=== PATIENT | female | born 1950 | race Caucasian/White ===

== ENCOUNTER 2016-03-17 19:30 | Observation (INO) | payer MEDICARE ==
[2016-03-17] MEDS ORDERED: Naloxone* 0.4 MG/ML 1 ML VIAL IV PUSH ONE (19:53)
--- NOTE | 2016-03-17 20:41 | RAD ---
INDICATION: Chest pain COMPARISON: Chest x-ray July 25, 2014 TECHNIQUE: Single AP view of the chest was obtained. FINDINGS: The heart and mediastinum exhibit normal size and contour. There is mild calcification of the arch of the aorta. Similar the previous chest x-ray the lungs appear hyperaerated in the AP view. Otherwise the lungs are grossly clear. There is no evidence of a large pleural effusion. Visualized bones are normal for the patient's age. IMPRESSION: No radiographic evidence for acute cardiopulmonary abnormality on this single AP view chest x-ray.
[2016-03-17 20:47] LABS: Benzodiazepine Urine Screen None Detected (None Detect)
[2016-03-17 20:54] LABS: Hematocrit 44 % (35-47); Hemoglobin 15.1 g/dl (12.0-16.0); Mean Corpuscular HGB Conc 35 g/dl (31-36); Mean Corpuscular Hemoglobin 33 pg (27-31); Mean Corpuscular Volume 94 fL (80-97); Mean Platelet Volume 7 um3 (7.4-10.4); Red Blood Count 4.63 10^6/ul (4.0-5.4); Red Cell Distribution Width 13 % (10.5-15); White Blood Count 8.2 10^3/ul (3.5-10.8)
--- NOTE | 2016-03-17 20:55 | RAD ---
indication: Syncopal episode with fall from standing height. Contusions are noted at the bridge of the nose and slurred speech is reported. COMPARISON: CT of the brain dated August 10, 2015, CT maxillofacial bones dated August 27, [address] of the cervical spine dated August 27, 2010. A CT scan of the brain, maxillofacial bones and c-spine was performed without intravenous contrast enhancement. Contiguous axial sections were obtained from the lung apices through the vertex. BRAIN: The ventricles, cisterns and sulci are within normal limits. Similar to the previous CT of the brain there is mild periventricular and subcortical white matter hypoattenuation most consistent with chronic microvascular disease. No significant focal abnormality or mass effect is seen. The euceda-white differentiation is adequately maintained. There is no evidence for intracranial hemorrhage. No significant bony abnormality is present. The mastoid air cells are appropriately aerated. FACIAL BONES: Dental amalgam creates streak artifact the level of the jaw which somewhat obscures evaluation of the mandible. There is moderate mucosal thickening of the right maxillary sinus including frothy secretions. The Hounsfield unit of the fluid is not dense enough to be compatible with hemorrhage. Bones: There is no displaced fracture or dislocation. The orbital rim is intact. The zygomatic arch is intact. The pterygoid plates are intact Orbits: The globes are round. The optic nerves are symmetric. The extraocular musculature is normal. There is no post septal or intraconal inflammatory change. There is no retrobulbar hematoma. There are coarse atherosclerotic calcifications at the bilateral carotid bulbs worse on the right than left. C-SPINE: On the sagittal view images the vertebral bodies and facet joints are properly aligned. There is no fracture identified K should identified. Degenerative changes include loss of intervertebral disc height most severely at C5/C6 where there is mild sclerotic change of the articulating endplates and marginal osteophyte formation. There is no hyperdense material in the cervical canal to indicate hemorrhage. The visualized musculature and soft tissues are normal. There is no gross lymphadenopathy visualized. The visualized portion of the lung apices are clear. IMPRESSION: 1. No calvarial fracture or acute intracranial hemorrhage. 2. No acute facial bone fractures. 3. No fracture or dislocation of the cervical spine. 4. There are chronic and degenerative changes described in the body the report that are not changed significantly when compared to prior CT imaging.
[2016-03-17 21:01] LABS: Alcohol < 10 mg/dL (<10)
[2016-03-17 21:03] LABS: ALT 11 U/L (7-52); AST 18 U/L (13-39); Albumin 4.4 g/dL (3.2-5.2); Alkaline Phosphatase 100 U/L (34-104); BUN/Creatinine Ratio 11.2 (8-20); Blood Urea Nitrogen 14 mg/dL (6-24); CO2 Carbon Dioxide 22 mmol/L (22-32); Calcium 8.6 mg/dL (8.6-10.3); Chloride 86 mmol/L (101-111); Creatine Kinase 81 U/L (10-223); EGFR African American 55.1 (>60); EGFR Non-African American 42.9 (>60); Globulin 2.4 g/dL (2-4); Glucose 107 mg/dL (70-100); Potassium 3.3 mmol/L (3.5-5.0); Total Protein 6.8 g/dL (6.4-8.9)
[2016-03-17 21:05] LABS: Anion Gap 11 mmol/L (2-11); Sodium 119 mmol/L (133-145)
[2016-03-17] MEDS ORDERED: NS 0.9% 1000 ML* 1,000 ML IV ONE (21:37)
[2016-03-17 22:47] LABS: Urine Bacteria Absent (Absent); Urine Bilirubin Negative (Negative); Urine Glucose Negative (Negative); Urine Nitrite Negative (Negative)
[2016-03-18 01:21] LABS: BUN/Creatinine Ratio 12.8 (8-20); Calcium 7.2 mg/dL (8.6-10.3); EGFR African American 55.1 (>60); EGFR Non-African American 42.9 (>60)
[2016-03-18 01:24] LABS: Potassium 3.3 mmol/L (3.5-5.0)
--- NOTE | 2016-03-18 03:15 | HP ---
HISTORY AND PHYSICAL: * ADDENDUM: Please note the EKG that I referred to was on another patient. Her EKG shows sinus bradycardia, 58 beats a minute, normal axis, some ST elevations in lead III, and a right bundle branch block pattern. So, therefore, the patient can have the MRI, she has no evidence of a pacemaker. [id number]/[facility] #: [id number] MTDD
[2016-03-18] MEDS: Heparin VIAL(*) 5000 UNITS/ML VIAL (FIVE THOUSAND) SUBCUT SCH ×2 (05:18→14:05)
[2016-03-18 05:36] LABS: BUN/Creatinine Ratio 11.8 (8-20); Calcium 8.6 mg/dL (8.6-10.3); EGFR African American 43.7 (>60); Potassium 3.5 mmol/L (3.5-5.0)
--- NOTE | 2016-03-18 05:50 | HP ---
DATE OF ADMISSION: 03/18/16 CHIEF COMPLAINT: "I almost passed out." HISTORY OF PRESENT ILLNESS: The patient is a 66-year-old woman who says she almost fainted at home last night when she was going to go towards the chilli she was making. She denies ever losing consciousness. She told me she had a very dry mouth and dry throat though she notes she had had increased anxiety during the day and actually saw her psychiatrist that day and had Ativan ordered , but she says she did not take it. In the ER, she was evaluated by the ER physician and found to have some slurred speech. She was also found to have a sodium of 119. She denies any chest pain, shortness of breath, palpitations, abdominal pain, nausea, vomiting, diarrhea, increased frequency of urination or pain on urination. PAST MEDICAL HISTORY: She has a past medical history significant for bipolar disorder and schizophrenia. PAST SURGICAL HISTORY: Significant for x2, total abdominal hysterectomy and salpingectomy, appendectomy, tubal ligation. CURRENT MEDICATIONS: Include: 1. Zyprexa 15 mg daily. 2. Lamictal 200 mg twice daily. 3. Lyrica 150 mg 3 times a day. ALLERGIES: She has no known drug allergies. FAMILY HISTORY: Reviewed and noncontributory. SOCIAL HISTORY: Smokes about half a pack a day. No alcohol or recreational drug use, she says. , lives in [place]. REVIEW OF SYSTEMS: A 14-point review of systems was completed with the patient. All pertinent positives and negatives are in the history of present illness, otherwise it is negative. PHYSICAL EXAMINATION GENERAL: A pleasant woman, lying in bed, in no acute distress. VITAL SIGNS: Temperature 98 degrees, heart rate 66 beats per minute, respiratory rate 14 breaths per minute, pulse ox 95%, blood pressure 81/48. HEENT: Normocephalic, atraumatic. Pupils equal, round, reactive to light. Moist mucous membranes. NECK: Supple. No JVD, bruits, palpable thyroid or lymphadenopathy. CHEST: Clear to auscultation and percussion bilaterally. CARDIOVASCULAR: S1, S2 appreciated. ABDOMEN: Positive bowel sounds in all 4 quadrants. Soft, nontender, and nondistended. No hepatosplenomegaly. EXTREMITIES: No cyanosis, clubbing, or edema, +2 peripheral pulses bilaterally. NEURO: Alert and oriented x3, moves all extremities. SKIN: No rashes or abnormalities. DIAGNOSTIC STUDIES AND LABORATORY DATA: White count 8.2, hemoglobin 15.1, hematocrit 44, platelets 304. Sodium was 119, now up to 126, potassium 3.3, chloride 86, CO2 22, BUN 14, creatinine 1.25, glucose is 107. INR 0.3. Urinalysis: 1 to 6 rbc's. Urine tox is negative. ADDENDUM: Her EKG shows sinus bradycardia, 58 beats a minute, normal axis, some ST elevations in lead III, and a right bundle branch block pattern. So, therefore, the patient can have the MRI; she has no evidence of a pacemaker. Chest x-ray: No radiographic evidence for acute cardiopulmonary abnormality. Brain CT: No calvarial fracture or acute intracranial findings or hemorrhage, no acute facial bone fractures. No fracture or dislocation of the cervical spine, chronic degenerative changes as described in the body of the report. ASSESSMENT AND PLAN: 1. Near syncope. The patient is acting as if she has taken some kind of medication or alcohol, but her urine tox is negative. It is quite puzzling what is going on at this point. We will admit her, do neurological checks. I was going to order an MRI, but looks like she may have a pacemaker. I will do CTA of the head and neck. I may ask Neuro to evaluate if she does not improve. We will get a Physical Therapy consult. 2. Bipolar disorder/schizophrenia. Continue current regimen. 3. FEN. Regular diet. 4. DVT prophylaxis. Heparin subcu. 5. The patient is a full code. TIME SPENT: Over 75 minutes were spent on this H and P; more than 40 minutes were spent in direct [id number] contact with the patient in evaluation, physical exam, counseling, and coordination of care. CC: Evaristo Salazar MD* [id number]/[facility] #: [id number] [id number]/[facility] #: [id number] JEET
[2016-03-18] MEDS ORDERED: lamoTRIgine TAB(*) 100 MG PO SCH (09:00)
[2016-03-18] MEDS ORDERED: OLANzapine TAB* 5 MG PO SCH ×2 (09:00→17:00)
[2016-03-18] MEDS: Pregabalin CAP(*) 100 MG PO SCH ×2 (10:20→14:06)
[2016-03-18] MEDS: Pregabalin CAP(*) 50 MG PO SCH ×2 (10:22→14:08)
[2016-03-18 11:14] VITALS: BP 116/62
[2016-03-18] MEDS ORDERED: Iodixanol* (CONTRAST) 320 MG/ML 100 ML SDV IV ONE (11:54)
--- NOTE | 2016-03-18 12:01 | RAD ---
Indication: Confusion. Image sequences: Sagittal and axial T1, axial T2, FLAIR, diffusion and susceptibility weighted images of the brain were obtained. Ventricular structures are midline. No midline shift is noted. The extraction spaces are unremarkable. Central and cortical atrophy is noted. There is no evidence of intracranial mass or hemorrhage. Multiple punctate areas of increased signal is noted on the FLAIR images and subcortical white matter and deep white matter bilaterally consistent with chronic ischemic White change. No definite vasogenic edema is noted. Susceptibility weighted images demonstrates no evidence of residual hemosiderin. Diffusion weighted images demonstrates no restriction of diffusion. Mucosal thickening of the right maxillary sinus is noted. Mastoid air cells are otherwise unremarkable. IMPRESSION: CHRONIC ISCHEMIC WHITE MATTER CHANGE WITH NO EVIDENCE OF RESTRICTION OF DIFFUSION TO SUGGEST ACUTE INFARCT.
--- NOTE | 2016-03-18 13:21 | RAD ---
INDICATION: Altered mental status. Near syncope. COMPARISON: March 18, 2016 MRI brain. TECHNIQUE: Multidetector CT images were obtained from the aortic arch to the vertex of the head with 80 mL Visipaque 320 IV contrast. Arterial phase of enhancement. Multiplanar reformation including maximum intensity projection. 3-D arterial volume rendering. Stenosis estimations based on denominator of distal arterial diameter. NECK ANGIOGRAM REPORT: Normal configuration of the branch vessels at the aortic arch without evidence for ostial stenosis. Predominant calcific plaque at the RIGHT carotid bulb results in approximate 50% stenosis. No additional atherosclerotic plaque at the RIGHT internal carotid artery. Mild predominant noncalcified plaque at the LEFT carotid bulb and proximal internal carotid artery with less than 30% stenosis resulting. Patent codominant vertebral arteries both contribute to the basilar artery. NECK ANGIOGRAM IMPRESSION: 1. Approximate 50% stenosis at the RIGHT carotid bulb. 2. Less than 30% stenosis at the LEFT carotid bulb and proximal internal carotid artery. HEAD ANGIOGRAM REPORT: Mucosal thickening and air-fluid level with punctate gas bubbles in the RIGHT maxillary sinus suspicious for acute sinusitis warranting clinical correlation. Negative for significant stenosis or occlusion of the intracranial internal carotid arteries, M1 or M2 segments of the middle cerebral arteries, or A1 or A2 segments of the anterior cerebral arteries. No definitive anterior communicating artery visualized. Unremarkable basilar artery and cerebellar artery origins. Patent RIGHT posterior cerebral artery supplied primarily by the posterior circulation with normal variant hypoplastic posterior communicating artery. Patent LEFT posterior cerebral artery is supplied equally from the anterior and posterior circulation with similar size P1 segment and posterior communicating artery. No intracranial aneurysm or vascular malformation evident. The dural venous sinuses are normally opacified without evidence for thrombosis. Advanced C5-C6 degenerative spondylosis. No suggestion of resulting acquired central canal stenosis. Uncinate process spurring and facet joint osteoarthritis results in moderate RIGHT and slight LEFT foraminal stenosis at C5-C6. HEAD ANGIOGRAM IMPRESSION: 1. Normal arterial variation as described. No significant stenosis or occlusion of the central intracranial arterial vasculature. 2. Mucosal thickening and air-fluid level with punctate gas bubbles in the RIGHT maxillary sinus suspicious for acute sinusitis warranting clinical correlation. CPT II: CPT II Codes: 3100F
--- NOTE | 2016-03-18 14:34 | DCNOTE ---
Patient seen this afternoon. Says she feels back to baseline, no further issues. On exam, RRR, s1 and s2 present, no m/g/r, lungs CTA B/L, no w/r/r, no neuro deficits. Plan to discharge home today. I think symptoms likely due to hyponatremia which improved after IVF. Checking Justin, UOsm. Recheck BMP early next week. Do not think she needs treatment for TIA at this time.
--- NOTE | 2016-03-19 01:12 | DS ---
DISCHARGE SUMMARY: DATE OF ADMISSION: 03/17/16 DATE OF DISCHARGE: 03/18/16 PRIMARY CARE PHYSICIAN: Evaristo Salazar MD PRINCIPAL DISCHARGE DIAGNOSIS: Presyncope. SECONDARY DIAGNOSES: 1. Depression. 2. Anxiety. DISCHARGE MEDICATION REGIMEN: 1. Olanzapine 15 mg by mouth daily. 2. Lamictal 200 mg by mouth 2 times daily. 3. Lyrica 150 mg by mouth 3 times daily. STUDIES DONE DURING HOSPITALIZATION: Chest x-ray. Impression: No acute cardiopulmonary disease. CT of the brain without contrast. Impression: No calvarial fracture or acute intracranial hemorrhage. No acute fascial bone fractures. No fracture or dislocation of the cervical spine. Chronic degenerative changes described in the body of the report that are not significantly changed prior to previous CT. CT of the cervical spine, same as above. CT maxillofacial. Same as above. MRI of the brain without contrast. Impression: Chronic ischemic white matter change with no evidence of restriction of diffusion to suggest acute infarct. CTA of the head and neck. Impression: Normal arterial variation as described. No significant stenosis. Mucosal thickening and air fluid level with punctate gas in the right maxillary sinus suspicious for acute sinusitis. HISTORY OF PRESENT ILLNESS AND HOSPITAL SUMMARY: Please see the full history and physical by Dr. Glynn Freitas for details. Briefly, Ms. Moran is a 66-year- old female with a past medical history as above who presented to the hospital with a presyncopal episode of fall and some mild fascial trauma. The patient was found to have a low sodium on admission. She had a negative U-tox. She reported just feeling "off" and was unable to describe it much more clearly. She felt sort of a diffuse weakness. The patient underwent significant imaging as above, which showed no acute changes. Her symptoms improved with improvement in her hyponatremia back to her baseline around the mid 120s up from 119 at admission. Urine sodium was less than 18 indicating this is possibly just due to from hypovolemic hyponatremia. She responded to IV fluids and had no further issues throughout the hospitalization. The patient will be discharged home for repeat blood work to be done as an outpatient. No medication changes were made at this time. TIME SPENT: Total time spent on this discharge 40 minutes. This is a summary of the hospitalization, please see the full medical record for further details. CC: Evaristo Salazar MD * [id number]/[facility] #: [id number] [facility]
== END 2016-03-18 17:55 | disposition home or self-care (01) ==
LOC: ED 19:30 → MEDTELE 03-18 01:57
PROVIDERS: ADMIT Internal Medicine; ATTEND Hospitalist
DX: R55 Syncope and collapse (principal); F20.9 Schizophrenia, unspecified; F31.9 Bipolar disorder, unspecified; F41.9 Anxiety disorder, unspecified; R00.1 Bradycardia, unspecified; I45.10 Unspecified right bundle-branch block; Z79.899 Other long term (current) drug therapy; F17.210 Nicotine dependence, cigarettes, uncomplicated
CPT/HCPCS: 36415; 70450; 70486; 70496; 70498; 70551; 71010; 72125; 80048; 80053; 80175; 80307; 80320; 81003; 81015; 82550; 82553; 83605; 83874; 83880; 83930; 83935; 84300; 84484; 85025; 85610; 85730; 87086; 93005; 96360; 96361; 96372; 99284; A9270-GY; G0378; G0480; G8978-GP-CI; G8979-GP-CI; G8980-GP-CI; J1644; Q9967

== ENCOUNTER 2016-04-24 09:50 | Inpatient (IN) | payer MEDICARE ==
[2016-04-24 11:08] LABS: Hematocrit 44 % (35-47); Hemoglobin 15.2 g/dl (12.0-16.0); Mean Corpuscular HGB Conc 35 g/dl (31-36); Mean Corpuscular Hemoglobin 32 pg (27-31); Mean Corpuscular Volume 93 fL (80-97); Mean Platelet Volume 7 um3 (7.4-10.4); Red Cell Distribution Width 13 % (10.5-15); White Blood Count 12.3 10^3/ul (3.5-10.8)
[2016-04-24 11:25] LABS: Albumin 3.9 g/dL (3.2-5.2); EGFR African American 32.1 (>60); EGFR Non-African American 24.9 (>60); Globulin 2.5 g/dL (2-4); Magnesium 2.4 mg/dL (1.9-2.7); Potassium 3.7 mmol/L (3.5-5.0); Total Bilirubin 0.5 mg/dL (0.2-1.0); Total Protein 6.4 g/dL (6.4-8.9)
[2016-04-24 11:26] LABS: Troponin I 0.01 ng/mL (<0.04)
[2016-04-24 11:34] LABS: TSH (Thyroid Stimulating Horm) 2.06 mcIU/mL (0.34-5.60)
--- NOTE | 2016-04-24 13:05 | RAD ---
HISTORY: Fall, altered mental status COMPARISONS: March 17, 2016 TECHNIQUE: Multiple contiguous axial CT scans were obtained of the head without intravenous contrast. FINDINGS: HEMORRHAGE/INFARCT: There is no hemorrhage or acute infarct. MASSES/SHIFT: There is no mass or shift. EXTRA-AXIAL SPACES: There are no extra-axial fluid collections. SULCI AND VENTRICLES: The sulci and ventricles are normal in size and position for the patient's stated age. CEREBRUM: There are no focal parenchymal abnormalities. BRAINSTEM: There are no focal parenchymal abnormalities. CEREBELLUM: There are no focal parenchymal abnormalities. VESSELS: The vessels are grossly normal. PARANASAL SINUSES: The paranasal sinuses are clear. ORBITS: The orbits are unremarkable. BONES AND SOFT TISSUE: No bone or soft tissue abnormalities are noted. OTHER: None IMPRESSION: NO ACUTE INTRACRANIAL PATHOLOGY.
[2016-04-24] MEDS ORDERED: NS 0.9% 250 ML* 250 ML IV SCH (14:00)
[2016-04-24] MEDS ORDERED: Ibuprofen TAB* 200 MG PO ONE (16:40)
[2016-04-24] MEDS ORDERED: Acetaminophen TAB* 325 MG PO PRN (16:40)
[2016-04-24] MEDS ORDERED: Metoclopramide IV* 5 MG/ML 2 ML VIAL IV ONE (16:40)
[2016-04-24] MEDS ORDERED: SUMAtriptan TAB* 50 MG PO PRN (16:41)
[2016-04-24] MEDS ORDERED: NS 0.9% 1000 ML* 1,000 ML IV SCH (16:45)
[2016-04-24] MEDS ORDERED: NS 0.9% 1000 ML* 500 ML IV SCH (16:45)
[2016-04-24] MEDS ORDERED: Enoxaparin(*) 40 MG/0.4 ML SYR SUBCUT SCH (17:00)
--- NOTE | 2016-04-24 17:36 | RAD ---
Indication: Right base Rales. 2 views of the chest including dual energy PA views are reviewed and compared to previous exam dated March 17, 2016. No mediastinal shift is noted. Heart is of normal size and configuration. Lung mcgowan appear hyperinflated. No pleural fluid, pneumonia or pneumothorax is noted. IMPRESSION: Hyperinflated lung mcgowan without evidence of active cardiopulmonary disease.
[2016-04-24] MEDS: Pregabalin CAP(*) 50 MG PO SCH (20:04)
[2016-04-24] MEDS: lamoTRIgine TAB(*) 100 MG PO SCH (20:04)
--- NOTE | 2016-04-24 20:42 | HP ---
HISTORY AND PHYSICAL: DATE OF ADMISSION: 04/25/16 PRIMARY CARE PROVIDER: Dr. Salazar. HEALTHCARE PROXY: Her . CODE STATUS: Full. SOURCE OF INFORMATION: History obtained from review of past medical records, from recent hospital stay, interview with the patient. Past records are excellent. Interview with the patient is fair. CHIEF COMPLAINT: Dizziness. HISTORY OF PRESENT ILLNESS: This is a 66-year-old female with past medical history of recent hospital stay, was discharged on 18 of March with hyponatremia in the setting of "just not feeling right," noted to have hyponatremia that stay, 119 improved to 126 with normal saline, who notes for the last 3 days, she has been having migraine, took Motrin several times. She described as achiness, bifrontal pain without photophobia consistent with previous migraines. The night prior to admission, she felt dizzy. Described as feeling off balance, but not spinning, associated with abdominal bloating and then nausea, vomiting 4 times overnight, approximately 1 time every 2 hours. This morning, she felt "uncomfortable" with her body. She felt increasingly dizzy when standing, felt like she was stumbling from side to side , therefore, presented to the emergency room. She does not endorse decreased p.o. intake, endorses drinking 4 to 5 cans of soda per day as well as 1 large Gatorade per day and about a quart of milk per day. The patient has been coughing for approximately 6 weeks and right now feels "terrible." Otherwise, she cannot identify any other signs or symptoms of acute illness. In the emergency room, she was found to have new acute on chronic kidney injury as well as hyponatremia. Hospitalist service was consulted for admission. PAST MEDICAL/SURGICAL HISTORY: Include hyponatremia; suspicion for anorexia; low BMI of 19; depression and anxiety; bipolar disorder; past suicide attempts; past parasuicidal behavior; migraines; tubal ligation; appendectomy; total hysterectomy; salpingectomy; ; history of SBO. HOME MEDICATIONS: Unchanged from last discharge include: 1. Zyprexa 15 mg daily. 2. Lamictal 200 mg twice daily. 3. Lyrica 150 mg 3 times a day. ALLERGIES: No known drug allergies. FAMILY HISTORY: No history of CAD, lung disease, or cancer to her knowledge. SOCIAL HISTORY: Smokes quarter pack a day. . Denies alcohol. REVIEW OF SYSTEMS: As above including feeling off balance, lightheaded, nausea , vomiting, abdominal bloating, cough, and headaches consistent with previous migraines, otherwise all other systems negative. PHYSICAL EXAMINATION GENERAL: Sitting up in bed, interactive, pleasant, in no apparent distress. VITAL SIGNS: Vitals in the emergency room 107/76, heart rate 79, respiratory rate 16, T-max in the emergency room 99.4. HEENT: Oropharynx is clear. Has moist mucous membranes. Sclerae are anicteric. Tympanic membranes are visualized well with good light reflex. NECK: Nonelevated JVD. No cervical or supraclavicular lymphadenopathy. HEART: Regular rate and rhythm. No murmurs, rubs, or gallops. Her left base has rales up approximately one-half of the way. ABDOMEN: Soft, nontender, nondistended. EXTREMITIES: Warm, well perfused without clubbing, cyanosis, or edema. NEURO: she has no apparent agitation, anxiety, or depression. SKIN: She has no skin breakdown. She has a bruise over her right eye, healing. DIAGNOSTIC STUDIES/LAB DATA: Labs reviewed: Notable for sodium 117, last sodium 124 on 03/27/16. BUN 32; creatinine 2.0, last creatinine 1.3 on . Lactic acid 2.6. Glucose 140. Troponin I 0.01. TSH 2.0. White blood cell count 12.3; 85% neutrophils; hemoglobin 15.2, consistent with last value; platelets . Urine not yet obtained. EKG: Normal sinus rhythm, left axis, borderline right bundle or incomplete right bundle, good R-wave progression, no ST changes, unchanged from prior. Brain CT, impression: No intracranial pathology. ASSESSMENT AND PLAN: This is a 66-year-old female with past medical history of hyponatremia in March, migraine, presenting with suspicion of lightheadedness , found to have recurrent hyponatremia, and acute kidney injury in the setting of nausea, vomiting. 1. Hyponatremia. Suspect hypovolemic hyponatremia. She already received 250 cc of fluid in the emergency room. Especially in conjunction with acute kidney injury, I suspect prerenal etiology. Give another liter of fluid. Repeat BMP this evening. Trend BMP in the a.m. Check urinalysis. 2. Right basilar rales. Check chest x-ray. Certainly, infection could be contributing in the setting of increased leukocytosis. No formal fevers yet. 3. Dizziness. Suspect also in the setting of dehydration. 4. Acute kidney injury. Check orthostatic, fluids as above. Continue to follow. 5. Headache. Ibuprofen now. Tylenol as needed. Reglan now, sumatriptan if ineffective. 6. DVT prophylaxis. Heparin subcu in the setting of renal insufficiency. 7. Code status is full. CC: Dr. Salazar* [id number]/[facility] #: [id number] MTDD
[2016-04-24] MEDS: Heparin VIAL(*) 5000 UNITS/ML VIAL (FIVE THOUSAND) SUBCUT SCH (21:44)
[2016-04-24] MEDS: Ondansetron INJ* 2 MG/ML VIAL IV PRN (21:46)
[2016-04-24] MEDS ORDERED: PROCHLORPERAZINE INJ 5 MG/ML 2 ML VIAL IV PRN (22:51)
[2016-04-24] MEDS: Docusate CAP* 100 MG PO SCH (23:24)
[2016-04-25] MEDS: Heparin VIAL(*) 5000 UNITS/ML VIAL (FIVE THOUSAND) SUBCUT SCH ×3 (05:16→20:17)
[2016-04-25] MEDS: Ondansetron INJ* 2 MG/ML VIAL IV PRN (05:17)
[2016-04-25 05:59] LABS: Hematocrit 45 % (35-47); Hemoglobin 15.6 g/dl (12.0-16.0); Mean Corpuscular HGB Conc 35 g/dl (31-36); Mean Corpuscular Hemoglobin 32 pg (27-31); Mean Corpuscular Volume 93 fL (80-97); Mean Platelet Volume 7 um3 (7.4-10.4); Red Blood Count 4.84 10^6/ul (4.0-5.4); Red Cell Distribution Width 13 % (10.5-15); White Blood Count 6.4 10^3/ul (3.5-10.8)
--- NOTE | 2016-04-25 06:06 | PN ---
Progress Note - Progress Note Note: Nursing called reporting N/V w/ HX SBO. Abdominal XRY shows multiple air-fluid levels consistent w/ SBO. Ordered NG to low intermittent suction & NPO. Will need surgical consultation.
[2016-04-25 06:13] LABS: BUN/Creatinine Ratio 16.6 (8-20); Calcium 9.1 mg/dL (8.6-10.3); EGFR African American 31.2 (>60); EGFR Non-African American 24.2 (>60); Potassium 3.4 mmol/L (3.5-5.0)
[2016-04-25] MEDS ORDERED: NS 0.9% 1000 ML* 1,000 ML IV SCH ×3 (07:30→15:45)
[2016-04-25] MEDS: NS 0.9% 1000 ML* 2,000 ML IV ONE ×2 (07:30→08:39)
--- NOTE | 2016-04-25 07:34 | RAD ---
INDICATION: Small bowel obstruction COMPARISON: Abdomen July 18, 2014 TECHNIQUE: Erect and supine views of the abdomen are submitted. FINDINGS: Bones: There are no acute bony findings. Soft tissues: The soft tissues appear normal. The psoas margins are sharp. Bowel gas pattern: There is a small bowel obstruction with scattered air-fluid levels and dilated small bowel, predominantly jejunum. There is a paucity of gas in the colon. Calcifications: There are no abnormal calcifications. Other: None IMPRESSION: SMALL BOWEL OBSTRUCTION. RECOMMEND FOLLOW-UP.
[2016-04-25] MEDS ORDERED: Diatrizoate Meg/Sod(CONTRAST) 30 ML ORAL.SOLN PO ONE (07:52)
[2016-04-25] MEDS: Docusate CAP* 100 MG PO SCH ×2 (08:42→19:52)
[2016-04-25] MEDS ORDERED: OLANzapine TAB* 5 MG PO SCH (09:00)
[2016-04-25] MEDS ORDERED: Pneumococcal *Vac Polyvalent 0.5 ML VIAL IM ONE (09:00)
[2016-04-25] MEDS: Pregabalin CAP(*) 50 MG PO SCH ×3 (09:47→20:17)
[2016-04-25] MEDS: lamoTRIgine TAB(*) 100 MG PO SCH ×2 (09:47→20:17)
[2016-04-25] MEDS: Acetaminophen ADULT LIQ* 650 MG/20.3 ML UDC PO PRN ×2 (10:05→16:41)
--- NOTE | 2016-04-25 12:04 | RAD ---
INDICATION: Small bowel obstruction COMPARISON: Abdominal series April 25, 2016; CT July 24, 2014 TECHNIQUE: Axial source images were acquired from the level hemidiaphragms to the symphysis pubis following the demonstration of oral contrast only. Lung bases: There is mild gravity dependent atelectasis. The lung bases are otherwise clear. Liver: The liver is normal in size. Noncontrast imaging shows no evidence of a hepatic mass or ductal dilatation. Gallbladder: Cholelithiasis. No thickening gallbladder wall or pericholecystic fluid. Spleen: The spleen is normal in size. The noncontrast CT appearance is normal. Pancreas: Noncontrast imaging shows no pancreatic mass or ductal dilitation. Adrenal glands: Mild right adrenal gland hyperplasia. No discrete mass. Unremarkable left adrenal gland. Kidneys/Bladder: There is no evidence of nephrolithiasis or CT evidence of hydronephrosis. Noncontrast imaging shows no evidence of a renal mass. The bladder is distended and may require a Cleary catheter in the patient was unable to void Adenopathy: There is no evidence of intraperitoneal or retroperitoneal adenopathy. Evaluation is limited without oral contrast. Fluid collections: There are no free or localized fluid collections. Vessels: No acute abnormalities on noncontrast evaluation. Pelvic organs: There is hysterectomy. There is no adnexal mass GI tract: There is recurrent distal small bowel obstruction. The stomach is distended and the small bowel is dilated up to 4.7 cm. There is a nasogastric tube near the GE junction which is not effectively decompressing the stomach. The obstruction appears to be at the mid to distal ileum similar to the prior study. The colon is decompressed. Soft tissues: No soft tissue abnormalities of the extraperitoneal abdomen or pelvis are identified. Osseous structures: There are no acute osseous findings. IMPRESSION: RECURRENT DISTAL SMALL BOWEL OBSTRUCTION. THE STOMACH IS DISTENDED AND NOT EFFECTIVELY DECOMPRESSED BY A NASOGASTRIC TUBE WHICH SHOULD BE ADVANCED OR SET TO SUCTION. DISTENDED BLADDER. INCIDENTAL CHOLELITHIASIS.
[2016-04-25] MEDS: KCL 20 MEQ/100 ML IVPREMIX* 20 MEQ/100 ML BAG IV SCH ×3 (12:11→14:20)
--- NOTE | 2016-04-25 13:30 | PN ---
Subjective Date of Service: 04/25/16 Interval History: Seen and examined multiple times throughout the day NG placed overnight for SBO This AM no abdominal pain but found with SBP in 70-80s By afternoon (1330) SBP up to 100 s/p 3L normal saline +flatus now Carrasco placed for urinary retention Objective Active Medications: Acetaminophen (Tylenol Adult Liq*) 650 mg PO Q6H PRN PRN Reason: PAIN Last Admin: 04/25/16 10:05 Dose: 650 mg Docusate Sodium (Colace Cap*) 200 mg PO BID [facility] Last Admin: 04/25/16 08:42 Dose: Not Given Heparin Sodium (Porcine) (Heparin Vial(*)) 5,000 units SUBCUT Q8HR [facility] Last Admin: 04/25/16 05:16 Dose: 5,000 units Sodium Chloride (Ns 0.9% 1000 Ml*) 1,000 mls @ 125 mls/hr IV PER RATE [facility] Stop: 04/25/16 15:29 Last Admin: 04/25/16 11:26 Dose: 125 mls/hr Lamotrigine (Lamictal Tab(*)) 200 mg PO BID [facility] Last Admin: 04/25/16 09:47 Dose: 200 mg Olanzapine (Zyprexa Tab*) 15 mg PO BEDTIME [facility] Ondansetron HCl (Zofran Inj*) 4 mg IV Q4H PRN PRN Reason: NAUSEA Last Admin: 04/25/16 05:17 Dose: 4 mg Pregabalin (Lyrica Cap(*)) 150 mg PO TID [facility] Last Admin: 04/25/16 09:47 Dose: 150 mg Prochlorperazine Edisylate (Compazine Inj*) 10 mg IV Q6H PRN PRN Reason: NAUSEA Last Admin: 04/24/16 23:25 Dose: 10 mg Sumatriptan Succinate (Imitrex Tab*) 50 mg PO ONCE PRN PRN Reason: HEADACHE Last Admin: 04/24/16 21:44 Dose: 50 mg Vital Signs 04/24/16 04/24/16 04/24/16 17:00 17:01 17:09 Temperature Pulse Rate 86 83 Respiratory 17 19 Rate Blood Pressure 99/53 (mmHg) O2 Sat by Pulse 93 93 Oximetry 04/24/16 04/24/16 04/24/16 17:30 17:42 17:44 Temperature Pulse Rate 81 Respiratory 15 25 18 Rate Blood Pressure 99/59 94/60 100/66 (mmHg) O2 Sat by Pulse 94 Oximetry 04/24/16 04/24/16 04/24/16 17:46 17:49 18:00 Temperature Pulse Rate 85 95 Respiratory 16 17 Rate Blood Pressure 96/64 96/64 (mmHg) O2 Sat by Pulse 94 Oximetry 04/24/16 04/24/16 04/24/16 18:02 18:30 19:03 Temperature 98 F Pulse Rate 83 Respiratory 14 15 22 Rate Blood Pressure 108/66 99/63 100/65 (mmHg) O2 Sat by Pulse 95 Oximetry 04/24/16 04/24/16 04/24/16 20:00 20:04 22:04 Temperature Pulse Rate Respiratory 16 16 16 Rate Blood Pressure (mmHg) O2 Sat by Pulse Oximetry 04/24/16 04/25/16 04/25/16 23:29 03:19 03:33 Temperature 99.0 F 99.4 F Pulse Rate 79 87 Respiratory 16 16 Rate Blood Pressure 125/71 92/59 106/64 (mmHg) O2 Sat by Pulse 91 91 Oximetry 04/25/16 04/25/16 04/25/16 07:22 09:47 11:07 Temperature 98.7 F 98.9 F Pulse Rate 89 82 Respiratory 16 14 15 Rate Blood Pressure 82/56 (mmHg) O2 Sat by Pulse 87 95 Oximetry 04/25/16 11:47 Temperature Pulse Rate Respiratory 17 Rate Blood Pressure (mmHg) O2 Sat by Pulse Oximetry Oxygen Devices in Use Now: None Appearance: NAD Eyes: No Scleral Icterus Ears/Nose/Mouth/Throat: NL Teeth, Lips, Gums, Clear Oropharnyx Neck: NL Appearance and Movements; NL JVP, Trachea Midline Respiratory: Symmetrical Chest Expansion and Respiratory Effort, - - +rhonchi Cardiovascular: RRR Abdominal: - - soft, NTTP, distended, +bs Lymphatic: No Cervical Adenopathy Extremities: No Edema Skin: No Rash or Ulcers Neurological: Alert and Oriented x 3 Result Diagrams: 04/25/16 04:55 04/25/16 04:55 Additional Lab and Data: Lab Results 04/24/16 04/24/16 04/24/16 Range/Units 10:54 10:54 10:54 WBC 12.3 H (3.5-10.8) 10^3/ul RBC 4.70 (4.0-5.4) 10^6/ul Hgb 15.2 (12.0-16.0) g/dl Hct 44 (35-47) % MCV 93 (80-97) fL MCH 32 H (27-31) pg MCHC 35 (31-36) g/dl RDW 13 (10.5-15) % Plt Count 369 (150-450) 10^3/ul MPV 7 L (7.4-10.4) um3 Neut % (Auto) 85.6 H (38-83) % Lymph % (Auto) 3.9 L (25-47) % [place] % (Auto) 9.6 H (1-9) % Eos % (Auto) 0.1 (0-6) % Baso % (Auto) 0.8 (0-2) % Absolute Neuts (auto) 10.5 H (1.5-7.7) 10^3/ul Absolute Lymphs (auto) 0.5 L (1.0-4.8) 10^3/ul Absolute Monos (auto) 1.2 H (0-0.8) 10^3/ul Absolute Eos (auto) 0 (0-0.6) 10^3/ul Absolute Basos (auto) 0.1 (0-0.2) 10^3/ul Absolute Nucleated RBC 0 10^3/ul Nucleated RBC % 0 Sodium 117 L* (133-145) mmol/L Potassium 3.7 (3.5-5.0) mmol/L Chloride 82 L (101-111) mmol/L Carbon Dioxide 23 (22-32) mmol/L Anion Gap 12 H (2-11) mmol/L BUN 32 H (6-24) mg/dL Creatinine 2.00 H (0.51-0.95) mg/dL Est GFR ( Amer) 32.1 (>60) Est GFR (Non-Af Amer) 24.9 (>60) BUN/Creatinine Ratio 16.0 (8-20) Glucose 140 H (70-100) mg/dL Lactic Acid 2.6 H* (0.5-2.0) mmol/L Calcium 9.0 (8.6-10.3) mg/dL Magnesium 2.4 (1.9-2.7) mg/dL Total Bilirubin 0.50 (0.2-1.0) mg/dL AST 26 (13-39) U/L ALT 20 (7-52) U/L Alkaline Phosphatase 86 (34-104) U/L Troponin I 0.01 (<0.04) ng/mL Total Protein 6.4 (6.4-8.9) g/dL Albumin 3.9 (3.2-5.2) g/dL Globulin 2.5 (2-4) g/dL Albumin/Globulin Ratio 1.6 (1-3) TSH 2.06 (0.34-5.60) mcIU/mL Microbiology and Other Data: Microbiology 04/24/16 18:00 Nasal Screen MRSA (PCR)([facility]) - Final Nasal Mrsa Negative 04/24/16 18:00 Influenza Types A,B Antigen ([facility]) - Final Nasal Specimen received for Influenza A/B Molecular testing Assess/Plan/Problems-Billing Assessment: 66 yo F h/o hysterectomy/c-sections, SBO (06/2014) resolved with conservative measures, p/w N/V, PEREZ found with hyponatremia, KRYSTINA and recurrent SBO - Patient Problems (1) Urinary retention Comment: carrasco placed with relief (2) Acute renal failure Comment: No e/o hydro on CT but pt was retaining. Also suspect pre renal in setting of hyponatremia Urine has not been collected (3) Hyponatremia Comment: hypovolemic improving with crystalloids (4) Small bowel obstruction Comment: NG in place, NPO +flatus appreciate surgical assistance (5) Hx of bipolar disorder Comment: c/w lamictal, zyprexa (6) DVT prophylaxis Comment: HSQ
[2016-04-25 14:46] LABS: Urine Bacteria Absent (Absent); Urine Bilirubin Negative (Negative); Urine Glucose Negative (Negative); Urine Nitrite Negative (Negative)
--- NOTE | 2016-04-25 15:26 | CONS ---
SURGICAL CONSULTATION REPORT: DATE OF CONSULT: 04/25/16 HISTORY OF PRESENT ILLNESS: I was contacted by the hospitalist service to evaluate Ms. Naheed Moran, a 66-year-old female, who presented to the emergency room yesterday with complaints of fatigue and just not feeling right, noted to have significant hyponatremia and was admitted for IV hydration for this as well as for acute kidney injury. The patient was noted to have abdominal distention and underwent x-ray of the abdomen, which was consistent with small bowel obstruction. The patient has a history of small obstruction in the past with her most recent admission for this purpose just under 2 years ago, this was treated nonoperatively. The patient remains n.p.o. on IV fluids and NG tube was placed and over 2 liters of output have been recorded thus far. The patient describes abdominal distention, but denies any abdominal pain. She is obstipated for over a day now. She cannot remember when her last bowel movement was. She is having some nausea despite NG tube placement in her hospital bed right now with some vomitus in the adjacent bucket that she was using. She has no appetite. She feels as though she cannot control her body at times. She is very tearful. PAST MEDICAL HISTORY: 1. Depression. 2. Anxiety. 3. Bipolar disorder. 4. Migraines. PAST SURGICAL HISTORY: C-sections x2 in the s and a total hysterectomy, salpingectomy and appendectomy performed in 1983 for fibroids. HOME MEDICATIONS: Include: 1. Zyprexa. 2. Lamictal. 3. Lyrica. ALLERGIES: She has no known drug allergies. REVIEW OF SYSTEMS: She denies headaches at this point, but she does suffer with migraines. No shortness of breath. No chest pain. Abdominal discomfort, but would not describe it as pain. Psychiatric illnesses as described above. No dysuria, but the patient will be having a Cleary placed shortly after undergoing a CT scan, which showed a dilated bladder. The patient is a smoker and smokes about 5 to 6 cigarettes a day. No cardiovascular disease. No cerebrovascular disease. PHYSICAL EXAM: She is afebrile. Vital signs are stable, but her blood pressure has been soft at 82/56 at last reading. She is alert and oriented x3. Again sad that she is admitted. She has NG tube in place with a full canister that is being replaced at this time as well as she did have emesis. Head, ears, eyes, nose, and throat: Normocephalic, atraumatic. Sclerae anicteric. Mucous membranes are dry. Neck: No lymphadenopathy. Abdomen is soft, distended, minimally tender without rebound. No hernias or masses noted. Well-healed surgical incisions. High- pitched hyperactive bowel sounds. Rectal exam not performed. Extremities: No cyanosis or edema. DIAGNOSTIC STUDIES/LAB DATA: The patient's lab show entry white count of 12.3, which now has come down to 6.4. Chemistry panel shows a creatinine of 2, again on repeat, she is off of her baseline, which is about 1.5, although at previous times, she has been elevated. She had a lactic acid of 2.6. It has normalized and she has normal LFTs, included troponin and TSH. The patient underwent a CAT scan of the abdomen and pelvis. These images as well as the reports were reviewed and is consistent with a small bowel obstruction. No free fluid or free air. Stomach is dilated. Bladder is dilated. IMPRESSION: Small bowel obstruction that has resolved in the past with nonsurgical treatment. PLAN/RECOMMENDATIONS: Plan will be observe, IV hydration, n.p.o. status, NG tube, recommend Cleary catheter as well. NG tube can be placed a little deeper into the stomach and possibly the patient will not be vomiting around the tube. We will follow with serial abdominal exams and the patient may require surgical intervention, namely exploratory laparotomy and lysis of adhesions, and I believe that she is suffering with malignancy and I believe small bowel obstruction is possibly secondary to her renal insufficiency, although it may be opposite and she may be suffering with severe hypervolemia secondary to the obstruction. It is unclear with Ms. Moran at this point; nevertheless, this remains the treatment for IV hydration, monitoring her electrolytes and serial abdominal exams. CC: [facility]; Dr. Evaristo Salazar * [id number]/[facility] #: [id number] [facility] CENTERMelyssa
[2016-04-25] MEDS ORDERED: NS 0.9% 250 ML* 250 ML IV PRN (19:18)
[2016-04-25] MEDS: OLANzapine TAB* 5 MG PO SCH (20:16)
[2016-04-26] MEDS: Phenol 1.4% Spray* 177 ML BTL MT PRN ×4 (04:41→12:49)
[2016-04-26] MEDS: Heparin VIAL(*) 5000 UNITS/ML VIAL (FIVE THOUSAND) SUBCUT SCH ×3 (04:48→22:24)
[2016-04-26] MEDS: Acetaminophen ADULT LIQ* 650 MG/20.3 ML UDC PO PRN ×3 (04:48→22:08)
[2016-04-26 06:14] LABS: Hematocrit 38 % (35-47); Hemoglobin 13.1 g/dl (12.0-16.0); Mean Corpuscular HGB Conc 35 g/dl (31-36); Mean Corpuscular Hemoglobin 33 pg (27-31); Mean Corpuscular Volume 95 fL (80-97); Mean Platelet Volume 7 um3 (7.4-10.4); Red Blood Count 3.99 10^6/ul (4.0-5.4); Red Cell Distribution Width 13 % (10.5-15); White Blood Count 4.9 10^3/ul (3.5-10.8)
[2016-04-26 06:51] LABS: BUN/Creatinine Ratio 15.9 (8-20); Calcium 8.2 mg/dL (8.6-10.3); EGFR African American 46.5 (>60); EGFR Non-African American 36.1 (>60); Potassium 3.9 mmol/L (3.5-5.0)
[2016-04-26] MEDS: Albuterol/Ipratropium NEB.SOL* Albuterol 2.5 MG/Ipratropium 0.5 MG 3 ML INH PRN (08:46)
[2016-04-26] MEDS: Pregabalin CAP(*) 50 MG PO SCH ×3 (09:21→22:11)
[2016-04-26] MEDS: lamoTRIgine TAB(*) 100 MG PO SCH ×2 (09:22→22:14)
[2016-04-26] MEDS: Docusate CAP* 100 MG PO SCH ×2 (09:34→21:41)
--- NOTE | 2016-04-26 11:46 | PN ---
Subjective Date of Service: 04/26/16 Interval History: No abdominal pain. No N/V. Does complaint of pain in back of throat. Belly feels less distended. Reports "a lot of gas" no BMs Objective Active Medications: Acetaminophen (Tylenol Adult Liq*) 650 mg PO Q6H PRN PRN Reason: PAIN Last Admin: 04/26/16 04:48 Dose: 650 mg Albuterol/Ipratropium (Duoneb Neb.Desiree*) 1 neb INH Q6H PRN PRN Reason: SOB/WHEEZING Last Admin: 04/26/16 08:46 Dose: 1 neb Docusate Sodium (Colace Cap*) 200 mg PO BID [facility] Last Admin: 04/26/16 09:34 Dose: Not Given Heparin Sodium (Porcine) (Heparin Vial(*)) 5,000 units SUBCUT Q8HR [facility] Last Admin: 04/26/16 04:48 Dose: 5,000 units Sodium Chloride (Ns 0.9% 250 Ml*) 250 mls @ 0 mls/hr IV .BOLUS PRN; As Directed PRN Reason: NGT OUTPUT REPLACEMENT Last Admin: 04/26/16 02:00 Dose: 250 mls/hr Lamotrigine (Lamictal Tab(*)) 200 mg PO BID [facility] Last Admin: 04/26/16 09:22 Dose: 200 mg Olanzapine (Zyprexa Tab*) 15 mg PO BEDTIME [facility] Last Admin: 04/25/16 20:16 Dose: 15 mg Ondansetron HCl (Zofran Inj*) 4 mg IV Q4H PRN PRN Reason: NAUSEA Last Admin: 04/25/16 05:17 Dose: 4 mg Phenol/Menthol (Chloroseptic Throat [place]*) 1 spray MT Q1H PRN PRN Reason: THROAT IRRITATION Last Admin: 04/26/16 09:18 Dose: 1 spray Pregabalin (Lyrica Cap(*)) 150 mg PO TID [facility] Last Admin: 04/26/16 09:21 Dose: 150 mg Prochlorperazine Edisylate (Compazine Inj*) 10 mg IV Q6H PRN PRN Reason: NAUSEA Last Admin: 04/24/16 23:25 Dose: 10 mg Sumatriptan Succinate (Imitrex Tab*) 50 mg PO ONCE PRN PRN Reason: HEADACHE Last Admin: 04/24/16 21:44 Dose: 50 mg Vital Signs 04/25/16 04/25/16 04/25/16 11:47 12:00 13:57 Temperature Pulse Rate Respiratory 17 16 Rate Blood Pressure 88/50 (mmHg) O2 Sat by Pulse Oximetry 04/25/16 04/25/16 04/25/16 14:05 15:44 15:46 Temperature 99.8 F Pulse Rate 94 Respiratory 16 Rate Blood Pressure 100/57 100/60 (mmHg) O2 Sat by Pulse 87 Oximetry 04/25/16 04/25/16 04/25/16 15:48 16:10 17:20 Temperature Pulse Rate Respiratory 19 Rate Blood Pressure (mmHg) O2 Sat by Pulse 93 92 Oximetry 04/25/16 04/25/16 04/25/16 19:58 20:00 20:17 Temperature 98.9 F Pulse Rate 91 Respiratory 16 20 19 Rate Blood Pressure 102/51 (mmHg) O2 Sat by Pulse 93 Oximetry 04/25/16 04/25/16 04/26/16 22:17 23:26 03:26 Temperature 98.4 F 98.3 F Pulse Rate 78 88 Respiratory 16 16 24 Rate Blood Pressure 121/66 151/88 (mmHg) O2 Sat by Pulse 91 91 Oximetry 04/26/16 04/26/16 04/26/16 07:37 07:51 08:48 Temperature 97.8 F Pulse Rate 73 72 Respiratory 16 16 16 Rate Blood Pressure 101/76 (mmHg) O2 Sat by Pulse 97 95 Oximetry 04/26/16 09:21 Temperature Pulse Rate Respiratory 16 Rate Blood Pressure (mmHg) O2 Sat by Pulse Oximetry Oxygen Devices in Use Now: Nasal Cannula Appearance: NAD Eyes: No Scleral Icterus, PERRLA Ears/Nose/Mouth/Throat: Clear Oropharnyx, Mucous Membranes Moist Neck: NL Appearance and Movements; NL JVP, Trachea Midline Respiratory: Symmetrical Chest Expansion and Respiratory Effort, - - diffuse rhonchi Cardiovascular: NL Sounds; No Murmurs; No JVD, RRR Abdominal: NL Sounds; No Tenderness; No Distention, No Hepatosplenomegaly Extremities: No Edema, No Clubbing, Cyanosis Skin: No Rash or Ulcers Neurological: Alert and Oriented x 3 Lines/Tubes/Other Access: Clean, Dry and Intact Carrasco, Clean, Dry and Intact Naso-enteral Tube Result Diagrams: 04/26/16 05:51 04/26/16 05:51 Additional Lab and Data: Lab Results 04/24/16 04/24/16 04/24/16 Range/Units 10:54 10:54 10:54 WBC 12.3 H (3.5-10.8) 10^3/ul RBC 4.70 (4.0-5.4) 10^6/ul Hgb 15.2 (12.0-16.0) g/dl Hct 44 (35-47) % MCV 93 (80-97) fL MCH 32 H (27-31) pg MCHC 35 (31-36) g/dl RDW 13 (10.5-15) % Plt Count 369 (150-450) 10^3/ul MPV 7 L (7.4-10.4) um3 Neut % (Auto) 85.6 H (38-83) % Lymph % (Auto) 3.9 L (25-47) % [place] % (Auto) 9.6 H (1-9) % Eos % (Auto) 0.1 (0-6) % Baso % (Auto) 0.8 (0-2) % Absolute Neuts (auto) 10.5 H (1.5-7.7) 10^3/ul Absolute Lymphs (auto) 0.5 L (1.0-4.8) 10^3/ul Absolute Monos (auto) 1.2 H (0-0.8) 10^3/ul Absolute Eos (auto) 0 (0-0.6) 10^3/ul Absolute Basos (auto) 0.1 (0-0.2) 10^3/ul Absolute Nucleated RBC 0 10^3/ul Nucleated RBC % 0 Sodium 117 L* (133-145) mmol/L Potassium 3.7 (3.5-5.0) mmol/L Chloride 82 L (101-111) mmol/L Carbon Dioxide 23 (22-32) mmol/L Anion Gap 12 H (2-11) mmol/L BUN 32 H (6-24) mg/dL Creatinine 2.00 H (0.51-0.95) mg/dL Est GFR ( Amer) 32.1 (>60) Est GFR (Non-Af Amer) 24.9 (>60) BUN/Creatinine Ratio 16.0 (8-20) Glucose 140 H (70-100) mg/dL Lactic Acid 2.6 H* (0.5-2.0) mmol/L Calcium 9.0 (8.6-10.3) mg/dL Magnesium 2.4 (1.9-2.7) mg/dL Total Bilirubin 0.50 (0.2-1.0) mg/dL AST 26 (13-39) U/L ALT 20 (7-52) U/L Alkaline Phosphatase 86 (34-104) U/L Troponin I 0.01 (<0.04) ng/mL Total Protein 6.4 (6.4-8.9) g/dL Albumin 3.9 (3.2-5.2) g/dL Globulin 2.5 (2-4) g/dL Albumin/Globulin Ratio 1.6 (1-3) TSH 2.06 (0.34-5.60) mcIU/mL Microbiology and Other Data: Microbiology 04/24/16 18:00 Nasal Screen MRSA (PCR)([facility]) - Final Nasal Mrsa Negative 04/24/16 18:00 Influenza Types A,B Antigen ([facility]) - Final Nasal Specimen received for Influenza A/B Molecular testing Assess/Plan/Problems-Billing Assessment: 66 yo F h/o hysterectomy/c-sections, SBO (06/2014) resolved with conservative measures, p/w N/V, PEREZ found with hyponatremia, KRYSTINA and recurrent SBO - Patient Problems (1) Urinary retention Comment: carrasco placed with relief follow UOP. 5000L yesterday but with vigorous volume repletion. If continues with high output will replace 1:2 (2) Acute renal failure Comment: No e/o hydro on CT but pt was retaining. Also suspect pre renal in setting of hyponatremia Improved with carrasco and crystalloids. Holding additional fluids in setting of increased oxygen demand (3) Hyponatremia Comment: hypovolemic improved with crystalloids (4) Small bowel obstruction Comment: NG in place, NPO +flatus appreciate surgical assistance (5) Hx of bipolar disorder Comment: c/w lamictal, zyprexa (6) Acute respiratory failure with hypoxia Comment: In setting of fluids Hold additional fluids Hold on diuresis unless increased oxygen demand (7) DVT prophylaxis Comment: HSQ
--- NOTE | 2016-04-26 16:27 | ED ---
Jose R Tompkins Matthew, scribed for Rashaun Rowell MD on 04/24/16 at 1334 . Abdominal Pain/Female - HPI Summary HPI Summary: A 66 y/o female presents to the ED with diffuse lower abdominal pain since last night. Associated symptoms include vomiting, abdominal bloating, dizziness, and twitching. The patient denies chest pain, SOB, and diarrhea. Today, the patient also fell and hit her dresser than the floor. She was recently treated with Abx for bronchitis. She was seen in the ED about a month ago for similar issues. The patient drinks 11 cans of diet pepsi a day. No recent change in her medications. 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 Negative: Chest Pain, Diarrhea Allergies/Adverse Reactions: Allergies Allergy/AdvReac Type Severity Reaction Status Date / Time No Known Allergies Allergy Verified 04/24/16 09:57 Home Medications: Home Medications Pregabalin CAP(*) [Lyrica CAP(*)] 150 mg PO TID 04/24/16 [History Confirmed ] lamoTRIgine TAB(*) [LaMICtal TAB(*)] 200 mg PO BID 04/24/16 [History Confirmed 04/24/16] PMH/Surg Hx/FS Hx/Imm Hx GI History: Reports: Hx Obstructive Bowel Sensory History: Reports: Hx Contacts or Glasses Opthamlomology History: Reports: Hx Contacts or Glasses Psychiatric History: Reports: Hx Anxiety, Hx Depression - Cancer History Hx Chemotherapy: No Hx Radiation Therapy: No - Surgical History Surgery Procedure, Year, and Place: total hysterectomy w/appendectomy, 2 c- sections, RT SHOULDER Infectious Disease History: No Infectious Disease History: Denies: Traveled Outside the [place] in Last 30 Days - Family History Family History: No FHx of Breast CA - Social History Alcohol Use: Occasionally Substance Use Type: Reports: None Substance Use Comment - Amount & Last Used: RX benzos Smoking Status (MU): Heavy Every Day Tobacco Smoker Review of Systems Constitutional: Negative Negative: Fever, Chills Eyes: Negative Negative: Erythema ENT: Negative Cardiovascular: Negative Negative: Chest Pain Respiratory: Negative Negative: Shortness Of Breath Gastrointestinal: Other - abdominal bloating Positive: Abdominal Pain - diffuse lower abdominal pain, Vomiting, Nausea. Negative: Diarrhea Genitourinary: Negative Negative: dysuria, hematuria Musculoskeletal: Negative Negative: Myalgia, Edema Skin: Negative Negative: Rash Neurological: Other - Dizziness; Tremulous Psychological: Normal All Other Systems Reviewed And Are Negative: Yes Physical Exam Triage Information Reviewed: Yes Vital Signs On Initial Exam: Initial Vitals Temp Pulse Resp BP Pulse Ox 99.0 F 86 18 104/64 100 04/24/16 09:56 04/24/16 09:56 04/24/16 09:56 04/24/16 09:56 04/24/16 09:56 Vital Signs Reviewed: Yes Appearance: Positive: No Pain Distress Skin: Positive: Warm, Dry Head/Face: Positive: Other - Normocephalic; Atraumatic Eyes: Positive: Conjunctiva Clear Dental: Negative: Cervical Lymphadenopathy Neck: Positive: Supple, No Lymphadenopathy Respiratory/Lung Sounds: Positive: Breath Sounds Present, Other - Normal Effort. Negative: Rales, Rhonchi, Stridor, Tracheal Deviation, Wheezes Cardiovascular: Positive: RRR, Other - Heart sounds normal; Intact distal pulses ; The pedal pulses are 2+ and symmetric. Radial pulses are 2+ and symmetric. Negative: Murmur Abdomen Description: Positive: Nontender, Soft, Other: - NO rebound. Negative: Distended, Guarding Musculoskeletal: Negative: Edema Left, Edema Right Neurological: Positive: Other - Tremulous Psychiatric: Positive: Affect/Mood Appropriate - [place] Coma Scale Coma Scale Total: 15 Diagnostics - Vital Signs Vital Signs Temp Pulse Resp BP Pulse Ox 04/24/16 13:10 99.4 F 82 18 99/65 96 04/24/16 09:56 99.0 F 86 18 104/64 100 - Laboratory Lab Results: Lab Results 04/24/16 04/24/16 04/24/16 Range/Units 10:54 10:54 10:54 WBC 12.3 H (3.5-10.8) 10^3/ul RBC 4.70 (4.0-5.4) 10^6/ul Hgb 15.2 (12.0-16.0) g/dl Hct 44 (35-47) % MCV 93 (80-97) fL MCH 32 H (27-31) pg MCHC 35 (31-36) g/dl RDW 13 (10.5-15) % Plt Count 369 (150-450) 10^3/ul MPV 7 L (7.4-10.4) um3 Neut % (Auto) 85.6 H (38-83) % Lymph % (Auto) 3.9 L (25-47) % [place] % (Auto) 9.6 H (1-9) % Eos % (Auto) 0.1 (0-6) % Baso % (Auto) 0.8 (0-2) % Absolute Neuts (auto) 10.5 H (1.5-7.7) 10^3/ul Absolute Lymphs (auto) 0.5 L (1.0-4.8) 10^3/ul Absolute Monos (auto) 1.2 H (0-0.8) 10^3/ul Absolute Eos (auto) 0 (0-0.6) 10^3/ul Absolute Basos (auto) 0.1 (0-0.2) 10^3/ul Absolute Nucleated RBC 0 10^3/ul Nucleated RBC % 0 Sodium 117 L* (133-145) mmol/L Potassium 3.7 (3.5-5.0) mmol/L Chloride 82 L (101-111) mmol/L Carbon Dioxide 23 (22-32) mmol/L Anion Gap 12 H (2-11) mmol/L BUN 32 H (6-24) mg/dL Creatinine 2.00 H (0.51-0.95) mg/dL Est GFR ( Amer) 32.1 (>60) Est GFR (Non-Af Amer) 24.9 (>60) BUN/Creatinine Ratio 16.0 (8-20) Glucose 140 H (70-100) mg/dL Lactic Acid 2.6 H* (0.5-2.0) mmol/L Calcium 9.0 (8.6-10.3) mg/dL Magnesium 2.4 (1.9-2.7) mg/dL Total Bilirubin 0.50 (0.2-1.0) mg/dL AST 26 (13-39) U/L ALT 20 (7-52) U/L Alkaline Phosphatase 86 (34-104) U/L Troponin I 0.01 (<0.04) ng/mL Total Protein 6.4 (6.4-8.9) g/dL Albumin 3.9 (3.2-5.2) g/dL Globulin 2.5 (2-4) g/dL Albumin/Globulin Ratio 1.6 (1-3) TSH 2.06 (0.34-5.60) mcIU/mL Result Diagrams: 04/26/16 05:51 04/26/16 05:51 Lab Statement: Any lab studies that have been ordered have been reviewed, and results considered in the medical decision making process. - EKG 10:07 Cardiac Rate: NL - 77 bpm EKG Rhythm: Sinus Rhythm EKG Interpretation: Questionable ST Elevation in III, AvF EKG Comparison: No Significant Change - 03/17/16 Abdominal Pain Fem Course/Dx - Course Course Of Treatment: A 66 y/o female presents to the ED with diffuse lower abdominal pain since last night. Associated symptoms include vomiting, abdominal bloating, dizziness, and twitching. The patient denies chest pain, SOB , and diarrhea. Labs were reviewed and show a low sodium of 117. EKG shows NSR at 77 bpm. Discussed the case with Dr. Fischer who will admit the patient into his services. - Diagnoses Provider Diagnoses: Hyponatremia, Vomiting - Provider Notifications Discussed Care Of Patient With: Dr. Fischer (Hospitalist) -- Notified of patient' s history and will admit the patient into his services. Discharge - Discharge Plan Condition: Stable Disposition: ADMITTED TO [facility] documentation as recorded by the Jose R rajan Matthew accurately reflects the service I personally performed and the decisions made by , Rashaun Rowell MD.
[2016-04-26] MEDS: OLANzapine TAB* 5 MG PO SCH (22:18)
[2016-04-27] MEDS: Heparin VIAL(*) 5000 UNITS/ML VIAL (FIVE THOUSAND) SUBCUT SCH ×3 (05:31→22:25)
[2016-04-27] MEDS: Phenol 1.4% Spray* 177 ML BTL MT PRN (06:02)
--- NOTE | 2016-04-27 08:04 | RAD ---
INDICATION: Nasogastric tube placement COMPARISON: Similar radiograph dated April 24, 2016 TECHNIQUE: Single AP portable view of the chest was obtained. FINDINGS: Image quality is compromised due to the relative inferiority of a portable chest x-ray. There is been interval placement of a gastric tube with the tip terminating at the expected location of the gastroesophageal junction. Similar to the previous chest x-ray the lungs appear hyperaerated. Air-filled loops of bowel are noted in the abdomen. There is no free gas beneath either diaphragm. IMPRESSION: Interval placement of a gastric tube with the tip terminating at the expected location of the gastroesophageal junction. Recommend advancing the tube approximately 3 to 5 cm.
[2016-04-27] MEDS: Albuterol/Ipratropium NEB.SOL* Albuterol 2.5 MG/Ipratropium 0.5 MG 3 ML INH PRN (08:16)
[2016-04-27] MEDS ORDERED: NS 0.9% 1000 ML* 1,000 ML IV SCH (08:45)
[2016-04-27] MEDS: Docusate CAP* 100 MG PO SCH ×2 (09:08→22:20)
[2016-04-27] MEDS: lamoTRIgine TAB(*) 100 MG PO SCH ×2 (09:08→22:19)
[2016-04-27] MEDS: Pregabalin CAP(*) 50 MG PO SCH ×3 (09:09→22:21)
[2016-04-27] MEDS: Acetaminophen ADULT LIQ* 650 MG/20.3 ML UDC PO PRN (09:52)
--- NOTE | 2016-04-27 11:22 | RAD ---
Indication: Follow-up small bowel obstruction Flat and upright views of the abdomen demonstrates no free air. Previously identified dilated loops of small bowel have nearly resolved with some minimal distention. Air is noted in the colon. IMPRESSION: Resolution of previously identified small bowel dilatation.
--- NOTE | 2016-04-27 13:53 | PN ---
Subjective Date of Service: 04/27/16 Interval History: NG was pulled this aM. Pt is passing flatus, no BM yest. Denies abd pain , no N/ V Objective Active Medications: Acetaminophen (Tylenol Adult Liq*) 650 mg PO Q6H PRN PRN Reason: PAIN Last Admin: 04/27/16 09:52 Dose: 650 mg Albuterol/Ipratropium (Duoneb Neb.Desiree*) 1 neb INH Q6H PRN PRN Reason: SOB/WHEEZING Last Admin: 04/27/16 08:16 Dose: 1 neb Docusate Sodium (Colace Cap*) 200 mg PO BID [facility] Last Admin: 04/27/16 09:08 Dose: 200 mg Heparin Sodium (Porcine) (Heparin Vial(*)) 5,000 units SUBCUT Q8HR [facility] Last Admin: 04/27/16 05:31 Dose: 5,000 units Sodium Chloride (Ns 0.9% 1000 Ml*) 1,000 mls @ 75 mls/hr IV PER RATE [facility] Last Admin: 04/27/16 09:10 Dose: 75 mls/hr Lamotrigine (Lamictal Tab(*)) 200 mg PO BID [facility] Last Admin: 04/27/16 09:08 Dose: 200 mg Olanzapine (Zyprexa Tab*) 15 mg PO BEDTIME [facility] Last Admin: 04/26/16 22:18 Dose: 15 mg Ondansetron HCl (Zofran Inj*) 4 mg IV Q4H PRN PRN Reason: NAUSEA Last Admin: 04/25/16 05:17 Dose: 4 mg Phenol/Menthol (Chloroseptic Throat [place]*) 1 spray MT Q1H PRN PRN Reason: THROAT IRRITATION Last Admin: 04/27/16 06:02 Dose: 1 spray Pregabalin (Lyrica Cap(*)) 150 mg PO TID [facility] Last Admin: 04/27/16 09:09 Dose: 150 mg Prochlorperazine Edisylate (Compazine Inj*) 10 mg IV Q6H PRN PRN Reason: NAUSEA Last Admin: 04/24/16 23:25 Dose: 10 mg Sumatriptan Succinate (Imitrex Tab*) 50 mg PO ONCE PRN PRN Reason: HEADACHE Last Admin: 04/24/16 21:44 Dose: 50 mg Vital Signs 04/26/16 04/26/16 04/26/16 14:50 15:22 16:00 Temperature 98.9 F Pulse Rate 75 Respiratory 16 16 Rate Blood Pressure 127/70 (mmHg) O2 Sat by Pulse 95 95 Oximetry 04/26/16 04/26/16 04/26/16 16:50 19:39 20:00 Temperature 98.2 F Pulse Rate 73 Respiratory 16 16 16 Rate Blood Pressure 129/71 (mmHg) O2 Sat by Pulse 99 Oximetry 04/26/16 04/26/16 04/26/16 21:53 22:11 23:42 Temperature 98.7 F Pulse Rate 74 74 Respiratory 16 16 18 Rate Blood Pressure 103/62 (mmHg) O2 Sat by Pulse 95 99 Oximetry 04/27/16 04/27/16 04/27/16 04:00 07:23 08:00 Temperature 99.6 F 98.9 F Pulse Rate 82 88 Respiratory 20 19 16 Rate Blood Pressure 134/65 126/71 (mmHg) O2 Sat by Pulse 94 96 97 Oximetry 04/27/16 04/27/16 04/27/16 08:09 08:17 09:09 Temperature 100.6 F Pulse Rate 83 78 Respiratory 16 16 18 Rate Blood Pressure 123/108 (mmHg) O2 Sat by Pulse 97 97 Oximetry Oxygen Devices in Use Now: Nasal Cannula - at 2 L Appearance: 66 yo F in NAD, aAOx3 Eyes: No Scleral Icterus, PERRLA Ears/Nose/Mouth/Throat: NL Teeth, Lips, Gums, Mucous Membranes Moist Neck: NL Appearance and Movements; NL JVP, Trachea Midline Respiratory: Symmetrical Chest Expansion and Respiratory Effort, - - distant breath sounds b/l Cardiovascular: NL Sounds; No Murmurs; No JVD, RRR Abdominal: NL Sounds; No Tenderness; No Distention, No Hepatosplenomegaly Lymphatic: No Cervical Adenopathy Extremities: No Edema, No Clubbing, Cyanosis Skin: No Rash or Ulcers, No Nodules or Sclerosis Neurological: Alert and Oriented x 3, NL Muscle Strength and Tone Result Diagrams: 04/26/16 05:51 04/26/16 05:51 Additional Lab and Data: Lab Results 04/24/16 04/24/16 04/24/16 Range/Units 10:54 10:54 10:54 WBC 12.3 H (3.5-10.8) 10^3/ul RBC 4.70 (4.0-5.4) 10^6/ul Hgb 15.2 (12.0-16.0) g/dl Hct 44 (35-47) % MCV 93 (80-97) fL MCH 32 H (27-31) pg MCHC 35 (31-36) g/dl RDW 13 (10.5-15) % Plt Count 369 (150-450) 10^3/ul MPV 7 L (7.4-10.4) um3 Neut % (Auto) 85.6 H (38-83) % Lymph % (Auto) 3.9 L (25-47) % Hardee % (Auto) 9.6 H (1-9) % Eos % (Auto) 0.1 (0-6) % Baso % (Auto) 0.8 (0-2) % Absolute Neuts (auto) 10.5 H (1.5-7.7) 10^3/ul Absolute Lymphs (auto) 0.5 L (1.0-4.8) 10^3/ul Absolute Monos (auto) 1.2 H (0-0.8) 10^3/ul Absolute Eos (auto) 0 (0-0.6) 10^3/ul Absolute Basos (auto) 0.1 (0-0.2) 10^3/ul Absolute Nucleated RBC 0 10^3/ul Nucleated RBC % 0 Sodium 117 L* (133-145) mmol/L Potassium 3.7 (3.5-5.0) mmol/L Chloride 82 L (101-111) mmol/L Carbon Dioxide 23 (22-32) mmol/L Anion Gap 12 H (2-11) mmol/L BUN 32 H (6-24) mg/dL Creatinine 2.00 H (0.51-0.95) mg/dL Est GFR ( Amer) 32.1 (>60) Est GFR (Non-Af Amer) 24.9 (>60) BUN/Creatinine Ratio 16.0 (8-20) Glucose 140 H (70-100) mg/dL Lactic Acid 2.6 H* (0.5-2.0) mmol/L Calcium 9.0 (8.6-10.3) mg/dL Magnesium 2.4 (1.9-2.7) mg/dL Total Bilirubin 0.50 (0.2-1.0) mg/dL AST 26 (13-39) U/L ALT 20 (7-52) U/L Alkaline Phosphatase 86 (34-104) U/L Troponin I 0.01 (<0.04) ng/mL Total Protein 6.4 (6.4-8.9) g/dL Albumin 3.9 (3.2-5.2) g/dL Globulin 2.5 (2-4) g/dL Albumin/Globulin Ratio 1.6 (1-3) TSH 2.06 (0.34-5.60) mcIU/mL Microbiology and Other Data: Microbiology 04/24/16 18:00 Nasal Screen MRSA (PCR)(FRANSISCO) - Final Nasal Mrsa Negative 04/24/16 18:00 Influenza Types A,B Antigen (FRANSISCO) - Final Nasal Specimen received for Influenza A/B Molecular testing Assess/Plan/Problems-Billing Assessment: 66 yo F h/o hysterectomy/c-sections, SBO (06/2014) resolved with conservative measures, p/w N/V, PEREZ found with hyponatremia, KRYSTINA and recurrent SBO - Patient Problems (1) Small bowel obstruction Comment: NG pulled out on 04/27/16, diet advanced to clears +flatus appreciate surgical assistance (2) Urinary retention Comment: carrasco placed at admission suspect due to SBO, will remove once pt had BM (3) Acute respiratory failure with hypoxia Comment: suspect pt hs undiagnosed COPD, shelter smoker. Now atelectasis due to SBO Incentive spirometry, wean down 02 (4) Hyponatremia Comment: hypovolemic resolved with crystalloids (5) Acute renal failure Comment: No hydro on CT but pt was retaining. Also suspect pre renal in setting of hyponatremia Improved with carrasco and crystalloids. (6) Hx of bipolar disorder Comment: c/w lamictal, zyprexa (7) DVT prophylaxis Comment: HSQ
--- NOTE | 2016-04-27 17:10 | PN ---
Progress Note - Progress Note SOAP: Subjective: Pt seen yesterday and again this am. Mistakenly, no note was written yesterday. Pt feeling better. No nausea. Positive flatus. No BM. Ambulating. Minimal abdo pain. Objective: af vss Abdo: soft, ND,NT hypoactive BS AXR: report reviewed Assessment: Resolving SBO Plan: D/c NGT begin diet slowlt will continue to follow
[2016-04-27] MEDS: OLANzapine TAB* 5 MG PO SCH (22:20)
[2016-04-28 05:20] LABS: BUN/Creatinine Ratio 7.7 (8-20); Calcium 8.3 mg/dL (8.6-10.3); EGFR African American 59.5 (>60); EGFR Non-African American 46.3 (>60); Potassium 3.3 mmol/L (3.5-5.0)
[2016-04-28] MEDS: Heparin VIAL(*) 5000 UNITS/ML VIAL (FIVE THOUSAND) SUBCUT SCH ×2 (05:58→14:31)
[2016-04-28] MEDS: Pregabalin CAP(*) 50 MG PO SCH ×2 (08:58→14:31)
[2016-04-28] MEDS: lamoTRIgine TAB(*) 100 MG PO SCH (08:58)
[2016-04-28] MEDS: Docusate CAP* 100 MG PO SCH (08:59)
[2016-04-28] MEDS ORDERED: Potassium Chlor TAB* 20 MEQ TAB.ER PO ONE (09:30)
--- NOTE | 2016-04-28 10:57 | PN ---
Progress Note - Progress Note Note: Surgery Progress: S: Denies pain. Derick full liq diet. Passing flatus and BMs. O: Vital Signs - 8 hr 04/28/16 04/28/16 04/28/16 07:46 08:08 08:58 Temperature 100.0 F Pulse Rate 72 Respiratory 18 16 18 Rate Blood Pressure 155/82 (mmHg) O2 Sat by Pulse 93 97 Oximetry Intake and Output Last 24 Hours 04/26/16 04/27/16 04/28/16 04/29/16 06:59 06:59 06:59 06:59 Intake Total 4131 0 2199 285 Output Total 6400 975 1850 825 Balance -2269 -975 349 -540 Weight 121 lb 11.2 oz Intake: IV Fluids 2833 1499 285 NS (0.9%) 100 1499 285 IVPB 173 NS (0.9%) 173 Oral 0 0 700 NG Tube Irrigate Amount 1125 Output: NG Tube Drainage Amount 3500 Urine 0 0 650 Cleary 2500 975 1200 825 Emesis 400 Other: # Bowel Movements 0 0 0 Abd: +BS; flat; a bit tympanitic; soft, nontender to palp A/P: SBO, resolving; plan per hosp is for adv diet and prob d/c home. No surgical f/u needed.
[2016-04-28 14:58] VITALS: BP 126/69
--- NOTE | 2016-04-29 14:40 | DS ---
DISCHARGE SUMMARY: DATE OF ADMISSION: 04/25/16 DATE OF DISCHARGE: 04/28/16 PRIMARY CARE PROVIDER: Dr. Salazar. DISCHARGE DIAGNOSES: 1. Hyponatremia resolved after intravenous hydration with crystalloids. 2. Acute renal failure due to dehydration as well as acute urinary retention. 3. Small bowel obstruction that is most likely resolved and urinary retention and subsequent acute renal failure. Please note that the small bowel obstruction was most likely present at admission. PAST MEDICAL HISTORY: 1. History of chronic hyponatremia. 2. History of questionable anorexia. 3. Depression. 4. Anxiety. 5. History of bipolar disorder. 6. History of suicidal attempts in the past. 7. Migraines. 8. Tubal ligation. 9. Appendectomy. 10. Hysterectomy. 11. Salpingectomy. 12. History of C-sections. 13. History of small bowel obstructions in the past. MEDICATIONS AT DISCHARGE: Include: 1. Zyprexa 15 mg daily. 2. Lamictal 200 mg twice a day. 3. Lyrica 150 mg 3 times a day. LABORATORY DATA AND STUDIES PERFORMED DURING THE HOSPITAL STAY: Included: On 04/26/16, white blood cell count of 4.9, hemoglobin of 13.1, hematocrit of 38 , and platelets of 284. On 04/28/16, sodium of 138, potassium 2.3, chloride 102, carbon dioxide 26, BUN 9, creatinine 1.17. Most recent portable chest x-ray obtained on 04/27/16, impression: "Interval placement of gastric tube with the tip terminating in the expected location of the GE junction. Recommend advancing the tube approximately [address] of abdomen and pelvis obtained on 04/25/16, impression: "Recurrent distal small bowel obstruction. The stomach is distended and not effectively decompressed by nasogastric tube which should be advanced or set to suction. Distended bladder. Incidental cholelithiasis." CONSULTS DURING THE HOSPITAL STAY: Included Dr. Lewis from Surgery. HOSPITALIZATION COURSE: Naheed Moran is a 66-year-old female with a psychiatric history, who has a chronic hyponatremia and who presented to the hospital on 04/25/16 with many nonspecific complaints. For further details, please see Dr. Fischer's history and physical. The patient was initially hyponatremic and appeared to be in acute renal failure. Initially, she also seemed not to have abdominal complaints but later on she stated that she was constipated. Subsequent CT of abdomen and pelvis noted small bowel obstruction. The patient has history of small bowel obstructions in the past. The patient was treated with NG tube and decompression of the stomach for a couple of days. The NG was discontinued on 04/27/16 when patient started passing flatus. Her abdominal pain resolved and she was able to tolerate initially clear liquids and then advanced to soft diet. Dr. Lewis saw patient in consultation and followed throughout the patient's hospital stay. No surgical intervention was necessary. Initially, patient appeared to be prerenal with severe hyponatremia with sodium of 117, as well as acute renal failure with creatinine of 2. She was noted to have urinary retention and it was decompressed with Cleary catheter. After patient's small bowel obstruction resolved and she started having bowel movements. Her Cleary catheter was removed and her measured postvoid residual was 140 mL. It was thought that the urinary retention was a consequence of small bowel obstruction. It was also thought that the urinary retention was a cause of acute renal failure. I believe the small bowel obstruction caused the urinary retention. Subsequent hyponatremia was also due to renal failure and dehydration and small bowel obstruction. At discharge, the patient tolerates a regular diet without any problems. She has no abdominal pain. We had a long discussion about making sure that she is not constipated after discharge and making sure that she remains well hydrated, but does not drink too much water and instead is provided with liquids that have electrolytes in them. The patient has history of recurrent hyponatremia and the suspicion is that polydipsia could have contributed. PHYSICAL EXAM AT THE TIME OF DISCHARGE: Blood pressure of 126/69, heart rate of 70 and regular, respiratory rate 16, oxygen saturation 94% on room air, temperature of 100.3. General: The patient is a very pleasant 66-year-old female who is in no acute distress. Alert, awake, oriented x3. HEENT: Head: Atraumatic, normocephalic. Eyes: Pupils are equal reactive to light and accommodation. Oropharynx: Clear. Mucosa moist. Neck: Supple. No JVD. No bruits bilaterally. Cardiovascular: Regular rate and rhythm. No murmurs. Respiratory: Clear to auscultation bilaterally. Abdomen: Soft, nontender. Bowel sounds present in all 4 quadrants. Lower extremities: There is no edema. +2 pulses bilaterally. No clubbing or cyanosis. Neuro Evaluation: Speech clear. Cranial nerves II through XII grossly intact. Motor strength is 5/5 bilaterally. Psychiatric Evaluation: The patient is pleasant, cooperative during evaluation with no evidence of anxiety or depression. FOLLOWUP: The patient is recommended to follow up with her primary care provider in approximately 4 to 7 days. Please note this is a short summary of the patient's hospital stay, please refer to further medical records for details. TIME SPENT: Approximately 35 minutes were spent on the patient's discharge. CC: Dr. Salazar; Dr. Lewis* [id number]/CPS #: [id number]
== END 2016-04-28 16:21 | disposition home or self-care (01) | DRG 388 ==
LOC: ED 09:50 → MEDTELE 16:41 → OBSVTOIN 04-25 07:20
PROVIDERS: ADMIT Internal Medicine; ATTEND Internal Medicine
PROC: 0D9670Z Drainage of Stomach with Drainage Device, Via Natural or Artificial Opening (ICD-10-PCS; principal; 2016-04-25)
DX: K56.60 Unspecified intestinal obstruction (principal); J96.01 Acute respiratory failure with hypoxia; N17.9 Acute kidney failure, unspecified; E87.1 Hypo-osmolality and hyponatremia; J98.11 Atelectasis; E86.0 Dehydration; R33.9 Retention of urine, unspecified; F41.9 Anxiety disorder, unspecified; F31.9 Bipolar disorder, unspecified; G43.909 Migraine, unspecified, not intractable, without status migrainosus; F17.210 Nicotine dependence, cigarettes, uncomplicated; Z79.899 Other long term (current) drug therapy
CPT/HCPCS: 36415; 70450; 71010; 71020; 74020; 74176; 80048; 80053; 81003; 81015; 83605; 83735; 84443; 84484; 85025; 87502; 87641; 90732; 93005; 94640; 94760; 99406; A9270-GY; G0378; J0780; J1644; J2405; J2765; J3480

== ENCOUNTER 2016-05-09 20:41 | Inpatient (IN) | payer MEDICARE ==
[2016-05-09] MEDS ORDERED: NS 0.9% 1000 ML* 2,000 ML IV ONE (21:17)
[2016-05-09] MEDS ORDERED: Ondansetron INJ* 2 MG/ML VIAL IV ONE ×2 (21:25→23:12)
[2016-05-09] MEDS ORDERED: Ondansetron INJ* 2 MG/ML VIAL ONE (21:26)
[2016-05-09 21:35] LABS: Hematocrit 39 % (35-47); Hemoglobin 13.5 g/dl (12.0-16.0); Mean Corpuscular HGB Conc 34 g/dl (31-36); Mean Corpuscular Hemoglobin 32 pg (27-31); Mean Corpuscular Volume 95 fL (80-97); Mean Platelet Volume 7 um3 (7.4-10.4); Red Blood Count 4.17 10^6/ul (4.0-5.4); Red Cell Distribution Width 13 % (10.5-15); White Blood Count 12.7 10^3/ul (3.5-10.8)
[2016-05-09 21:45] LABS: Albumin 2.5 g/dL (3.2-5.2); BUN/Creatinine Ratio 15.4 (8-20); EGFR African American 59.5 (>60); EGFR Non-African American 46.3 (>60); Globulin 1.6 g/dL (2-4); Magnesium 1.4 mg/dL (1.9-2.7); Potassium 2.9 mmol/L (3.5-5.0); Total Bilirubin 0.3 mg/dL (0.2-1.0); Total Protein 4.1 g/dL (6.4-8.9)
[2016-05-09 21:48] LABS: Comments Flag Yes
[2016-05-09 21:49] LABS: Add Diff/Slide Review? Slide Review Added; Calcium 5.6 mg/dL (8.6-10.3); Troponin I 0.05 ng/mL (<0.04)
--- NOTE | 2016-05-09 21:58 | RAD ---
Indication: Hypotension. Vomiting and dizziness with weakness. Comparison: April 27, 2016 Technique: Upright AP 2134 hours Report: Minimal coarsening and upper lung zone rarefaction of the interstitial markings. Minimal linear atelectasis at the lung bases. Clear pleural spaces. Negative for pneumothorax. The heart, pulmonary vasculature, and mediastinal contours are unremarkable. Internal fixation hardware at the proximal RIGHT humerus. IMPRESSION: Stigmata of probable chronic obstructive pulmonary disease and emphysema. No evidence for acute intrathoracic disease.
[2016-05-09] MEDS ORDERED: Potassium Chlor TAB* 20 MEQ TAB.ER PO ONE (21:59)
[2016-05-09] MEDS ORDERED: NS 0.9% 1000 ML* 1,000 ML IV ONE (22:01)
[2016-05-09 22:13] LABS: TSH (Thyroid Stimulating Horm) 6.3 mcIU/mL (0.34-5.60)
--- NOTE | 2016-05-09 23:34 | ED ---
Jose R Tompkins Matthew, scribed for James Petersen on 05/09/16 at 2126 . Dizziness - HPI Summary HPI Summary: A 66 y/o female presents to the ED with dizziness since 16:00 today. Associated symptoms include hypotension, generalized weakness, nausea, vomiting, and anxiety. The patient denies diarrhea, cheat pain, abdominal pain, fever, and cough. Hx of anxiety, depression, and bipolar. She has presented to the ED with similar symptoms multiples times in the past according to the patient's . FHx of depression - History Of Current Complaint Chief Complaint: EDNauseaVomitDiarrh Stated Complaint: VOMITING,DIZZINESS Time Seen by Provider: 05/09/16 21:12 Hx Obtained From: Patient Onset/Duration: Still Present Timing: Constant Severity Initially: Moderate Severity Currently: Moderate Character: Lightheaded, Weak Associated Signs And Symptoms: Positive: Nausea, Vomiting, Other: - Anxiety, generalized weakenss. Negative: Diarrhea, Chest Pain, SOB, Fever - Allergies/Home Medications Allergies/Adverse Reactions: Allergies Allergy/AdvReac Type Severity Reaction Status Date / Time No Known Allergies Allergy Verified 05/09/16 23:26 PMH/Surg Hx/FS Hx/Imm Hx Cardiovascular History: Reports: Hx Hypertension GI History: Reports: Hx Obstructive Bowel, Other GI Disorders - SBO History: Reports: Other Problems/Disorders - URINARY RETENTION 04/25/16 [facility] [place] ADMISSION Sensory History: Reports: Hx Contacts or Glasses Opthamlomology History: Reports: Hx Contacts or Glasses Neurological History: Reports: Hx Headaches, Hx Migraine Psychiatric History: Reports: Hx Anxiety, Hx Depression - Cancer History Hx Chemotherapy: No Hx Radiation Therapy: No - Surgical History Surgery Procedure, Year, and Place: total hysterectomy w/appendectomy, 2 c- sections, RT SHOULDER - Immunization History Date of Tetanus Vaccine: utd Date of Influenza Vaccine: utd Infectious Disease History: No Infectious Disease History: Denies: Traveled Outside the [place] in Last 30 Days - Family History Known Family History: Positive: Other - No FMHx of breast cancer Family History: No FHx of Breast CA. FHx of depression - Social History Alcohol Use: Rare Substance Use Type: Reports: None Substance Use Comment - Amount & Last Used: RX benzos Smoking Status (MU): Heavy Every Day Tobacco Smoker Review of Systems Constitutional: Negative Negative: Fever Eyes: Negative ENT: Negative Cardiovascular: Negative Negative: Chest Pain Respiratory: Negative Negative: Shortness Of Breath Positive: Vomiting, Nausea. Negative: Abdominal Pain, Diarrhea Genitourinary: Negative Musculoskeletal: Negative Skin: Negative Neurological: Other - Dizziness Positive: Anxious All Other Systems Reviewed And Are Negative: Yes Physical Exam Triage Information Reviewed: Yes Vital Signs On Initial Exam: Initial Vitals Temp Pulse Resp BP Pulse Ox 96.9 F 78 18 70/40 95 05/09/16 20:42 05/09/16 20:42 05/09/16 20:42 05/09/16 20:42 05/09/16 20:42 Vital Signs Reviewed: Yes Appearance: Positive: No Pain Distress Skin: Positive: Warm, Skin Color Reflects Adequate Perfusion, Dry Head/Face: Positive: Normal Head/Face Inspection Eyes: Positive: EOMI, JAYASHREE ENT: Positive: Other - Dry oral mucous membranes Neck: Positive: Supple, Nontender Respiratory/Lung Sounds: Positive: Clear to Auscultation, Breath Sounds Present Cardiovascular: Positive: RRR, Pulses are Symmetrical in both Upper and Lower Extremities Abdomen Description: Positive: Nontender, Soft Bowel Sounds: Positive: Present Musculoskeletal: Positive: Normal, Strength/ROM Intact Neurological: Positive: Normal, Sensory/Motor Intact, Alert, Oriented to Person Place, Time Psychiatric: Positive: Affect/Mood Appropriate - Jorge A Coma Scale Coma Scale Total: 15 Diagnostics - Vital Signs Vital Signs Temp Pulse Resp BP Pulse Ox 05/09/16 20:42 96.9 F 78 18 70/40 95 - Laboratory Result Diagrams: 05/09/16 21:20 05/09/16 21:20 Lab Statement: Any lab studies that have been ordered have been reviewed, and results considered in the medical decision making process. - Radiology CXR Xray Interpretation: No Acute Changes - IMPRESSION: Stigmata of probable chronic obstructive pulmonary disease and emphysema. No evidence for acute intrathoracic disease. Radiology Interpretation Completed By: Radiologist - EKG 22:01 Cardiac Rate: NL - 63 bpm EKG Rhythm: Sinus Rhythm EKG Interpretation: RBBB Dizzy Course/Dx - Course Assessment/Plan: A 66 y/o female presents to the ED with dizziness since 16:00 today. Associated symptoms include hypotension, generalized weakness, nausea, vomiting, and anxiety. Labs were reviewed and shows hypotension, hypokalemia, renal failure, Hypothyroidism, elevated troponin of 0.05, and hypocalcemia. CXR shows no acute cardiopulmonary disease. EKG shows NSR at 63 bpm with RBBB. Discussed the case with Dr. Wilcox who will admit the patient into his services. - Diagnoses Provider Diagnoses: Hypotension, Hypokalemia, Hypocalcemia, Vomiting, ACS (acute coronary syndrome) , Renal failure, Hypothyroidism - Provider Notifications Discussed Care Of Patient with: Dr. Wilcox (Hospitalist) at 22:49 -- Notified of patient's history and will admit the patient into his services. Discharge - Discharge Plan Condition: Stable Disposition: ADMITTED TO [facility] Referrals: Evaristo Salazar MD [Primary Care Provider] - The documentation as recorded by the Jose R rajan Matthew accurately reflects the service I personally performed and the decisions made by Trinity carrillo Emmanuel.
--- NOTE | 2016-05-09 23:35 | HP ---
H&P (Free Text) History and Physical: PCP: Duane Salazar MD Date/Time of Evaluation: 05/09/2016 2255 CC: generalized weakness HPI: Mrs Moran is a 66YO female who reports awakening around 1600 and discovering she was generally weak with light-headedness. She continued to feel poorly developing N/V prompting her to present for evaluation. She denies chest pain, SOB, sweats, F/C, cough, congestion, diarrhea, palpitations, changes in bowel/bladder, or other issues. Work up reveals initial hypotension, systolics in the 40-60 range which responded well to IVF improving systolics to the 110s. Vitals are otherwise stable. Labs are notable for WBCs 12k 86% neutrophils, Na 126, K 2.9, serum CO2 15, calcium 5.6, magnesium 1.4, troponin 0.05, albumin 2.5. PMedHx hypoNatremia ? anorexia depression w/ suicidality bipolar migraines SBO Allergies No Known Allergies Allergy (Verified 05/09/16 23:26) Ambulatory Orders Nursing to reconcile. PSurgHx appendectomy tubal ligation hysterectomy SocHx: 03/04-2PPD cigarettes, no alcohol or recreational drugs; lives with her ; full code status FamHx: denies ROS: as above, otherwise reviewed and all were negative Constitutional: NAD, normally developed, well-nourished white female vitals: Vital Signs Temp 37.1 C 05/10/16 03:20 Pulse 74 05/10/16 03:20 Resp 18 05/10/16 03:20 BP 93/53 05/10/16 03:20 Pulse Ox 93 05/10/16 03:20 Intake & Output 05/09/16 05/09/16 05/10/16 11:59 23:59 12:59 Intake Total 3000 Output Total 400 Balance 3000 -400 Weight 52.617 kg 54.998 kg Intake: IV Fluids 3000 Output: Urine 400 HEENM: atraumatic; sclera/conjunctiva: non-icteric/clear; hearing: intact; oropharynx: clear, mucosa tacky Neck: soft tissue: no nuchal rigidity; thyroid: normal Pulmonary: clear to auscultation bilaterally, good aeration, no accessory muscle use CV: RR/RR, normal S1S2, no carotid bruit, no jugular venous distention, 2+ B DP/ PT, no edema Abdominal: soft, non-distended, non-tender, no rebound/guarding/rigidity, normoactive bowel sounds, no hepatosplenomegaly or masses, no costovertebral angle tenderness Musculoskeletal: general: ; gait: unsteady Integumental: normal appearance and texture Psychiatric orientation: AA&O to PPS affect: fatigued mood: cooperative eye contact: fair content: reliable responses: timely insight: fair Testing: Lab Results 05/09/16 05/09/16 05/09/16 Range/Units 21:20 21:20 21:20 WBC 12.7 H (3.5-10.8) 10^3/ul RBC 4.17 (4.0-5.4) 10^6/ul Hgb 13.5 (12.0-16.0) g/dl Hct 39 (35-47) % MCV 95 (80-97) fL MCH 32 H (27-31) pg MCHC 34 (31-36) g/dl RDW 13 (10.5-15) % Plt Count 524 H D (150-450) 10^3/ul MPV 7 L (7.4-10.4) um3 Neut % (Auto) 86.0 H (38-83) % Lymph % (Auto) 1.2 L (25-47) % [place] % (Auto) 12.4 H (1-9) % Eos % (Auto) 0.1 (0-6) % Baso % (Auto) 0.3 (0-2) % Absolute Neuts (auto) 11.0 H (1.5-7.7) 10^3/ul Absolute Lymphs (auto) 0.2 L (1.0-4.8) 10^3/ul Absolute Monos (auto) 1.6 H (0-0.8) 10^3/ul Absolute Eos (auto) 0 (0-0.6) 10^3/ul Absolute Basos (auto) 0 (0-0.2) 10^3/ul Absolute Nucleated RBC 0 10^3/ul Nucleated RBC % 0 INR (Anticoag Therapy) 1.07 (0.89-1.11) APTT 37.1 H (26.0-36.3) seconds Sodium 126 L (133-145) mmol/L Potassium 2.9 L (3.5-5.0) mmol/L Chloride 106 (101-111) mmol/L Carbon Dioxide 15 L (22-32) mmol/L Anion Gap 5 (2-11) mmol/L BUN 18 (6-24) mg/dL Creatinine 1.17 H (0.51-0.95) mg/dL Est GFR ( Amer) 59.5 (>60) Est GFR (Non-Af Amer) 46.3 (>60) BUN/Creatinine Ratio 15.4 (8-20) Glucose 125 H (70-100) mg/dL Lactic Acid (0.5-2.0) mmol/L Calcium 5.6 L* (8.6-10.3) mg/dL Magnesium 1.4 L (1.9-2.7) mg/dL Total Bilirubin 0.30 (0.2-1.0) mg/dL AST 10 L (13-39) U/L ALT 9 (7-52) U/L Alkaline Phosphatase 52 (34-104) U/L Troponin I 0.05 H* (<0.04) ng/mL B-Natriuretic Peptide ( - 100) pg/mL Total Protein 4.1 L (6.4-8.9) g/dL Albumin 2.5 L (3.2-5.2) g/dL Globulin 1.6 L (2-4) g/dL Albumin/Globulin Ratio 1.6 (1-3) TSH 6.30 H (0.34-5.60) mcIU/mL 05/09/16 05/09/16 Range/Units 21:20 21:20 WBC (3.5-10.8) 10^3/ul RBC (4.0-5.4) 10^6/ul Hgb (12.0-16.0) g/dl Hct (35-47) % MCV (80-97) fL MCH (27-31) pg MCHC (31-36) g/dl RDW (10.5-15) % Plt Count (150-450) 10^3/ul MPV (7.4-10.4) um3 Neut % (Auto) (38-83) % Lymph % (Auto) (25-47) % [place] % (Auto) (1-9) % Eos % (Auto) (0-6) % Baso % (Auto) (0-2) % Absolute Neuts (auto) (1.5-7.7) 10^3/ul Absolute Lymphs (auto) (1.0-4.8) 10^3/ul Absolute Monos (auto) (0-0.8) 10^3/ul Absolute Eos (auto) (0-0.6) 10^3/ul Absolute Basos (auto) (0-0.2) 10^3/ul Absolute Nucleated RBC 10^3/ul Nucleated RBC % INR (Anticoag Therapy) (0.89-1.11) APTT (26.0-36.3) seconds Sodium (133-145) mmol/L Potassium (3.5-5.0) mmol/L Chloride (101-111) mmol/L Carbon Dioxide (22-32) mmol/L Anion Gap (2-11) mmol/L BUN (6-24) mg/dL Creatinine (0.51-0.95) mg/dL Est GFR ( Amer) (>60) Est GFR (Non-Af Amer) (>60) BUN/Creatinine Ratio (8-20) Glucose (70-100) mg/dL Lactic Acid 1.6 (0.5-2.0) mmol/L Calcium (8.6-10.3) mg/dL Magnesium (1.9-2.7) mg/dL Total Bilirubin (0.2-1.0) mg/dL AST (13-39) U/L ALT (7-52) U/L Alkaline Phosphatase (34-104) U/L Troponin I (<0.04) ng/mL B-Natriuretic Peptide 14 ( - 100) pg/mL Total Protein (6.4-8.9) g/dL Albumin (3.2-5.2) g/dL Globulin (2-4) g/dL Albumin/Globulin Ratio (1-3) TSH (0.34-5.60) mcIU/mL ECG, personally reviewed: sinus RBBB rate 63, T-wave inversions V1-3, QTc <500 CXR, personally reviewed: IMPRESSION: Stigmata of probable chronic obstructive pulmonary disease and emphysema. No evidence for acute intrathoracic disease. Impression: 66F presenting with electrolyte imbalance likely 2nd dehydration w/ generalized weakness DIAGNOSIS & PLAN Primary electrolyte imbalance & dehydration : NS IVFs : replete K, Magnesium, & Calcium; trend : telemetry : supportive care elevated troponin : suspect demand ischemia : telemetry, trend suspect protein calorie malnutrition : check prealbumin elevated TSH : follow up outpatient w/ PCP for further evaluation/monitoring Secondary depression w/ suicidality : review meds once reconciled bipolar : review meds once reconciled migraines : review meds once reconciled Admission Rational: inpatient for electrolyte imbalances, dehydration, & elevated troponin not anticipated to be adequately stabilized w/i 48h to allow for discharge DVTp: heparin SQ Code Status: full HCP:
[2016-05-10] MEDS ORDERED: PROCHLORPERAZINE INJ 5 MG/ML 2 ML VIAL IV PRN (00:37)
[2016-05-10] MEDS ORDERED: Ondansetron INJ* 2 MG/ML VIAL IV PRN (00:37)
[2016-05-10] MEDS ORDERED: Magnesium Sulfate IV* 3 GM in NS 0.9% 100 ML* 100 ML IVPB ONE (03:24)
[2016-05-10] MEDS ORDERED: NS 0.9% w/ 20 Meq KCL 1000 ML* 1,000 ML IV SCH (04:00)
[2016-05-10] MEDS ORDERED: D5W IV ONE (04:30)
[2016-05-10] MEDS ORDERED: CALCIUM GLUCONATE IV ONE (04:30)
[2016-05-10 05:52] LABS: Hematocrit 37 % (35-47); Hemoglobin 12.8 g/dl (12.0-16.0); Mean Corpuscular HGB Conc 35 g/dl (31-36); Mean Corpuscular Hemoglobin 33 pg (27-31); Mean Corpuscular Volume 94 fL (80-97); Mean Platelet Volume 7 um3 (7.4-10.4); Red Blood Count 3.89 10^6/ul (4.0-5.4); Red Cell Distribution Width 13 % (10.5-15); White Blood Count 7.5 10^3/ul (3.5-10.8)
[2016-05-10 06:07] LABS: BUN/Creatinine Ratio 14.8 (8-20); Calcium 9.6 mg/dL (8.6-10.3); EGFR African American 32.8 (>60); EGFR Non-African American 25.5 (>60); Magnesium 2.8 mg/dL (1.9-2.7); Phosphorus 4.8 mg/dL (2.5-5.0); Potassium 4.3 mmol/L (3.5-5.0)
[2016-05-10] MEDS: Pregabalin CAP(*) 50 MG PO SCH ×3 (09:37→21:30)
[2016-05-10] MEDS: lamoTRIgine TAB(*) 100 MG PO SCH ×2 (09:38→21:30)
[2016-05-10] MEDS: NS 0.9% 1000 ML* 1,000 ML IV SCH ×2 (09:39→18:22)
[2016-05-10 12:24] LABS: Urine Bacteria 1+ (Absent); Urine Bilirubin Negative (Negative); Urine Glucose Negative (Negative); Urine Nitrite Positive (Negative)
--- NOTE | 2016-05-10 19:27 | PN ---
Subjective Date of Service: 05/10/16 Interval History: Patient feeling better but says she is concerned and doesn't feel ready to go. Objective Active Medications: Acetaminophen (Tylenol Tab*) 650 mg PO Q6H PRN PRN Reason: FEVER/PAIN Heparin Sodium (Porcine) (Heparin Vial(*)) 5,000 units SUBCUT Q8HR [facility] Sodium Chloride (Ns 0.9% 1000 Ml*) 1,000 mls @ 125 mls/hr IV PER RATE [facility] Last Admin: 05/10/16 18:22 Dose: 125 mls/hr Lamotrigine (Lamictal Tab(*)) 200 mg PO BID [facility] Last Admin: 05/10/16 09:38 Dose: 200 mg Olanzapine (Zyprexa Tab*) 15 mg PO 2100 [facility] Ondansetron HCl (Zofran Inj*) 4 mg IV Q6H PRN PRN Reason: NAUSEA Pregabalin (Lyrica Cap(*)) 150 mg PO TID [facility] Last Admin: 05/10/16 13:53 Dose: 150 mg Prochlorperazine Edisylate (Compazine Inj*) 10 mg IV Q6H PRN PRN Reason: NAUSEA Last Admin: 05/10/16 01:56 Dose: 10 mg Vital Signs 05/10/16 05/10/16 05/10/16 00:00 00:01 00:30 Temperature Pulse Rate 72 74 Respiratory 15 15 Rate Blood Pressure 114/65 117/75 (mmHg) O2 Sat by Pulse 92 91 Oximetry 05/10/16 05/10/16 05/10/16 01:00 03:00 03:04 Temperature 98.7 F Pulse Rate 76 74 Respiratory 18 18 18 Rate Blood Pressure 115/67 93/53 (mmHg) O2 Sat by Pulse 93 93 Oximetry 05/10/16 05/10/16 05/10/16 03:20 04:52 07:17 Temperature 98.7 F Pulse Rate 74 81 Respiratory 18 16 Rate Blood Pressure 93/53 101/58 (mmHg) O2 Sat by Pulse 93 93 93 Oximetry 05/10/16 05/10/16 05/10/16 07:28 08:00 09:37 Temperature 99.2 F Pulse Rate 81 Respiratory 16 16 18 Rate Blood Pressure 96/52 (mmHg) O2 Sat by Pulse 96 Oximetry 05/10/16 05/10/16 05/10/16 11:36 11:37 13:53 Temperature 99.3 F Pulse Rate 72 Respiratory 16 16 20 Rate Blood Pressure 89/48 (mmHg) O2 Sat by Pulse 97 Oximetry 05/10/16 05/10/16 05/10/16 15:19 15:53 16:24 Temperature 99.0 F 98.6 F Pulse Rate 81 85 Respiratory 20 20 Rate Blood Pressure 105/58 136/77 (mmHg) O2 Sat by Pulse 93 95 Oximetry Oxygen Devices in Use Now: None Appearance: WD/WN woman lying in bed in NAD Eyes: No Scleral Icterus Ears/Nose/Mouth/Throat: Mucous Membranes Moist Neck: NL Appearance and Movements; NL JVP, No Thyroid Enlargement, Masses Respiratory: Clear to Auscultation Cardiovascular: - - S1S2 nickie Abdominal: NL Sounds; No Tenderness; No Distention, No Hepatosplenomegaly Lymphatic: No Cervical Adenopathy Extremities: No Edema, No Clubbing, Cyanosis Skin: No Rash or Ulcers Neurological: Alert and Oriented x 3 Result Diagrams: 05/10/16 05:36 05/10/16 05:36 Assess/Plan/Problems-Billing Assessment: 66 year old admitted with weakness and electrolyte abnormalities. - Patient Problems (1) Dehydration Current Visit: Yes Status: Acute Code(s): E86.0 - DEHYDRATION SNOMED Code( s): 90098798 Comment: Patient may have been dry but appears improve s/p rehydration. Surprisingly, creatinine increased. Recheck in AM. (2) Hypocalcemia Current Visit: Yes Status: Acute Code(s): E83.51 - HYPOCALCEMIA SNOMED Code(s): 7181022 Comment: resolved. (3) Hypokalemia Current Visit: Yes Status: Acute Code(s): E87.6 - HYPOKALEMIA SNOMED Code( s): 61073046 Comment: Resolved. (4) Hx of bipolar disorder Current Visit: No Status: Chronic Priority: Medium Code(s): Z86.59 - PERSONAL HISTORY OF OTHER MENTAL AND BEHAVIORAL DISORDERS SNOMED Code(s): 646129967 Comment: Stable continue current rx. (5) DVT prophylaxis Current Visit: No Status: Acute Code(s): IDS2188 - SNOMED Code(s): 308561041 Comment: HSQ (6) Full code status Current Visit: Yes Status: Acute Code(s): Z78.9 - OTHER SPECIFIED HEALTH STATUS SNOMED Code(s): 832465254 Status and Disposition: This patient needs further workup as outpatient and can likely be discharged soon but is reluctant to go home. Recheck labs in AM but then likely dc. ELevated TSH can be worked up as outpt.
[2016-05-10] MEDS ORDERED: OLANzapine TAB* 5 MG PO SCH (21:00)
[2016-05-11] MEDS: Acetaminophen TAB* 325 MG PO PRN ×2 (00:59→06:34)
[2016-05-11] MEDS: NS 0.9% 1000 ML* 1,000 ML IV SCH (02:40)
[2016-05-11] MEDS: Heparin VIAL(*) 5000 UNITS/ML VIAL (FIVE THOUSAND) SUBCUT SCH ×2 (05:54→14:09)
[2016-05-11] MEDS: Pregabalin CAP(*) 50 MG PO SCH ×2 (07:39→14:09)
[2016-05-11] MEDS: lamoTRIgine TAB(*) 100 MG PO SCH (07:40)
[2016-05-11 07:41] LABS: BUN/Creatinine Ratio 10.5 (8-20); Calcium 8.2 mg/dL (8.6-10.3); EGFR African American 47.2 (>60); EGFR Non-African American 36.7 (>60)
[2016-05-11 15:32] VITALS: BP 150/74
--- NOTE | 2016-05-12 07:50 | DS ---
DISCHARGE SUMMARY: DATE OF ADMISSION: 05/09/16 DATE OF DISCHARGE: 05/11/16 PRIMARY CARE PROVIDER: Dr. Salazar. PRIMARY DIAGNOSES: 1. Urinary tract infection. 2. Hyponatremia. 3. Hypocalcemia. SECONDARY DIAGNOSES: Include: 1. History of anorexia per chart review. 2. Depression. 3. Bipolar disorder. 4. Migraines. 5. Small bowel obstruction. MEDICATIONS ON DISCHARGE: Include: 1. Lyrica 150 mg three times a day. 2. Zyprexa 15 mg in the evening. 3. Lamictal 200 mg twice daily. 4. Ciprofloxacin 500 mg twice daily for 3 additional days. PERTINENT MICROBIOLOGY: Urine positive for E. coli greater than 100,000 colony count. No sensitivities at the time of discharge. LABORATORY DATA: Sodium on presentation 126 and, on discharge 136. Peak creatinine 1.96, on discharge 1.43. TSH 6.3. At followup please: 1. Evaluate for continued resolution and stability of hyponatremia as well as CKD with BMP at your discretion. 2. TSH elevated to 6.3 on presentation. Follow thyroid functions with resolution of acute illness. 3. No other specific labs or vitals that need followup. HISTORY OF PRESENT ILLNESS AND HOSPITAL COURSE: This is a 66-year-old female with past medical history as outlined in the history of present illness on the day of admission presented to the hospital because she was feeling unwell, had nausea, vomiting, but no diarrhea. No decreased p.o. intake and no symptoms. In the hospital, she was found to have hypotension in the emergency room, responded to IV fluids. Additionally, hyponatremia as well as other electrolyte abnormalities responded to IV fluid as well as electrolyte replacement and remained stable. She was found to be growing E. coli in her urine. She was discharged on antibiotics. Of note, she does have anorexia per chart review as well as corroborated by her sister on her previous hospital stay. On review with the patient, she denies anorexia at this point, indicate she has been eating well; however, her clinical presentation and response to fluids on both hospital stays would indicate she was hypovolemic and may be is not completely honest in her history giving. There are no complications in this hospital stay. Please see above for information and needs to be followed upon including sensitivities to urine studies. Reasons to return to the hospital including, but not limited to recurrent or worsening symptoms, chest pain, shortness of breath, nausea, vomiting, diarrhea , lightheadedness, loss of consciousness, near loss of consciousness, bleeding from any source, high fevers, inability to obtain or tolerate medications discussed with the patient who acknowledged understanding. CC: Dr. Salazar* [id number]/[facility] #: [id number] MTDD
== END 2016-05-11 17:30 | disposition home or self-care (01) | DRG 641 ==
LOC: ED 20:41 → MEDTELE 23:46 → SSU 05-10 22:40
PROVIDERS: ADMIT Hospitalist; ATTEND Internal Medicine
DX: E83.51 Hypocalcemia (principal); K56.60 Unspecified intestinal obstruction; I95.9 Hypotension, unspecified; N19 Unspecified kidney failure; E87.1 Hypo-osmolality and hyponatremia; N39.0 Urinary tract infection, site not specified; R63.0 Anorexia; F41.9 Anxiety disorder, unspecified; Z81.8 Family history of other mental and behavioral disorders; I10 Essential (primary) hypertension; G43.909 Migraine, unspecified, not intractable, without status migrainosus; E87.6 Hypokalemia; E03.9 Hypothyroidism, unspecified; R79.89 Other specified abnormal findings of blood chemistry; I45.10 Unspecified right bundle-branch block; Z98.51 Tubal ligation status; F17.210 Nicotine dependence, cigarettes, uncomplicated; E86.0 Dehydration; F31.9 Bipolar disorder, unspecified; B96.20 Unspecified Escherichia coli [E. coli] as the cause of diseases classified elsewhere; Z68.20 Body mass index [BMI] 20.0-20.9, adult
CPT/HCPCS: 36415; 71010; 80048; 80053; 81003; 81015; 83605; 83735; 83880; 84100; 84134; 84443; 84484; 85025; 85610; 85730; 87077; 87086; 87186; 93005; 99406; A9270-GY; J0610; J0780; J1644; J2405; J3475

== ENCOUNTER 2016-07-31 17:11 | Emergency (ER) | payer MEDICARE ==
[2016-07-31] MEDS: NS 0.9% 1000 ML* 2,000 ML IV ONE ×2 (17:38→17:39)
[2016-07-31 17:42] LABS: Hematocrit 41 % (35-47); Hemoglobin 13.7 g/dl (12.0-16.0); Mean Corpuscular HGB Conc 34 g/dl (31-36); Mean Corpuscular Hemoglobin 32 pg (27-31); Mean Corpuscular Volume 95 fL (80-97); Mean Platelet Volume 7 um3 (7.4-10.4); Red Blood Count 4.29 10^6/ul (4.0-5.4); Red Cell Distribution Width 14 % (10.5-15)
[2016-07-31 17:58] LABS: Albumin 4.2 g/dL (3.2-5.2); BUN/Creatinine Ratio 16.3 (8-20); Calcium 8.8 mg/dL (8.6-10.3); EGFR Non-African American 37.3 (>60); Globulin 2.4 g/dL (2-4); Magnesium 2.2 mg/dL (1.9-2.7); Total Bilirubin 0.4 mg/dL (0.2-1.0); Total Protein 6.6 g/dL (6.4-8.9)
--- NOTE | 2016-07-31 18:02 | RAD ---
HISTORY: Syncope COMPARISONS: May 09, 2016 VIEWS:1: Single frontal portable view of the chest at 5:40 PM FINDINGS: LINES AND TUBES: None. CARDIOMEDIASTINAL SILHOUETTE: The cardiomediastinal silhouette is normal for portable technique. PLEURA: The costophrenic angles are sharp. No pleural abnormalities are noted. LUNG PARENCHYMA: The lungs are clear. ABDOMEN: The upper abdomen is clear. There is no subphrenic gas. BONES AND SOFT TISSUES: There is postsurgical change to the proximal right humerus IMPRESSION: NO ACTIVE CARDIOPULMONARY DISEASE.
[2016-07-31 18:11] LABS: Urine Bilirubin Negative (Negative); Urine Glucose Negative (Negative); Urine Nitrite Negative (Negative)
[2016-07-31 18:25] LABS: TSH (Thyroid Stimulating Horm) 14.58 mcIU/mL (0.34-5.60)
[2016-07-31 19:19] LABS: Free T4 0.86 ng/dL (0.61-1.12)
[2016-07-31 19:59] VITALS: BP 150/78
--- NOTE | 2016-08-01 20:35 | ED ---
Christopher Tompkins Alok, scribed for Audrey Stephens MD on 07/31/16 at 1740 . Syncope/Near Syncope - HPI Summary HPI Summary: 66F presents to the ED for syncopal episode lasting 30 seconds at 1715 today. Episode was witnessed by the pt's who reportedly caught her from falling from her chair at a restaurant and preventing impact to ground. Pt then exhibited 3 minutes of confused behavior before returning to baseline. Pt presents with no evidence of trauma. Pt denies head trauma. Pt denies CP and SOB. Pt has h/o similar syncope episodes characterized by lower BP with 5 episodes in the last 6 months. Pt last had a syncope episode 06/18/16 in [place]. PMHx includes hypotension and h/o small bowel obstruction. PSHx includes section and hysterectomy. Pt smokes 1-2 cigarettes per day. - History Of Current Complaint Chief Complaint: EDSyncope Time Seen by Provider: 07/31/16 17:21 Hx Obtained From: Patient, Family/Lead Javascript Developer Onset/Duration: Sudden Onset, Lasting Minutes, Resolved Timing: Seconds Context: Witnessed Activity At Onset: At Rest Associated Head Trauma: No Aggravating Factor(s): Nothing Alleviating Factor(s): Nothing Associated Signs And Symptoms: Negative - Allergies/Home Medications Allergies/Adverse Reactions: Allergies Allergy/AdvReac Type Severity Reaction Status Date / Time No Known Allergies Allergy Verified 05/09/16 23:26 PMH/Surg Hx/FS Hx/Imm Hx Cardiovascular History: Reports: Hx Hypotension, Hx Hypertension GI History: Reports: Hx Obstructive Bowel, Other GI Disorders - SBO History: Reports: Other Problems/Disorders - URINARY RETENTION 04/25/16 [facility] [place] Sensory History: Reports: Hx Contacts or Glasses Denies: Other Sensory Impairments Opthamlomology History: Reports: Hx Contacts or Glasses Denies: Other Sensory Impairments Neurological History: Reports: Hx Headaches, Hx Migraine Psychiatric History: Reports: Hx Anxiety, Hx Depression, Hx Suicide Attempt Comment Only: Hx Eating Disorder - unknown - Cancer History Hx Chemotherapy: No Hx Radiation Therapy: No - Surgical History Surgery Procedure, Year, and Place: total hysterectomy w/appendectomy, 2 c- sections, RT SHOULDER - Immunization History Date of Tetanus Vaccine: utd Date of Influenza Vaccine: utd Infectious Disease History: No Infectious Disease History: Denies: Traveled Outside the [place] in Last 30 Days - Family History Known Family History: Positive: Other - No FMHx of breast cancer Family History: No FHx of Breast CA. FHx of depression - Social History Occupation: Retired Lives: With Family Alcohol Use: Rare Substance Use Type: Reports: None Substance Use Comment - Amount & Last Used: RX benzos Smoking Status (MU): Light Every Day Tobacco Smoker Review of Systems Negative: Fever Negative: Chest Pain Negative: Shortness Of Breath Positive: Syncope All Other Systems Reviewed And Are Negative: Yes Physical Exam Triage Information Reviewed: Yes Vital Signs On Initial Exam: Initial Vitals Temp Pulse Resp BP Pulse Ox 97.1 F 60 20 63/42 98 07/31/16 17:13 07/31/16 17:13 07/31/16 17:13 07/31/16 17:13 07/31/16 17:13 Vital Signs Reviewed: Yes Appearance: Positive: Well-Appearing, No Pain Distress Skin: Positive: Warm, Skin Color Reflects Adequate Perfusion, Dry Eyes: Positive: EOMI, JAYASHREE ENT: Positive: Pharynx normal, TMs normal Neck: Positive: Supple, Nontender Respiratory/Lung Sounds: Positive: Clear to Auscultation, Breath Sounds Present. Negative: Rales, Rhonchi, Wheezes Cardiovascular: Positive: RRR, Other - No gallop. Negative: Murmur, Rub Abdomen Description: Positive: Nontender, Soft, Other: - No rebound. Negative: Distended, Guarding Bowel Sounds: Positive: Present Musculoskeletal: Positive: Strength/ROM Intact. Negative: Edema Left, Edema Right Neurological: Positive: Sensory/Motor Intact, Alert, Oriented to Person Place, Time, CN Intact II-III Psychiatric: Positive: Affect/Mood Appropriate Diagnostics - Vital Signs Vital Signs Temp Pulse Resp BP Pulse Ox 07/31/16 17:17 97.1 F 60 20 72/44 97 07/31/16 17:13 97.1 F 60 20 63/42 98 - Laboratory Lab Results: Lab Results 07/31/16 07/31/16 07/31/16 Range/Units 17:26 17:30 17:30 WBC 6.0 (3.5-10.8) 10^3/ul RBC 4.29 (4.0-5.4) 10^6/ul Hgb 13.7 (12.0-16.0) g/dl Hct 41 (35-47) % MCV 95 (80-97) fL MCH 32 H (27-31) pg MCHC 34 (31-36) g/dl RDW 14 (10.5-15) % Plt Count 321 (150-450) 10^3/ul MPV 7 L (7.4-10.4) um3 Neut % (Auto) 45.9 (38-83) % Lymph % (Auto) 40.9 (25-47) % [place] % (Auto) 11.0 H (1-9) % Eos % (Auto) 1.3 (0-6) % Baso % (Auto) 0.9 (0-2) % Absolute Neuts (auto) 2.8 (1.5-7.7) 10^3/ul Absolute Lymphs (auto) 2.5 (1.0-4.8) 10^3/ul Absolute Monos (auto) 0.7 (0-0.8) 10^3/ul Absolute Eos (auto) 0.1 (0-0.6) 10^3/ul Absolute Basos (auto) 0.1 (0-0.2) 10^3/ul Absolute Nucleated RBC 0 10^3/ul Nucleated RBC % 0 D-Dimer, Quantitative (Less Than 230) ng/mL Sodium 125 L (133-145) mmol/L Potassium 4.0 (3.5-5.0) mmol/L Chloride 96 L (101-111) mmol/L Carbon Dioxide 20 L (22-32) mmol/L Anion Gap 9 (2-11) mmol/L BUN 23 (6-24) mg/dL Creatinine 1.41 H (0.51-0.95) mg/dL Est GFR ( Amer) 48.0 (>60) Est GFR (Non-Af Amer) 37.3 (>60) BUN/Creatinine Ratio 16.3 (8-20) Glucose 126 H (70-100) mg/dL POC Glucose (mg/dL) 141 H (74-106) mg/dL Lactic Acid (0.5-2.0) mmol/L Calcium 8.8 (8.6-10.3) mg/dL Magnesium 2.2 (1.9-2.7) mg/dL Total Bilirubin 0.40 (0.2-1.0) mg/dL AST 21 (13-39) U/L ALT 13 (7-52) U/L Alkaline Phosphatase 90 (34-104) U/L Troponin I 0.00 (<0.04) ng/mL Total Protein 6.6 (6.4-8.9) g/dL Albumin 4.2 (3.2-5.2) g/dL Globulin 2.4 (2-4) g/dL Albumin/Globulin Ratio 1.8 (1-3) TSH 14.58 H (0.34-5.60) mcIU/mL Free T4 0.86 (0.61-1.12) ng/dL Urine Color Urine Appearance Urine pH (5-9) Ur Specific Francis (1.010-1.030) Urine Protein (Negative) Urine Ketones (Negative) Urine Blood (Negative) Urine Nitrate (Negative) Urine Bilirubin (Negative) Urine Urobilinogen (Negative) Ur Leukocyte Esterase (Negative) Urine Glucose (Negative) 07/31/16 07/31/16 07/31/16 Range/Units 17:30 17:30 17:45 WBC (3.5-10.8) 10^3/ul RBC (4.0-5.4) 10^6/ul Hgb (12.0-16.0) g/dl Hct (35-47) % MCV (80-97) fL MCH (27-31) pg MCHC (31-36) g/dl RDW (10.5-15) % Plt Count (150-450) 10^3/ul MPV (7.4-10.4) um3 Neut % (Auto) (38-83) % Lymph % (Auto) (25-47) % [place] % (Auto) (1-9) % Eos % (Auto) (0-6) % Baso % (Auto) (0-2) % Absolute Neuts (auto) (1.5-7.7) 10^3/ul Absolute Lymphs (auto) (1.0-4.8) 10^3/ul Absolute Monos (auto) (0-0.8) 10^3/ul Absolute Eos (auto) (0-0.6) 10^3/ul Absolute Basos (auto) (0-0.2) 10^3/ul Absolute Nucleated RBC 10^3/ul Nucleated RBC % D-Dimer, Quantitative < 200 (Less Than 230) ng/mL Sodium (133-145) mmol/L Potassium (3.5-5.0) mmol/L Chloride (101-111) mmol/L Carbon Dioxide (22-32) mmol/L Anion Gap (2-11) mmol/L BUN (6-24) mg/dL Creatinine (0.51-0.95) mg/dL Est GFR ( Amer) (>60) Est GFR (Non-Af Amer) (>60) BUN/Creatinine Ratio (8-20) Glucose (70-100) mg/dL POC Glucose (mg/dL) (74-106) mg/dL Lactic Acid 0.8 (0.5-2.0) mmol/L Calcium (8.6-10.3) mg/dL Magnesium (1.9-2.7) mg/dL Total Bilirubin (0.2-1.0) mg/dL AST (13-39) U/L ALT (7-52) U/L Alkaline Phosphatase (34-104) U/L Troponin I (<0.04) ng/mL Total Protein (6.4-8.9) g/dL Albumin (3.2-5.2) g/dL Globulin (2-4) g/dL Albumin/Globulin Ratio (1-3) TSH (0.34-5.60) mcIU/mL Free T4 (0.61-1.12) ng/dL Urine Color Straw Urine Appearance Clear Urine pH 7.0 (5-9) Ur Specific Francis 1.003 L (1.010-1.030) Urine Protein Negative (Negative) Urine Ketones Negative (Negative) Urine Blood Negative (Negative) Urine Nitrate Negative (Negative) Urine Bilirubin Negative (Negative) Urine Urobilinogen Negative (Negative) Ur Leukocyte Esterase Negative (Negative) Urine Glucose Negative (Negative) Result Diagrams: 07/31/16 17:30 07/31/16 17:30 Lab Statement: Any lab studies that have been ordered have been reviewed, and results considered in the medical decision making process. - Radiology CXR Xray Interpretation: Positive (See Comments) - IMPRESSION: NO ACTIVE CARDIOPULMONARY DISEASE. Radiology Interpretation Completed By: Radiologist - EKG 1725 Cardiac Rate: Bradycardia - 58 bpm EKG Rhythm: Sinus Bradycardia EKG Interpretation: early RBBB Course/Dx Course Of Treatment: 66yo female with approx 5 previous syncopal episodes recently usually tied to a medical illness - small bowel obstruction or uti. tonight she was at dinner and had a syncopal episode she arrived with hypotension that corrected on its own once pt was put on the monitor. Her labs and all were normal, pt was offered admission with cardiac monitoring but refused such and will followup with her pmd - Diagnoses Provider Diagnoses: Syncope Discharge - Discharge Plan Condition: Stable Disposition: HOME Patient Education Materials: Syncope (ED) Referrals: Evaristo Salazar MD [Primary Care Provider] - The documentation as recorded by the Christopher rajan Alok accurately reflects the service I personally performed and the decisions made by me, Audrey Stephens MD.
== END 2016-07-31 19:56 | disposition home or self-care (01) ==
LOC: ED 17:11
DX: R55 Syncope and collapse (principal); F17.210 Nicotine dependence, cigarettes, uncomplicated
CPT/HCPCS: 36415; 71010; 80053; 81003; 83605; 83735; 84439; 84443; 84484; 85025; 85379; 93005; 99283

== ENCOUNTER 2016-12-12 07:26 | Emergency (ER) | payer MEDICARE ==
[2016-12-12] MEDS ORDERED: NS 0.9% 1000 ML* 1,000 ML IV ONE ×2 (08:00→10:52)
--- NOTE | 2016-12-12 08:56 | RAD ---
INDICATION: Cough and fever. COMPARISON: Comparison is made with a prior chest x-ray study from July 31, 2016. TECHNIQUE: Dual-energy PA and lateral views of the chest were obtained. FINDINGS: The heart is within normal limits in size. Mediastinal and hilar contours appear within normal limits. The lungs are hyperinflated. There is a linear density in the left lower lobe most consistent with atelectasis. The lungs are otherwise clear. No pleural effusion is seen. IMPRESSION: LEFT LOWER LOBE SUBSEGMENTAL ATELECTASIS. THE LUNGS ARE OTHERWISE CLEAR.
[2016-12-12 09:04] LABS: Urine Bacteria 1+ (Absent); Urine Bilirubin Negative (Negative); Urine Glucose Negative (Negative); Urine Nitrite Negative (Negative)
[2016-12-12 09:28] LABS: Hematocrit 43 % (35-47); Mean Corpuscular HGB Conc 35 g/dl (31-36); Mean Corpuscular Hemoglobin 33 pg (27-31); Mean Corpuscular Volume 94 fL (80-97); Mean Platelet Volume 7 um3 (7.4-10.4); Red Blood Count 4.58 10^6/ul (4.0-5.4); Red Cell Distribution Width 13 % (10.5-15); White Blood Count 6.4 10^3/ul (3.5-10.8)
[2016-12-12 09:47] LABS: ALT 15 U/L (7-52); Albumin 4.2 g/dL (3.2-5.2); Alkaline Phosphatase 80 U/L (34-104); BUN/Creatinine Ratio 29.3 (8-20); Blood Urea Nitrogen 44 mg/dL (6-24); C Reactive Protein < 1.00 mg/L (< 5.00); CO2 Carbon Dioxide 20 mmol/L (22-32); Calcium 8.7 mg/dL (8.6-10.3); Chloride 110 mmol/L (101-111); Creatine Kinase 70 U/L (10-223); EGFR African American 44.7 (>60); EGFR Non-African American 34.7 (>60); Globulin 2.7 g/dL (2-4); Glucose 108 mg/dL (70-100); Sodium 136 mmol/L (133-145); Total Protein 6.9 g/dL (6.4-8.9)
[2016-12-12] MEDS ORDERED: LORazepam TAB(*) 0.5 MG PO ONE (11:03)
[2016-12-12 11:34] LABS: AST 19 U/L (13-39); Anion Gap 6 mmol/L (2-11); Potassium 4.3 mmol/L (3.5-5.0)
[2016-12-12] MEDS ORDERED: Azithromycin TAB* 250 MG PO ONE (12:08)
[2016-12-12 12:21] VITALS: BP 131/76
--- NOTE | 2016-12-15 13:20 | ED ---
Catrachita Tompkins Edward, scribed for Lucas Ventura MD on 12/12/16 at 0803 . Respiratory - HPI Summary HPI Summary: 66 y/o female presents to the ED c/o cold starting 2 weeks ago in her sinuses that has since "settled in her chest". Pt was given 2 bouts of abx that has not alleviated sx. Pt has been coughing up green phlegm - mostly in the morning. Three days ago the pt had an episode of near syncope. Associated sx: high blood pressure, anxiety, diaphoresis, postnasal drip. Denies CP, N/V, sore throat, sinus pain. Former smoker. 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 Denies PMHx allergies. - History of Current Complaint Chief Complaint: EDShortnessOfBreath Stated Complaint: SHORT OF BREATH, NEAR SYNCOPE Time Seen by Provider: 12/12/16 07:33 Hx Obtained From: Patient Onset/Duration: Lasting Weeks, Still Present Pain Intensity: 0 Character: Cough (Productive) Sputum Color: Green Aggravating Factor(s): Nothing Alleviating Factor(s): Nothing Associated Signs and Symptoms: Diaphoresis - Allergy/Home Medications Allergies/Adverse Reactions: Allergies Allergy/AdvReac Type Severity Reaction Status Date / Time No Known Allergies Allergy Verified 05/09/16 23:26 PMH/Surg Hx/FS Hx/Imm Hx Previously Healthy: No Cardiovascular History: Reports: Hx Hypotension, Hx Hypertension GI History: Reports: Hx Obstructive Bowel, Other GI Disorders - SBO History: Reports: Other Problems/Disorders - URINARY RETENTION 04/25/16 [facility] [place] Sensory History: Reports: Hx Contacts or Glasses Denies: Other Sensory Impairments Opthamlomology History: Reports: Hx Contacts or Glasses Denies: Other Sensory Impairments Neurological History: Reports: Hx Headaches, Hx Migraine Psychiatric History: Reports: Hx Anxiety, Hx Depression, Hx Suicide Attempt Comment Only: Hx Eating Disorder - unknown - Cancer History Hx Chemotherapy: No Hx Radiation Therapy: No - Surgical History Surgery Procedure, Year, and Place: total hysterectomy w/appendectomy, 2 c- sections, RT SHOULDER - Immunization History Date of Tetanus Vaccine: utd Date of Influenza Vaccine: utd Infectious Disease History: No Infectious Disease History: Denies: Traveled Outside the [place] in Last 30 Days - Family History Known Family History: Positive: Other - No FMHx of breast cancer Family History: No FHx of Breast CA. FHx of depression - Social History Alcohol Use: Rare Substance Use Type: Reports: None Substance Use Comment - Amount & Last Used: RX benzos Smoking Status (MU): Light Every Day Tobacco Smoker Review of Systems Positive: Skin Diaphoresis Eyes: Negative Positive: Nasal Discharge - Postnasal drip. Negative: Sore Throat Positive: Other - High blood pressure Positive: Cough Gastrointestinal: Negative Genitourinary: Negative Musculoskeletal: Negative Skin: Negative Neurological: Other - Near syncopal episode Positive: Anxious All Other Systems Reviewed And Are Negative: Yes Physical Exam - Summary Physical Exam Summary: VITAL SIGNS: Reviewed. GENERAL: Patient is a well-developed and nourished female who is lying comfortable in the stretcher. Patient is not in any acute respiratory distress. HEAD AND FACE: No signs of trauma. No ecchymosis, hematomas or skull depressions. No sinus tenderness. EYES: PERRLA, EOMI x 2, No injected conjunctiva, no nystagmus. EARS: Hearing grossly intact. Ear canals and tympanic membranes are within normal limits. MOUTH: Oropharynx within normal limits. NECK: Supple, trachea is midline, no adenopathy, no JVD, no carotid bruit, no c- spine tenderness, neck with full ROM. CHEST: Symmetric, no tenderness at palpation LUNGS: Coarse breath sounds bilaterally. Nasal congestion. CVS: Regular rate and rhythm, S1 and S2 present, no murmurs or gallops appreciated. ABDOMEN: Soft, non-tender. No signs of distention. No rebound no guarding, and no masses palpated. Bowel sounds are normal. EXTREMITIES: FROM in all major joints, no edema, no cyanosis or clubbing. NEURO: Alert and oriented x 3. No acute neurological deficits. Speech is normal and follows commands. SKIN: Dry and warm Triage Information Reviewed: Yes Vital Signs On Initial Exam: Initial Vitals Temp Pulse Resp BP Pulse Ox 98.6 F 99 20 154/95 96 12/12/16 07:28 12/12/16 07:28 12/12/16 07:28 12/12/16 07:28 12/12/16 07:28 Vital Signs Reviewed: Yes Diagnostics - Vital Signs Vital Signs Temp Pulse Resp BP Pulse Ox 12/12/16 07:28 98.6 F 99 20 154/95 96 - Laboratory Result Diagrams: 12/12/16 08:35 12/12/16 08:35 Lab Statement: Any lab studies that have been ordered have been reviewed, and results considered in the medical decision making process. - Radiology CXR Xray Interpretation: Positive (See Comments) - LEFT LOWER LOBE SUBSEGMENTAL ATELECTASIS. THE LUNGS ARE OTHERWISE CLEAR. Radiology Interpretation Completed By: Radiologist - EKG 1 EKG Interpretation: 11:54 - SR @ 67 BPM w/ RBBB. Normal axis. Disposition - Course Assessment/Plan: 66 y/o female presents to the ED c/o cold starting 2 weeks ago in her sinuses that has since "settled in her chest". Pt was given 2 bouts of abx that has not alleviated sx. Pt has been coughing up green phlegm - mostly in the morning. Three days ago the pt had an episode of near syncope. Associated sx: high blood pressure, anxiety, diaphoresis, postnasal drip. Denies CP, N/V, sore throat, sinus pain. Former smoker. 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 Denies PMHx allergies. CXR SHOWS LEFT LOWER LOBE SUBSEGMENTAL ATELECTASIS. THE LUNGS ARE OTHERWISE CLEAR. EKG 11:54 - SR @ 67 BPM w/ RBBB. Normal axis. Test results without significant abnormalities except for a chronic increase of BUN 44, Creatinine 1.5 Glucose 108. UA (-) UTI. In the ed course the pt was hydrated b/c I believe the pt was slightly dehydrated. The pt was also given Ativan for anxiety. The pt has been coughing nonstop for 5 days with fevers and productive yellowish sputum. I decided to place on azithromycin with f/u with pcp. The pt is feeling better, hemodynamically stable and A&Ox3. - Diagnoses Provider Diagnoses: Bronchitis Discharge - Discharge Plan Condition: Stable Disposition: HOME Prescriptions: Azithromycin TAB* [Zithromax TAB (Z-NEENA) 250 mg #6 tabs] 250 mg PO DAILY #4 tab Patient Education Materials: Acute Bronchitis (ED) Referrals: Evaristo Salazar MD [Primary Care Provider] - 3 Days (PLEASE F/U IN 2-3 DAYS) The documentation as recorded by the Catrachita rajan Edward accurately reflects the service I personally performed and the decisions made by , Lucas Ventura MD.
== END 2016-12-12 12:33 | disposition home or self-care (01) ==
LOC: ED 07:26
DX: J40 Bronchitis, not specified as acute or chronic (principal); R05 Cough; R06.02 Shortness of breath; F17.210 Nicotine dependence, cigarettes, uncomplicated
CPT/HCPCS: 36415; 71020; 80053; 81003; 81015; 82550; 83605; 83880; 84484; 85025; 86140; 87040; 87070; 87077; 87086; 87186; 87205; 93005; 96360; 99283; A9270-GY

== ENCOUNTER 2017-02-26 15:13 | Observation (INO) | payer MEDICARE ==
[2017-02-26] MEDS ORDERED: Naloxone* 0.4 MG/ML 10 ML VIAL ONE (15:26)
[2017-02-26] MEDS ORDERED: NS 0.9% 1000 ML* 1,000 ML IV ONE ×3 (15:37→16:54)
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
--- NOTE | 2017-02-26 15:57 | RAD ---
INDICATION: Neurologic changes, code melgar. COMPARISON: Comparison is made with a prior CT of the brain from April 24, 2016. TECHNIQUE: Contiguous axial sections of the brain were obtained from the skull base to the vertex without contrast. FINDINGS: The ventricles, cisterns and sulci are within normal limits. No significant focal abnormality or mass effect is seen. There is no evidence for hemorrhage. No significant focal osseous abnormality is seen. The visualized portion of the paranasal sinuses appear clear. The results of this exam were called to the emergency department physician at 1552 hours. IMPRESSION: NO EVIDENCE FOR GROSS ACUTE INFARCT, MASS EFFECT OR HEMORRHAGE.
[2017-02-26] MEDS ORDERED: Naloxone* 0.4 MG/ML 1 ML VIAL IV PUSH ONE ×2 (16:00)
[2017-02-26 16:11] LABS: ABS Basophils 0 10^3/ul (0-0.2); ABS Eosinophils 0 10^3/ul (0-0.6); ABS Lymphocytes 1.7 10^3/ul (1.0-4.8); ABS Monocytes 0.4 10^3/ul (0-0.8); ABS Neutrophils 3.1 10^3/ul (1.5-7.7); ABS Nucleated RBC 0 10^3/ul; Eosinophil % 0.1 % (0-6); Hematocrit 41 % (35-47); Hemoglobin 13.9 g/dl (12.0-16.0); Lymphocyte % 32.3 % (25-47); Mean Corpuscular HGB Conc 34 g/dl (31-36); Mean Corpuscular Hemoglobin 33 pg (27-31); Mean Corpuscular Volume 97 fL (80-97); Mean Platelet Volume 8 um3 (7.4-10.4); Nucleated Red Blood Cells % 0.1; Platelet Count 218 10^3/ul (150-450); Red Cell Distribution Width 13 % (10.5-15); White Blood Count 5.3 10^3/ul (3.5-10.8)
[2017-02-26 16:19] LABS: Urine Appearance Clear; Urine Blood Negative (Negative); Urine Color Straw; Urine Ketones Negative (Negative); Urine Protein Negative (Negative); Urine Specific Gravity 1.003 (1.010-1.030); Urine Urobilinogen Negative (Negative)
[2017-02-26 16:23] LABS: INR 0.82 (0.77-1.02)
[2017-02-26 16:39] LABS: EGFR Non-African American 30.3 (>60)
[2017-02-26] MEDS ORDERED: Iodixanol* (CONTRAST) 320 MG/ML 100 ML SDV IV ONE (16:43)
--- NOTE | 2017-02-26 16:49 | RAD ---
INDICATION: Neurologic changes, code melgar. COMPARISON: Comparison is made with prior study from December 12, 2016. TECHNIQUE: A portable view of the chest was obtained. FINDINGS: Cardiac and mediastinal contours appear to be within normal limits. The lungs are clear. No pleural effusion is seen. IMPRESSION: NO EVIDENCE FOR ACUTE DISEASE.
[2017-02-26] MEDS ORDERED: Aspirin Low Dose CHEW TAB* 81 MG PO ONE (17:04)
--- NOTE | 2017-02-26 17:34 | RAD ---
INDICATION: Cerebrovascular accident, stroke evaluation. COMPARISON: Comparison is made with a prior CT angiogram of the head and neck from March 18, [address] of the brain from February 26, 2017. TECHNIQUE: A CT angiogram of the head and neck was performed following intravenous injection of 80 ml of Visipaque 320 nonionic contrast. Contiguous axial sections were obtained from the thoracic inlet through the skull vertex. Images were reconstructed in the coronal and sagittal planes and in a 3-D volume rendered format. The distal cervical internal carotid artery diameter is used as the denominator for stenosis measurement. The patient sat up during the study causing significant artifact limiting evaluation. FINDINGS: RIGHT CAROTID: The common carotid artery appears widely patent. There is significant motion artifact present in the region of the carotid bifurcation limiting evaluation. LEFT CAROTID: The common carotid artery appears widely patent. There is significant motion artifact present in the region of the carotid bifurcation limiting evaluation. VERTEBRALS: The vertebral arteries appear patent. CTA BRAIN: The majority of the course of the intracerebral internal carotid arteries is obscured due to motion artifact. The anterior and middle cerebral arteries appear patent without evidence for gross intraluminal thrombus or atherosclerotic change. Evaluation of the basilar artery is limited due to motion artifact. No gross intraluminal thrombus is seen. The posterior cerebral arteries appear widely patent. No gross focal perfusion abnormalities are seen although the study is limited due to motion artifact. The lung apices appear clear. IMPRESSION: EXTREMELY LIMITED STUDY DESCRIBED. NO GROSS LARGE VESSEL INTRALUMINAL THROMBUS IS SEEN ALTHOUGH SOME OF THE INTRACEREBRAL ARTERIES ARE OBSCURED DUE TO MOTION ARTIFACT. THE CAROTID BIFURCATIONS ARE ALSO OBSCURED DUE TO MOTION ARTIFACT. CPT II Codes: 3100F
[2017-02-26] MEDS: NS 0.9% 1000 ML* 1,000 ML IV SCH (19:47)
[2017-02-26] MEDS ORDERED: OLANzapine TAB* 10 MG PO SCH (21:00)
[2017-02-26] MEDS: Heparin VIAL(*) 5000 UNITS/ML VIAL (FIVE THOUSAND) SUBCUT SCH (22:01)
--- NOTE | 2017-02-26 22:10 | ED ---
Tal Tompkins Natalie, scribed for Leo Landaverde MD on 02/26/17 at 1550 . Neurological HPI - HPI Summary HPI Summary: The pt is a 66 y/o F presenting to the ED per c/o weakness sudden onset around 14:00-14:15. The patient is normally alert and oriented, but she is weak , confused, dizzy, drowsy, and has slurred speech. She was on a one mile walk by herself, she then took a nap, and then her found her in her present state of dysarthria at 13:30. took BP at home and it was higher than normal which is usually low. She was recently sick. The patient had a similar episode 15 years ago with medication intoxication, but she has never overdosed. Pt denies abnormal urination. She has bipolar disease that she takes medication for. - History of Current Complaint Stated Complaint: POSS STROKE Time Seen by Provider: 02/26/17 15:22 Hx Obtained From: Patient, Family/Printing Machinist - Onset/Duration: Sudden Onset, Started hours ago - started at 14:30, Still Present Onset Severity: Severe Current Severity: Severe Pain Intensity: 0 Pain Scale Used: 0-10 Numeric Character: Weak, Dizzy, Impaired Speech, Confusion Aggravating: Nothing Alleviating: Nothing Associated Signs and Symptoms: Positive: Confusion, Weakness, Dizziness - Additional Pertinent History Primary Care Physician: [id number] - Allergy/Home Medications Allergies/Adverse Reactions: Allergies Allergy/AdvReac Type Severity Reaction Status Date / Time No Known Allergies Allergy Verified 05/09/16 23:26 Home Medications: Home Medications OLANzapine TAB* [Zyprexa 2.5 MG TAB*] 2.5 mg PO DAILY 02/26/17 [History Confirmed 02/26/17] Sodium Chloride TAB* 0.5 gm PO DAILY 02/26/17 [History Confirmed 02/26/17] PMH/Surg Hx/FS Hx/Imm Hx Previously Healthy: No Cardiovascular History: Reports: Hx Hypotension, Hx Hypertension GI History: Reports: Hx Obstructive Bowel, Other GI Disorders - MULTIPLE SBO History: Reports: Other Problems/Disorders - URINARY RETENTION 04/25/16 [facility] [place] Sensory History: Reports: Hx Contacts or Glasses Denies: Other Sensory Impairments Opthamlomology History: Reports: Hx Contacts or Glasses Denies: Other Sensory Impairments Neurological History: Reports: Hx Headaches, Hx Migraine Psychiatric History: Reports: Hx Anxiety, Hx Depression, Hx Suicide Attempt Comment Only: Hx Eating Disorder - unknown - Cancer History Hx Chemotherapy: No Hx Radiation Therapy: No - Surgical History Surgery Procedure, Year, and Place: total hysterectomy w/appendectomy, 2 c- sections, RT SHOULDER - Immunization History Date of Tetanus Vaccine: utd Date of Influenza Vaccine: utd Infectious Disease History: No Infectious Disease History: Denies: Traveled Outside the [place] in Last 30 Days - Family History Known Family History: Positive: Other - No FMHx of breast cancer, FHx of depression Family History: No FHx of Breast CA. FHx of depression - Social History Alcohol Use: Rare Substance Use Type: Reports: None Substance Use Comment - Amount & Last Used: RX benzos Smoking Status (MU): Light Every Day Tobacco Smoker Review of Systems Negative: Fever Positive: other - normal urination Neurological: Other - confusion, dizziness, drowsiness Positive: Weakness, Slurred Speech All Other Systems Reviewed And Are Negative: Yes Physical Exam Triage Information Reviewed: Yes Vital Signs On Initial Exam: Initial Vitals Temp Pulse Resp BP Pulse Ox 97.4 F 70 20 156/93 93 02/26/17 15:26 02/26/17 15:26 02/26/17 15:26 02/26/17 15:26 02/26/17 15:26 Vital Signs Reviewed: Yes Appearance: Positive: Well-Appearing, No Pain Distress Skin: Positive: Warm, Skin Color Reflects Adequate Perfusion, Dry Head/Face: Positive: Normal Head/Face Inspection Eyes: Positive: Other: - pupils midrange ENT: Positive: Other - dry mucous membranes Neck: Positive: Supple, Nontender Respiratory/Lung Sounds: Positive: Clear to Auscultation, Breath Sounds Present Cardiovascular: Positive: RRR, Pulses are Symmetrical in both Upper and Lower Extremities Abdomen Description: Positive: Nontender, Soft Bowel Sounds: Positive: Present Musculoskeletal: Positive: Normal, Strength/ROM Intact Neurological: Positive: Sensory/Motor Intact, Other - dysarthria, very drowsy, no focal neuro deficit, NIH: 1 Diagnostics - Vital Signs Vital Signs Temp Pulse Resp BP Pulse Ox 02/26/17 15:26 97.4 F 70 20 156/93 93 - Laboratory Lab Results: Lab Results 02/26/17 02/26/17 02/26/17 Range/Units 15:32 15:53 15:53 WBC 5.3 (3.5-10.8) 10^3/ul RBC 4.20 (4.0-5.4) 10^6/ul Hgb 13.9 (12.0-16.0) g/dl Hct 41 (35-47) % MCV 97 (80-97) fL MCH 33 H (27-31) pg MCHC 34 (31-36) g/dl RDW 13 (10.5-15) % Plt Count 218 (150-450) 10^3/ul MPV 8 (7.4-10.4) um3 Neut % (Auto) 58.8 (38-83) % Lymph % (Auto) 32.3 (25-47) % [place] % (Auto) 8.5 (1-9) % Eos % (Auto) 0.1 (0-6) % Baso % (Auto) 0.3 (0-2) % Absolute Neuts (auto) 3.1 (1.5-7.7) 10^3/ul Absolute Lymphs (auto) 1.7 (1.0-4.8) 10^3/ul Absolute Monos (auto) 0.4 (0-0.8) 10^3/ul Absolute Eos (auto) 0 (0-0.6) 10^3/ul Absolute Basos (auto) 0 (0-0.2) 10^3/ul Absolute Nucleated RBC 0 10^3/ul Nucleated RBC % 0.1 INR (Anticoag Therapy) 0.82 (0.77-1.02) APTT 28.2 (26.0-36.3) seconds Sodium (133-145) mmol/L Potassium (3.5-5.0) mmol/L Chloride (101-111) mmol/L Carbon Dioxide (22-32) mmol/L Anion Gap (2-11) mmol/L BUN (6-24) mg/dL Creatinine (0.51-0.95) mg/dL Est GFR ( Amer) (>60) Est GFR (Non-Af Amer) (>60) BUN/Creatinine Ratio (8-20) Glucose (70-100) mg/dL POC Glucose (mg/dL) 112 H (70-100) mg/dL Lactic Acid (0.5-2.0) mmol/L Calcium (8.6-10.3) mg/dL Total Bilirubin (0.2-1.0) mg/dL AST (13-39) U/L ALT (7-52) U/L Alkaline Phosphatase (34-104) U/L Ammonia (16-53) mol/L Troponin I (<0.04) ng/mL Total Protein (6.4-8.9) g/dL Albumin (3.2-5.2) g/dL Globulin (2-4) g/dL Albumin/Globulin Ratio (1-3) Triglycerides mg/dL Cholesterol mg/dL LDL Cholesterol mg/dL HDL Cholesterol mg/dL Urine Color Urine Appearance Urine pH (5-9) Ur Specific [place] (1.010-1.030) Urine Protein (Negative) Urine Ketones (Negative) Urine Blood (Negative) Urine Nitrate (Negative) Urine Bilirubin (Negative) Urine Urobilinogen (Negative) Ur Leukocyte Esterase (Negative) Urine Glucose (Negative) Salicylates (<30) mg/dL Urine Opiates Screen (None Detect) Acetaminophen mcg/mL Ur Barbiturates Screen (None Detect) Ur Phencyclidine Scrn (None Detect) Ur Amphetamines Screen (None Detect) U Benzodiazepines Scrn (None Detect) Urine Cocaine Screen (None Detect) U Cannabinoids Screen (None Detect) Serum Alcohol (<10) mg/dL 02/26/17 02/26/17 02/26/17 Range/Units 15:53 15:53 15:53 WBC (3.5-10.8) 10^3/ul RBC (4.0-5.4) 10^6/ul Hgb (12.0-16.0) g/dl Hct (35-47) % MCV (80-97) fL MCH (27-31) pg MCHC (31-36) g/dl RDW (10.5-15) % Plt Count (150-450) 10^3/ul MPV (7.4-10.4) um3 Neut % (Auto) (38-83) % Lymph % (Auto) (25-47) % [place] % (Auto) (1-9) % Eos % (Auto) (0-6) % Baso % (Auto) (0-2) % Absolute Neuts (auto) (1.5-7.7) 10^3/ul Absolute Lymphs (auto) (1.0-4.8) 10^3/ul Absolute Monos (auto) (0-0.8) 10^3/ul Absolute Eos (auto) (0-0.6) 10^3/ul Absolute Basos (auto) (0-0.2) 10^3/ul Absolute Nucleated RBC 10^3/ul Nucleated RBC % INR (Anticoag Therapy) (0.77-1.02) APTT (26.0-36.3) seconds Sodium 134 (133-145) mmol/L Potassium 3.8 (3.5-5.0) mmol/L Chloride 104 (101-111) mmol/L Carbon Dioxide 23 (22-32) mmol/L Anion Gap 7 (2-11) mmol/L BUN 26 H (6-24) mg/dL Creatinine 1.69 H (0.51-0.95) mg/dL Est GFR ( Amer) 38.9 (>60) Est GFR (Non-Af Amer) 30.3 (>60) BUN/Creatinine Ratio 15.4 (8-20) Glucose 80 (70-100) mg/dL POC Glucose (mg/dL) (70-100) mg/dL Lactic Acid 0.4 L (0.5-2.0) mmol/L Calcium 8.7 (8.6-10.3) mg/dL Total Bilirubin 0.30 (0.2-1.0) mg/dL AST 21 (13-39) U/L ALT 12 (7-52) U/L Alkaline Phosphatase 66 (34-104) U/L Ammonia 44 (16-53) mol/L Troponin I 0.01 (<0.04) ng/mL Total Protein 7.0 (6.4-8.9) g/dL Albumin 4.1 (3.2-5.2) g/dL Globulin 2.9 (2-4) g/dL Albumin/Globulin Ratio 1.4 (1-3) Triglycerides 151 mg/dL Cholesterol 162 mg/dL LDL Cholesterol 69 mg/dL HDL Cholesterol 62.9 mg/dL Urine Color Urine Appearance Urine pH (5-9) Ur Specific [place] (1.010-1.030) Urine Protein (Negative) Urine Ketones (Negative) Urine Blood (Negative) Urine Nitrate (Negative) Urine Bilirubin (Negative) Urine Urobilinogen (Negative) Ur Leukocyte Esterase (Negative) Urine Glucose (Negative) Salicylates < 2.50 (<30) mg/dL Urine Opiates Screen (None Detect) Acetaminophen < 15 mcg/mL Ur Barbiturates Screen (None Detect) Ur Phencyclidine Scrn (None Detect) Ur Amphetamines Screen (None Detect) U Benzodiazepines Scrn (None Detect) Urine Cocaine Screen (None Detect) U Cannabinoids Screen (None Detect) Serum Alcohol < 10 (<10) mg/dL 02/26/17 02/26/17 Range/Units 16:00 16:00 WBC (3.5-10.8) 10^3/ul RBC (4.0-5.4) 10^6/ul Hgb (12.0-16.0) g/dl Hct (35-47) % MCV (80-97) fL MCH (27-31) pg MCHC (31-36) g/dl RDW (10.5-15) % Plt Count (150-450) 10^3/ul MPV (7.4-10.4) um3 Neut % (Auto) (38-83) % Lymph % (Auto) (25-47) % [place] % (Auto) (1-9) % Eos % (Auto) (0-6) % Baso % (Auto) (0-2) % Absolute Neuts (auto) (1.5-7.7) 10^3/ul Absolute Lymphs (auto) (1.0-4.8) 10^3/ul Absolute Monos (auto) (0-0.8) 10^3/ul Absolute Eos (auto) (0-0.6) 10^3/ul Absolute Basos (auto) (0-0.2) 10^3/ul Absolute Nucleated RBC 10^3/ul Nucleated RBC % INR (Anticoag Therapy) (0.77-1.02) APTT (26.0-36.3) seconds Sodium (133-145) mmol/L Potassium (3.5-5.0) mmol/L Chloride (101-111) mmol/L Carbon Dioxide (22-32) mmol/L Anion Gap (2-11) mmol/L BUN (6-24) mg/dL Creatinine (0.51-0.95) mg/dL Est GFR ( Amer) (>60) Est GFR (Non-Af Amer) (>60) BUN/Creatinine Ratio (8-20) Glucose (70-100) mg/dL POC Glucose (mg/dL) (70-100) mg/dL Lactic Acid (0.5-2.0) mmol/L Calcium (8.6-10.3) mg/dL Total Bilirubin (0.2-1.0) mg/dL AST (13-39) U/L ALT (7-52) U/L Alkaline Phosphatase (34-104) U/L Ammonia (16-53) mol/L Troponin I (<0.04) ng/mL Total Protein (6.4-8.9) g/dL Albumin (3.2-5.2) g/dL Globulin (2-4) g/dL Albumin/Globulin Ratio (1-3) Triglycerides mg/dL Cholesterol mg/dL LDL Cholesterol mg/dL HDL Cholesterol mg/dL Urine Color Straw Urine Appearance Clear Urine pH 5.0 (5-9) Ur Specific [place] 1.003 L (1.010-1.030) Urine Protein Negative (Negative) Urine Ketones Negative (Negative) Urine Blood Negative (Negative) Urine Nitrate Negative (Negative) Urine Bilirubin Negative (Negative) Urine Urobilinogen Negative (Negative) Ur Leukocyte Esterase Negative (Negative) Urine Glucose Negative (Negative) Salicylates (<30) mg/dL Urine Opiates Screen None detected (None Detect) Acetaminophen mcg/mL Ur Barbiturates Screen None detected (None Detect) Ur Phencyclidine Scrn None detected (None Detect) Ur Amphetamines Screen None detected (None Detect) U Benzodiazepines Scrn None detected (None Detect) Urine Cocaine Screen None detected (None Detect) U Cannabinoids Screen None detected (None Detect) Serum Alcohol (<10) mg/dL Result Diagrams: 02/26/17 15:53 02/26/17 15:53 Lab Statement: Any lab studies that have been ordered have been reviewed, and results considered in the medical decision making process. - Radiology CXR Xray Interpretation: No Acute Changes - No evidence for acute disease. ED physician has reviewed this report. Radiology Interpretation Completed By: Radiologist - CT Brain CT CT Interpretation: No Acute Changes - No evidence for gross acute infarct, mass effect or hemorrhage. ED physician has reviewed this report. CT Interpretation Completed By: Radiologist Head CTA CT Interpretation: No Acute Changes - Extremely limited study as described. No gross large vessel intraluminal thrombus is seen although some of the intracerebral arteries are obscured due to motion artifact. The carotid bifurcations are also obscured due to motion artifact. ED physician has reviewed this report. CT Interpretation Completed By: Radiologist - EKG 15:49 Cardiac Rate: NL EKG Rhythm: Sinus Rhythm - 68 BPM EKG Interpretation: RBBB. Nml axis. Nonspecific ST. Nml QTC. Re-Evaluation - Re-Evaluation First Eval Re-Evaluation Time: 16:15 Change: Unchanged Comment: The patient still has dysarthria. She is giddy when answering questions. Second Eval Re-Evaluation Time: 16:55 Change: Improved Comment: The patient's said the patient's speech has improved by 40%. The patient is still laughing inappropriately. She is alert and oriented. Course/Dx - Course Course Of Treatment: Pt with presentation with abrupt onset of delirium and dysarthria of uncertain onset, likely best estimated at 1330 today. Other than dysarthria there are no neurologic deficits. Pt is drowsy and has an intoxication like appearance. states that she has a hx of abusing her psychiatric meds. NIHSS 1 on arrival. Oriented but requires repeated stimulation. CT neg. Narcan had no effect. Neurology consulted and evaluated. Obtained CTA emergently and prior to Cr being resulted (emergent test)but pt sat up during the scan. SHe received lg volume IVF given it was found she has renal insuffiency. Continued bizarre behaviour, such as talking with daughter telling her that she shouldnt need 2 IVs so she removed it. Over ED course the pt's dysarthria has improved significantly. Her bizarre behavior has as well, with less laughing etc. She is unable to be still for MRI and at or about window for tPA. Stroke seems much less likely a dx as drug intox etc, to which agrees. It is explained why we have decided against tPA. ASA given, pt admitted thru hospitalist service for further. - Differential Dx Differential Diagnoses Neuro: Positive: Alcohol Abuse, Cerebrovascular Accident , Drug Toxicity, Hemorrhage, Hypoglycemia, Metabolic Abnormality, Overdose, Toxic Exposure - Diagnoses Provider Diagnoses: Hx of bipolar disorder, Dysarthria, Delirium, Chronic renal insufficiency - Critical Care Time Critical Care Time: 30-74 min - CCT is EXCLUSIVE of separately billable procedures. Discharge - Discharge Plan Condition: Guarded Disposition: ADMITTED TO [facility] documentation as recorded by the Tal rajan Natalie accurately reflects the service I personally performed and the decisions made by me, Leo Landaverde MD.
[2017-02-26] MEDS: lamoTRIgine TAB(*) 100 MG PO SCH (22:24)
[2017-02-26] MEDS: Pregabalin CAP(*) 50 MG PO SCH (22:25)
[2017-02-26] MEDS: OLANzapine TAB* 2.5 MG PO SCH (22:25)
--- NOTE | 2017-02-26 22:45 | CONS ---
CONSULTATION REPORT: ADDENDUM: Discussed with Naheed and Salina Stephenson to give a baby aspirin for now depending on how her history evolves. If this becomes more apparent that this is drug-related, we would not necessarily need to continue the aspirin indefinitely. [id number]/[facility] #: [id number] JETE
--- NOTE | 2017-02-26 22:53 | HP ---
CC: Dr. Evaristo Salazar; Dr. Brad Duarte * HISTORY AND PHYSICAL: DATE OF ADMISSION: 02/26/17. PRIMARY CARE PROVIDER: Dr. Evaristo Salazar. ATTENDING PHYSICIAN: Dr. Ruel Garrett * (dictated by Salina Randall NP). CHIEF COMPLAINT: Dysarthria. HISTORY OF PRESENT ILLNESS: Ms. Moran is a 66-year-old female with past medical history significant for hyponatremia, anorexia, anxiety, depression, bipolar disorder, migraines, small bowel obstruction, who presents to the emergency room with complaints of dysarthria. According to the patient, she has been in her usual state of health. Denied any recent fever, chills, chest pain, cough, nausea, vomiting, diarrhea, urinary symptoms. She states that she has shortness of breath with exertion. The patient had gone for a walk and lied down for a nap at approximately 1:20 p.m. today and she awoke at approximately 2 :15. Her noticed that she had slurred speech and seemed confused and seemed uncoordinated. He did not notice any facial drooping or one-sided weakness. The patient states that she occasionally takes tramadol at home, although I do not see this recently prescribed to her. I question if she has been holding on to medications previously prescribed and may have taken something that she is not being forthcoming with. The patient's is unaware of her taking Topamax, states that she has not abused prescription medications in "15 years." Due to her symptoms, they presented to the emergency room for further evaluation. While in the emergency room, the patient had a brain CT with no significant findings. She had a CTA of her head and neck without significant findings, although with the limited study due to the patient's moving. She had a chest x- ray with no acute findings. She had labs that were fairly unremarkable. Her creatinine is slightly elevated above her baseline, other than that, they were unremarkable. The patient was seen in consultation by Dr. Duarte with Neurology and it was recommended that the hospitalists evaluate the patient for admission. PAST MEDICAL HISTORY: 1. Hyponatremia. 2. Anorexia. 3. Depression. 4. Anxiety. 5. Bipolar disorder. 6. Migraines. 7. Small bowel obstruction. PAST SURGICAL HISTORY: 1. Status post appendectomy. 2. Status post tubal ligation. 3. Status post hysterectomy. 4. Status post . 5. Status post right shoulder ORIF. HOME MEDICATIONS: Include: 1. Lamictal 200 mg oral twice daily. 2. Lyrica 150 mg oral 3 times daily. 3. Zyprexa 10 mg oral at bedtime daily, with and extra 2.5 mg oral every other day. 4. Tramadol 50 mg oral every 6 hours as needed for headache, the patient takes usually once monthly as needed for migraines. 5. Sodium Chloride 0.5gm oral daily. 6. Multivitamin 1 tablet oral daily. 7. Calcium 600mg oral daily. 8. Probiotics 1 capsule oral daily. ALLERGIES: No known drug allergies. FAMILY HISTORY: The patient's father had a history of congestive heart failure and diabetes. She denies any family history of cancer. SOCIAL HISTORY: The patient is a former smoker. She reports quitting few months ago, prior to that she had a 40 year, half a pack a day smoking history. The patient reports drinking 1 bottle of beer a week. She denies recreational drug use. She lives with her . Her , Rich Moran, will be her surrogate decision maker in the event if she is not able to make decisions for herself. REVIEW OF SYSTEMS: I performed a 14-point review of systems. All the pertinent positives and negatives are mentioned in the history of present illness. The remaining of review of systems are negative. PHYSICAL EXAMINATION GENERAL APPEARANCE: The patient is alert, pleasant, appears to be in no acute distress. VITAL SIGNS: Temperature 97.9, heart rate 70, respiratory rate 20, O2 sat 93% on room air, blood pressure 156/93. HEENT: Normocephalic, atraumatic. Pupils are equal and reactive to light. Extraocular movements are unable to be tested as the patient will not follow my finger with her eyes. RESPIRATORY: There is no accessory muscle use. The lungs are clear to auscultation bilateral. CARDIOVASCULAR: Regular rate and rhythm. S1, S2 present. There are no murmurs , rubs, or gallops heard. ABDOMEN: Soft, nontender, nondistended. There are bowel sounds present x4. EXTREMITIES: There is no lower extremity edema. DP and PT pulses are 2+ and symmetric. MUSCULOSKELETAL: There is no clubbing or cyanosis noted. The patient exhibits good strength in all extremities. NEUROLOGIC: The patient is alert, and oriented x4. Cranial nerves II through XII are grossly intact. The patient has strong dorsi and plantar flex. Bilateral hand primary teacher are equal. Tongue is midline. Her smile is symmetric. PSYCHOLOGICAL: The patient is calm and mostly cooperative during her examination. SKIN: There are no rashes or abnormalities seen. DIAGNOSTIC STUDIES/LAB DATA: Sodium 134, potassium 3.8, chloride 104, CO2 23, BUN 26, creatinine 1.69, and glucose 80. Troponin 0.01. White blood cell count 5.3, hemoglobin 13.9, hematocrit 41, platelet count 280. EKG shows a sinus rhythm with a rate of 68 and a right bundle-branch block. This EKG is similar to previous EKG from 12/12/16. Chest x-ray from today, radiologist's impression: No evidence for acute disease. Head CT, from today, radiologist's impression: No evidence for gross acute infarct, mass effect or hemorrhage. Head and neck CTA from today. Radiologist's impression: Extremely limited study as described. No gross large vessel intraabdominal thrombus seen, although some of the intracerebellar arteries are obscured due to motion artifact. The carotid bifurcations are also obscured due to motion artifact. IMPRESSION: Ms. Moran is a 66-year-old female with past medical history significant for hyponatremia, depression, anxiety, bipolar, migraines, who presents to the emergency room with complaints of slurred speech and confusion and she will be admitted as an observation for rule out cerebrovascular accident. ASSESSMENT AND PLAN: 1. Slurred speech. The patient has no focal neuro deficits. We will continue neuro checks q.4 hours. We will monitor on telemetry. We will check fasting lipids and a hemoglobin A1c in the morning. She received a loading dose of aspirin in the emergency room. We will continue on aspirin 81 mg oral daily. We will also get an MRI in the morning. If the patient is still here on Wednesday , we will get a transthoracic echocardiogram with bubble study. I question if the patient's dysarthria is secondary to medications and not a cerebrovascular accident. I will further inquire tomorrow if she has been taking medications not prescribed for her or other than directed. 2. Bipolar disorder, Anxiety and depression. The patient will be continued on her home Lamictal, Lyrica, and Zyprexa. 3. Fluids, electrolytes and nutrition: The patient will be on a regular diet. 4. Code status: Full code. 5. DVT prophylaxis: The patient is at moderate risk, we will have her on subcu heparin. 6. Disposition: Observation. TIME SPENT: Time for this admission was approximately 60 minutes, greater than half of that was spent with the patient and discussing medications, past medical history, and the events leading up to her arrival today, performing a physical examination. The case has been reviewed with the attending, Dr. Garrett, who agrees with the plan of care. Reviewed by HILLARY HOLDEN 03/01/2017 1806 [id number]/[facility] #: [id number] JEET
--- NOTE | 2017-02-26 22:53 | CONS ---
ADDENDUM NOW INCLUDED ON THIS REPORT CONSULTATION REPORT: DATE OF CONSULT: 02/26/17 PATIENT OF: Dr. Nance and Salina Stephenson NP HISTORY OF PRESENT ILLNESS: This is a 66-year-old right-handed woman, whom I am asked to evaluate for slurred and altered speech. I was contacted after 4 o' clock initially to see this patient that had been in the ER for more than an hour. I was told that she was having speech problems and confusion that they were improving. The history from the and then from the patient is that she was fine this morning, went down to walk with her , and went to take a nap at about 1:20 and when she woke up at about 2:15 or 2:20, she was found to be with slurred speech, confused, and somewhat uncoordinated. She has improved since being in the ER and her main problem that I initially saw was a slight confusion but mostly slurred speech. She denied any double vision or headache. The history has emerged over time that she also has had some syncopal episodes in the past and had a CTA in March of 2016 for near syncope and altered mental status that was normal. PAST MEDICAL HISTORY: She has a history at times of hyponatremia and her main problem is manic depression. I spoke to her general doctor, Dr. Nance, who said that there were no other significant problems, that her psychiatric problems for which she follows with Dr. Solomon is the main issue. PAST SURGICAL HISTORY: She has had no recent surgeries. MEDICATIONS: She is on: 1. Lamictal 200 twice a day. 2. Lyrica 150 t.i.d. 3. Zyprexa changed 6 months ago to 12.5 a day. ALLERGIES: She has no known allergies. FAMILY HISTORY: No family history for stroke. SOCIAL HISTORY: She is also a former smoker, has been off cigarettes for the past month. She has no drug or alcohol history. REVIEW OF SYSTEMS: Negative in all 14 spheres other than the notes that she has been somewhat talking the past few days' time. There has been no specific numbness or weakness. This is acute event. PHYSICAL EXAM: Temperature 97.4, pulse 70, respirations 20, blood pressure 156/ 93. She was alert and oriented, although slightly hesitant in her speech. Her speech was slurred initially when I saw her and then is much improved currently at 5:50 when I am dictating. Cranial nerves II through XII were intact other than she had a left esotropia, which she denies any double vision and her is not sure whether this is a new finding or not. Facies was symmetric. Her motor exam revealed normal tone, strength. [id number] was intact other than a mild intention tremor bilaterally. [id number] was intact. Reflexes were 2+ and equal. Toes were downgoing. Neck was supple. Chest: Clear. Cardiovascular: Regular rate and rhythm. Abdomen: Soft, positive bowel sounds. She has had intact sensation to light touch and double simultaneous stimulation. She had no field cut. She had normal naming and word-finding sentence structure. Her speech was slurred as mentioned. DIAGNOSTIC STUDIES/LAB DATA: Labs included normal CBC, INR, PTT. Normal CMP other than a BUN of 26, creatinine of 1.69. LDL of 69. UA was negative. Toxicology was negative including serum alcohol. Her CTA is limited because of the patient's movement. She sat up during the test but there is no large vessel thrombosis. Carotid study at bifurcation was limited as well as intracerebral study. Her CT scan was reviewed and showed no acute infarct, mass, or hemorrhage. Her EKG was normal sinus rhythm with right bundle branch block and normal QRS. IMPRESSION AND PLAN: I discussed with Naheed, her , and the hospitalist as well as ER doctor that her symptoms of slurred speech and confusion may be secondary to medication rather than stroke. She is clearing rapidly and has minimal deficit. It is possible with this could have been basilar artery ischemia causing slurring, some confusion, and imbalance, and the CTA does not show that. I discussed with the family that her kidney function is not normal and there had been some mild renal insufficiency before and she will need hydration. This will need to be followed and I had discussed the reasons why we had done the CTA. We were informed by Radiology that given the experience with the CTA, she will need to be sedated for her MRI scan. Since we want to observe her and nothing on MRI scan would change our treatment as of this moment, we will not sedate and get the MRI scan now, but we will get as part of her workup. I have discussed her care with Salina Stephenson , SUKHI, and also Dr. Scott, who will be assuming the neurological care as of now. Thank you for sharing her case. ADDENDUM: Discussed with Naheed and Salina Stephenson to give a baby aspirin for now depending on how her history evolves. If this becomes more apparent that this is drug-related, we would not necessarily need to continue the aspirin indefinitely. [id number]/[facility] #: [id number] Lauro- [id number]/[facility] #: [id number] JEET
[2017-02-27 06:14] LABS: EGFR Non-African American 36.7 (>60)
[2017-02-27] MEDS: Heparin VIAL(*) 5000 UNITS/ML VIAL (FIVE THOUSAND) SUBCUT SCH (07:10)
[2017-02-27] MEDS: OLANzapine TAB* 2.5 MG PO SCH (08:42)
[2017-02-27] MEDS: lamoTRIgine TAB(*) 100 MG PO SCH (08:42)
[2017-02-27] MEDS: Pregabalin CAP(*) 50 MG PO SCH (08:43)
[2017-02-27] MEDS: NS 0.9% 1000 ML* 1,000 ML IV SCH (08:46)
[2017-02-27] MEDS ORDERED: Sodium Chloride TAB* 1 GM PO SCH (09:00)
[2017-02-27] MEDS ORDERED: Aspirin Low Dose CHEW TAB* 81 MG PO SCH (09:00)
--- NOTE | 2017-02-27 10:40 | PN ---
Subjective Date of Service: 02/27/17 Interval History: Patient seen and examined at bedside. Denies fever, chills, shortness of breath , chest discomfort, N/V/D. Pt states that she recalls all of the events from yesterday. She reports that she knew she was acting strange and was unable to tell anyone that, she states that she was unable to get the words out. Pt states that she has a history of migraines related to her menstral cycle and although she had a hysterectomy she still continues to get migraines once a month around when she would have her cycle. She takes Topamax PRN around that time (I don't see a recent prescription for this), she reports that she has some old tabs at her house. She continues to deny taking her medications differently then she is prescribed or other drugs. She report going for a 2 mile walk prior to laying down for a nap yesterday. Tele: Sinus rhythm, rate 60's. Family History: Unchanged from Admission Social History: Unchanged from Admission Past Medical History: Unchanged from Admission Objective Active Medications: Aspirin (Aspirin Low Dose Tab*) 81 mg PO DAILY EILEEN Heparin Sodium (Porcine) (Heparin Vial(*)) 5,000 units SUBCUT Q8HR EILEEN Sodium Chloride (Ns 0.9% 1000 Ml*) 1,000 mls @ 100 mls/hr IV PER RATE EILEEN Lamotrigine (Lamictal Tab(*)) 200 mg PO BID EILEEN Olanzapine (Zyprexa Tab*) 10 mg PO 2100 EILEEN Olanzapine (Zyprexa Tab*) 2.5 mg PO DAILY EILEEN Pregabalin (Lyrica Cap(*)) 150 mg PO TID EILEEN Sodium Chloride (Sodium Chloride Tab*) 0.5 gm PO DAILY EILEEN Vital Signs - 8 hr 02/27/17 02/27/17 02/27/17 03:45 03:47 07:46 Temperature 98.0 F 98.5 F Pulse Rate 65 64 Respiratory 14 16 Rate Blood Pressure 88/69 110/70 146/77 (mmHg) O2 Sat by Pulse 98 100 Oximetry 02/27/17 02/27/17 08:00 08:43 Temperature Pulse Rate Respiratory 20 Rate Blood Pressure (mmHg) O2 Sat by Pulse 100 Oximetry Oxygen Devices in Use Now: None Appearance: NAD, sitting up in bed Ears/Nose/Mouth/Throat: Mucous Membranes Moist Respiratory: Symmetrical Chest Expansion and Respiratory Effort, Clear to Auscultation Cardiovascular: NL Sounds; No Murmurs; No JVD, RRR Abdominal: NL Sounds; No Tenderness; No Distention Extremities: No Edema Skin: No Rash or Ulcers Neurological: Alert and Oriented x 3, NL Muscle Strength and Tone Lines/Tubes/Other Access: Clean, Dry and Intact Peripheral IV - site benign Nutrition: Taking PO's Result Diagrams: 02/26/17 15:53 02/27/17 05:29 Additional Lab and Data: Assess/Plan/Problems-Billing Assessment: Ms. Moran is a 66 yo female with PMH significant for hyponatreia, depression, and anxiety who presented to the emergency room with complaints of slurred speech. - Patient Problems (1) Slurred speech Code(s): R47.81 - SLURRED SPEECH SNOMED Code(s): 277343791 Comment: - Resolved - No focal neurological deficits - CT brain - negative - MRI brain and Echo pending - Neuro consult, input appreciated (2) KRYSTINA (acute kidney injury) Code(s): N17.9 - ACUTE KIDNEY FAILURE, UNSPECIFIED SNOMED Code(s): 09043705 Comment: - Improved with IVFs - suspect Pt is back near her baseline (3) Hx of bipolar disorder Code(s): Z86.59 - PERSONAL HISTORY OF OTHER MENTAL AND BEHAVIORAL DISORDERS SNOMED Code(s): 730465477 Comment: - Stable - Continue Lamictal and zyprexa (4) DVT prophylaxis Code(s): HRI4230 - SNOMED Code(s): 621736521 Comment: - HSQ (5) Full code status Code(s): Z78.9 - OTHER SPECIFIED HEALTH STATUS SNOMED Code(s): 480311274 Status and Disposition: OBV. Stable for discharge to home later today if able to ambulate safely.
[2017-02-27 12:21] VITALS: BP 147/79
[2017-02-27] MEDS ORDERED: Nicotine GUM* 2 MG PO PRN (14:47)
[2017-02-27] MEDS ORDERED: OLANzapine TAB* 2.5 MG PO SCH (21:00)
--- NOTE | 2017-02-28 20:37 | DS ---
CC: Dr. Evaristo Salazar * DISCHARGE SUMMARY: DATE OF ADMISSION: 02/26/17 DATE OF DISCHARGE: 02/27/17 ATTENDING PHYSICIAN: Ruel Garrett MD * (dictated by Salina Randall NP) PRIMARY CARE PROVIDER: Dr. Evaristo Salazar. PRIMARY DIAGNOSES: Transient slurred speech and unsteady gait. SECONDARY DIAGNOSES: 1. Hyponatremia. 2. Anorexia. 3. Anxiety. 4. Depression. 5. Bipolar disorder. 6. Migraines. 7. Recent small bowel obstruction. CONSULTATIONS WHILE IN THE HOSPITAL: Dr. Brad Duarte with Neurology STUDIES WHILE IN THE HOSPITAL: 1. Chest x-ray from 02/26/17. Radiologist's impression: No evidence for acute disease. 2. Head CT from 02/26/17. Radiologist's impression: No evidence for gross acute infarct, mass effect or hemorrhage. DISCHARGE MEDICATIONS: Continued home medications: 1. Nicotine gum 2 mg oral every 2 hours as needed for nicotine cravings. 2. Probiotics 1 capsule oral daily. 3. Multivitamin 1 tablet oral daily. 4. Calcium carbonate 600 mg oral twice daily. 5. Tramadol 50 mg oral every 6 hours as needed for migraine, the patient takes approximately once monthly. 6. Zyprexa 10 mg oral at bedtime daily, alternating with an extra 2.5 mg oral every other day. 7. Sodium chloride tablet 0.5 g oral daily. 8. Lamictal 200 mg oral twice daily. 9. Lyrica 150 mg oral 3 times daily. HISTORY OF PRESENT ILLNESS/HOSPITAL COURSE: Ms. Moran is a 66-year-old female with past medical history significant for anxiety, depression, bipolar disorder who presented to the emergency room with complaints of dysarthria and uncoordinated gait. Please note that the patient was recently hospitalized for small obstruction at a different facility while she was visiting her daughter. According to her , she had similar behavior where she seemed very restless and acting bizarre at that time. It was felt that that was secondary to her not getting her psychiatric medications. The patient reports no issues with her bipolar and it has been stable for 10 to 15 years. According to the patient and her , she was in her usual state of health, she had gone for 2 mile walk earlier in the day, decided to lie down for a nap at approximately 1 :20 p.m., she awoke at 2:15 p.m., she noticed that she had slurred speech, seemed confused, and was uncoordinated. He did not notice any facial drooping or focal weakness, but due to her symptoms, he decided to bring her to the emergency room for further evaluation. While in the emergency room, the patient had a brain CT with no significant findings. A CTA of her head and neck without significant findings. Chest x- ray without significant findings. Labs that were fairly unremarkable with the exception of a slightly elevated creatinine above her baseline. Other than that , the patient's labs were unremarkable. She was seen in consultation by Dr. Duarte, who recommended admitting the patient with an observation for a possible stroke workup. While in the hospital, the patient's symptoms completely resolved. She had a steady gait. Her slurred speech resolved. The patient's LFTs were in normal limits. Her creatinine that was slightly elevated on admission, improved during her stay after IV hydration back down closer to what appeared to be her baseline. I discussed the case with Neurology on-call who felt this was likely not a neurological issue and recommended discharging the patient to home. Ms. Moran is stable for discharge to home today. Her vital signs are as follows , temperature 98.7, heart rate 73, respiratory rate 16, O2 sat 99% on room air, blood pressure 147/79. DISCHARGE PLAN: Ms. Moran will be discharged to home. Activity as tolerated. She will be on a regular diet. She has been continued on all her usual home medications. I recommended that she discuss with her psychiatrist about trying to taper off some of her psychological medications to see if this helps with some of the issues she has been having. If she has further issues, she should be seen in followup by Neurology, but does not need to have a followup. I suspect this is likely a non-neurovascular issue such as a TIA as the patient's behavior in the emergency room seemed to be more psychological in nature or medication related. I have recommend if the patient continues to have further symptoms, to consider possibly having an outpatient brain MRI for further evaluation or referring her to Neurology. The patient has been instructed to call her primary care provider Dr. Evaristo Salazar on Wednesday to set up a followup appointment next week. She has been asked to return to the emergency room for any chest pain, shortness of breath or signs of stroke. This is a summarized report of a complex medical history and hospital stay. For further details, please see the entire medical record. TIME SPENT: Time for this discharge was approximately 60 minutes, greater than half of that was spent with the patient and her discussing discharge plans and instructions. CONDITION ON DISCHARGE: Stable. Reviewed by HILLARY HOLDEN 03/01/2017 1809 [id number]/[facility] #: [id number] JEET
== END 2017-02-27 15:10 | disposition home or self-care (01) ==
LOC: ED 15:13 → MEDTELE 17:46
PROVIDERS: ADMIT Internal Medicine; ATTEND Internal Medicine
DX: R47.81 Slurred speech (principal); R26.81 Unsteadiness on feet; R47.1 Dysarthria and anarthria; E87.1 Hypo-osmolality and hyponatremia; F41.9 Anxiety disorder, unspecified; R63.0 Anorexia; F31.9 Bipolar disorder, unspecified; N17.9 Acute kidney failure, unspecified; I10 Essential (primary) hypertension; I45.10 Unspecified right bundle-branch block; G43.909 Migraine, unspecified, not intractable, without status migrainosus; Z79.899 Other long term (current) drug therapy; Z87.891 Personal history of nicotine dependence
CPT/HCPCS: 36415; 70450; 70496; 70498; 71010; 80048; 80053; 80061; 80307; 80320; 80329; 81003; 82140; 83036; 83605; 84484; 85025; 85610; 85730; 93005; 96361; 96374; 99291; A9270-GY; G0378; G0480; J1644; J2310; Q9967

== ENCOUNTER 2017-08-24 10:48 | Day surgery (SDC) | payer MEDICARE ==
[~2017-08-24 10:48] MED LIST: Acetaminophen TAB* 325 MG PO PRN; Buffered Lidocaine 0.9% SYRIN* 5 ML/SYR SYRINGE INTRADERM ONE
[2017-08-24] MEDS ORDERED: fentaNYL* 50 MCG/ML 2 ML VIAL (100 MCG VIAL) ONE (11:42)
[2017-08-24] MEDS ORDERED: Midazolam* 1 MG/ML 2 ML VIAL (2 MG) ONE ×2 (11:42→12:08)
[2017-08-24 12:35] VITALS: BP 105/62
[2017-08-24] MEDS ORDERED: Neomycin/Polymy/Dex OPHTH.OIN* 3.5 GM ONE (14:07)
[2017-08-24] MEDS ORDERED: Phenylephrine 2.5% OPTH.SOL* 2 ML BTL ONE (14:07)
[2017-08-24] MEDS ORDERED: Tropicamide 1% OPTH.SOL* BTL ONE (14:07)
[2017-08-24] MEDS ORDERED: Tetracaine 0.5% OPTH.SOL 4 ML* 1 DROP BTL ONE (14:07)
[2017-08-24] MEDS ORDERED: Lidocaine 1%* 5 ML VIAL ONE (14:07)
[2017-08-24] MEDS ORDERED: Cyclopentolate 1% OPTH.SOL* 2 ML BTL ONE (14:07)
[2017-08-24] MEDS ORDERED: Ketorolac 0.5% OPHTH (NF) 0.5 % 5 ML BTL ONE (14:07)
--- NOTE | 2017-08-25 07:51 | OP ---
DATE OF OPERATION: 08/24/17 [facility] DATE OF : 50 SURGEON: Dr. Jose Maria Raymond. NETWORK TECHNICAL ANALYST: None. ANESTHESIA: Topical with intravenous sedation. PRE-OP DIAGNOSIS: Cataract, right eye. POST-OP DIAGNOSIS: Cataract, right eye. OPERATIVE PROCEDURE: Phacoemulsification and cataract extraction with posterior chamber intraocular lens implant, right eye. COMPLICATIONS: None. BLOOD LOSS: None. DESCRIPTION OF PROCEDURE: The patient was brought to the operating room and received a small amount of intravenous sedation. A drop of tetracaine was placed in her right eye. She was prepped and draped in the usual sterile fashion for ophthalmic surgery and attention was directed to the right eye where a speculum was placed. A paracentesis was created at the 11 o'clock position and 0.1 cc of 1 percent preservative-free lidocaine was injected into the anterior chamber followed by DisCoVisc. The eye was digitally stabilized while a 2.75 mm keratome was used to create a triplanar clear corneal incision at the 9 o'clock position. A continuous curvilinear capsulorrhexis was created with a cystotome and Utrata forceps. BSS on a cannula was used to hydrodissect the lens from the capsule. Phacoemulsification was performed in a divide-and- conquer technique to create four fragments which were removed. Residual cortical material was removed with irrigation and aspiration. DisCoVisc was used to inflate the capsular bag and an AUOOTO 16.5 diopter lens was folded and inserted into the capsular bag. DisCoVisc was removed using irrigation and aspiration. BSS on a cannula was used to hydrate the corneal stroma and seal the wound. At the end of the case the pupil was round and the lens was centered. The eye was of normal pressure and the wound was water tight. The speculum was removed and topical Maxitrol ointment was placed on the surface of the eye. The eye was closed, patched and shielded and the patient was sent to the recovery room in stable condition with post operative instructions and follow-up appointment given. [id number]/[facility] #: [id number] JEET
== END 2017-08-24 12:47 | disposition home or self-care (01) ==
LOC: OREAST 10:48
PROVIDERS: ATTEND Ophthalmology
DX: H25.041 Posterior subcapsular polar age-related cataract, right eye (principal); Z87.891 Personal history of nicotine dependence; F31.89 Other bipolar disorder; E87.1 Hypo-osmolality and hyponatremia
CPT/HCPCS: A9270-GY; J2250; J3010; V2632

== ENCOUNTER 2017-09-07 08:30 | Day surgery (SDC) | payer MEDICARE ==
[2017-09-07] MEDS ORDERED: fentaNYL* 50 MCG/ML 2 ML VIAL (100 MCG VIAL) ONE (09:31)
[2017-09-07] MEDS ORDERED: Midazolam* 1 MG/ML 2 ML VIAL (2 MG) ONE (09:31)
[2017-09-07] MEDS ORDERED: Propofol* 10 MG/ML 20 ML BTL IV PUSH ONE (10:16)
[2017-09-07 10:32] VITALS: BP 105/75
[2017-09-07] MEDS ORDERED: Cyclopentolate 1% OPTH.SOL* 2 ML BTL ONE (11:07)
[2017-09-07] MEDS ORDERED: Tetracaine 0.5% OPTH.SOL 4 ML* 1 DROP BTL ONE (11:07)
[2017-09-07] MEDS ORDERED: Neomycin/Polymy/Dex OPHTH.OIN* 3.5 GM ONE (11:07)
[2017-09-07] MEDS ORDERED: Ketorolac 0.5% OPHTH (NF) 0.5 % 5 ML BTL ONE (11:07)
[2017-09-07] MEDS ORDERED: Phenylephrine 2.5% OPTH.SOL* 2 ML BTL ONE (11:07)
[2017-09-07] MEDS ORDERED: Tropicamide 1% OPTH.SOL* BTL ONE (11:07)
[2017-09-07] MEDS ORDERED: Lidocaine 1%* 5 ML VIAL ONE (11:07)
--- NOTE | 2017-09-07 21:52 | OP ---
DATE OF OPERATION: 09/07/17 [facility] DATE OF : 50 SURGEON: Dr. Jose Maria Raymond. WET MACHINE CUTTER: None. ANESTHESIA: Topical with intravenous sedation. PRE-OP DIAGNOSIS: Cataract, left eye. POST-OP DIAGNOSIS: Cataract, left eye. OPERATIVE PROCEDURE: Phacoemulsification and cataract extraction with posterior chamber intraocular lens implant, left eye. COMPLICATIONS: None. BLOOD LOSS: None. DESCRIPTION OF PROCEDURE: The patient was brought to the operating room and received a small amount of intravenous sedation. A drop of Tetracaine was placed in her left eye. She was prepped and draped in the usual sterile fashion for ophthalmic surgery and attention was directed to the left eye where a speculum was placed. A paracentesis was created at the 5 o'clock position and 0.1 cc of 1 percent preservative-free Lidocaine was injected into the anterior chamber followed by DisCoVisc. The eye was digitally stabilized while a 2.75 mm keratome was used to create a triplanar clear corneal incision at the 3 o'clock position. A continuous curvilinear capsulorrhexis was created with a cystotome and Utrata forceps. BSS on a cannula was used to hydrodissect the lens from the capsule. Phacoemulsification was performed in a divide-and- conquer technique to create four fragments which were removed. Residual cortical material was removed with irrigation and aspiration. DisCoVisc was used to inflate the capsular bag and an AU00TO 17.5 diopter lens was folded and inserted into the capsular bag. DisCoVisc was removed using irrigation and aspiration. BSS on a cannula was used to hydrate the corneal stroma and seal the wound. At the end of the case the pupil was round and the lens was centered. The eye was of normal pressure and the wound was watertight. The speculum was removed and topical Maxitrol ointment was placed on the surface of the eye. The eye was closed, patched and shielded and the patient was sent to the recovery room in stable condition with postoperative instructions and follow -up appointment given. [id number]/CPS #: [id number]
== END 2017-09-07 10:37 | disposition home or self-care (01) ==
LOC: OREAST 08:30
PROVIDERS: ATTEND Ophthalmology
DX: H25.12 Age-related nuclear cataract, left eye (principal); Z87.891 Personal history of nicotine dependence; F31.9 Bipolar disorder, unspecified; F41.8 Other specified anxiety disorders
CPT/HCPCS: A9270-GY; J2250; J2704; J3010; V2632

== ENCOUNTER 2017-12-07 13:39 | Observation (INO) | payer MEDICARE ==
--- NOTE | 2017-12-07 14:07 | ED ---
Altered Mental Status - HPI Summary HPI Summary: This patient is a 67 year old F presenting to [facility] with a chief complaint of confusion since this morning. Family reports that patient has been dropping and fumbling things, slurring speech, and having weakness in legs. Patient denies headaches, feeling sick, and bleeding. Patient said that today is 2018, and that the president is Rolando Cao. - History Of Current Complaint Stated Complaint: AMS Time Seen by Provider: 12/07/17 13:51 Hx Obtained From: Patient, Family/Proposal Lead Writer Onset/Duration: Still Present, Suddenly - This morning Timing: Constant, Lasting Hours - Since this morning Character: Confusion Associated Signs And Symptoms: Positive: Weakness - in legs - Allergies/Home Medications Allergies/Adverse Reactions: Allergies Allergy/AdvReac Type Severity Reaction Status Date / Time No Known Allergies Allergy Verified 09/07/17 08:58 Home Medications: Home Medications Aspirin EC TAB* [Ecotrin EC Low Dose 81 MG*] 81 mg PO DAILY 12/07/17 [History Confirmed 12/07/17] Calcium Carbonate [Super Calcium] 600 mg PO BID 12/07/17 [History Confirmed 11/16] Fluoride (Sodium) [Sf 5000 Plus] 1.1 % DT DAILY 12/07/17 [History Confirmed 11/16] LORazepam TAB(*) [Ativan 1 MG TAB (*)] 1 mg PO BID PRN 12/07/17 [History Confirmed 12/07/17] OLANzapine TAB* [Zyprexa 10 MG TAB*] 10 mg PO DAILY 12/07/17 [History Confirmed 12/07/17] PMH/Surg Hx/FS Hx/Imm Hx Endocrine/Hematology History: Denies: Hx Diabetes Cardiovascular History: Reports: Hx Hypotension Denies: Hx Hypertension, Hx Pacemaker/ICD Respiratory History: Reports: Other Respiratory Problems/Disorders - Respiratory Failure GI History: Reports: Hx Obstructive Bowel, Other GI Disorders - hx of MULTIPLE SBO History: Reports: Hx Acute Renal Failure, Other Problems/Disorders - URINARY RETENTION 04/25/16 [facility] ADMISSION Denies: Hx Renal Disease Sensory History: Reports: Hx Cataracts - both eyes, Hx Contacts or Glasses Denies: Hx Hearing Aid, Other Sensory Impairments Opthamlomology History: Reports: Hx Cataracts - both eyes, Hx Contacts or Glasses Denies: Other Sensory Impairments Neurological History: Reports: Hx Headaches, Hx Migraine - prn meds Psychiatric History: Reports: Hx Anxiety - HX OF BIPOLAR, SCHIZOPHRENIA, Hx Depression, Hx Schizophrenia, Hx Bipolar Disorder, Hx Suicide Attempt Denies: Hx Panic Disorder Comment Only: Hx Eating Disorder - unknown - Cancer History Hx Chemotherapy: No Hx Radiation Therapy: No - Surgical History Surgery Procedure, Year, and Place: total hysterectomy w/appendectomy, 2 c- sections, RT SHOULDER Hx Anesthesia Reactions: No - Immunization History Date of Tetanus Vaccine: utd Date of Influenza Vaccine: utd Infectious Disease History: No Infectious Disease History: Denies: Traveled Outside the [place] in Last 30 Days - Family History Known Family History: Positive: Other - No FMHx of breast cancer, FHx of depression Family History: No FHx of Breast CA. FHx of depression - Social History Occupation: Retired Lives: With Family Alcohol Use: None Alcohol Amount: unable to confirm Substance Use Type: Reports: None Substance Use Comment - Amount & Last Used: RX benzos Smoking Status (MU): Former Smoker Amount Used/How Often: smoked for approx 30 yrs 1/2-1ppd Review of Systems Negative: Other - Denies feeling sick or bleeding Neurological: Other - Confusion. Dropping and fumbling things Positive: Weakness - in both legs, Slurred Speech. Negative: Headache All Other Systems Reviewed And Are Negative: Yes Physical Exam - Summary Physical Exam Summary: Appearance: The patient is well-nourished in no acute distress and in no acute pain. Skin: The skin is warm and dry and skin color reflects adequate perfusion. HEENT: The head is normocephalic and atraumatic. The pupils are equal and reactive. The conjunctivae are clear and without drainage. Nares are patent and without drainage. Mouth reveals moist mucous membranes and the throat is without erythema and exudate. The external ears are intact. The ear canals are patent and without drainage. The tympanic membranes are intact. Neck: The neck is supple with full range of motion and non-tender. There are no carotid bruits. There is no neck vein distension. Respiratory: Chest is non-tender. Lungs are clear to auscultation and breath sounds are symmetrical and equal. Cardiovascular: Heart is regular rate and rhythm. There is no murmur or rub auscultated. There is no peripheral edema and pulses are symmetrical and equal. Abdomen: The abdomen is soft and non-tender. There are normal bowel sounds heard in all four quadrants and there is no organomegaly palpated. Musculoskeletal: There is no back tenderness noted. Extremities are non-tender with full range of motion. There is good capillary refill. There is no peripheral edema or calf tenderness elicited. Neurological: Patient is alert and oriented to person, place and time. The patient has symmetrical motor strength in all four extremities. Cranial nerves are grossly intact. Deep tendon reflexes are symmetrical and equal in all four extremities. NIH = 1 for some aphasia from misidentifying a picture. GCS = 15. Psychiatric: The patient has an appropriate affect and does not exhibit any anxiety or depression. Triage Information Reviewed: Yes Vital Signs On Initial Exam: Initial Vitals Temp Pulse Resp BP Pulse Ox 98.7 F 77 16 139/90 93 12/07/17 13:53 12/07/17 13:53 12/07/17 13:53 12/07/17 13:53 12/07/17 13:53 Vital Signs Reviewed: Yes Diagnostics - Vital Signs Vital Signs Temp Pulse Resp BP Pulse Ox 12/07/17 13:53 98.7 F 77 16 139/90 93 - Laboratory Result Diagrams: 12/07/17 14:12 12/07/17 14:12 Lab Statement: Any lab studies that have been ordered have been reviewed, and results considered in the medical decision making process. - CT Brain CT CT Interpretation Completed By: Radiologist - 14:51. NO ACUTE INTRACRANIAL PATHOLOGY. ED Physician has reviewed this imaging report. National Institutes Of Health - NIH Scale Level of Consciousness: Alert/Keenly Responsive Ask Patient the Month and His/Her Age: Both Correct Ask Pt to Open/Close Eyes and Go Cart Mechanic/Release Non-Paretic Hand: Both Correctly Best Gaze (Only Horizontal Eye Movement): Normal Visual Field Testing: No Visual Loss Facial Paresis-Pt to Smile & Close Eyes or Grimace Symmetry: Normal/Symmetrical Motor Function - Right Arm: No Drift-Holds 10 Seconds Motor Function - Left Arm: No Drift-Holds 10 Seconds Motor Function - Right Leg: No Drift-Holds 10 Seconds Motor Function - Left Leg: No Drift-Holds 10 Seconds Limb Ataxia-Must be out of Proportion to Weakness Present: Absent Sensory (Use Pinprick to Test Arms/Legs/Trunk/Face): Normal Best Language (Describe Picture, Name Items): Some Loss Dysarthria (Read Several Words): Normal Extinction and Inattention: No Abnormality Total Score: 1 Altered Mental Statu Course/Dx - Course Course Of Treatment: Ms. Moran was brought in by her for confusion. It' s unclear exactly when it started but the last time she was seen normal was about 9 PM last evening. Her NIH stroke scale was about a one for me she could not tell me what was happening in the picture and had some difficulty naming the cactus. There is a subtle suggestion of dysmetria on her left side which she is right handed. Labs were within normal limits and CT of her brain was unremarkable so I consult to Dr. Duarte. He requested an MRA or CTA. Her GFR generally runs in the low 30s and his [address] Maxwell recommended an MRI scan. The MRI showed no acute ischemic changes. Dr. Duarte who requested Dopplers of her carotids which have been obtained at this point and are being read by the radiologist. Dr. Duarte is going to evaluate the patient. - Diagnoses Provider Diagnoses: Acute confusion Discharge - Sign-Out/Discharge Documenting (check all that apply): Sign-Out Patient Signing out patient TO: Lucrecia Gunn - Discharge Plan Condition: Stable Referrals: Evaristo Salazar MD [Primary Care Provider] - - Billing Disposition and Condition Condition: STABLE - Attestation Statements Document Initiated by Shereen: Yes Documenting Scribe: Gwyn Hammer Provider For Whom Shereen is Documenting (Include Credential): MD Shaina Hammondibjony Attestation: Gwyn Tompkins, scribed for Sang Pineda MD on 12/07/17 at 1853. Scribe Documentation Reviewed: Yes Provider Attestation: The documentation as recorded by the Gwyn rajan accurately reflects the service I personally performed and the decisions made by me, Sang Pineda MD
[2017-12-07 14:21] LABS: ABS Basophils 0 10^3/ul (0-0.2); ABS Eosinophils 0 10^3/ul (0-0.6); ABS Lymphocytes 1.3 10^3/ul (1.0-4.8); ABS Monocytes 0.4 10^3/ul (0-0.8); ABS Neutrophils 2.5 10^3/ul (1.5-7.7); ABS Nucleated RBC 0 10^3/ul; Eosinophil % 0.8 % (0-6); Hematocrit 40 % (35-47); Hemoglobin 13.8 g/dl (12.0-16.0); Lymphocyte % 29.7 % (25-47); Mean Corpuscular HGB Conc 35 g/dl (31-36); Mean Corpuscular Hemoglobin 33 pg (27-31); Mean Corpuscular Volume 96 fL (80-97); Mean Platelet Volume 7.6 um3 (7.4-10.4); Nucleated Red Blood Cells % 0.1; Platelet Count 240 10^3/ul (150-450); Red Blood Count 4.14 10^6/ul (4.00-5.40); Red Cell Distribution Width 13 % (10.5-15); White Blood Count 4.3 10^3/ul (3.5-10.8)
[2017-12-07 14:28] LABS: Urine Appearance Clear; Urine Blood Negative (Negative); Urine Color Straw; Urine Ketones Negative (Negative); Urine Protein Negative (Negative); Urine Specific Gravity 1.003 (1.010-1.030); Urine Urobilinogen Negative (Negative)
[2017-12-07 14:39] LABS: EGFR Non-African American 29.2 (>60)
--- NOTE | 2017-12-07 14:54 | RAD ---
HISTORY: AMS COMPARISONS: February 26, 2017 TECHNIQUE: Multiple contiguous axial CT scans were obtained of the head without intravenous contrast. FINDINGS: HEMORRHAGE/INFARCT: There is no hemorrhage or acute infarct. MASSES/SHIFT: There is no mass or shift. EXTRA-AXIAL SPACES: There are no extra-axial fluid collections. SULCI AND VENTRICLES: The sulci and ventricles are normal in size and position for the patient's stated age. CEREBRUM: There are no focal parenchymal abnormalities. BRAINSTEM: There are no focal parenchymal abnormalities. CEREBELLUM: There are no focal parenchymal abnormalities. VESSELS: The vessels are grossly normal. PARANASAL SINUSES: The paranasal sinuses are clear. ORBITS: The orbits are unremarkable. BONES AND SOFT TISSUE: No bone or soft tissue abnormalities are noted. OTHER: None IMPRESSION: NO ACUTE INTRACRANIAL PATHOLOGY.
--- NOTE | 2017-12-07 16:35 | RAD ---
HISTORY: Slurred speech, confusion and difficulty holding things COMPARISONS: Most recent comparison MRI of the brain is dated March 24, 2017 TECHNIQUE: The following sequences were obtained of the head: Sagittal T1-weighted images, axial T2-weighted images, axial FLAIR images, axial susceptibility weighted images, axial T1-weighted images. Additionally, axial diffusion-weighted images were obtained with calculated apparent diffusion coefficients.. FINDINGS: HEMORRHAGE/INFARCT: There is no hemorrhage or acute infarct. MASSES/SHIFT: There is no mass or shift. EXTRA-AXIAL SPACES/MENINGES: There are no extra-axial fluid collections. SULCI AND VENTRICLES: The sulci and ventricles are normal in size and position for the patient's stated age. CEREBRUM: Similar to the prior MRI of the brain there are mild patchy periventricular and subcortical T2 bright hyperintensities most commonly associated with chronic microvascular disease. There is no mass, mass effect or midline shift. BRAINSTEM: There are no focal parenchymal abnormalities. CEREBELLUM: There are no focal parenchymal abnormalities. The cerebellar tonsils are normal in size and position. SELLA: The sella is normal. PINEAL: The pineal region is clear. CP ANGLE/TEMPORAL BONES: The labyrinthine structures are grossly normal. VESSELS: Normal flow-voids are noted within the visualized vertebral vasculature. DIFFUSION ABNORMALITIES: There are no diffusion abnormalities. PARANASAL SINUSES/MASTOIDS: The paranasal sinuses are adequately aerated. There is fluid in the dependent bilateral mastoid air cells similar in appearance to the previous MRI of the brain. ORBITS: The orbits are unremarkable. BONES AND SOFT TISSUE: No bone or soft tissue abnormalities are noted. IMPRESSION: 1. MR FINDINGS ARE MOST CONSISTENT WITH CHRONIC MICROVASCULAR DISEASE UNCHANGED SINCE THE MARCH 24, 2017 MRI THE BRAIN. THERE IS NO EVIDENCE OF ACUTE FOCAL OR TERRITORIAL INFARCTION. 2. STABLE BILATERAL DEPENDENT MASTOID AIR CELL EFFUSION IS AGAIN NOTED. PLEASE CORRELATE TO SIGNS OR SYMPTOMS OF MASTOIDITIS. FINDINGS NEGATIVE FOR ACUTE INFARCTION WERE REPORTED OVER THE TELEPHONE TO DR. GOMES AT 1630 HOURS ON DECEMBER 07, 2017.
--- NOTE | 2017-12-07 19:16 | RAD ---
EXAM: US Bilateral Duplex Bilateral Extracranial Arteries EXAM DATE/TIME: 12/07/2017 6:14 PM CLINICAL HISTORY: 67 years old, female; Signs and symptoms; Altered mental status/memory loss; Additional info: Confusion TECHNIQUE: Bilateral Real-time Duplex ultrasound scan of the bilateral carotid and vertebral arteries, 2-D melgar scale, with color Doppler flow and spectral waveform analysis. COMPARISON: CTA HD/NK CTA HEAD/NECK 02/26/2017 4:43 PM FINDINGS: Right common carotid artery: PSV = 81 cm/s. EDV = 33 cm/s. Mild intimal thickening. No occlusion or significant stenosis. Right internal carotid artery: PSV = 105 cm/s. EDV = 43 cm/s. Mild intimal thickening. No occlusion or significant stenosis. No occlusion or significant stenosis. Right external carotid artery: PSV = 88 cm/s. Normal. No occlusion or significant stenosis. Right vertebral artery: PSV = 28 cm/s. EDV = 11 cm/s. Normal. Antegrade flow. Right ICA/CCA ratio: 1.3. Within normal limits. Left common carotid artery: PSV = 73 cm/s. EDV = 32 cm/s. Mild intimal thickening. No occlusion or significant stenosis. Left internal carotid artery: PSV = 82 cm/s. EDV = 37 cm/s. Mild intimal thickening. No occlusion or significant stenosis. Left external carotid artery: PSV = 67 cm/s. Normal. No occlusion or significant stenosis. Left vertebral artery: PSV = 47 cm/s. Normal. Antegrade flow. Left ICA/CCA ratio: 1.2. Within normal limits. Lymph nodes: Normal. No lymphadenopathy. CAROTID STENOSIS REFERENCE USING SRU CRITERIA: Mild - <50% stenosis. ICA PSV is less than 125 cm/second and plaque or intimal thickening is visible. Moderate - 50-69% stenosis. ICA PSV is 125 to 230 cm/second and plaque is visible. Severe - 70-94% stenosis. ICA PSV is more than 230 cm/second and visible plaque with lumen narrowing is seen. Near occlusion - 95-99% stenosis. ICA PSV is variable and significant plaque with luminal narrowing is seen. Occluded - 100% stenosis. No flow identified. IMPRESSION: Bilateral <50% ICA stenosis. To contact [facility] with a general question: [facility] - [phone] For direct physician to physician contact: Physician Hotline - [phone] [facility] (ad Facility ID #[id number])
--- NOTE | 2017-12-07 21:05 | ED ---
Progress - Progress Note Progress Note: Received sign-out from Dr. Pineda. Dr. Duarte discussed US results. The carotid US showed bilateral less than 50% ICA stenosis. His brain MRI showed: 1. MR FINDINGS ARE MOST CONSISTENT WITH CHRONIC MICROVASCULAR DISEASE UNCHANGED SINCE THE MARCH 24, 2017 MRI THE BRAIN. THERE IS NO EVIDENCE OF ACUTE FOCAL OR TERRITORIAL INFARCTION. 2. STABLE BILATERAL DEPENDENT MASTOID AIR CELL EFFUSION IS AGAIN NOTED. PLEASE CORRELATE TO SIGNS OR SYMPTOMS OF MASTOIDITIS. The brain CT showed no acute intracranial pathology. The patient was admitted. - EKG/XRAY/CT CT: Brain CT showed No acute intracranial pathology. Course/Dx - Diagnoses Provider Diagnoses: Confusion - Provider Notifications Discussed Care Of Patient With: Luz Elena Wong Time Discussed With Above Provider: 20:30 Instructed by Provider To: Admit As Inpatient Discharge - Sign-Out/Discharge Documenting (check all that apply): Patient Departure - admit, Receiving Sign- Out - Dr. Pineda - Discharge Plan Condition: Stable Disposition: ADMITTED TO [facility] Referrals: Martin COVINGTON,Evaristo [Primary Care Provider] - - Attestation Statements Document Initiated by Scribe: Yes Documenting Scribe: Diaz Latham Provider For Whom Scribe is Documenting (Include Credential): Lucrecia Gunn MD Scribe Attestation: IDiaz, scribed for Lucrecia Gunn MD on 12/07/17 at 2139.
[2017-12-07] MEDS ORDERED: Albuterol 2.5 MG/3 ML NEB.SOL* (0.083%) INH PRN (22:11)
[2017-12-07] MEDS ORDERED: Acetaminophen TAB* 325 MG PO PRN (22:11)
[2017-12-07] MEDS ORDERED: Al Hydrox/Mg Hydrox/Simet LIQ* 30 ML UDC PO PRN (22:11)
[2017-12-07] MEDS ORDERED: Ondansetron INJ* 2 MG/ML VIAL IV PRN (22:11)
[2017-12-07] MEDS ORDERED: NS 0.9% 1000 ML* 1,000 ML IV SCH (22:15)
[2017-12-07] MEDS ORDERED: Clopidogrel TAB* 75 MG PO ONE (22:17)
[2017-12-07] MEDS ORDERED: LORazepam TAB(*) 1 MG PO PRN (22:23)
[2017-12-07] MEDS ORDERED: Pregabalin CAP(*) 100 MG PO SCH (23:00)
[2017-12-08] MEDS ORDERED: Pregabalin CAP(*) 50 MG PO SCH (01:21)
--- NOTE | 2017-12-08 01:29 | HP ---
CC: Dr. Evaristo Salazar; Dr. Duarte * ADMISSION HISTORY AND PHYSICAL: DATE OF ADMISSION: 12/07/17 PATIENT OF: Admitting hospitalist, Dr. Lisbeth Wong.* (DICTATED BY BRANDT PEDRAZA) PRIMARY CARE PROVIDER: Dr. Evaristo Salazar. ATTENDING HOSPITALIST: Dr. Wong. CHIEF COMPLAINT: Slurred speech and altered mental status. HISTORY OF PRESENT ILLNESS: Ms. Moran is a 67-year-old female with past medical history significant for hyponatremia, anxiety and depression, anorexia, bipolar disorder, as well as history of migraine headaches, who presented to the emergency room earlier today with complaints of slurred speech and altered mental status earlier today. The patient reports having similar symptoms of dysarthria as well back in January for last year, for which she was admitted to rule out possible stroke. Back then, she did not have any evidence of ischemic infarct and eventually was discharged home and has been doing very well since then. Per her , the patient got up this morning and she was doing a few things in the kitchen when he noted that she was not acting herself , seem confused, dropping things around and having difficulty talking with some slurred speech and weakness in her lower extremity as well. She presented to the emergency room and had laboratory workup that revealed normal CBC, normal chemistry panel and normal toxicology report. She had a CT scan of the brain that showed no evidence of acute intracranial process. She also had a brain MRI that revealed no evidence of any acute focal infarct. She also was seen by Dr. Duarte for neurological consultation, and it was felt that the patient needed to be admitted overnight for observation given her symptoms. By the time she presented to the emergency room, her speech had significantly improved per her . She is able to move all her extremities and denied any more weakness in her lower legs. She also had a carotid Doppler study that revealed less than 50% stenosis of the carotids bilaterally. Again, the patient was given full dose of Plavix in the ED and we were asked to see her for admission overnight. PAST MEDICAL HISTORY: As mentioned above significant for: 1. Probable TIA back in January of 2017. 2. Hyponatremia. 3. Anorexia. 4. Depression. 5. Anxiety. 6. Bipolar disorder. 7. Migraines. 8. Small bowel obstruction. PAST SURGICAL HISTORY: Significant for appendectomy, tubal ligation, hysterectomy, , right shoulder ORIF and most recently bilateral cataract extraction. CURRENT MEDICATIONS: Her medications at home include: 1. Aspirin 81 mg p.o. daily. 2. Calcium carbonate 600 mg p.o. b.i.d. 3. Fluoride 51 g cream use daily as directed. 4. Lamictal 200 mg p.o. b.i.d. 5. Ativan 1 mg p.o. b.i.d. p.r.n. for anxiety. 6. Multivitamin with calcium 1 tablet p.o. daily. 7. Zyprexa 10 mg p.o. daily. 8. Lyrica 150 mg p.o. t.i.d. 9. Tramadol 50 mg p.o. q.6 hours as needed for pain. ALLERGIES: She has no known drug allergies. FAMILY HISTORY: Reviewed and noncontributory. SOCIAL HISTORY: The patient is a former smoker who quit about 11 months ago, prior to that she had half a pack a day history for 40 years. She drinks 1 bottle of beer a week. Denies recreational drug use. She lives with her , Rich, who is the surrogate decision maker and she wishes to be a full code. REVIEW OF SYSTEMS: See HPI, otherwise 14-point review of systems were examined and they were essentially negative. PHYSICAL EXAMINATION GENERAL: She is a pleasant, healthy-appearing older female, in no acute distress or discomfort at the time of admission. VITAL SIGNS: Reveal a temperature of 98.7, pulse of 69, respirations of 10 with O2 sat of 96% on room air. Her blood pressure is 123/87. HEENT: Head is normocephalic, atraumatic. Sclerae anicteric. PERRLA. EOMs intact. Oropharynx is pink and moist. NECK: Supple. Trachea midline. No cervical adenopathy, thyromegaly or JVD. LUNGS: Clear to auscultation bilaterally. HEART: Regular rate and rhythm. Normal S1 and S2 without rubs, murmurs, or gallops. BREAST EXAM: Deferred at this time. BACK: With normal curvature. No CVA tenderness. ABDOMEN: Soft, nontender, and nondistended. No hernias, masses, or hepatosplenomegaly. EXTREMITIES: Without cyanosis, clubbing, or edema. NEUROLOGIC: She is awake, alert, and oriented x3. Her hand financial recruiter was equal bilaterally. Tongue is midline. Cranial nerves II through XII are grossly intact. RECTAL: Exam deferred at this time. LABORATORY DATA: As mentioned above, CBC was normal with white count of 4,000, hemoglobin 13.8, hematocrit 40, and platelets 240. Chemistry panel: Sodium 135 , potassium 4.1, chloride 106, CO2 of 23, BUN 26, and creatinine 1.7 which appears to be at her baseline dating back to March of this year. Her glucose was 90. LFTs within normal limits, and TSH is elevated at 8.23. ACCESSORY DIAGNOSTIC DATA: As mentioned above, both brain CT and MRI were negative for any acute hemorrhagic or ischemic stroke and MRA of the head and neck without contrast are pending and scheduled for tomorrow. IMPRESSION: A 67-year-old female with past medical of hyponatremia, anorexia, anxiety and depression, and questionable transient ischemic attack back in January of last year, who presented to the emergency room with brief onset of slurred speech and altered mental status that gradually improved since presentation, for which she will be admitted for observation to telemetry under the following. ASSESSMENT AND PLAN: 1. Probable transient ischemic attack. The patient's symptoms have significantly improved since presentation to the ED. She does not have any neurological deficit on exam and as a prophylactic measure, she was given a dose of Plavix in addition to her regular baby aspirin. Neurological consultation was appreciated and plans to obtain a fasting lipid panel tomorrow and also, get an MRA of the head and neck without contrast given her decreased creatinine clearance. She appears to be stable and we will continue her neurological checks every 4 hours. 2. Bipolar disorder, anxiety and depression. We will continue her home dose of Lamictal, Lyrica, and Zyprexa. 3. Fluid and electrolytes. The patient will be on a heart-healthy diet and n.p.o. after midnight to get a lipid panel in anticipation for an MRI, MRA tomorrow. 4. DVT prophylaxis. She is at moderate risk. We will utilize SCDs. 5. Code status. She wishes to be a full code. TIME SPENT: Approximately 60 minutes were spent admitting this patient, for which greater than 50% on taking history and performing physical exam. I went on and discussed the case with my attending, who agreed to plan of care. BRANDT PEDARZA [id number]/[facility] #: [id number] JEET
[2017-12-08] MEDS: Melatonin 3 MG TAB PO PRN ×2 (01:31→22:09)
[2017-12-08] MEDS: lamoTRIgine TAB(*) 100 MG PO SCH ×3 (01:32→22:09)
[2017-12-08] MEDS: Pregabalin CAP(*) 50 MG PO SCH ×4 (01:36→22:10)
[2017-12-08 06:25] LABS: ABS Basophils 0 10^3/ul (0-0.2); ABS Eosinophils 0 10^3/ul (0-0.6); ABS Monocytes 0.5 10^3/ul (0-0.8); ABS Neutrophils 2.4 10^3/ul (1.5-7.7); ABS Nucleated RBC 0 10^3/ul; Eosinophil % 1.1 % (0-6); Hematocrit 40 % (35-47); Hemoglobin 13.5 g/dl (12.0-16.0); Lymphocyte % 25.2 % (25-47); Mean Corpuscular HGB Conc 34 g/dl (31-36); Mean Corpuscular Hemoglobin 33 pg (27-31); Mean Corpuscular Volume 96 fL (80-97); Mean Platelet Volume 7.8 um3 (7.4-10.4); Nucleated Red Blood Cells % 0.1; Platelet Count 237 10^3/ul (150-450); Red Blood Count 4.16 10^6/ul (4.00-5.40); Red Cell Distribution Width 13 % (10.5-15)
[2017-12-08] MEDS: OLANzapine TAB* 5 MG PO SCH (08:26)
[2017-12-08] MEDS ORDERED: Aspirin EC TAB* 81 MG TAB.EC PO SCH (09:00)
--- NOTE | 2017-12-08 12:31 | PN ---
Subjective Date of Service: 12/08/17 Interval History: Patient reports she doesnt remember the events of yesterday prior to coming to the ER. She since has felt back to her self but reports she feels "exhausted". She denies any weakness, numbness, speech or swallowing difficulties. Feels steady on her feet. Good appetite today. Denies any recent illness, fever or chills. No dysuria. Denies any ETOH use but reports prior excessive use drinking 6 pack daily for many years. Per who is at the bedside he states she drinks little fluids besides coffee. Objective Active Medications: Acetaminophen (Tylenol Tab*) 650 mg PO Q4H PRN PRN Reason: FEVER/PAIN Al Hydrox/Mg Hydrox/Simethicone (Maalox Plus*) 30 ml PO Q6H PRN PRN Reason: INDIGESTION Albuterol (Ventolin 2.5 Mg/3 Ml Neb.Desiree*) 2.5 mg INH RT.[id number] AWAKE PRN PRN Reason: sob/wheezing Aspirin (Aspirin Ec Tab*) 81 mg PO DAILY [facility] Last Admin: 12/08/17 08:13 Dose: 81 mg Sodium Chloride (Ns 0.9% 1000 Ml*) 1,000 mls @ 100 mls/hr IV PER RATE [facility] Last Admin: 12/08/17 01:24 Dose: 100 mls/hr Lamotrigine (Lamictal Tab(*)) 200 mg PO BID [facility] Last Admin: 12/08/17 08:13 Dose: 200 mg Lorazepam (Ativan Tab(*)) 1 mg PO BID PRN PRN Reason: ANXIETY Melatonin (Melatonin) 3 mg PO BEDTIME PRN; Protocol PRN Reason: SLEEP Last Admin: 12/08/17 01:31 Dose: 3 mg Olanzapine (Zyprexa Tab*) 10 mg PO DAILY [facility] Last Admin: 12/08/17 08:26 Dose: Not Given Ondansetron HCl (Zofran Inj*) 4 mg IV Q4H PRN PRN Reason: NAUSEA/VOMITING Pregabalin (Lyrica Cap(*)) 150 mg PO 0900,1400,2100 [facility] Last Admin: 12/08/17 08:13 Dose: 150 mg Vital Signs - 8 hr 12/08/17 12/08/17 12/08/17 07:40 08:13 10:00 Temperature 98.3 F Pulse Rate 64 Respiratory 16 16 16 Rate Blood Pressure 105/66 (mmHg) O2 Sat by Pulse 96 Oximetry 12/08/17 12:23 Temperature Pulse Rate Respiratory Rate Blood Pressure 96/64 (mmHg) O2 Sat by Pulse Oximetry Oxygen Devices in Use Now: None Appearance: A+Ox3 67 yo female in NAD Eyes: No Scleral Icterus, PERRLA Ears/Nose/Mouth/Throat: - - dry MM Respiratory: Clear to Auscultation Cardiovascular: NL Sounds; No Murmurs; No JVD, RRR, No Edema Abdominal: NL Sounds; No Tenderness; No Distention Extremities: No Edema, No Clubbing, Cyanosis Skin: No Rash or Ulcers, No Nodules or Sclerosis Neurological: Alert and Oriented x 3, NL Sensation, NL Muscle Strength and Tone Lines/Tubes/Other Access: Clean, Dry and Intact Peripheral IV Nutrition: Taking PO's Result Diagrams: 12/08/17 05:41 12/08/17 05:41 Assess/Plan/Problems-Billing Assessment: 67 yo old female with PMH hyponatremia, anorexia, depression, bipolar, and questionable TIA in Jan 2017 who presents to the ER 12/07 with slurred and altered mental status. - Patient Problems (1) Altered mental status Comment: - Resolved - back to baseline - Possible TIA? - CT/MRI otilio negative for CVA. - Carotid < 50% stenosis - Echo pending - Appreciate Neuro consult - Dr. Duarte recommends DC ASA and start plavix and statin (2) Elevated TSH Comment: - add on thyroid panel (3) History of anxiety Comment: - continue home dose ativan (4) Hx of bipolar disorder Comment: - Stable - Continue Lamictal and zyprexa (5) DVT prophylaxis Comment: - HSQ (6) Full code status Status and Disposition: OBV for AMS, possible TIA. Plan for DC home tomorrow if stable
[2017-12-08] MEDS ORDERED: traMADol TAB* 50 MG PO ONE (15:12)
--- NOTE | 2017-12-08 15:16 | RAD ---
HISTORY: ? CVA, slurred speech COMPARISONS: CTA dated February 26, 2017 TECHNIQUE: 3-D axial [id number] MR angiography was performed of the head to include the lime of [place]. Multiple 3-D maximum intensity projection reconstructions are also submitted for review. FINDINGS: RIGHT VERTEBRAL ARTERY: The distal right vertebral artery is unremarkable, without stenosis. LEFT VERTEBRAL ARTERY: The distal left vertebral artery is unremarkable, without stenosis. DOMINANCE: The vertebral arteries are codominant. DISTAL RIGHT CERVICAL INTERNAL CAROTID ARTERY: The distal right cervical internal carotid artery is unremarkable. DISTAL LEFT CERVICAL INTERNAL CAROTID ARTERY: The distal left cervical internal carotid artery is unremarkable. INTRACRANIAL CIRCULATION: There is no aneurysm, vascular malformation, occlusion, or stenosis of the visualized intracranial circulation. The anterior communicating artery complex is clear. Bilateral posterior communicating arteries are identified. OTHER FINDINGS: None IMPRESSION: NO ANEURYSM, VASCULAR MALFORMATION, OCCLUSION, OR STENOSIS OF THE VISUALIZED INTRACRANIAL CIRCULATION.
--- NOTE | 2017-12-08 15:22 | RAD ---
HISTORY: ? CVA, slurred speech COMPARISONS: CT dated February 26, 2017 TECHNIQUE: The following sequences were obtained of the neck after localizing images: Stacked axial 2-D [id number] MR angiography of the neck; 3-D axial [id number] MR angiography of the carotid bifurcations. Coronal phase contrast MR angiography was also performed. Multiple 3-D maximum intensity projection reconstructions are submitted for review. FINDINGS: AORTA: The aortic arch is not well visualized secondary to technique and motion artifact. There is no obvious ostial or proximal stenosis of the cephalic great vessels. RIGHT VERTEBRAL ARTERY: The right vertebral artery is patent and without stenosis. There is in plane flow saturation artifact of the horizontal portion of the right vertebral artery. LEFT VERTEBRAL ARTERY: The left vertebral artery is patent, without stenosis. There is in plane flow saturation artifact of the horizontal portion of the left vertebral artery. DOMINANCE: The vertebral arteries are codominant. RIGHT COMMON CAROTID ARTERY: The right common carotid artery is patent. RIGHT INTERNAL CAROTID ARTERY: There is mild atheromatous disease of the right carotid bifurcation. There is no right internal carotid artery stenosis by NASCET criteria. LEFT COMMON CAROTID ARTERY: The left common carotid artery is patent. LEFT INTERNAL CAROTID ARTERY: There is mild atheromatous disease of the left carotid bifurcation. There is no left internal carotid artery stenosis by NASCET criteria. ADDITIONAL FINDINGS: The visualized intracranial circulation is unremarkable. IMPRESSION: NO INTERNAL CAROTID ARTERY STENOSIS BY NASCET CRITERIA. CPT II Codes: 3100F
[2017-12-08] MEDS ORDERED: Psyllium PAK PO PRN (15:42)
--- NOTE | 2017-12-08 16:41 | ECHO ---
Patient: CESILIA SOSA V [facility] Rec#: [id number] : 1950 Date: 12/08/2017 Age: 67y Height: 164 cm / 64.6 in Weight: 54 kg / 119.0 lbs Sex: F BSA: 1.58 Room#: 436 Admit Date#: 12/07/2017 Type: Inpatient Referring: Luz Elena Wong Reading: George Toro MD Golf Coach: Tanya Das RDCS,RDMS Transthoracic Echocardiogram Indication: TIA BP: 108/73 HR: 70 Rhythm: NSR Findings History: Syncope Technical Comments: The study quality is good. Left Ventricle: The left ventricular chamber size is normal. There is a prominent septal knuckle. The estimated ejection fraction is greater than 65%. Abnormal left ventricular diastolic filling is observed, consistent with impaired relaxation. Left Atrium: The left atrial chamber size is normal. Right Ventricle: The right ventricle wall thickness is normal. The right ventricular cavity size is normal. The right ventricular global systolic function is low normal. Right Atrium: The right atrial cavity size is normal. The bubble study is negative. A patent foramen ovale is not demonstrated with color Doppler and agitated contrast. Aortic Valve: The aortic valve is trileaflet. Systolic excursion of the aortic valve is normal. There is no evidence of aortic regurgitation. There is no evidence of aortic stenosis. Mitral Valve: There is mitral annular calcification. The mitral valve leaflets are mildly thickened. There is a trace of mitral regurgitation. There is no evidence of mitral stenosis. Tricuspid Valve: The tricuspid valve leaflets are normal. There is trace tricuspid regurgitation. Unable to estimate the right ventricular systolic pressure. Pulmonic Valve: The pulmonic valve structure is not well visualized. There is no evidence of pulmonic regurgitation. Pericardium: There is no significant pericardial effusion. Aorta: The ascending aorta is not well visualized. There is no dilatation of the aortic arch. The aortic root is normal in size. Pulmonary Artery: The main pulmonary artery is not well visualized. Venous: The inferior vena cava appears normal in size. There is a greater than 50% respiratory change in the inferior vena cava dimension. Contrast: Intravenous agitated saline contrast was used to assess intracardiac shunting. Conclusions The estimated ejection fraction is greater than 65%. Abnormal left ventricular diastolic filling is observed, consistent with impaired relaxation. The right ventricular global systolic function is low normal. The bubble study is negative. A patent foramen ovale is not demonstrated with color Doppler and agitated contrast. There is a trace of mitral regurgitation. There is trace tricuspid regurgitation. Compared to 03/2017, the MR is trace now c/t mild/moderate last time and the EF has increased from 55-60% last time to Greater Than 65% now. Measurements Name Value Normal Range RVIDd (AP) 2D 2.8 cm (0.9 - 2.6) RVDdMajor (2D) 2.1 cm (2.2 - 4.4) RAd ISD 4CH 3.9 cm (3.4 - 4.9) RA (A4C)W 3.6 cm (2.9 - 4.6) IVSd (2D) 1.1 cm (0.6 - 1) LVPWd (2D) 1 cm (0.6 - 1) LVIDd (2D) 3.7 cm (3.6 - 5.4) LVIDs (2D) 2.6 cm - LV FS (2D) 31 % (25 - 45) Aortic Annulus 1.9 cm (1.4 - 2.6) Ao root diameter (2D) 2.9 cm (2.1 - 3.5) Aortic arch 2.7 cm (1.8 - 3.4) LA dimension (AP) 2D 2.7 cm (2.3 - 3.8) LAd ISD 4CH 4.5 cm (2.9 - 5.3) LA ISD 4CH W 3.6 cm (2.5 - 4.5) Name Value Normal Range MV E-wave Vmax 0.7 m/sec - MV deceleration time 198 msec - MV A-wave Vmax 0.9 m/sec - MV E:A ratio 0.8 ratio - LV septal e' Vmax 0.09 m/sec - LV lateral e' Vmax 0.07 m/sec - LV E:e' septal ratio 8 ratio - LV E:e' lateral ratio 10 ratio - Name Value Normal Range AV Vmax 1.6 m/sec - AV VTI 30 cm - AV peak gradient 10 mmHg - AV mean gradient 5 mmHg - LVOT Vmax 1.3 m/sec - LVOT VTI 25 cm - LVOT peak gradient 7 mmHg - LVOT mean gradient 3 mmHg - [place] Vmax 1 m/sec - Name Value Normal Range RAP 8 mmHg - IVC diameter 0.9 cm - Name Value Normal Range PV Vmax 0.8 m/sec - PV peak gradient 2.6 mmHg -
[2017-12-08] MEDS: NS 0.9% 1000 ML* 1,000 ML IV SCH ×2 (17:07→23:43)
[2017-12-08] MEDS ORDERED: Atorvastatin* 40 MG TAB PO SCH (21:00)
[2017-12-08] MEDS: Heparin VIAL(*) 5000 UNITS/ML VIAL (FIVE THOUSAND) SUBCUT SCH (22:11)
--- NOTE | 2017-12-08 22:14 | CONS ---
CONSULTATION REPORT: DATE OF CONSULT: 12/08/17 PATIENT OF: Dr. Chau, Dr. Serrato, and Dr. Salazar. HISTORY OF PRESENT ILLNESS: This is a 67-year-old woman who I was asked to evaluate for altered mental status, history of anxiety, depression, bipolar disease, as well as past history of migraine. She presented to the ER with complaints of slurred speech and altered mental status. On the morning of admission with some dysarthria and difficulty moving her legs and right arm. Her symptoms cleared quickly in the emergency room and passed, but at that point , there is a CT scan that was done that showed no acute findings. A CTA was not obtained because of renal insufficiency, but carotid Doppler was done, which showed no large vessel stenosis in the carotids; and an MRI scan was done , which showed no acute infarct. There was some chronic stable microvascular disease since her prior studies in March of this year. No tPA was given because she became symptom-free. Her history is complicated by not only her migraines, but she did have a headache yesterday, but by prior similar presentation in January 2017, where she had speech problems, confusion, which rapidly improved. She had no clear source of stroke at that time. She has since followed up with her primary neurologist who was concerned about possibility of stressors as a cause of her symptoms those would be impossible to prove. PAST MEDICAL HISTORY: In addition to this TIA in January, she has had a history of hyponatremia, anorexia, depression, anxiety, bipolar disease, migraines, small bowel obstruction, and had a similar episode of confusions and slurred speech with a small bowel obstruction episode. PAST SURGICAL HISTORY: She has had an appendectomy, tubal ligation, hysterectomy, , right shoulder ORIF, and cataract surgery. MEDICATIONS: She is on medications at home includin. Aspirin 81 mg daily. 2. Calcium carbonate. 3. Lamictal 200 mg b.i.d. 4. Ativan 1 mg p.r.n. anxiety. 5. Zyprexa 10 mg daily. 6. Lyrica 150 t.i.d. 7. Tramadol 50 q.6 hours p.r.n. pain. ALLERGIES: She has no known drug allergies. FAMILY HISTORY: Noncontributory. SOCIAL HISTORY: She is a former smoker, quit 11 months ago. She drinks 1 bottle of beer a week. REVIEW OF SYSTEMS: Negative in all 14 spheres. PHYSICAL EXAM: Temperature 98.5, pulse 66, respirations 16, blood pressure 96/ 64. She is alert, oriented, with normal speech and comprehension. Cranial nerves II through XII are intact. Fundi were benign. Motor exam revealed normal tone, strength, coordination, and gait. Reflexes 2 and equal. Downgoing toes. Chest: Clear. Cardiovascular: Regular rate and rhythm. Abdomen: Soft. DIAGNOSTIC STUDIES/LAB DATA: I reviewed her MRIs and MRAs. They were all normal. Her labs revealed normal CBC. CMP with significant BUN of 27, creatinine of 1.7, glucose 103, LDL 114, TSH 8.23. IMPRESSION AND PLAN: Naheed is a difficult case. She has symptoms that could possibly relate to posterior circulation problems with some confusion, some bilateral motor symptoms, and slurred speech, but workups are repeatedly negative and they have been at times associated with stress. It is not clear whether this is repeated transient ischemic attacks or not as it make sense to, given the uncertainty, treat this and I would switch her to Plavix from aspirin. I would not give aspirin in addition to Plavix because I am not seeing any significant atherosclerosis on her prior CTA or on her MRA, and she has had similar events over the past few years. Of note, she has also had an EEG, which was normal back in March 2017. These episodes do not sound like seizures, especially since she has complaint of bilateral weakness, but no abnormal movement activity. Thank you for sharing her case. [id number]/[facility] #: [id number] JEET
[2017-12-09 05:44] LABS: ABS Basophils 0 10^3/ul (0-0.2); ABS Eosinophils 0 10^3/ul (0-0.6); ABS Lymphocytes 1.4 10^3/ul (1.0-4.8); ABS Monocytes 0.4 10^3/ul (0-0.8); ABS Neutrophils 1.3 10^3/ul (1.5-7.7); ABS Nucleated RBC 0 10^3/ul; Eosinophil % 1.5 % (0-6); Hematocrit 39 % (35-47); Hemoglobin 13.1 g/dl (12.0-16.0); Mean Corpuscular HGB Conc 34 g/dl (31-36); Mean Corpuscular Hemoglobin 33 pg (27-31); Mean Corpuscular Volume 97 fL (80-97); Mean Platelet Volume 7.8 um3 (7.4-10.4); Nucleated Red Blood Cells % 0.1; Platelet Count 205 10^3/ul (150-450); Red Blood Count 3.98 10^6/ul (4.00-5.40); Red Cell Distribution Width 13 % (10.5-15); White Blood Count 3.2 10^3/ul (3.5-10.8)
[2017-12-09 06:05] LABS: EGFR Non-African American 35.5 (>60)
[2017-12-09] MEDS: NS 0.9% 1000 ML* 1,000 ML IV SCH (08:54)
[2017-12-09] MEDS ORDERED: Clopidogrel TAB* 75 MG PO SCH (09:00)
[2017-12-09] MEDS: OLANzapine TAB* 5 MG PO SCH (09:11)
[2017-12-09] MEDS: lamoTRIgine TAB(*) 100 MG PO SCH (09:11)
[2017-12-09] MEDS: Pregabalin CAP(*) 50 MG PO SCH ×2 (09:12→13:22)
[2017-12-09] MEDS: Heparin VIAL(*) 5000 UNITS/ML VIAL (FIVE THOUSAND) SUBCUT SCH (09:12)
[2017-12-09] MEDS ORDERED: traMADol TAB* 50 MG PO PRN (09:20)
[2017-12-09 11:19] VITALS: BP 119/74
--- NOTE | 2017-12-09 13:00 | DCNOTE ---
Subjective Date of Service: 12/09/17 Interval History: . Patient reports she is ready to go home. She feels that she is at her baseline. She does report she may have a mild cold. Denies any further confusion. Feels steady on her feet. No numbness, weakness. Discussed her elevated TSH - no prior hx. She would like to recheck in a few weeks rather than starting medication. She denies constipation, hair loss, weight gain but does report fatigue. She reports some hx of chronic kidney disease but is "not really sure what that means". She reports she does not drink water and drinks coffee "all day long". We discussed overnight with IVF her renal function improved which is a sign of dehydration. She states she will increase her water intake. She is currently in between PCPs and has her name in on a list for [facility]. She agrees to f/u at the [facility]. Objective Active Medications: Acetaminophen (Tylenol Tab*) 650 mg PO Q4H PRN PRN Reason: FEVER/PAIN Last Admin: 12/09/17 05:35 Dose: 650 mg Al Hydrox/Mg Hydrox/Simethicone (Maalox Plus*) 30 ml PO Q6H PRN PRN Reason: INDIGESTION Albuterol (Ventolin 2.5 Mg/3 Ml Neb.Desiree*) 2.5 mg INH [id number] AWAKE PRN PRN Reason: sob/wheezing Atorvastatin Calcium (Lipitor*) 40 mg PO 2100 [facility] Last Admin: 12/08/17 22:09 Dose: 40 mg Clopidogrel Bisulfate (Plavix Tab*) 75 mg PO DAILY [facility] Last Admin: 12/09/17 09:11 Dose: 75 mg Heparin Sodium (Porcine) (Heparin Vial(*)) 5,000 units SUBCUT Q12HR [facility] Last Admin: 12/09/17 09:12 Dose: 5,000 units Sodium Chloride (Ns 0.9% 1000 Ml*) 1,000 mls @ 125 mls/hr IV PER RATE [facility] Last Admin: 12/09/17 08:54 Dose: 125 mls/hr Lamotrigine (Lamictal Tab(*)) 200 mg PO BID [facility] Last Admin: 12/09/17 09:11 Dose: 200 mg Lorazepam (Ativan Tab(*)) 1 mg PO BID PRN PRN Reason: ANXIETY Melatonin (Melatonin) 3 mg PO BEDTIME PRN; Protocol PRN Reason: SLEEP Last Admin: 12/08/17 22:09 Dose: 3 mg Olanzapine (Zyprexa Tab*) 10 mg PO DAILY [facility] Last Admin: 12/09/17 09:11 Dose: Not Given Ondansetron HCl (Zofran Inj*) 4 mg IV Q4H PRN PRN Reason: NAUSEA/VOMITING Pregabalin (Lyrica Cap(*)) 150 mg PO 0900,1400,2100 [facility] Last Admin: 12/09/17 09:12 Dose: 150 mg Psyllium Hydrophilic Mucilloid (Metamucil Vinnie*) 1 pkt PO DAILY PRN PRN Reason: DIARRHEA Last Admin: 12/08/17 17:07 Dose: 1 pkt Tramadol HCl (Ultram*) 50 mg PO Q6H PRN PRN Reason: PAIN Last Admin: 12/09/17 09:46 Dose: 50 mg Vital Signs - 8 hr 12/09/17 12/09/17 12/09/17 07:29 09:12 09:46 Temperature 98.2 F Pulse Rate 59 Respiratory 20 18 18 Rate Blood Pressure 120/69 (mmHg) O2 Sat by Pulse 98 Oximetry 12/09/17 12/09/17 11:04 12:42 Temperature 98.3 F Pulse Rate 64 Respiratory 16 18 Rate Blood Pressure 119/74 (mmHg) O2 Sat by Pulse 95 Oximetry Oxygen Devices in Use Now: None Appearance: 67 yo well developed female sitting up in bed in NAD. A+O x3 Eyes: No Scleral Icterus, PERRLA Ears/Nose/Mouth/Throat: NL Teeth, Lips, Gums, Mucous Membranes Moist Neck: NL Appearance and Movements; NL JVP Respiratory: Symmetrical Chest Expansion and Respiratory Effort, Clear to Auscultation Cardiovascular: NL Sounds; No Murmurs; No JVD, RRR, No Edema Abdominal: NL Sounds; No Tenderness; No Distention Lymphatic: No Cervical Adenopathy Extremities: No Edema, No Clubbing, Cyanosis Skin: No Rash or Ulcers, No Nodules or Sclerosis Neurological: Alert and Oriented x 3, NL Sensation, NL Muscle Strength and Tone Lines/Tubes/Other Access: Clean, Dry and Intact Peripheral IV Nutrition: Taking PO's Result Diagrams: 12/09/17 05:25 12/09/17 05:25 Assess/Plan/Problems-Billing Assessment: 67 yo old female with PMH hyponatremia, anorexia, depression, bipolar, and questionable TIA in Jan 2017 who presents to the ER 12/07 with slurred and altered mental status. - Patient Problems (1) Altered mental status Comment: - Resolved - back to baseline - Possible TIA? Transient amnesia? - CT/MRI otilio negative for CVA. - Carotid < 50% stenosis - Echo - Appreciate Neuro consult - Dr. Duarte recommends DC ASA and start plavix and statin, and follow up with Dr. Serrato her neurologist (2) Elevated TSH Comment: - no prior hx of dx of hypothyroid but has had elevated TSH in the past - Ft4, FT3, Antibodies are normal. - pt wants to wait and recheck in a few weeks. (3) History of anxiety Comment: - continue home dose ativan (4) Hx of bipolar disorder Comment: - Stable - Continue Lamictal and zyprexa (5) DVT prophylaxis Comment: - HSQ (6) Full code status Status and Disposition: DC to home today- will follow up in [facility] next week.
--- NOTE | 2017-12-10 04:52 | DS ---
DISCHARGE SUMMARY: DATE OF ADMISSION: 12/07/17 DATE OF DISCHARGE: 12/09/17 PROVIDER: Dallas Joseph NP ATTENDING PHYSICIAN: Dr. Lisbeth Wong* (dictated by Dallas Joseph NP). PRIMARY CARE PHYSICIAN: Currently no PCP as her primary care provider retired, she will be set up to follow up with [facility] and reports that she currently has her name on a list at [facility]. NEUROLOGIST: Dr. Serrato. DISCHARGE DIAGNOSES: 1. Altered mental status, possible transient ischemic attack verus transient amnesia with negative CT and MRI of the brain. 2. Elevated TSH, possible subclinical hypothyroidism. 3. Acute on chronic renal failure thought to be secondary to dehydration. SECONDARY DIAGNOSES: 1. Anxiety. 2. History of bipolar. 3. Chronic kidney disease. 4. History of hyponatremia. 5. Depression. 6. Migraines. 7. Small bowel obstruction. 8. Previous tobacco abuse. HISTORY OF PRESENT ILLNESS AND HOSPITAL COURSE: Please see history and physical by BRANDT Rangel, for full admission details. In summary, this is a 67-year- old female with the past medical history as stated above, who presented to the emergency department on 12/07/17 with report of altered mental status and slurred speech. The patient reports a similar episode of dysarthria back in January of last year and stroke was ruled out. On 12/07/17, she reports that she woke up around 4 a.m. which is usual for her and her heard her dropping things in the kitchen and went to check on her and she was noted to have slurred speech and unable to grab anything with her hands bilaterally, kept dropping things on the floor. She also reported weakness in her lower extremities as well. Her initially could not convince her to come to the emergency department; however, eventually she agreed. In the emergency department, she had a CT scan of the brain which showed no evidence of intracranial process. She was admitted to the hospitalist service, to telemetry where she underwent an MRI of the brain which showed no evidence of acute focal infarct. She was seen by neurologist, Dr. Duarte who reports that her symptoms could possibly be related to a posterior circulation problem with some confusions and bilateral motor symptoms and slurred speech, but workup is negative and it has also been noted that these episodes have been associated with stress. It is not clear whether this is repeated transient ischemic attack or possible transient amnesia. Recommendation from Neurology is to discontinue her aspirin and switch her to Plavix and start a statin. Her head and neck MRA showed "no aneurysm, vascular malformation, occlusion, or stenosis of the visualized intracranial circulation." She underwent a transthoracic echocardiogram which showed an ejection fraction of greater than 65% with abnormal left ventricular diastolic filling consistent with impaired relaxation. The right ventricular global systolic function was low normal. The bubble study is negative. A patent foramen ovale is not demonstrated with color Doppler and agitated contrast. There is a trace of mitral regurgitation. There is a trace tricuspid regurgitation. Compared to March 2017, "the MR trace is now mild to moderate last time and EF has also increased from 55% to 60%, now greater than 65%." The patient has been monitored on telemetry with no noted arrhythmias. She is stable and wanting to go home. She had no further symptoms throughout her hospitalization. The patient had a lipid profile showing triglycerides of 94, cholesterol of 201 , LDL of 114, HDL of 68.3. She was started on atorvastatin 40 mg p.o. daily. She presented with a creatinine of 1.74, it appears her baseline is between 1.1 and 1.7. However, I did give her IV fluids over the night last night and today , her creatinine is 1.47. I think some of this is secondary to dehydration as she reports she drinks no water and only drinks "coffee all day long." I encouraged the patient to increase her water intake and that she should have followup labs next week. In regards to the patient's TSH, this should be rechecked in 4 weeks. She does have an elevated TSH noted in prior labs; however, her T3 and T4 have always been normal as well as antibodies, which are negative. At this point, the patient would like to hold off on thyroid medication and retest in a few weeks. The patient is stable for discharge to home. DISCHARGE MEDICATIONS: 1. Ativan 1 mg p.o. b.i.d. p.r.n. 2. Zyprexa 10 mg p.o. daily. 3. Lamictal 200 mg p.o. b.i.d. 4. Sodium tablets 1.1% 1 tablet daily. 5. Lyrica 150 mg p.o. t.i.d. 6. Multivitamin with mineral, iron, and calcium 1 tablet daily. 7. Tramadol 50 mg p.o. q.6 hours p.r.n. 8. Calcium carbonate 600 mg p.o. b.i.d. 9. Plavix 75 mg p.o. daily. New Medication: Lipitor 40 mg p.o. daily. Discontinued Medication: Aspirin 81 mg p.o. daily. DISCHARGE PLAN: 1. The patient is to be discharged to home. 2. She is to follow up with [facility] next week. An appointment will be made for her and the Clinic will notify the patient. The patient was instructed to call her primary neurologist, Dr. Serrato for followup appointment. She is to get a CBC and a BMP next week prior to [facility]. As well, she will need a TSH in approximately 4 weeks. I discussed with the patient if she has any worsening or concerning symptoms to return to the emergency department. TIME SPENT: Approximately 60 minutes were spent on this discharge. DALLAS JOSEPH, SUKHI [id number]/CPS #: [id number] JEET
== END 2017-12-09 15:06 | disposition home or self-care (01) ==
LOC: ED 13:39 → MEDTELE 22:11
PROVIDERS: ADMIT Internal Medicine; ATTEND Internal Medicine
DX: R41.82 Altered mental status, unspecified (principal); R94.6 Abnormal results of thyroid function studies; N18.9 Chronic kidney disease, unspecified; N17.9 Acute kidney failure, unspecified; F41.9 Anxiety disorder, unspecified; F31.9 Bipolar disorder, unspecified; E87.1 Hypo-osmolality and hyponatremia; F32.9 Major depressive disorder, single episode, unspecified; G43.909 Migraine, unspecified, not intractable, without status migrainosus; Z87.891 Personal history of nicotine dependence; Z79.899 Other long term (current) drug therapy; Z79.01 Long term (current) use of anticoagulants; Z86.73 Personal history of transient ischemic attack (TIA), and cerebral infarction without residual deficits; I45.10 Unspecified right bundle-branch block; R41.0 Disorientation, unspecified; R47.81 Slurred speech
CPT/HCPCS: 36415; 70450; 70544; 70547; 70551; 80048; 80053; 80061; 80307; 80320; 80329; 81003; 82140; 82306; 82607; 83036; 83605; 83735; 84439; 84443; 84481; 84484; 85025; 86376; 86800; 93005; 93306; 93880; 96360; 96361; 96372; 99284; A9270-GY; G0378; G0480; J1644

== ENCOUNTER 2017-12-10 12:58 | Observation (INO) | payer MEDICARE ==
[2017-12-10] MEDS ORDERED: NS 0.9% 1000 ML* 1,000 ML IV ONE (13:05)
--- NOTE | 2017-12-10 13:13 | ED ---
Neurological HPI - HPI Summary HPI Summary: Patient is a 67 y/o F w/ c/o possible stroke Sx. Provider in room at 1300, nusrat leon called at 1303 with orders placed at this time. Dr. Garrett was in ED and communicated patient's case before patient had been placed in a room as he had seen pt in the [facility] clinic. He reports that patient is experiencing left sided weakness, difficulty with speech, and confusion. She was seen on 11/16 for similar Sx and had a negative brain CT and MRI. Dr. Duarte had consulted on patient's case at the time. She was admitted for observation and discharged yesterday (12/09/17) w/ Dx of TIA. Patient was prescribed Plavix 300 mg once a day with lipitor upon discharge. Patient's , Asad, is present in the room. Patient's reports that around 1800 yesterday, patient was confused, had slurred speech, hallucinations, and left sided weakness and associated unsteady gait. Pt did not want to return to the hospital per . Patient's states that patient got into bed at 2000, slept until 0530 today. Patient's Sx were still present at this time with a worsening of left sided deficit. Dr. Garrett was called who recommended that patient come to ED after seeing her in the [facility] clinic. In the room, when asked for current month/age, patient gets month incorrect. On triage, pain is denied, nothing is noted to aggravate/alleviate Sx. Home medications and allergies are reviewed. Dr. Duarte was present in the ED immediately after nusrat euceda was called, and saw pt in the CT scanner. Allergies/Adverse Reactions: Allergies Allergy/AdvReac Type Severity Reaction Status Date / Time No Known Allergies Allergy Verified 09/07/17 08:58 - History of Current Complaint Stated Complaint: POSS NUSRAT LEON Time Seen by Provider: 12/10/17 13:04 Hx Obtained From: Patient, Family/Sales Representative Meats - Asad, Other: - Dr. Garrett Onset/Duration: Started days ago - onset last night, Still Present, Worse Since - this morning Timing: Constant Onset Severity: Moderate Current Severity: None - pain denied on triage Neurological Deficit Location: LUE, LLE Pain Intensity: 0 Pain Scale Used: 0-10 Numeric - 0/10 on triage Character: Motor Weakness - left sided deficit, Impaired Speech, Confusion, Other: - hallucinations Aggravating: Nothing Alleviating: Nothing Associated Signs and Symptoms: Positive: Unsteady Gait, Confusion - hallucinations reported by , Weakness - left sided, Impaired Speech TPA Considered: No - LKW > 6 hrs Similar Episode/Dx as: TIA Related Hx: Platlet Inhibitor - clopidogrel - Additional Pertinent History Primary Care Physician: AMBERLY - Allergy/Home Medications Allergies/Adverse Reactions: Allergies Allergy/AdvReac Type Severity Reaction Status Date / Time No Known Allergies Allergy Verified 09/07/17 08:58 PMH/Surg Hx/FS Hx/Imm Hx Previously Healthy: No Endocrine/Hematology History: Denies: Hx Diabetes Cardiovascular History: Denies: Hx Hypertension, Hx Pacemaker/ICD Respiratory History: Reports: Other Respiratory Problems/Disorders - Respiratory Failure GI History: Reports: Hx Obstructive Bowel, Other GI Disorders - hx of MULTIPLE SBO History: Reports: Hx Acute Renal Failure, Other Problems/Disorders - URINARY RETENTION 04/25/16 [facility] ADMISSION Denies: Hx Renal Disease Sensory History: Reports: Hx Cataracts - both eyes, Hx Contacts or Glasses Denies: Hx Hearing Aid, Other Sensory Impairments Opthamlomology History: Reports: Hx Cataracts - both eyes, Hx Contacts or Glasses Denies: Other Sensory Impairments Neurological History: Reports: Hx Headaches, Hx Migraine - prn meds Psychiatric History: Reports: Hx Anxiety - HX OF BIPOLAR, SCHIZOPHRENIA, Hx Depression, Hx Schizophrenia, Hx Bipolar Disorder, Hx Suicide Attempt Denies: Hx Panic Disorder - Cancer History Hx Chemotherapy: No Hx Radiation Therapy: No - Surgical History Surgery Procedure, Year, and Place: total hysterectomy w/appendectomy, 2 c- sections, RT SHOULDER Hx Anesthesia Reactions: No - Immunization History Date of Tetanus Vaccine: utd Date of Influenza Vaccine: utd Infectious Disease History: No - Family History Known Family History: Positive: Other - No FMHx of breast cancer, FHx of depression Family History: No FHx of Breast CA. FHx of depression - Social History Lives: With Family Alcohol Use: Rare Substance Use Type: Reports: None Smoking Status (MU): Former Smoker Amount Used/How Often: smoked for approx 30 yrs 1/2-1ppd Review of Systems Negative: Fever - on vitals, temp is 97.2 F Cardiovascular: Negative Respiratory: Negative Neurological: Other - POSITIVE: unsteady gait, hallucinations, confusion Positive: Weakness - left sided , Slurred Speech All Other Systems Reviewed And Are Negative: Yes Physical Exam - Summary Physical Exam Summary: Appearance: ill-appearing, no pain distress, well-nourished, slurred speech Skin: Warm, color reflects adequate perfusion, dry Head: Normal Head/Face inspection, atraumatic Eyes: Conjunctiva clear, PERRL, EOMI, no nystagmus ENT: Normal inspection Neck: Supple, no nodes, no JVD Respiratory: Lungs clear, normal breath sounds, no respiratory distress Cardio: RRR, No murmur, pulses normal, brisk capillary refill Abdomen: Soft, nontender Bowel sounds: Present Musculoskeletal: Strength Intact/ROM intact, no calf tenderness, no edema. Psychological: Normal Neuro: A&O x3, CN II-XII intact except for slurred speech, motor function 5/5, sensation intact, cerebellar normal, GCS 15, NIH 3 Triage Information Reviewed: Yes Vital Signs On Initial Exam: Initial Vitals Temp Pulse Resp BP Pulse Ox 97.2 F 61 20 166/87 97 12/10/17 13:25 12/10/17 13:25 12/10/17 13:25 12/10/17 13:25 12/10/17 13:25 Vital Signs Reviewed: Yes - Jorge A Coma Scale Best Eye Response: 4 - Spontaneous Best Motor Response: 6 - Obeys Commands Best Verbal Response: 5 - Oriented Coma Scale Total: 15 Diagnostics - Laboratory Result Diagrams: 12/10/17 13:20 12/10/17 13:20 Lab Statement: Any lab studies that have been ordered have been reviewed, and results considered in the medical decision making process. - Radiology CXR Xray Interpretation: No Acute Changes Radiology Interpretation Completed By: Radiologist - no active cardiopulmonary disease is noted; this report was reviewed by ed physician - CT brain ct CT Interpretation: No Acute Changes CT Interpretation Completed By: Radiologist - IMPRESSION: #. Negative for intracranial hemorrhage or CT evidence for acute or subacute ischemic stroke. # . No acute intracranial process evident. #. Stigmata of mild probable chronic small vessel ischemic disease. #. Results discussed with Dr. Salinas 12/10/2017 1:22 PM EDT This report was reviewed by ed physician. - EKG 1347 Cardiac Rate: NL - rate of 60 bpm EKG Rhythm: Sinus Rhythm ST Segment: Non-Specific Ectopy: None EKG Interpretation: 1st degree AV block, prolonged IVCT, nml QTc, nml axis EKG Comparison: No Significant Change - compared with 12/07/17 EKG NIH Scale - NIH Scale Level of Consciousness: Alert/Keenly Responsive Ask Patient the Month and His/Her Age: [age] Correct/Not Aphasic Ask Pt to Open/Close Eyes and Operations Team Leader/Release Non-Paretic Hand: Both Correctly Best Gaze (Only Horizontal Eye Movement): Normal Visual Field Testing: No Visual Loss Facial Paresis-Pt to Smile & Close Eyes or Grimace Symmetry: Normal/Symmetrical Motor Function - Right Arm: No Drift-Holds 10 Seconds Motor Function - Left Arm: No Drift-Holds 10 Seconds Motor Function - Right Leg: No Drift-Holds 10 Seconds Motor Function - Left Leg: No Drift-Holds 10 Seconds Limb Ataxia-Must be out of Proportion to Weakness Present: Absent Sensory (Use Pinprick to Test Arms/Legs/Trunk/Face): Normal Best Language (Describe Picture, Name Items): Some Loss Dysarthria (Read Several Words): Slurs Some Words Extinction and Inattention: No Abnormality Total Score: 3 Course/Dx - Course Assessment/Plan: Patient is a 67 y/o F w/ c/o possible stroke Sx. Provider in room at 1300, nusrat leon called at 1303 with orders placed at this time. Dr. Garrett was in ED and communicated patient's case before patient had been placed in a room. He reports that patient is experiencing left sided weakness, difficulty with speech, and confusion. She was seen on 12/07/17 for similar Sx and had a negative brain CT and MRI. She was admitted for observation and discharged yesterday w/ Dx of TIA. Patient was prescribed Plavix 300 mg once a day with Lipitor. Patient's reports that around 1800 12/09/17, patient was confused, had slurred speech, hallucinations, and left sided weakness and associated unsteady gait. Patient's states that patient got into bed at 2000, slept until 0530 today. Patient's Sx were still present at this time with a worsening of left sided deficit. Dr. Garrett was called who recommended that patient come to ED upon seeing her in the [facility] clinic. On physical exam, patient is noted to be ill-appearing, no pain distress. Neuro exam showed A&O x3, CN II-XII intact except for slurred speech motor function 5/5, sensation intact, cerebellar normal, GCS 15, NIH 3. During ED course, patient was given fluids and ASA sup [address] Duarte was in ED to consult on patient's case at 1307. Patient was in CT at this time. Dr. Salinas and Dr. Duarte did a reading of brain CT together, both noting no acute process, no bleeding. Dr. Duarte recommends admission of patient for observation, rectal aspirin, MRI. 1320 -- Dr. Brennan consulted, he accepts patient for admission to [facility]. 1322 -- Dr. Maxwell communicated his impressions of brain CT, stating no acute process. Brain CT impressions: #. Negative for intracranial hemorrhage or CT evidence for acute or subacute ischemic stroke. #. No acute intracranial process evident. #. Stigmata of mild probable chronic small vessel ischemic disease. #. Results discussed with Dr. Salinas 12/10/2017 1:22 PM EDT This report was reviewed by ed physician. EKG showed sinus rhythm w/ rate of 60 bpm, non-specific ST, no ectopy, 1st degree AV block, prolonged IVCT, nml QTc, nml axis, no significant change compared with 12/07/17. CXR was negative. UA negative. Labs showed WBC 5.9, creatinine 1.41, CK-MB 9.4, trop 0. Dx of neurological deficit, aphasia. - Differential Dx Differential Diagnoses Neuro: Positive: Anxiety, Cerebrovascular Accident, Drug Toxicity, Metabolic Abnormality, Migraine, Seizure Disorder, Transient Ischemic Attack - Diagnoses Provider Diagnoses: Aphasia, Neurological deficit present During the Visit The Following Alert/Code Occurred: Code Euceda - 1303 called - Physician Notifications Discussed Care Of Patient With: Brad Duarte Time Discussed With Above Provider: 13:07 Instructed by Provider To: Other - Dr. Duarte was in ED to consult on patient' s case at 1307. Patient was in CT at this time. Dr. Salinas and Dr. Duarte did a reading of brain CT together, both noting no acute process, no bleeding. Dr. Duarte recommends admission of patient for observation, rectal aspirin, MRI. 1320 -- Dr. Brennan consulted, he accepts patient for admission to [facility]. 1322 -- Dr. Maxwell communicated his impressions of brain CT, stating no acute process. Discharge - Sign-Out/Discharge Documenting (check all that apply): Patient Departure - admit - Discharge Plan Condition: Stable Disposition: ADMITTED TO [facility] - Billing Disposition and Condition Condition: STABLE Disposition: Admitted to [facility] - Attestation Statements Document Initiated by Scribe: Yes Documenting Scribe: Rangel Fernandez Provider For Whom Scribe is Documenting (Include Credential): Amber Salinas MD Scribe Attestation: Rangel Tompkins , scribed for Amber Salinas MD on 12/11/17 at 0015. Scribe Documentation Reviewed: Yes Provider Attestation: The documentation as recorded by the Rangel rajan accurately reflects the service I personally performed and the decisions made by me, Amber Salinas MD
[2017-12-10] MEDS ORDERED: Aspirin SUPP* 300 MG PR ONE (13:23)
--- NOTE | 2017-12-10 13:27 | RAD ---
Indication: Neurologic changes, code melgar. Single frontal view of the chest performed at 1313 hours was reviewed. Comparison is made with previous exam dated February 26, 2017. No mediastinal shift is noted. Heart is of normal size and configuration. Lung mcgowan appear clear. IMPRESSION: NO ACTIVE CARDIOPULMONARY DISEASE IS NOTED.
--- NOTE | 2017-12-10 13:30 | RAD ---
Indication: Neurologic changes. Code melgar. Comparison: December 07, [address] Technique: Noncontrast CT vertex of skull through foramen magnum. Report: Unremarkable cerebral sulci, ventricles, and basal cisterns. Negative for melgar matter white matter obscuration, intra or extra-axial hemorrhage, or mass effect. Mild decreased density in the periventricular and subcortical white matter while non-specific is most likely due to chronic microangiopathy. Unremarkable calvarium and skull base. Clear visualized paranasal sinuses and mastoid air spaces. Unremarkable scalp. IMPRESSION: #. Negative for intracranial hemorrhage or CT evidence for acute or subacute ischemic stroke. #. No acute intracranial process evident. #. Stigmata of mild probable chronic small vessel ischemic disease. #. Results discussed with Dr. Salinas 12/10/2017 1:22 PM EDT
[2017-12-10 13:33] LABS: ABS Basophils 0 10^3/ul (0-0.2); ABS Eosinophils 0 10^3/ul (0-0.6); ABS Lymphocytes 0.9 10^3/ul (1.0-4.8); ABS Monocytes 0.6 10^3/ul (0-0.8); ABS Neutrophils 4.4 10^3/ul (1.5-7.7); ABS Nucleated RBC 0 10^3/ul; Eosinophil % 0.4 % (0-6); Hematocrit 40 % (35-47); Hemoglobin 13.8 g/dl (12.0-16.0); Lymphocyte % 15.9 % (25-47); Mean Corpuscular HGB Conc 34 g/dl (31-36); Mean Corpuscular Hemoglobin 33 pg (27-31); Mean Corpuscular Volume 96 fL (80-97); Mean Platelet Volume 7.5 um3 (7.4-10.4); Nucleated Red Blood Cells % 0.2; Platelet Count 217 10^3/ul (150-450); Red Blood Count 4.16 10^6/ul (4.00-5.40); Red Cell Distribution Width 12 % (10.5-15); White Blood Count 5.9 10^3/ul (3.5-10.8)
[2017-12-10 13:49] LABS: INR 0.83 (0.77-1.02)
[2017-12-10 13:51] LABS: EGFR Non-African American 37.2 (>60)
[2017-12-10 14:41] LABS: Urine Appearance Clear; Urine Blood Negative (Negative); Urine Color Colorless; Urine Ketones Negative (Negative); Urine Protein Negative (Negative); Urine Specific Gravity 1.002 (1.010-1.030); Urine Urobilinogen Negative (Negative)
[2017-12-10] MEDS ORDERED: LORazepam TAB(*) 1 MG PO PRN (14:50)
[2017-12-10] MEDS ORDERED: NS 0.9% 1000 ML* 1,000 ML IV SCH (15:00)
--- NOTE | 2017-12-10 17:08 | CONS ---
CONSULTATION REPORT: DATE OF CONSULT: 12/10/17 PATIENT OF: Margie Chau NP and Dr. Serrato.* HISTORY OF PRESENT ILLNESS: This is a 67-year-old woman, who just was discharged yesterday. She apparently developed left-sided weakness last night and she had an unexplained bruise on her right arm and a minor one on her head. Today, her was bringing her in for her followup with Dr. Garrett. When she came into the office, she was having apparently problems speaking and left- sided weakness. He called me since I had seen her recently. I recommended that she go back to the ER by wheelchair with him . She had a rapid CT scan and I was present at that time and evaluated her in CT scanner. She was moving both sides of her body with full power then and was speaking. PAST SURGICAL HISTORY: Unchanged from her recent hospitalization. MEDICATIONS: Include: 1. Lipitor 40 mg daily. 2. Plavix 75 mg daily. 3. Lamictal 200 b.i.d. 4. Ativan 1 mg b.i.d. p.r.n. 5. Zyprexa 10 mg daily. 6. Lyrica 150 t.i.d. ALLERGIES: She has no known drug allergies. SOCIAL HISTORY: She is a former smoker, quitting 11 months ago. PHYSICAL EXAM: Temperature 97.6, pulse 58, respirations 16, blood pressure 156/ 92. She is alert and oriented with normal speech and comprehension. Cranial nerves II through XII were intact. Motor exam revealed normal tone, strength, coordination, [id number]. Her NIH Stroke Scale is 0 now and a 10-minute NIH Stroke Scale was 0 in the ER. I did not test [id number] in the ER at that point. DIAGNOSTIC STUDIES/LAB DATA: Her CT scan was reviewed and there were no acute findings. Her labs include normal CBC today, INR, PT, PTT, and BMP. She has a recent MRA, which was normal; a CTA in the past year, which was normal. An MRI scan done this most recent hospitalization on 12/07/17, which did not show acute findings, but did have some chronic microvascular changes. IMPRESSION AND PLAN: I discussed with Naheed and her it is unclear what is triggering her events for sure. She is at some risk for stroke given her chronic microvascular changes and slightly elevated cholesterol, but I am most concerned that this may be stress related event. Unfortunately, there is no good way of proving this for sure. This was Dr. Serrato's concern also back this past winter when she had seen as an outpatient. She has got an aspirin in the emergency room. She will be getting an MRI scan tonight to see with an episode that lasted more than 12 hours whether there was anything subacute on the MRI scan. If there is a subacute event documented on MRI scan, she is having repeat attacks, it will be Dr. Krishnan's decision whether she should go on a daily aspirin in addition to the Plavix, but it would be a consideration. Thank you for sharing her case. [id number]/[facility] #: [id number] JEET
--- NOTE | 2017-12-10 17:31 | RAD ---
HISTORY: Slurred speech, intermittent confusion and weakness. COMPARISONS: Most recent comparison MRI of the brain is dated December 07, 2017 TECHNIQUE: The following sequences were obtained of the head: Sagittal T1-weighted images, axial T2-weighted images, axial FLAIR images, axial susceptibility weighted images, axial T1-weighted images. Additionally, axial diffusion-weighted images were obtained with calculated apparent diffusion coefficients.. FINDINGS: HEMORRHAGE/INFARCT: There is no hemorrhage or acute infarct. MASSES/SHIFT: There is no mass or shift. EXTRA-AXIAL SPACES/MENINGES: There are no extra-axial fluid collections. SULCI AND VENTRICLES: The sulci and ventricles are normal in size and position for the patient's stated age. CEREBRUM: Consistent with prior MRIs of the brain, there are multifocal T2 bright foci in the periventricular and subcortical white matter. There are no corresponding abnormalities on diffusion-weighted imaging. The melgar-white matter differentiation is otherwise appropriately maintained. There is no mass, mass effect or midline shift BRAINSTEM: There are no focal parenchymal abnormalities. CEREBELLUM: There are no focal parenchymal abnormalities. The cerebellar tonsils are normal in size and position. SELLA: The sella is normal. PINEAL: The pineal region is clear. CP ANGLE/TEMPORAL BONES: The labyrinthine structures are grossly normal. VESSELS: Normal flow-voids are noted within the visualized vertebral vasculature. DIFFUSION ABNORMALITIES: There are no diffusion abnormalities. PARANASAL SINUSES/MASTOIDS: As was seen and described on the prior MRI of the brain, there are dependent effusions of the bilateral mastoid air cells. ORBITS: The orbits are unremarkable. BONES AND SOFT TISSUE: No bone or soft tissue abnormalities are noted. IMPRESSION: 1. SCATTERED PERIVENTRICULAR AND SUBCORTICAL WHITE MATTER T2 BRIGHT FOCI ARE MOST OFTEN CONSISTENT WITH CHRONIC MICROVASCULAR DISEASE, AND APPEARANCE THAT IS NOT SIGNIFICANTLY CHANGED FROM THE 2 MOST RECENT MRIs OF THE BRAIN. IF THERE IS CLINICAL CONCERN FOR ACUTE DEMYELINATING DISEASE OR OTHER ACUTE PROCESS THESE LESIONS CAN BE FURTHER CHARACTERIZE WITH T1 WEIGHTED CONTRAST-ENHANCED IMAGING. 2. SIMILAR TO PRIOR MRIs OF THE BRAIN THERE ARE BILATERAL DEPENDENT MASTOID AIR CELL EFFUSIONS. PLEASE CORRELATE TO SIGNS OR SYMPTOMS OF MASTOIDITIS.
--- NOTE | 2017-12-10 20:58 | HP ---
HISTORY AND PHYSICAL: DATE OF ADMISSION: 12/10/17 PROVIDER: Dallas Joseph NP ATTENDING PHYSICIAN: Dr. Fischer* (report dictated by Dallas Joseph NP). PRIMARY CARE PROVIDER: Currently, no PCP. The patient is currently on the list for the [facility] for a new primary care doctor. She was scheduled today to see Dr. Garrett at [facility]. NEUROLOGY INPUT: Dr. Serrato. CHIEF COMPLAINT: Confusion, left-sided weakness, and difficulty with speech. HISTORY OF PRESENT ILLNESS: Ms. Moran is a 67-year-old female, who was discharged from the hospital yesterday by this sba underwriter after she was hospitalized from 12/07/17 to 12/09/17 for altered mental status, possible TIA versus transient amnesia with a negative CT and MRI of the brain. The patient reports that she went home yesterday afternoon from the hospital and states that her was "nagging me about the things that I don't do, stating I don 't drink enough water and I was very anxious." She then reports that she had some left-sided weakness last night and she has some unexplained bruise on her right arm and a minor one on her head. Today, her was bringing her in for a followup with Dr. Garrett in [facility] and when she came in to the office, she was noted to have left-sided weakness and slurred speech and she was recommended to go to the emergency department. She had a rapid brain CT scan, which was negative for acute intracranial process. The patient was seen and evaluated by neurologist, Dr. Duarte, who had seen the patient during her previous admission. Recommendation was to monitor the patient overnight. The patient was also noted during her previous hospitalization to have acute on chronic renal dysfunction, which improved with IV fluids. This was suspected to be secondary to dehydration. As well, she had a noted elevated TSH of 8; however, her other thyroid panel was negative. She was not started on thyroid supplementation at that time and was to follow up with Dr. Garrett regarding this. PAST MEDICAL HISTORY: 1. Anxiety. 2. History of bipolar. 3. Chronic kidney disease. 4. History of hyponatremia. 5. Depression. 6. Migraines. 7. History of small bowel obstruction. 8. Previous tobacco abuse. 9. Possible TIA in January 2017. HOME MEDICATIONS: 1. Plavix 75 mg p.o. daily. 2. Lipitor 40 mg p.o. daily. 3. Calcium 600 mg p.o. b.i.d. 4. Zyprexa 10 mg p.o. daily. 5. Multivitamin 1 tab p.o. daily. 6. Ativan 1 mg p.o. b.i.d. p.r.n. 7. Lyrica 150 mg p.o. t.i.d. 8. Lamictal 200 mg p.o. b.i.d. ALLERGIES: No known allergies. FAMILY HISTORY: Reviewed and noncontributory. SOCIAL HISTORY: Former smoker, quitting approximately 11 months ago. Prior to that, she smoked half a pack of cigarettes for 40 years. She reports that she has 1 beer a week. Denies recreational drug use. She currently lives with her , Rich, who is her healthcare proxy. She is a full code. REVIEW OF SYSTEMS: A 14-point review of systems was performed. All the pertinent positives and negatives are mentioned in the history of present illness. Otherwise, they are negative. PHYSICAL EXAMINATION GENERAL APPEARANCE: A 67-year-old female, alert and oriented x3, appears mildly confused. VITAL SIGNS: Temperature 97.6, heart rate 58, respirations 16, O2 sat 100% on room air, blood pressure 156/92. HEENT: Head is normocephalic, atraumatic. Pupils are equal and reactive to light. Oropharynx is clear. Dry mucous membranes. NECK: Supple. No JVD. LUNGS: Clear to auscultation bilaterally. Good aeration throughout. No CVA tenderness. CARDIAC: S1, S2. Regular rate and rhythm. No murmur, rub, or gallop appreciated. EXTREMITIES: No clubbing, cyanosis, or edema. MUSCULOSKELETAL: Strength is 5/5 throughout. Moves all extremities equally. NEURO: Cranial nerves II through XII are grossly intact. DIAGNOSTIC STUDIES/LAB DATA: WBC 5.9, RBC 4.16, Hgb 13.8, Hct 40, MCV 96, MCH 33, MCHC 34, RDW 12, platelet count 217. INR 0.83. Sodium 139, potassium 4.2, chloride 110, carbon dioxide 23, anion gap 6, BUN 20, creatinine 1.41, glucose 90, lactic acid 0.7, calcium 9.0. Total bilirubin 0.40, AST 24, ALT 14, alkaline phosphatase 42. CK-MB 9.4. Troponin 0.00. Total protein 6.7, albumin 4.4. Urinalysis unremarkable. Brain MRI, impression: 1. Scattered periventricular and subcortical white matter, T2 bright foci are most often consistent with chronic microvascular disease and appearance that has not significantly changed from the two most recent MRIs of the brain. There is a clinical concern for acute demyelinating disease or other acute process. These lesions can be further characterized with T1-weighted contrast enhanced imaging. 2. Similar to prior MRI of the brain, there are bilateral dependent mastoid air cell effusions. Please correlate to signs or symptoms of mastoiditis. Chest x-ray, impression: No active cardiopulmonary disease is noted. EKG: Sinus rhythm with a rate of 60. In comparison to prior EKG, there are no acute changes noted. ASSESSMENT AND PLAN: Ms. Moran is a 67-year-old female with a past medical history of anxiety, hyponatremia, depression, bipolar, possible transient ischemic attack in January 2017, and recent hospitalization, discharged yesterday on 12/09/17 for presentation of similar symptoms, who presented to the emergency department today after there was some concern for left-sided weakness, slurred speech, and confusion. 1. Slurred speech with left-sided weakness. Unclear if this is secondary to a possible transient ischemic attack or may be stress-related event. Dr. Duarte , neurologist, saw and evaluated the patient who was most concerned that it could be secondary to a stressful event. Upon evaluating the patient today, she does appear to be slightly confused, possibly slightly sedated or under the influence. I will add on an alcohol level as well as a drug tox screen level. I do note the patient takes Ativan at home for her anxiety and I questioned if maybe she is abusing this. She denies taking any pain medication at home, even though there is tramadol on her medication list. She reports that this was an old prescription. Continue aspirin, Plavix, and statin. Neuro checks q.4 hours. 2. Anxiety. History of bipolar. We will continue Lamictal and Zyprexa and Lyrica. Plan to reduce home dose Ativan from 0.5 mg to 0.25 mg b.i.d. 3. History of hyponatremia, stable. 4. History of chronic kidney disease, appears to be around baseline. 5. DVT prophylaxis. Heparin subcu. 6. Code status. Full code. 7. Disposition. Observation. TIME SPENT: Approximately 60 minutes was spent on this admission. DALLAS JOSEPH, GENERATING PLANT SUPERINTENDENT [id number]/[facility] #: [id number] JEET
[2017-12-10] MEDS ORDERED: LORazepam TAB(*) 0.5 MG PO PRN (21:00)
[2017-12-10] MEDS: lamoTRIgine TAB(*) 100 MG PO SCH (21:10)
[2017-12-10] MEDS: Atorvastatin* 40 MG TAB PO SCH (21:10)
[2017-12-10] MEDS: OLANzapine TAB* 10 MG PO SCH (21:10)
[2017-12-10] MEDS: Pregabalin CAP(*) 50 MG PO SCH (21:10)
[2017-12-10] MEDS ORDERED: traMADol TAB* 50 MG PO ONE (21:46)
[2017-12-10] MEDS: Psyllium PAK PO PRN (21:56)
[2017-12-10] MEDS: Heparin VIAL(*) 5000 UNITS/ML VIAL (FIVE THOUSAND) SUBCUT SCH (21:57)
--- NOTE | 2017-12-10 23:27 | PN ---
Hospitalist Progress Note Date of Service: 12/10/17 Naheed Moran's called the PSR of the [facility] in the late morning, worried that she was "hallucinating" and was scheduled for an acute same day visit at 1pm. Upon evaluation in our waiting room she was slurring her words and oriented to name and place but not time, thinking it was 2016. She was very confused. attested that upon discharge from the hospital she was doing very well. However around 630 or 700pm last night she got more confused. This morning she was unable to walk unassisted. On physical exam, her Cranial nerves were intact though it took several repeated attempts for her to follow eye movement commands. No facial asymmetry. Her bicep, deltoid and group billing coordinator strength were 5/5 bilaterally. Her hip flexion was 5 /5 bilaterally. Her knee extention on the left was markedly weaker than on the right, 3+/5. Her gait was markedly unstable, on the verge of falling at each step. Her Finger To Nose was slow but intact on the right but even slower and more dysmetric with the left hand. Her rapid hand motions were markedly clumsy. Given the above findings, a wheelchair was procured, our PSR called the ER to alert of transfer and I called Dr. Duarte. Patient was taken to ER check in and I updated Dr. Salinas of my concerns for her gait and left knee extention weakness. She is noted to be on many psychoactive medications which may be contributing to causes of delerium.
[2017-12-11] MEDS: Naloxone* 0.4 MG/ML 1 ML VIAL ONE ×2 (00:05→01:34)
[2017-12-11] MEDS ORDERED: NS 0.9% 1000 ML* 2,000 ML IV ONE (00:09)
[2017-12-11 00:27] LABS: ABS Basophils 0 10^3/ul (0-0.2); ABS Eosinophils 0.1 10^3/ul (0-0.6); ABS Lymphocytes 1.3 10^3/ul (1.0-4.8); ABS Monocytes 0.5 10^3/ul (0-0.8); ABS Neutrophils 2.3 10^3/ul (1.5-7.7); ABS Nucleated RBC 0 10^3/ul; Eosinophil % 1.2 % (0-6); Hematocrit 39 % (35-47); Hemoglobin 13.3 g/dl (12.0-16.0); Lymphocyte % 30.3 % (25-47); Mean Corpuscular HGB Conc 34 g/dl (31-36); Mean Corpuscular Hemoglobin 33 pg (27-31); Mean Corpuscular Volume 96 fL (80-97); Mean Platelet Volume 7.5 um3 (7.4-10.4); Nucleated Red Blood Cells % 0; Platelet Count 232 10^3/ul (150-450); Red Blood Count 4.05 10^6/ul (4.00-5.40); Red Cell Distribution Width 13 % (10.5-15); White Blood Count 4.2 10^3/ul (3.5-10.8)
[2017-12-11 00:42] LABS: EGFR Non-African American 34.4 (>60)
--- NOTE | 2017-12-11 00:57 | RAD ---
EXAM: CT Head Without Intravenous Contrast EXAM DATE/TIME: 12/11/2017 12:27 AM CLINICAL HISTORY: 67 years old, female; Signs and symptoms; Altered mental status/memory loss; Additional info: AMS, hypotension TECHNIQUE: Axial computed tomography images of the head/brain without intravenous contrast. All CT scans at this facility use at least one of these dose optimization techniques: automated exposure control; mA and/or kV adjustment per patient size (includes targeted exams where dose is matched to clinical indication); or iterative reconstruction. COMPARISON: BRAIN WO CT BRAIN WO 12/10/2017 1:10 PM FINDINGS: Brain: There is no acute intracranial hemorrhage, extraaxial collection or mass effect. [place]ale[place] white differentiation is maintained throughout the brain. Periventricular white matter lucency likely represents small vessel ischemic change. There is diffuse cortical volume loss consistent with patient's age. Ventricles: Normal configuration. No ventriculomegaly. Bones/joints: No acute fracture. Sinuses: Normal as visualized. No acute sinusitis. Mastoid air cells: No mastoid effusion. Soft tissues: Normal. IMPRESSION: 1. No acute intracranial findings or significant change since prior study. 2. Chronic change as above. To contact [facility] with a general question: Operations Center - [phone] For direct physician to physician contact: Physician Hotline - [phone] [facility] ([facility] Facility ID #[id number])
[2017-12-11 05:09] LABS: Urine Appearance Clear; Urine Blood Negative (Negative); Urine Color Straw; Urine Ketones Negative (Negative); Urine Protein Negative (Negative); Urine Specific Gravity 1.006 (1.010-1.030); Urine Urobilinogen Negative (Negative)
[2017-12-11] MEDS: Heparin VIAL(*) 5000 UNITS/ML VIAL (FIVE THOUSAND) SUBCUT SCH ×3 (06:33→21:32)
[2017-12-11 06:41] LABS: ABS Basophils 0 10^3/ul (0-0.2); ABS Eosinophils 0 10^3/ul (0-0.6); ABS Monocytes 0.4 10^3/ul (0-0.8); ABS Neutrophils 3.4 10^3/ul (1.5-7.7); ABS Nucleated RBC 0 10^3/ul; Eosinophil % 0.9 % (0-6); Hematocrit 42 % (35-47); Hemoglobin 14.3 g/dl (12.0-16.0); Mean Corpuscular HGB Conc 34 g/dl (31-36); Mean Corpuscular Hemoglobin 33 pg (27-31); Mean Corpuscular Volume 97 fL (80-97); Mean Platelet Volume 7.6 um3 (7.4-10.4); Nucleated Red Blood Cells % 0.1; Platelet Count 225 10^3/ul (150-450); Red Blood Count 4.33 10^6/ul (4.00-5.40); Red Cell Distribution Width 13 % (10.5-15); White Blood Count 4.8 10^3/ul (3.5-10.8)
[2017-12-11 06:56] LABS: EGFR Non-African American 35.7 (>60)
--- NOTE | 2017-12-11 08:50 | RAD ---
Indication: Hypotension. Single frontal view of the chest performed at 0029 hours was reviewed. Comparison is made with previous exam dated December 10, 2017. No mediastinal shift is noted. Heart is of normal size and configuration. Lung mcgowan appear clear. IMPRESSION: NO ACTIVE CARDIOPULMONARY DISEASE IS NOTED. R1
--- NOTE | 2017-12-11 08:52 | PN ---
Subjective Date of Service: 12/11/17 - Neurology follow up Length of Stay: 1 Days Interval History: Events overnight reviewed. She was asking for Tramadol last night, received a one time dose, subsequent hypotension and worsening mental status. Was given Narcan and Fluids, transferred to ICU for observation. Overnight, she has been stable. She is awake and alert this am. Denies any new issues or concerns. Notes no weakness, speech changes, swallowing difficulties although she notes " a frog in my throat." She denies and alcohol or illicit substance use although she does report BZD use at home chronically for a history of anxiety. CT Brain: No acute intracranial findings. Chronic changes MRI Brain: Chronic white matter changes, no acute process. Bilateral mastoid effusions Objective Active Medications: Atorvastatin Calcium (Lipitor*) 40 mg PO 2100 [facility] Last Admin: 12/10/17 21:10 Dose: 40 mg Clopidogrel Bisulfate (Plavix Tab*) 75 mg PO DAILY [facility] Heparin Sodium (Porcine) (Heparin Vial(*)) 5,000 units SUBCUT Q8HR [facility] Last Admin: 12/11/17 06:33 Dose: 5,000 units Lamotrigine (Lamictal Tab(*)) 200 mg PO BID [facility] Last Admin: 12/10/17 21:10 Dose: 200 mg Lorazepam (Ativan Tab(*)) 0.25 mg PO BID PRN PRN Reason: ANXIETY Olanzapine (Zyprexa Tab*) 10 mg PO BEDTIME [facility] Last Admin: 12/10/17 21:10 Dose: 10 mg Pregabalin (Lyrica Cap(*)) 150 mg PO TID [facility] Last Admin: 12/10/17 21:10 Dose: 150 mg Psyllium Hydrophilic Mucilloid (Metamucil Vninie*) 1 pkt PO DAILY PRN PRN Reason: DIARRHEA Last Admin: 12/10/17 21:56 Dose: 1 pkt Vital Signs 12/10/17 12/10/17 12/10/17 13:25 13:31 13:48 Temperature 97.2 F Pulse Rate 61 61 60 Respiratory 20 10 23 Rate Blood Pressure 166/87 147/89 164/100 (mmHg) O2 Sat by Pulse 97 95 97 Oximetry 12/10/17 12/10/17 12/10/17 14:00 14:19 14:40 Temperature Pulse Rate 65 59 Respiratory 22 17 Rate Blood Pressure 159/100 (mmHg) O2 Sat by Pulse 97 97 Oximetry 12/10/17 12/10/17 12/10/17 14:48 14:54 15:09 Temperature 98.4 F 97.6 F Pulse Rate 61 61 58 Respiratory 14 20 16 Rate Blood Pressure 167/93 167/93 156/92 (mmHg) O2 Sat by Pulse 99 100 100 Oximetry 12/10/17 12/10/17 12/10/17 16:00 19:27 21:10 Temperature 97.8 F Pulse Rate 63 Respiratory 20 12 16 Rate Blood Pressure 148/83 (mmHg) O2 Sat by Pulse 98 Oximetry 12/10/17 12/10/17 12/10/17 21:55 23:31 23:42 Temperature 98.5 F Pulse Rate 55 Respiratory 18 16 20 Rate Blood Pressure 58/34 (mmHg) O2 Sat by Pulse 98 Oximetry 12/10/17 12/11/17 12/11/17 23:46 00:07 00:11 Temperature Pulse Rate 57 58 Respiratory Rate Blood Pressure 40/40 81/48 82/49 (mmHg) O2 Sat by Pulse 96 96 Oximetry 12/11/17 12/11/17 12/11/17 00:38 00:45 01:00 Temperature 97.4 F Pulse Rate 62 61 Respiratory 16 14 17 Rate Blood Pressure 114/72 98/64 95/56 (mmHg) O2 Sat by Pulse 95 95 Oximetry 12/11/17 12/11/17 12/11/17 01:15 01:30 01:45 Temperature Pulse Rate 61 61 60 Respiratory 13 19 14 Rate Blood Pressure 96/59 96/60 96/60 (mmHg) O2 Sat by Pulse 94 93 92 Oximetry 12/11/17 12/11/17 12/11/17 02:00 02:15 02:30 Temperature Pulse Rate 61 60 60 Respiratory 12 12 12 Rate Blood Pressure 98/64 105/66 100/67 (mmHg) O2 Sat by Pulse 92 93 92 Oximetry 12/11/17 12/11/17 12/11/17 02:45 03:00 03:15 Temperature Pulse Rate 60 59 58 Respiratory 14 17 12 Rate Blood Pressure 128/68 113/66 103/64 (mmHg) O2 Sat by Pulse 94 96 94 Oximetry 12/11/17 12/11/17 12/11/17 03:30 03:45 04:00 Temperature Pulse Rate 67 59 57 Respiratory 14 12 16 Rate Blood Pressure 141/87 103/67 112/67 (mmHg) O2 Sat by Pulse 98 97 96 Oximetry 12/11/17 12/11/17 12/11/17 04:15 04:30 04:45 Temperature Pulse Rate 62 60 65 Respiratory 15 12 16 Rate Blood Pressure 113/74 113/72 113/75 (mmHg) O2 Sat by Pulse 93 96 94 Oximetry 12/11/17 12/11/17 12/11/17 05:00 05:15 06:00 Temperature Pulse Rate 66 64 86 Respiratory 15 14 14 Rate Blood Pressure 112/66 109/68 159/87 (mmHg) O2 Sat by Pulse 94 94 95 Oximetry 12/11/17 07:54 Temperature 98.6 F Pulse Rate Respiratory Rate Blood Pressure (mmHg) O2 Sat by Pulse Oximetry Intake and Output Last 24 Hours 12/09/17 12/10/17 12/11/17 12/12/17 06:59 06:59 06:59 06:59 Intake Total 4000 Output Total 900 Balance 3100 Weight 132 lb 0.91 oz Intake: IV Fluids 4000 NS (0.9%) 2000 Oral 0 Output: Urine 900 Other: Estimated Void Large # Bowel Movements 0 # Voids 1 Oxygen Devices in Use Now: None Neurology Exam: General: HEENT: Normocephelic/atraumstic, sclera anicteric, mucous membranes dry Neck: Supple Chest: Clear to auscultation bilaterally Cardiovascular: Regular rate and rhythm without murmurs, rubs, gallops Abdomen: Soft, nontender/nondistended Extremities: No clubbing, cyanosis, or edema Skins is warm and dry without lesions Neurological Findings: Awake, Alert, Oriented x3. Following all commands Speech: fluent, some mild slurring of speech, no aphasia Cranial Nerve: PEERL, EOM intact, VFF, no nystagmus, face symmetric bilaterally , facial sensation intact, hearing intact to finger rub bilaterally, palate elevates symmetrically, tongue midline Motor: 5/5 throughout, proximal and distal extremities x4 tone/bulk normal. No drift Sensation: intact to LT/PP bilaterally upper and lower extremities Deep Tendon Reflex: 3+ symmetric in the upper/lower extremities, Babinski - down going Finger to nose, rapid alternating movements intact without tremor Result Diagrams: 12/11/17 06:21 12/11/17 06:21 Microbiology and Other Data: Microbiology 12/11/17 01:06 Nasal Screen MRSA (PCR) - Final Nasal Mrsa Not Detected Assessment/Plan 67 year old with a history of bipolar, depression and anxiety, prior hyponatremia, chronic tramadol and bzd use, recent admission for similar symptoms, discharged 2 days ago, readmitted yesterday with reported left sided weakness and slurred speech. MRI negative for any acute changes. Suspect stress related event. Overnight, received tramadol with drop in blood pressure , transferred to ICU for monitoring, improved with Narcan and fluids. Doing well at this point, wants to go home. "I feel great." 1. Acute neurologic change: No clear etiology for symptoms and given the patient's history with prior event, I suspect this was likely related to stress , with the possibility of some medication overuse as well. She denies alcohol use but does admit to chronic tramadol and BZD use. Dr. Chau will decrease her home Ativan from 0.5 to 0.25 mg. No evidence of withdraws. No strong evidence for a seizure. I do not think we need to add ASA to her Plavix at this point, given the duration of symptoms, I would expect some changes on MRI. My suspicion for TIA is very low, especially in light of recent workup. I suspect the acute hypotension overnight was secondary to pain medication and some dehydration. 2. Bi-polar: continue Lamictal, Zyprexa. Monitor closely for BZD/Pain med overuse. Denies a history of Alcohol use but this is something that needs to be considered. 3. Prior TIA: on Plavix, statin, no need for additional antiplatelet. I will sign off for now but remain available for any new issues or concerns. She can follow up with neurology upon discharge.
[2017-12-11] MEDS: Clopidogrel TAB* 75 MG PO SCH (09:41)
[2017-12-11] MEDS: Pregabalin CAP(*) 50 MG PO SCH ×3 (09:41→21:32)
[2017-12-11] MEDS: lamoTRIgine TAB(*) 100 MG PO SCH ×2 (09:41→21:31)
--- NOTE | 2017-12-11 11:00 | PN ---
Hospitalist Progress Note Date of Service: 12/11/17 cat team called due to sbp was 50s pt was given ultram for pain and has not been on ultram prior ---> ns bolus 1 liter and narcan twice was given her systolic b/p went up to 90s but her ms seemed to better she was found to have dysarthyria ---> as per nursing staff in icu seemed to be better too after sbp improved. pt needs frequent sbp monitering besides ivf ---> will be sent to icu at this point due to the need of closing monitering ekg stat at bedside did not reveal any acute change. pt was winchester cultured just in case but no abx started yet vital per refer to chart general semicomatosed until narcan given twice heart s1 s2 jesus lung decreased b/s but cta neuro able to wake up after nacran but still dysarthria labs ordered including w[place]ster cx a/p 1 hypotension due to opiods - ivf - transfer to icu due to the need of frequent b/p monitering - routine labs ordered incluind trending trop - w[place]ster cx done no abx given 2 change of ms stat head did not reveal any acute change ---> responded to narcan well - moniter 3 dysarthyria seems to improve with better sbp ---> ? related to hypotension - moniter her neuro symptoms total critical care time during cat team and follow up is 40 min
--- NOTE | 2017-12-11 11:20 | PN ---
Subjective Date of Service: 12/11/17 Interval History: Patient reports she "feels much better" she does not know what happened at home and reports her was "worried and nagging". I spoke to her who said she came home after discharge on 12/09 and seemed to be doing well - she then became "very tired" around 730 pm and went to bed sleeping until 530 in the morning which the thought was unusual. The reported when she got up in the am (yesterday) she initially seemed fine then started acting funny again reporting she "seemed under the influence" but he was concerned with her slurred speech and funny behavior and brought her back to the ER. Today the and I spoke about her new prescription of ativan from her psychiatrist and he was unaware she was recently prescribed this on 12/06 with a script for 60 tablets. He will count the pills and see if there are any missing as the patient reports she is has not taken any Ativan since getting the prescription. She reports she was prescribed this for when she "goes to the dentist I have such severe anxiety I take this prior to going". She reports this prescription is for the "whole year". When I noted that 60 tabs seemed to be a lot she said "I dont know". She insist she does not abuse her medications but does state she has "overdosed accidentally" before and tries to be very careful. The states he feels like maybe this is the cause as he has seen her like this before. will bring in pill bottles to be reviewed. Objective Active Medications: Atorvastatin Calcium (Lipitor*) 40 mg PO 2100 [facility] Last Admin: 12/10/17 21:10 Dose: 40 mg Clopidogrel Bisulfate (Plavix Tab*) 75 mg PO DAILY [facility] Last Admin: 12/11/17 09:41 Dose: 75 mg Heparin Sodium (Porcine) (Heparin Vial(*)) 5,000 units SUBCUT Q8HR [facility] Last Admin: 12/11/17 06:33 Dose: 5,000 units Lamotrigine (Lamictal Tab(*)) 200 mg PO BID [facility] Last Admin: 12/11/17 09:41 Dose: 200 mg Lorazepam (Ativan Tab(*)) 0.25 mg PO BID PRN PRN Reason: ANXIETY Olanzapine (Zyprexa Tab*) 10 mg PO BEDTIME [facility] Last Admin: 10/12/18 21:10 Dose: 10 mg Pregabalin (Lyrica Cap(*)) 150 mg PO TID [facility] Last Admin: 12/11/17 09:41 Dose: 150 mg Psyllium Hydrophilic Mucilloid (Metamucil Vinnie*) 1 pkt PO DAILY PRN PRN Reason: DIARRHEA Last Admin: 12/10/17 21:56 Dose: 1 pkt Vital Signs - 8 hr 12/11/17 12/11/17 12/11/17 03:30 03:45 04:00 Temperature Pulse Rate 67 59 57 Respiratory 14 12 16 Rate Blood Pressure 141/87 103/67 112/67 (mmHg) O2 Sat by Pulse 98 97 96 Oximetry 12/11/17 12/11/17 12/11/17 04:15 04:30 04:45 Temperature Pulse Rate 62 60 65 Respiratory 15 12 16 Rate Blood Pressure 113/74 113/72 113/75 (mmHg) O2 Sat by Pulse 93 96 94 Oximetry 12/11/17 12/11/17 12/11/17 05:00 05:15 06:00 Temperature Pulse Rate 66 64 86 Respiratory 15 14 14 Rate Blood Pressure 112/66 109/68 159/87 (mmHg) O2 Sat by Pulse 94 94 95 Oximetry 12/11/17 12/11/17 12/11/17 06:27 06:30 06:45 Temperature Pulse Rate 63 61 59 Respiratory 19 15 13 Rate Blood Pressure 144/81 156/89 151/83 (mmHg) O2 Sat by Pulse 97 96 96 Oximetry 12/11/17 12/11/17 12/11/17 07:00 07:54 08:00 Temperature 98.6 F Pulse Rate 56 57 Respiratory 12 15 Rate Blood Pressure 140/85 126/80 (mmHg) O2 Sat by Pulse 95 95 Oximetry 12/11/17 12/11/17 09:01 10:00 Temperature Pulse Rate 69 76 Respiratory 17 14 Rate Blood Pressure 129/98 126/72 (mmHg) O2 Sat by Pulse 94 98 Oximetry Oxygen Devices in Use Now: None Appearance: 67 yo female sitting up in bed in NAD A+O x3 Eyes: No Scleral Icterus, PERRLA Ears/Nose/Mouth/Throat: NL Teeth, Lips, Gums, Mucous Membranes Moist Neck: NL Appearance and Movements; NL JVP Respiratory: Symmetrical Chest Expansion and Respiratory Effort, Clear to Auscultation Cardiovascular: NL Sounds; No Murmurs; No JVD, RRR, No Edema Abdominal: NL Sounds; No Tenderness; No Distention Extremities: No Edema, No Clubbing, Cyanosis Skin: No Rash or Ulcers, No Nodules or Sclerosis Neurological: Alert and Oriented x 3, NL Sensation, NL Muscle Strength and Tone Lines/Tubes/Other Access: Clean, Dry and Intact Peripheral IV Nutrition: Taking PO's Result Diagrams: 12/11/17 06:21 12/11/17 09:22 Microbiology and Other Data: Microbiology 12/11/17 01:06 Nasal Screen MRSA (PCR) - Final Nasal Mrsa Not Detected Assess/Plan/Problems-Billing 67 year old with a history of bipolar, depression and anxiety, prior hyponatremia, recent admission for similar symptoms, discharged 2 days ago, readmitted yesterday with reported left sided weakness and slurred speech. MRI negative for any acute changes. Suspect stress related event vs polysubstance - recently prescribed Ativan 12/06. Overnight, received tramadol with drop in blood pressure, transferred to ICU for monitoring, improved with Narcan and fluids. - Patient Problems (1) Altered mental status Comment: - No clear etiology for symptoms and given the patient's history with prior event, I suspect this was likely related to stress vs medication overuse. She denies alcohol use, Tramadol prescription is prescribed by neurology in which she gets 15 tabs a months for her 5 day migraines - she currently reports she is out of her prescription at home, recent ativan prescription on 12/06 by her psychiatrist - pt reports these are for only when she is goes to the dentist 2nd to anxiety - will bring in pill bottle. Plan to DC Ativan off APR - as per pt she does not take this daily. No strong evidence for a seizure - neurology does not recommend an EEG - continue ASA to her Plavix from prior admission for possible TIA- - Now Resolved and back to baseline - CT/MRI otilio negative for CVA. - Carotid < 50% stenosis - Echo wnls - Appreciate Neuro consult - Dr. Krishnan recommends agrees with assessment and plan. (2) Hypotension Comment: I suspect the acute hypotension overnight was secondary to pain medication and some dehydration. Now resolved. Low suspicion for infectious process. Blood and urine cx sent and are pending. (3) Elevated TSH Comment: - High TSH of 8 noted prior admission - no prior hx of dx of hypothyroid but has had elevated TSH in the past - Ft4, FT3, Antibodies are normal. - pt wants to wait and recheck in a few weeks. (4) History of anxiety Comment: -Obtain records from Dr. Magalys Solomon psych on Wednesday (she prescribed ativan) - please cc her on discharge (5) Hx of bipolar disorder Comment: - Stable - Continue Lamictal and zyprexa (6) DVT prophylaxis Comment: - HSQ (7) Full code status Status and Disposition: OBV. Transfer to tele out of ICU -monitor overnight with plan for DC in am if medically stable. She has been set up to follow up at [facility] as she is currently on a list for new PCP at [facility]
[2017-12-11] MEDS: Acetaminophen TAB* 325 MG PO PRN (16:47)
[2017-12-11] MEDS: Atorvastatin* 40 MG TAB PO SCH (21:31)
[2017-12-11] MEDS: OLANzapine TAB* 10 MG PO SCH (21:31)
[2017-12-11] MEDS: Psyllium PAK PO PRN (23:39)
[2017-12-12] MEDS: Heparin VIAL(*) 5000 UNITS/ML VIAL (FIVE THOUSAND) SUBCUT SCH ×2 (05:24→13:02)
[2017-12-12 05:59] LABS: ABS Basophils 0 10^3/ul (0-0.2); ABS Eosinophils 0.1 10^3/ul (0-0.6); ABS Lymphocytes 1.3 10^3/ul (1.0-4.8); ABS Monocytes 0.5 10^3/ul (0-0.8); ABS Neutrophils 2.1 10^3/ul (1.5-7.7); ABS Nucleated RBC 0 10^3/ul; Eosinophil % 2.1 % (0-6); Hematocrit 39 % (35-47); Hemoglobin 13.7 g/dl (12.0-16.0); Lymphocyte % 32.6 % (25-47); Mean Corpuscular HGB Conc 35 g/dl (31-36); Mean Corpuscular Hemoglobin 33 pg (27-31); Mean Corpuscular Volume 95 fL (80-97); Nucleated Red Blood Cells % 0.2; Platelet Count 242 10^3/ul (150-450); Red Blood Count 4.13 10^6/ul (4.00-5.40); Red Cell Distribution Width 13 % (10.5-15); White Blood Count 3.9 10^3/ul (3.5-10.8)
[2017-12-12 06:25] LABS: EGFR Non-African American 32.2 (>60)
[2017-12-12] MEDS: lamoTRIgine TAB(*) 100 MG PO SCH (08:04)
[2017-12-12] MEDS: Acetaminophen TAB* 325 MG PO PRN (08:04)
[2017-12-12] MEDS: Clopidogrel TAB* 75 MG PO SCH (08:05)
[2017-12-12] MEDS: Pregabalin CAP(*) 50 MG PO SCH ×2 (08:05→13:30)
[2017-12-12 11:33] VITALS: BP 121/75
--- NOTE | 2017-12-13 01:30 | DS ---
AMENDED REPORT NOW INCLUDES COSIGNER DESIGNATION CC: Dr. Ruel Garrett; Dr. Serrato * DISCHARGE SUMMARY: DATE OF ADMISSION: 12/10/17 DATE OF DISCHARGE: 12/12/17 PRIMARY CARE PROVIDER: Dr. Ruel Garrett. NEUROLOGIST: Dr. Serrato. ATTENDING PHYSICIAN: Dr. Moris Fischer * (dictated by Sury Jeff NP) PRIMARY DIAGNOSES: 1. Altered mental status. 2. Polypharmacy. 3. Hypotension. SECONDARY DIAGNOSES: 1. Anxiety. 2. Bipolar disorder. 3. Chronic kidney disease. 4. Migraines. STUDIES WHILE IN THE HOSPITAL: 1. Brain CT on 12/10/17, reads as negative for intracranial hemorrhage or CT evidence for acute or subacute ischemic stroke. No acute intracranial process evident. Stigmata of mild probable chronic small vessel ischemic disease. 2. Chest x-ray, on 12/10/17, read as no active cardiopulmonary disease. 3. Brain MRI on 12/10/17 reads as scattered periventricular and subcortical white matter T2 bright foci are most often consistent with chronic microvascular disease in appearance that is not significantly changed from the 2 most recent MRIs of the brain. Similar to prior MRIs of the brain. There are bilateral dependent mastoid air cell effusions. 4. Chest x-ray on 12/11/17, reads as no active cardiopulmonary disease. 5. Brain CT on 12/11/17, reads as no acute intracranial findings or significant change since prior study. CONSULTATIONS WHILE IN THE HOSPITAL: 1. The patient was seen in consultation by Dr. Duarte on 12/10/17 for altered mental status and left-sided weakness. He felt as though, she was at some risk for stroke due to her chronic microvascular changes, but he felt as though this event was likely stress related. 2. The patient was seen in consultation by Dr. Krishnan on 12/11/17, who also felt that as though her symptoms were likely related to a stress and medication overuse. He was not concerned for seizures and suspicion for TIA was low. He recommended continuing her current psych meds as well as her Plavix and statin. DISCHARGE MEDICATIONS: New medication: 1. Acetaminophen 650 mg p.o. q.6 hours p.r.n. Continued home medications: 1. Lamictal 200 mg p.o. b.i.d. 2. Lyrica 150 mg p.o. t.i.d. 3. Multivitamin 1 tab daily. 4. Calcium carbonate 600 mg p.o. b.i.d. 5. Olanzapine 10 mg p.o. daily. 6. Atorvastatin 40 mg p.o. daily. 7. Clopidogrel 75 mg p.o. daily. Discontinued home medications: 1. Lorazepam. 2. Tramadol. HISTORY OF PRESENT ILLNESS AND HOSPITAL COURSE: Ms. Moran is a 67-year-old female who presented to the emergency room on 12/10/17 with complaints of confusion, left- sided weakness, and difficulty with speech. Please see the history and physical by Margie Chau NP for a full summary of the events leading up to this hospitalization; but in short, the patient was admitted to this facility from 12/07/17 to 12/09/17 for altered mental status, possible TIA. She was discharged home and that night experienced some left-sided weakness and an unexplained bruise on her arm. She came to the hospital for a followup with the [facility] with Dr. Garrett and was noted to have left-sided weakness and slurred speech and was sent to the emergency room. A code melgar was called because of the concern for acute stroke. Imaging is noted above, though there were no acute findings. While in the emergency room, she was also treated with IV fluids for [id number] kidney injury. During this hospitalization, her workup was essentially negative. She continued to have some altered mental status and left-sided weakness, though those symptoms improved significantly within the first couple days. On 12/11/17 , a CAT team was called due to hypotension after a dose of tramadol. She was transferred to the ICU and was given IV fluids, which improved her blood pressure. There were no acute findings at that point. She was transferred back up to the floor the following day. On 12/11/17, the patient was more involved in the exam and reported that prior to admission, she felt tired, though her felt as though she appeared to be under the influence of an unknown substance. The patient filled a prescription of 12/06/17 for 60 tablets of lorazepam from her psychiatrist. She reported that she was prescribed that medication to take prior to dental appointments, though it is not clear why she was prescribed 60 pills. The patient's found her lorazepam bottle at home and brought into the hospital. It was noted that 27 pills were missing. The patient stated that she took pills out and put them in a pillbox, which she hid in her house. She was not forthcoming with her about the location of those pills. As of the day of discharge, the reports that he has not found the hidden pillbox. The patient complained of a migraine headache for which she typically takes tramadol, although she was instead given acetaminophen. She had no further episodes of hypotension. Of note on admission, she had a TSH of 8 with no prior diagnosis of hypothyroidism. This is something she is going to follow up with her primary care provider about. As of the day of discharge, the patient is awake, alert, and able to participate in conversation. I spoke at length with the patient and her regarding her use of lorazepam and tramadol. It is still unclear where the 27 pills of lorazepam went though she states she will give them to her when she gets home. She did admit to also taking her Lyrica more often than is prescribed. She reports taking additional Lyrica when she is experiencing anxiety. She was cleared for discharge by Neurology. Ms. Moran is stable for discharge home today. Vital signs are as follows: Temp 99.3, heart rate 72, respiratory rate 20, oxygen saturation 96% on room air, blood pressure 121/75. DISCHARGE PLAN: Ms. Moran will be discharged to home with her . Activity will be as tolerated. Diet will be regular as tolerated. Regarding medications, I have spoken at length with the patient and her . She is to discontinue taking any further lorazepam or tramadol until following up with either her PCP, neurologist or psychiatrist. I have also spoken with the patient about her filling her pillboxes, and he is agreeable. She is very hesitant to allow him to do this, but was eventually agreeable. The expressed some concern about not knowing about her Neurology and Psychiatry appointments. I have recommended that the patient allow those physicians to speak with her so that he is aware of any medication changes and able to fill her pillboxes as needed. She has also been instructed to take her Lyrica as prescribed t.i.d. and do not take any additional doses. She will follow up with Dr. Garrett at the [facility] in the next 4 to 7 days. She should follow up with Dr. Serrato in approximately 1 to 2 weeks and she should follow up with her psychiatrist, Dr. Solomon, as soon as possible after discharge, preferably within a week. The patient should return to the emergency room or nearest hospital for any worsening of symptoms shortness of breath, lightheadedness, dizziness, chest discomfort, high fevers, chills, night sweats, loss of consciousness or any other worrisome signs or symptoms. The patient and her are agreeable to all discharge plans. This is a summarized report of a complex medical history and hospital stay. For further details, please see the entire medical record. TIME SPENT: Approximately 45 minutes were spent on this discharge. Greater than half of that time was spent [id number] with the patient discussing discharge plans and instructions. SURY JEFF NP [id number]/CPS #: [id number] JEET
== END 2017-12-12 13:50 | disposition home or self-care (01) ==
LOC: ED 12:58 → MEDTELE 13:48 → ICU 12-11 00:50 → MEDTELE 12-11 12:36
PROVIDERS: ADMIT Internal Medicine; ATTEND Internal Medicine
DX: R41.82 Altered mental status, unspecified (principal); I95.9 Hypotension, unspecified; R53.1 Weakness; R47.81 Slurred speech; R44.3 Hallucinations, unspecified; Z87.891 Personal history of nicotine dependence; R47.01 Aphasia; R29.818 Other symptoms and signs involving the nervous system; R41.0 Disorientation, unspecified; F41.9 Anxiety disorder, unspecified; F31.9 Bipolar disorder, unspecified; N18.9 Chronic kidney disease, unspecified; G43.909 Migraine, unspecified, not intractable, without status migrainosus
CPT/HCPCS: 36415; 70450; 70551; 71045; 80048; 80053; 80061; 80307; 80320; 81003; 82553; 83605; 83735; 84484; 85025; 85610; 85730; 86850; 86900; 86901; 87040; 87641; 93005; 96365; 99285; A9270-GY; G0378; G0480; J1644; J2310

== ENCOUNTER 2018-03-17 08:07 | Observation (INO) | payer MEDICARE ==
--- OUTSIDE RECORDS SUMMARY | 2018-03-17 08:18 | XMS REPORT | Continuity of Care Document ---
:1950 External Reference #:[id number] Author Name Edwina Stokes MD Address [address] [place] [address] Care Team Providers Name Role Phone Love Travis D.O Care Team Information Client Hr Manager Unavailable Love Travis D.O Primary Care Physician Unavailable Payers Type Date Identification Numbers Payment Provider Subscriber Policy Number: [id number] Medicare Blue Ppo Naheed Moran PayID: [id number] [address] [address] [place] [address] Advance Directives Description No Information Available Problems Description No Information Family History Description No Information Available Social History Type Date Description Comments Sex Unknown Tobacco Use Start: Unknown End: Unknown Patient is a former smoker Smoking Status Reviewed: 03/11/18 Patient is a former smoker Allergies, Adverse Reactions, Alerts Description No Known Drug Allergies Medications Medication Date Status Form Strength Qnty SIG Indications Ordering Provider Peg 10/22/ Active Solution 240gm 4000ml use as Nereida Ball 3350/Electrolyt 2017 Rec directed orlando Mariano PA-C Lyrica / Active Capsules 100mg Unknown 0000 Lamotrigine / Active Tablets 200mg Unknown 0000 Topiramate / Active Tablets 50mg Cowdery,Reaves 0000 MD sawyer Clopidogrel / Active Tablets 75mg Senner, Bisulfate 0000 Love D.O Atorvastatin / Active Tablets 40mg Senner, Calcium 0000 Love D.O Olanzapine / Active Tablets 10mg Unknown 0000 Immunizations Description No Information Available Vital Signs Date Vital Result Comment 03/11/2018 1:56pm Height 64.5 inches 5'4.50" Weight 128.00 lb BP Systolic 146 mmHg BP Diastolic 94 mmHg Heart Rate 66 /min BMI (Body Mass Index) 21.6 kg/m2 10/21/2017 2:09pm Height 64.5 inches 5'4.50" Weight 126.00 lb BMI (Body Mass Index) 21.3 kg/m2 Results Test Date Facility Test Result H/L Range Note Laboratory test 01/10/2018 [facility] Hepatitis C AB <pending> finding Ser QN Eia CMP(!) 01/10/2018 [facility] Sodium(!) <pending> Potassium(!) <pending> Chloride Serum/Plasma(!) <pending> Carbon Dioxide Ser/Plasm(!) <pending> BUN - Urea Nitrogen(!) <pending> Calcium Ser/Plasma Mass/Vol(!) <pending> Creatinine Serum Mass/Vol(!) <pending> Glucose Serum(!) <pending> BUN/Creatinine Ratio(!) <pending> Albumin Serum/Plasma(!) <pending> Alkaline Phosphatase(!) <pending> Bilirubin Total Mass/Vol(!) <pending> Ast - Sgot <pending> Alt - SGPT <pending> Protein Total <pending> Laboratory test 01/10/2018 [facility] TSH Thyroid Stim <pending> finding Hormone(!) CBC W/Auto 01/10/2018 [facility] White Blood Count <pending> Differential(!) Ser Auto CNT RBC Red Blood Count <pending> Hemoglobin Blood <pending> Hematocrit <pending> MCV (Corpuscular Volume) <pending> MCH (Corpuscular Hemoglobin) <pending> MCHC (Corpuscular Hemog Conc) <pending> RDW <pending> Platelet Count Blood Auto CNT <pending> MPV <pending> Lymph% <pending> Blanco% <pending> Neutrophil % <pending> Absolute Lymphocytes <pending> Absolute Monocytes <pending> Absolute Neutrophils <pending> BMP W/O Egfr(!) 12/12/2017 [facility] Sodium(!) <pending> Potassium(!) <pending> Chloride Serum/Plasma(!) <pending> Carbon Dioxide Ser/Plasm(!) <pending> BUN - Urea Nitrogen(!) <pending> Calcium Ser/Plasma Mass/Vol(!) <pending> Creatinine Serum Mass/Vol(!) <pending> Glucose Serum(!) <pending> CBC W/Auto 12/12/2017 [facility] White Blood <pending> Differential(!) Count Ser Auto CNT RBC Red Blood Count <pending> Hemoglobin Blood <pending> Hematocrit <pending> MCV (Corpuscular Volume) <pending> MCH (Corpuscular Hemoglobin) <pending> MCHC (Corpuscular Hemog Conc) <pending> RDW <pending> Platelet Count Blood Auto CNT <pending> MPV <pending> Lymph% <pending> Blanco% <pending> Neutrophil % <pending> Absolute Lymphocytes <pending> Absolute Monocytes <pending> Absolute Neutrophils <pending> Xray 12/11/2017 [facility] [place] Radiology Chest Ap Portable <pending> CBC W/Auto 12/11/2017 [facility] White Blood Count Ser <pending> Differential(!) Auto CNT RBC Red Blood Count <pending> Hemoglobin Blood <pending> Hematocrit <pending> MCV (Corpuscular Volume) <pending> MCH (Corpuscular Hemoglobin) <pending> MCHC (Corpuscular Hemog Conc) <pending> RDW <pending> Platelet Count Blood Auto CNT <pending> MPV <pending> Lymph% <pending> Blanco% <pending> Neutrophil % <pending> Absolute Lymphocytes <pending> Absolute Monocytes <pending> Absolute Neutrophils <pending> CBC W/Auto 12/11/2017 [facility] White Blood <pending> Differential(!) Count Ser Auto CNT RBC Red Blood Count <pending> Hemoglobin Blood <pending> Hematocrit <pending> MCV (Corpuscular Volume) <pending> MCH (Corpuscular Hemoglobin) <pending> MCHC (Corpuscular Hemog Conc) <pending> RDW <pending> Platelet Count Blood Auto CNT <pending> MPV <pending> Lymph% <pending> Blanco% <pending> Neutrophil % <pending> Absolute Lymphocytes <pending> Absolute Monocytes <pending> Absolute Neutrophils <pending> Laboratory test 12/11/2017 [facility] Troponin I <pending > finding [address] [place] [address] [phone] CMP(!) 12/11/2017 [facility] Sodium(!) <pending> mEq/L 134-[address] [place] [address] [phone] Potassium(!) <pending> mEq/L 3.6-5.5 Chloride Serum/Plasma(!) <pending> mEq/L 94-112 Carbon Dioxide Ser/Plasm(!) <pending> mEq/L 21-33 BUN - Urea Nitrogen(!) <pending> mg/dL 6-24 Calcium Ser/Plasma Mass/Vol(!) <pending> mg/dL 8.6-10.2 Creatinine Serum Mass/Vol(!) <pending> mg/dL 0.5-1.4 Glucose Serum(!) <pending> mg/dL 70-105 BUN/Creatinine Ratio(!) <pending> RATIO 8.0-36 Albumin Serum/Plasma(!) <pending> g/dL 3.5-5.2 Alkaline Phosphatase(!) <pending> U/L 39-117 Bilirubin Total Mass/Vol <pending> mg/dL 0.2-1.3 Ast - Sgot <pending> U/L 5-34 Alt - SGPT <pending> U/L 10-40 Protein Total <pending> g/dL 6.2-8.1 BMP W/O Egfr(!) 12/11/2017 [facility] Sodium(!) <pending> Potassium(!) <pending> Chloride Serum/Plasma(!) <pending> Carbon Dioxide Ser/Plasm(!) <pending> BUN - Urea Nitrogen(!) <pending> Calcium Ser/Plasma Mass/Vol(!) <pending> Creatinine Serum Mass/Vol(!) <pending> Glucose Serum(!) <pending> CMP And Lipid 12/10/2017 [facility] Misc Other Test <pending> Laboratory test 12/10/2017 [facility] Troponin I <pending> finding Laboratory test 12/10/2017 [facility] Inr(!) <pending> finding CBC W/Auto 12/10/2017 [facility] White Blood Count <pending> Differential(!) Ser Auto CNT RBC Red Blood Count <pending> Hemoglobin Blood <pending> Hematocrit <pending> MCV (Corpuscular Volume) <pending> MCH (Corpuscular Hemoglobin) <pending> MCHC (Corpuscular Hemog Conc) <pending> RDW <pending> Platelet Count Blood Auto CNT <pending> MPV <pending> Lymph% <pending> Blanco% <pending> Neutrophil % <pending> Absolute Lymphocytes <pending> Absolute Monocytes <pending> Absolute Neutrophils <pending> Xray 12/10/2017 [facility] – [place] Radiology Chest Ap Portable <pending> Procedures Description No Information Available Encounters Description No Information Available Plan of Treatment Future Appointment(s):04/13/2018 8:45 am - Edwina Stokes MD at [facility]03/11/2018 - Edwina Stokes MDZ12.11 Encounter for screening for malignant neoplasm of colon
--- NOTE | 2018-03-17 08:33 | ED ---
Substance Abuse/Use - HPI Summary HPI Summary: Patient is a 68 y/o F presenting to ED with complaints of AMS. Level 5 caveat due to AMS, history is gathered from patient's sister, Mattie Amado, who is present in the room. Sister states that patient's has been in the hospital for the past few days due to a total knee replacement. She claims that the patient's typically manages the patient's medications. The sister states that she called the patient yesterday and patient was rambling and AMS. Sister went to patient's house and she noticed that some of the patient's medications were missing. Patient's Sx resolved temporarily but Sx resumed once more today at 0600. Sister is unsure what the patient did with her medications. PMHx of bipolar disorder, schizophrenia, and manic depression. However, sister does not believe patient has attempted self-harm, states that patient likely got confused as she did not have her to help her with her medications. Patient is on Lamotrigine 200 mg BID, lyrica 75 mg BID, topiramate 50 mg BID, clopidogrel 75 mg, olanzapine 10 mg, lamotrigine 200 mg, altorvastatin 40 mg. On triage, pain is denied, nothing is noted to aggravate/alleviate Sx. Home medications and allergies are reviewed. - History Of Current Complaint Stated Complaint: POSSIBLE OVERDOSE Time Seen by Provider: 03/17/18 08:22 Hx Obtained From: Family/Pediatric Dental Assistant - sister Hx From Patient Unobtainable Due To: Altered Mental Status Onset/Duration of Drug/ETOH Abuse: Days - Sx onset yesterday Ingestion History: Type/Name Of Drug - possibly home medications, Amount Ingested - unknown Overdose Characteristics: Other - unknown if she took meds Severity Currently: None - no pain reported Character: Lethargic Aggravating Factor(s): Nothing Alleviating Factor(s): Nothing Associated Signs And Symptoms: Other: - AMS, lethargic - Allergies/Home Medications Allergies/Adverse Reactions: Allergies Allergy/AdvReac Type Severity Reaction Status Date / Time No Known Allergies Allergy Verified 03/17/18 09:36 Home Medications: Home Medications Clopidogrel Bisulfate [Plavix] 75 mg DAILY 03/17/18 [History Confirmed 03/17/18] Pregabalin [Lyrica] 50 mg QPM 03/17/18 [History Confirmed 03/17/18] Topiramate 50 mg BID 03/17/18 [History Confirmed 03/17/18] PMH/Surg Hx/FS Hx/Imm Hx Endocrine/Hematology History: Denies: Hx Diabetes Cardiovascular History: Reports: Hx Hypotension, Other Cardiovascular Problems/ Disorders - severe hypotension with tramadol Denies: Hx Hypertension, Hx Pacemaker/ICD Respiratory History: Reports: Other Respiratory Problems/Disorders - Respiratory Failure GI History: Reports: Hx Obstructive Bowel, Other GI Disorders - hx of MULTIPLE SBO History: Reports: Hx Acute Renal Failure, Other Problems/Disorders - URINARY RETENTION 04/25/16 [facility] [place] Denies: Hx Renal Disease Sensory History: Reports: Hx Cataracts - both eyes, Hx Contacts or Glasses Denies: Hx Hearing Aid, Other Sensory Impairments Opthamlomology History: Reports: Hx Cataracts - both eyes, Hx Contacts or Glasses Denies: Other Sensory Impairments Neurological History: Reports: Hx Headaches, Hx Migraine - prn meds Psychiatric History: Reports: Hx Anxiety - HX OF BIPOLAR, SCHIZOPHRENIA, Hx Depression, Hx Schizophrenia, Hx Bipolar Disorder, Hx Suicide Attempt Denies: Hx Panic Disorder - Cancer History Hx Chemotherapy: No Hx Radiation Therapy: No - Surgical History Surgery Procedure, Year, and Place: total hysterectomy w/appendectomy, 2 c- sections, RT SHOULDER Hx Anesthesia Reactions: No - Immunization History Date of Tetanus Vaccine: utd Date of Influenza Vaccine: utd Infectious Disease History: No Infectious Disease History: Denies: Traveled Outside the [place] in Last 30 Days - Family History Known Family History: Positive: Other - No FMHx of breast cancer, FHx of depression Family History: No FHx of Breast CA. FHx of depression - Social History Alcohol Use: Rare Alcohol Amount: unable to confirm Substance Use Type: Reports: None Substance Use Comment - Amount & Last Used: RX benzos Smoking Status (MU): Former Smoker Amount Used/How Often: smoked for approx 30 yrs 1/2-1ppd Review of Systems - ROS Summary Review of Systems Summary: LEVEL 5 CAVEAT, AMS Negative: Fever - on vitals, temp is 96.3 F Psychological: Other - POSITIVE - AMS, LETHARGIC All Other Systems Reviewed And Are Negative: No - Comments Additional Review of Systems Comments: LEVEL 5 CAVEAT, AMS Physical Exam - Summary Physical Exam Summary: VITAL SIGNS: Reviewed. GENERAL: Patient is a well-developed and nourished female who is lying comfortable in the stretcher. Patient is not in any acute respiratory distress. HEAD AND FACE: No signs of trauma. No ecchymosis, hematomas or skull depressions. No sinus tenderness. EYES: PERRLA, EOMI x 2, No injected conjunctiva, no nystagmus. No photophobia. EARS: Hearing grossly intact. Ear canals and tympanic membranes are within normal limits. MOUTH: Oropharynx within normal limits. NECK: Supple, trachea is midline, no adenopathy, no JVD, no carotid bruit, no c- spine tenderness, neck with full ROM. No meningeal signs, no Kernig's or brudzinskis signs. CHEST: Symmetric, no tenderness at palpation LUNGS: Clear to auscultation bilaterally. No wheezing or crackles. CVS: Regular rate and rhythm, S1 and S2 present, no murmurs or gallops appreciated. ABDOMEN: Soft, non-tender. No signs of distention. No rebound no guarding, and no masses palpated. Bowel sounds are normal. EXTREMITIES: FROM in all major joints, no edema, no cyanosis or clubbing. NEURO: Patient is lethargic, altered mental status is noted. SKIN: Dry and warm GCS: 14 Triage Information Reviewed: Yes Vital Signs On Initial Exam: Initial Vitals Temp Pulse Resp BP Pulse Ox 96.3 F 67 16 121/76 100 03/17/18 08:14 03/17/18 08:14 03/17/18 08:14 03/17/18 08:14 03/17/18 08:14 Vital Signs Reviewed: Yes Diagnostics - Vital Signs Vital Signs Temp Pulse Resp BP Pulse Ox 03/17/18 08:14 96.3 F 67 16 121/76 100 - Laboratory Result Diagrams: 03/17/18 07:46 03/17/18 07:46 Lab Statement: Any lab studies that have been ordered have been reviewed, and results considered in the medical decision making process. - Radiology CXR Radiology Interpretation Completed By: Radiologist Summary of Radiographic Findings: IMPRESSION: NO EVIDENCE FOR ACUTE DISEASE. THIS REPORT WAS REVIEWED BY ED PHYSICIAN. - EKG 0846 Cardiac Rate: NL - RATE OF 64 BPM EKG Rhythm: Sinus Rhythm EKG Comparison: No Significant Change - similar to EKG taken 12/14/17. Summary of EKG Findings: EKG showed sinus rhythm with rate of 64 BPM, RBBB, similar to EKG taken 12/14/17. Re-Evaluation - Re-Evaluation First Eval Re-Evaluation Time: 08:33 Comment: Darling from poison control was contacted by Nurse Piper. He states that she notes that medications will likely make her sleepy, states that there is nothing extremely concerning about medications. She recommends symptomatic care , IV fluids, observe for six hours. Second Eval Re-Evaluation Time: 09:32 Comment: Nurse Feliz reports that sister is unable to stay with patient, sister requests that patient be admitted to hospital. Course/Dx - Course Assessment/Plan: Patient is a 68 y/o F presenting to ED with complaints of AMS. Level 5 caveat due to AMS, history is gathered from patient's sister who is present in the room. Sister states that patient's has been in the hospital for the past few days due to a total knee replacement. She claims that the patient's typically manages the patient's medications. The sister states that she called the patient yesterday and patient was rambling and AMS. Sister went to patient's house and she noticed that some of the patient's medications were missing. Patient's Sx resolved temporarily but Sx resumed once more today at 0600. Sister is unsure what the patient did with her medications. PMHx of bipolar disorder and manic depression. However, sister does not believe patient has attempted self-harm, states that patient likely got confused as she did not have her to help her with her medications. Patient is on Lamotrigine 200 mg BID, lyrica 75 mg BID, topiramate 50 mg BID, clopidogrel 75 mg, olanzapine 10 mg, lamotrigine 200 mg, atorvastatin 40 mg. On triage, pain is denied, nothing is noted to aggravate/alleviate Sx. Home medications and allergies are reviewed. Blood work without any significant abnormality except for chloride 112 carbon dioxide is 19, BUN is 35, creatinine is 1.72. Chest x- ray impression: No evidence of acute disease. In the ED course the patient has been stable. The patient was given IV fluids. Discussed the case with the poison control who recommended observation for approximately 6 hours and symptomatic treatment. However the patient has past medical history significant for manic depression, the patients is currently at the hospital after he had a knee replacement. The patient was unable to stay at home by herself at this point. I discussed physical exam, findings and test results with Dr. Brennan who accepted the patient for admission. - Diagnoses Provider Diagnoses: Overdose, Acute alteration in mental status - Physician Notifications Discussed Care Of Patient With: Antolin Brennan Time Discussed With Above Provider: 11:11 Instructed by Provider To: Other - Patient's case was discussed with Dr. Brennan at 1111, Dr. Brennan accepts patient for admission. Discharge - Sign-Out/Discharge Documenting (check all that apply): Patient Departure - admit - Discharge Plan Condition: Stable Disposition: ADMITTED TO [facility] - Billing Disposition and Condition Condition: STABLE Disposition: Admitted to [facility] - Attestation Statements Document Initiated by Shereen: Yes Documenting Scribe: CLARIBEL BONNER Provider For Whom Shereen is Documenting (Include Credential): ALVIN SALEH MD Scribe Attestation: ICLARIBEL , scribed for ALVIN SALEH MD on 03/17/18 at 1522. Scribe Documentation Reviewed: Yes Provider Attestation: The documentation as recorded by the CLARIBEL rajan accurately reflects the service I personally performed and the decisions made by me, ALVIN SALEH MD Status of Scribe Document: Viewed
[2018-03-17 08:53] LABS: ABS Basophils 0 10^3/ul (0-0.2); ABS Eosinophils 0.1 10^3/ul (0-0.6); ABS Lymphocytes 0.8 10^3/ul (1.0-4.8); ABS Monocytes 0.5 10^3/ul (0-0.8); ABS Neutrophils 3.4 10^3/ul (1.5-7.7); ABS Nucleated RBC 0 10^3/ul; Eosinophil % 1.3 %; Hematocrit 38 % (35-47); Hemoglobin 12.8 g/dl (12.0-16.0); Lymphocyte % 17.3 %; Mean Corpuscular HGB Conc 34 g/dl (31-36); Mean Corpuscular Hemoglobin 33 pg (27-31); Mean Corpuscular Volume 97 fL (80-97); Mean Platelet Volume 7.2 fL (7.4-10.4); Nucleated Red Blood Cells % 0; Platelet Count 235 10^3/ul (150-450); Red Blood Count 3.93 10^6/ul (4.00-5.40); Red Cell Distribution Width 13 % (10.5-15); White Blood Count 4.8 10^3/ul (3.5-10.8)
[2018-03-17 09:05] LABS: Activated Partial Thrombo Time 31.7 seconds (26.0-36.3); INR 0.84 (0.77-1.02)
[2018-03-17 09:07] LABS: ALT 18 U/L (7-52); AST 23 U/L (13-39); Albumin/Globulin Ratio 1.5 (1-3); Alkaline Phosphatase 70 U/L (34-104); BUN/Creatinine Ratio 20.3 (8-20); Blood Urea Nitrogen 35 mg/dL (6-24); CO2 Carbon Dioxide 19 mmol/L (22-32); Calcium 8.7 mg/dL (8.6-10.3); Creatine Kinase 164 U/L (10-223); EGFR Non-African American 29.5 (>60); Globulin 2.7 g/dL (2-4); Glucose 95 mg/dL (70-100); Potassium 3.7 mmol/L (3.5-5.0); Sodium 139 mmol/L (135-145); Total Protein 6.7 g/dL (6.4-8.9)
[2018-03-17 09:09] LABS: Acetaminophen < 15 mcg/mL; Alcohol < 10 mg/dL (<10); Salicylate < 2.50 mg/dL (<30)
[2018-03-17 09:10] LABS: Anion Gap 8 mmol/L (2-11); Chloride 112 mmol/L (101-111)
[2018-03-17 09:22] LABS: TSH (Thyroid Stimulating Horm) 3.17 mcIU/mL (0.34-5.60)
[2018-03-17] MEDS ORDERED: NS 0.9% 1000 ML* 1,000 ML IV SCH (14:00)
[2018-03-17] MEDS ORDERED: Heparin VIAL(*) 5000 UNITS/ML VIAL (FIVE THOUSAND) SUBCUT SCH (14:00)
[2018-03-17 14:21] LABS: Urine Appearance Clear; Urine Bacteria Absent (Absent); Urine Bilirubin Negative (Negative); Urine Blood Negative (Negative); Urine Color Straw; Urine Glucose Negative (Negative); Urine Ketones Negative (Negative); Urine Nitrite Negative (Negative); Urine Protein Negative (Negative); Urine Red Blood Cell Trace(0-2/hpf) (Absent); Urine Specific Gravity 1.005 (1.010-1.030); Urine Urobilinogen Negative (Negative); Urine White Blood Cell Trace(0-5/hpf) (Absent)
[2018-03-17 14:34] LABS: Barbiturates Urine Screen None Detected (None Detect); Benzodiazepine Urine Screen None Detected (None Detect); Urine Cannabinoids Screen None Detected (None Detect)
--- NOTE | 2018-03-17 15:47 | HP ---
AMENDED REPORT NOW INCLUDES DESIGNATED COSIGNER HISTORY AND PHYSICAL: DATE OF ADMISSION: 03/17/18 PRIMARY CARE PROVIDER: Dr. Magalys Solomon. ATTENDING PHYSICIAN: Dr. Antolin Brennan.* (DICTATED BY BRANDT FORBES) CHIEF COMPLAINT: Altered mental status. HISTORY OF PRESENT ILLNESS: Ms. Moran is a 68-year-old female with a past medical history of anxiety, bipolar disorder, chronic kidney disease, migraines , depression, history of small bowel obstruction, possible TIA in January 2017 , who presents to the ER today with altered mental status. During our discussion, it was difficult to get any relevant information from the patient; she is confused and disoriented and is therefore a poor historian. Family members were not present at the time of the interview. Review of the patient's chart reveals that the patient's has been in the hospital for the past few days post total knee replacement. He typically manages the patient's medications. The patient's sister has been visiting regularly and yesterday, the patient was presenting with signs of new onset altered mental status. It was noted that some of her medications were found to be missing. The symptoms resolved temporarily, but returned again by 6 a.m. the morning of admission, which brought the patient and her sister into the ER today. While in the emergency room, the patient was evaluated. A chest x-ray and blood work were done and are discussed below. Poison control was consulted due to the likelihood that the patient had overdosed on some of her medications. Poison control recommended observation for 6 hours and symptom control. The patient denies chest pain, shortness of breath, pain or weakness in her extremities, difficulty with her vision, difficulty hearing, abdominal pain, nausea, vomiting , diarrhea, fever, or chills. Pt states that she is unsure why she is even here. The hospitalist group was asked to evaluate the patient for admission. PAST MEDICAL HISTORY: Anxiety, bipolar disorder, chronic kidney disease, migraines, depression, history of small bowel obstruction, possible TIA in January 2017. PAST SURGICAL HISTORY: Total hysterectomy, appendectomy, x2, right shoulder. HOME MEDICATIONS: 1. Lamotrigine 200 mg b.i.d. 2. Lyrica 75 mg q.a.m. 3. Lyrica 50 mg q.p.m. 4. Olanzapine 10 mg q.p.m. 5. Atorvastatin 40 mg p.o. at bedtime. 6. Acetaminophen 650 mg p.o. q.6 hours p.r.n. 7. Clopidogrel bisulfate 75 mg p.o. daily. 8. Topiramate 50 mg p.o. b.i.d. ALLERGIES: NKDA. FAMILY HISTORY: Depression. SOCIAL HISTORY: Per the patient's chart, she is no longer a smoker, but used to smoke approximately one and half to one pack per day, for approximately 30 years. Unable to determine alcohol use, although her serum alcohol level was less than 10 at today's visit. REVIEW OF SYSTEMS: A 10-point review of systems was performed and all the pertinent positives and negatives are in the HPI. All other systems are negative. PHYSICAL EXAMINATION GENERAL: Ms. Moran is a 68-year-old female, who is well developed and well nourished. She is sleeping in bed, in no acute distress. She is easily roused and is pleasant and cooperative, although confused and unable to tell where she is or why she is in the ER. VITAL SIGNS: Heart rate 57, temperature 96.3, respiratory rate 12, oxygen saturation 97%, blood pressure is 110/70. HEENT: Visual mcgowan grossly intact. Pupils are equally round and reactive to light and accommodation. Extraocular movements intact. Sclerae without icterus. Hearing grossly intact. External auditory canals patent, free of cerumen. Tympanic membranes intact with visible landmarks. Nares patent. Mucous membranes moist. Dentition good. Oral mucous membranes moist and without lesions. NECK: Full range of motion. Nontender. Thyroid nonpalpable. Trachea at midline. No lymphadenopathy. RESPIRATORY: Symmetrical chest expansion. No use of accessory muscles. Lungs clear to auscultation. No rhonchi, wheeze or rubs. CARDIOVASCULAR: Regular rate and rhythm. S1, S2 present. No murmurs, rubs or gallops. No JVD. No carotid bruits. ABDOMEN: Bowel sounds in all 4 quadrants. Soft and nontender to palpation. No hepatosplenomegaly. EXTREMITIES: Skin warm and smooth. No edema. No clubbing or cyanosis. Pedal pulses and radial pulses 2+ bilaterally. MUSCULOSKELETAL: No pain or deformity. NEURO: The patient wakes easily. She is alert and follows commands well. She is oriented to self only. The patient does not know her location or the date. Cranial nerves II through XII grossly intact. She moves all of her extremities. Motor strength 5/5 in the upper and lower extremities bilaterally. DIAGNOSTIC STUDIES/LAB DATA: WBC 4.8, RBC 3.93, HGB 12.8, HCT 38, platelets 235. INR 0.84. Sodium 139, potassium 3.7, chloride 112, carbon dioxide 19, BUN 35, creatinine 1.72, lactic acid 0.4. TSH 3.17. Salicylates less than 2.5, acetaminophen less than 15, serum alcohol less than 10. Chest x-ray, impression: No evidence for acute disease. ASSESSMENT AND PLAN: Ms. Moran is a 68-year-old female with a past medical history as described above. She presented to the ER today with altered mental status. The patient will be admitted to observation for: 1. Altered mental status. Head CT ordered. The patient was found to be missing some of her medications and is likely to have overdosed on some of her medications, which may have led to her altered mental status. We will hold the Lyrica and determine why the patient is on this medication. All other medications will be resumed either this evening or tomorrow morning. 2. Increased creatinine. Creatinine is elevated, but this looks to be the patient's baseline. Normal saline at 100 per hour x1 bag ordered. Recheck BMP in the morning. 3. FEN: Regular diet. 4. Code status: Full code. 5. DVT prophylaxis: The patient is moderate risk. She will be placed on heparin once CT head is cleared. 6. Disposition: Discharge to home once stable. TIME SPENT: Approximately 60 minutes was spent on this admission, greater than half that time spent with the patient and caregiver obtaining my history, performing physical, and reviewing the care plan. The case has been reviewed with my attending, Dr. Brennan, who is in agreement with the plan of care. BRANDT FORBES [id number]/[facility] #: [id number] JEET
[2018-03-17] MEDS: OLANzapine TAB* 10 MG PO SCH ×2 (17:40→17:44)
[2018-03-17] MEDS: lamoTRIgine TAB(*) 100 MG PO SCH (20:54)
[2018-03-17] MEDS: Heparin VIAL(*) 5000 UNITS/ML VIAL (FIVE THOUSAND) SUBCUT SCH (20:54)
[2018-03-17] MEDS: Topiramate TAB(*) 25 MG PO SCH (20:55)
[2018-03-17] MEDS ORDERED: OLANzapine TAB* 10 MG PO SCH (21:00)
[2018-03-18] MEDS: Heparin VIAL(*) 5000 UNITS/ML VIAL (FIVE THOUSAND) SUBCUT SCH ×2 (05:03→12:52)
[2018-03-18 07:04] LABS: ABS Basophils 0 10^3/ul (0-0.2); ABS Eosinophils 0.1 10^3/ul (0-0.6); ABS Monocytes 0.4 10^3/ul (0-0.8); ABS Nucleated RBC 0 10^3/ul; Eosinophil % 1.6 %; Hematocrit 39 % (35-47); Hemoglobin 13.2 g/dl (12.0-16.0); Lymphocyte % 29.1 %; Mean Corpuscular HGB Conc 34 g/dl (31-36); Mean Corpuscular Hemoglobin 33 pg (27-31); Mean Corpuscular Volume 96 fL (80-97); Mean Platelet Volume 7.7 fL (7.4-10.4); Nucleated Red Blood Cells % 0.2; Platelet Count 227 10^3/ul (150-450); Red Blood Count 4.07 10^6/ul (4.00-5.40); Red Cell Distribution Width 13 % (10.5-15); White Blood Count 3.4 10^3/ul (3.5-10.8)
[2018-03-18 07:21] LABS: BUN/Creatinine Ratio 18.4 (8-20); Calcium 8.5 mg/dL (8.6-10.3); EGFR Non-African American 37.1 (>60); Potassium 4.4 mmol/L (3.5-5.0)
[2018-03-18] MEDS ORDERED: Clopidogrel TAB* 75 MG PO SCH (09:00)
[2018-03-18] MEDS: lamoTRIgine TAB(*) 100 MG PO SCH (09:22)
[2018-03-18] MEDS: Topiramate TAB(*) 25 MG PO SCH (09:22)
[2018-03-18 11:53] VITALS: BP 141/86
[2018-03-18] MEDS ORDERED: Pregabalin CAP(*) 50 MG PO ONE (12:37)
[2018-03-18] MEDS ORDERED: Atorvastatin* 40 MG TAB PO SCH (21:00)
--- NOTE | 2018-03-19 00:49 | DS ---
DISCHARGE SUMMARY: DATE OF ADMISSION: 03/17/18 DATE OF DISCHARGE: 03/18/18 PRIMARY CARE PROVIDER: Dr. Magalys Solomon ATTENDING PHYSICIAN: Dr. Antolin Brennan * (DICTATED BY BRANDT FORBES) PRIMARY DIAGNOSIS: Altered mental status. SECONDARY DIAGNOSES: 1. Chronic kidney disease. 2. Bipolar disorder. 3. Depression/anxiety. 4. History of small bowel obstruction. 5. Possible transient ischemic attack in January 2017. STUDIES WHILE IN THE HOSPITAL: 1. Chest x-ray 03/17/18, impression: No evidence of any acute disease. 2. Brain CT 03/17/18, impression: Negative unenhanced CT of the brain for age with mild involutional change, chronic right mastoid effusion. DISCHARGE MEDICATIONS: Home medications: 1. Olanzapine tab 10 mg p.o. at bedtime. 2. Lamotrigine 200 mg p.o. b.i.d. 3. Pregabalin 75 mg p.o. q.a.m. 4. Pregabalin 50 mg p.o. q.p.m. 5. Atorvastatin 40 mg p.o. at bedtime. 6. Acetaminophen 650 mg p.o. q.6 hours p.r.n. 7. Clopidogrel bisulfate 75 mg p.o. daily. 8. Topiramate 50 mg p.o. b.i.d. New home medications: None. HISTORY OF PRESENT ILLNESS/HOSPITAL COURSE: Mrs. Moran is a 68-year-old female with a past medical history as described above, who presented to the ER on 03/18 with altered mental status. Please see the history and physical for a complete summary of the events leading up to the hospitalization, but in short the patient was found on 03/16/18 by her sister to be altered and "rambling." Her sister states that the symptoms resolved temporarily, but once again found Ms. Moran in altered state at 6 the following morning. They then arrived at the ER. Upon questioning, the sister states that some of the patient's medications were missing from her medication box. The patient was unable to account for them and was significantly altered. She was oriented to person, but was unaware of where she was or the date. Her medications were held throughout the day and then restarted on her home timeline. The next day the patient was alert and oriented to time and place. She was cooperative and her memory was intact. She states that she must have taken extra medications that were intended for a later date. She was stable with clear orient and was alert. She had no deficits and was steady on her feet. Case management elicited the help of [facility] in order to assist the patient with her medication regimen, so that this would not occur again. Mrs. Moran is stable for discharge to home. PHYSICAL EXAMINATION: Vital Signs: Temperature 98.5, heart rate 71, respiratory rate 16, oxygen saturation 97% on room air, blood pressure 141/86. General: Mrs. Moran is a well-developed, well-nourished white [place] woman, who is sitting up in bed, in no acute distress. She appears her stated age. She is pleasant and cooperative and answers questions and interacts appropriately. HEENT: Visual mcgowan grossly intact. Pupils equally round and reactive to light and accommodation. Extraocular movements intact. Sclerae without icterus. Hearing grossly intact. Oral mucous membranes moist. Pharynx clear. Neck: Full range of motion and thyroid nonpalpable. Trachea is at midline. No lymphadenopathy. Respiratory: Symmetrical chest expansion. No use of accessory muscles. Lungs are clear to auscultation bilaterally. No rhonchi, wheezes, or rubs. Cardiovascular: Regular rate and rhythm. S1, S2 present. No murmurs, rubs, clicks or gallops. No JVD. Abdomen: Bowel sounds in all 4 quadrants. Abdomen is soft and nontender to palpation. No hepatosplenomegaly. Musculoskeletal: Digits without clubbing or cyanosis. Nontender to palpation in all 4 limbs. Full range of motion. Extremities: Radial and dorsalis pedis 2+ bilaterally. No edema. Neuro: Awake, alert, oriented x4. Moves all extremities. Motor strength is 5/5 in upper and lower extremities bilaterally. Steady gait. No impairments. The patient is able to have a coherent conversation and recall some specific details of the events from yesterday prior to her disorientation. DISCHARGE PLAN: Mrs. Moran will be discharged to home. [facility] will follow her regarding the management of her medications. ACTIVITY: As tolerated. DIET: Heart healthy. EDUCATION: -Continue home medications as ordered prior to admission. -The patient was given her 2 p.m. dose of Lyrica prior to discharge and was told to be sure not to repeat that dose this afternoon. -Follow up with primary care physician regarding recent hospitalization. -[facility] was setup by case management to assist patient with medication needs. -Return to the ER or the nearest hospital if you experience any worsening of symptoms, shortness of breath, lightheadedness, dizziness, chest discomfort, high fevers, chills, night sweats, loss of consciousness, disorientation, altered mental status, or any other worrisome signs or symptoms. This is a summarized report of a complex medical history and hospital stay. For further details, please see the entire medical record. TIME SPENT: Approximately 45 minutes was spent on this discharge, greater than half of that time spent [id number] with the patient discussing discharge plans and instructions. BRANDT FORBES [id number]/[facility] #: [id number] JEET
== END 2018-03-18 14:05 | disposition home or self-care (01) ==
LOC: ED 08:07 → MEDTELE 13:49
PROVIDERS: ADMIT Internal Medicine; ATTEND Internal Medicine
DX: R41.82 Altered mental status, unspecified (principal); N18.9 Chronic kidney disease, unspecified; F31.9 Bipolar disorder, unspecified; F41.8 Other specified anxiety disorders; Z87.891 Personal history of nicotine dependence
CPT/HCPCS: 36415; 70450; 71045; 80048; 80053; 80307; 80320; 80329; 81003; 81015; 82550; 83605; 84443; 85025; 85610; 85730; 87077; 87086; 87186; 93005; 96372; 99284; A9270-GY; G0378; G0480; J1644

== ENCOUNTER 2018-07-28 09:52 | Emergency (ER) | payer MEDICARE ==
[2018-07-28] MEDS ORDERED: NS 0.9% 1000 ML** 1,000 ML IV ONE (10:25)
[2018-07-28] MEDS ORDERED: Dexamethasone IV* 4 MG/ML 5 ML VIAL (20 MG) IVPB ONE (10:26)
[2018-07-28] MEDS ORDERED: diPHENhydraMINE PO* 25 MG PO ONE (10:26)
[2018-07-28] MEDS ORDERED: Ondansetron INJ* 2 MG/ML VIAL IV ONE (10:26)
--- NOTE | 2018-07-28 10:34 | ED ---
Headache - HPI Summary HPI Summary: Patient is a 68-year-old female who presents emergency department for headache 6 weeks. Patient states she has a history of migraine headaches but states he typically do not last this long. Patient states headache has been on and off over the last 6 weeks and increase over the last few days. Denies associated symptoms of photophobia, vision change, nausea, vomiting, numbness, tingling, weakness, fever, neck pain, chest pain, shortness of breath. Patient states she used to take tramadol for headaches but developed an allergic reaction. Patient has been taking Tylenol without relief. History of TIA and is currently on Plavix. Patient also has past medical history of bipolar disorder and schizophrenia. Patient denies recent falls or injuries. No modifying factors. Patient states pain is located to bilateral frontal region without modifying factors. - History Of Current Complaint Chief Complaint: EDHeadache Stated Complaint: MIGRAINE PER PT Time Seen by Provider: 07/28/18 10:14 Hx Obtained From: Patient - Allergies/Home Medications Allergies/Adverse Reactions: Allergies Allergy/AdvReac Type Severity Reaction Status Date / Time tramadol AdvReac See Comment Verified 07/28/18 09:56 PMH/Surg Hx/FS Hx/Imm Hx Previously Healthy: Yes Endocrine/Hematology History: Denies: Hx Diabetes Cardiovascular History: Reports: Hx Hypotension, Other Cardiovascular Problems/ Disorders - severe hypotension with tramadol Denies: Hx Hypertension, Hx Pacemaker/ICD Respiratory History: Reports: Other Respiratory Problems/Disorders - Respiratory Failure GI History: Reports: Hx Obstructive Bowel, Other GI Disorders - hx of MULTIPLE SBO History: Reports: Hx Acute Renal Failure, Other Problems/Disorders - URINARY RETENTION 04/25/16 [facility] [place] ADMISSION Denies: Hx Renal Disease Sensory History: Reports: Hx Cataracts - both eyes, Hx Contacts or Glasses Denies: Hx Hearing Aid, Other Sensory Impairments Opthamlomology History: Reports: Hx Cataracts - both eyes, Hx Contacts or Glasses Denies: Other Sensory Impairments Neurological History: Reports: Hx Headaches, Hx Migraine - prn meds Psychiatric History: Reports: Hx Anxiety - HX OF BIPOLAR, SCHIZOPHRENIA, Hx Depression, Hx Schizophrenia, Hx Bipolar Disorder, Hx Suicide Attempt Denies: Hx Panic Disorder - Cancer History Hx Chemotherapy: No Hx Radiation Therapy: No - Surgical History Surgery Procedure, Year, and Place: total hysterectomy w/appendectomy, 2 c- sections, RT SHOULDER Hx Anesthesia Reactions: No - Immunization History Date of Tetanus Vaccine: utd Date of Influenza Vaccine: utd Infectious Disease History: No Infectious Disease History: Denies: Traveled Outside the [place] in Last 30 Days - Family History Known Family History: Positive: Other - No FMHx of breast cancer, FHx of depression, Non-Contributory Family History: No FHx of Breast CA. FHx of depression - Social History Occupation: Retired Lives: With Family Alcohol Use: Rare Alcohol Amount: unable to confirm Substance Use Type: Reports: None Substance Use Comment - Amount & Last Used: RX benzos Smoking Status (MU): Former Smoker Amount Used/How Often: smoked for approx 30 yrs 1/2-1ppd Review of Systems Constitutional: Negative Negative: Fever, Chills Eyes: Negative Negative: Photophobia, Blurred Vision ENT: Negative Cardiovascular: Negative Respiratory: Negative Gastrointestinal: Negative Genitourinary: Negative Negative: dysuria Musculoskeletal: Negative Skin: Negative Positive: Headache. Negative: Weakness, Paresthesia, Numbness, Syncope, Slurred Speech All Other Systems Reviewed And Are Negative: Yes Physical Exam Triage Information Reviewed: Yes Vital Signs On Initial Exam: Initial Vitals Temp Pulse Resp BP Pulse Ox 99.0 F 91 18 174/101 99 07/28/18 09:56 07/28/18 09:56 07/28/18 09:56 07/28/18 09:56 07/28/18 09:56 Vital Signs Reviewed: Yes Appearance: Positive: Well-Appearing - Pt. sitting up in bed in NAD. present. Skin: Positive: Warm, Dry Head/Face: Positive: Normal Head/Face Inspection Eyes: Positive: Normal, EOMI, JAYASHREE Neck: Positive: Supple Respiratory/Lung Sounds: Positive: Clear to Auscultation, Breath Sounds Present Cardiovascular: Positive: Normal, RRR Musculoskeletal: Positive: Normal, Strength/ROM Intact Neurological: Positive: Normal, Alert, Oriented to Person Place, Time, CN Intact II-III, Normal Gait, Finger to Nose, Facial Symmetry, Speech Normal. Negative: Cerebellar Dysfunction, Disoriented, Facial Droop, Slurred Speech, Pronator Drift Present Psychiatric: Positive: Affect/Mood Appropriate - Molt Coma Scale Best Eye Response: 4 - Spontaneous Best Motor Response: 6 - Obeys Commands Best Verbal Response: 5 - Oriented Coma Scale Total: 15 Diagnostics - Vital Signs Vital Signs Temp Pulse Resp BP Pulse Ox 05/30/19 10:24 81 99 07/28/18 10:22 84 134/110 98 07/28/18 09:56 99.0 F 91 18 174/101 99 - Laboratory Lab Statement: Any lab studies that have been ordered have been reviewed, and results considered in the medical decision making process. Headache Course/Dx - Course Course Of Treatment: Patient presenting with headache 6 weeks and history of migraine headaches. She has had normal brain MRI in the past. Afebrile well- appearing. Patient has no neurological deficits on exam. Patient states she tried to call her neurologist today that she was out of the office so decided to come to the ER instead. Patient states in the past she has received medication through an IV that improved her headache. Given no change in headache and normal exam will not obtain imaging (today. Patient was given a migraine cocktail consisting of IV fluids, Zofran, Decadron and Benadryl. On reexamination headache has moderately improved. We'll discharge patient home to follow-up with her neurologist. She will return the ER if symptoms change or worsen. - Diagnoses Differential Diagnosis/HQI/PQRI: Migraine, Sinus Headache, Tension Headache, Viral Syndrome Provider Diagnoses: Cephalgia Discharge - Sign-Out/Discharge Documenting (check all that apply): Patient Departure Patient Received Moderate/Deep Sedation with Procedure: No - Discharge Plan Condition: Improved Disposition: HOME Patient Education Materials: Migraine Headache (ED) Referrals: Eli Holguin MD [Medical Doctor] - Love Travis DO [Primary Care Provider] - Additional Instructions: Call your neurologist today to schedule a close follow up appointment Continue home medications as directed Return to ER if symptoms change or worsen - Billing Disposition and Condition Condition: IMPROVED Disposition: Home
--- OUTSIDE RECORDS SUMMARY | 2018-07-28 10:35 | XMS REPORT | Continuity of Care Document ---
:1950 External Reference #:[id number] Author Name Flaco Torres, OD Address [address] [place] [address] Care Team Providers Name Role Phone Evaristo Salazar MD Care Team Information Water Pipe Installer Unavailable Evaristo Salazar MD Primary Care Physician Unavailable Payers Date Identification Numbers Payment Provider Subscriber Policy Number: [id number] Medicare Naheed Moran PayID: [id number] [address] [address] [place] [address] Family History Date Family Member(s) Observation Comments General Noncontributory Father Noncontributory Mother Noncontributory Social History Type Date Description Comments Sex Unknown ETOH Use Occasionally consumes alcohol Tobacco Use Start: Unknown End: Unknown Patient is a former smoker Smoking Status Reviewed: 07/12/18 Patient is a former smoker Allergies, Adverse Reactions, Alerts Description No Known Drug Allergies Medications Active Medications SIG Qnty Indications Ordering Provider Date Atorvastatin Calcium Unknown 40mg Tablets [place] Twice Daily Unknown 1.1% Gel Morning And Night Topiramate Tanya Serrato MD 50mg Tablets Aripiprazole Unknown 2mg Tablets Clopidogrel Bisulfate Unknown 75mg Tablets Zyprexa Unknown 10mg Tablets Lamictal Unknown 200mg Tablets History Medications Vigamox 1 drop drops 9ml Jose Maria Raymond, 08/04/2017 - 0.5% Solution right eye four M.D. 08/11/2017 times a day Ketorolac Tromethamine 1 drops right eye 10ml Jose Maria Raymond, 08/04/2017 - 0.5% twice a day M.D. 10/12/2017 Solution Pred Forte 1 drops right eye 10ml Jose Maria Raymond, 08/04/2017 - 1% Suspension four times a day M.D. 10/12/2017 Fluzone High-Dose Use as Directed Unknown - 0.5ml Faith 07/12/2018 Azithromycin Unknown - 250mg Tablets 01/12/2018 Clarithromycin Evaristo Salazar MD - 500mg Tablets 01/12/2018 Lorazepam Unknown - 0.5mg Tablets 07/12/2018 Ondansetron Evaristo Salazar MD - 4mg Tablets 07/12/2018 Dispers Olanzapine Unknown - 2.5mg Tablets 07/12/2018 Amoxicillin/Clavulanate Evaristo Salazar MD - Potassium 01/12/2018 875-125mg Tablets Tramadol HCL Tanya Serrato MD - 50mg Tablets 07/12/2018 Olanzapine Unknown - 10mg Tablets 07/12/2018 Lyrica Unknown - 150mg Capsules 07/12/2018 Lamotrigine Unknown - 200mg Tablets 07/12/2018 SF Unknown - 1.1% Gel 07/12/2018 Vital Signs Date Vital Result Comment 09/14/2017 10:22am Intraocular Pressure Right Eye 15 mmHg Intraocular Pressure Left Eye 15 mmHg 09/08/2017 9:25am Intraocular Pressure Right Eye 15 mmHg Intraocular Pressure Left Eye 15 mmHg 09/02/2017 11:45am Intraocular Pressure Right Eye 15 mmHg 08/25/2017 8:44am Intraocular Pressure Right Eye 15 mmHg 07/15/2017 11:58am Intraocular Pressure Right Eye 14 mmHg Intraocular Pressure Left Eye 14 mmHg Procedures Date Code Description Status 01/12/2018 32307 Oct Retina Completed 01/12/2018 98500 Eye Exam Est Intermediate Completed 09/07/2017 86796 Extracapsular Cataract Extraction W/Intraocular Lens Completed 08/24/2017 19783 Extracapsular Cataract Extraction W/Intraocular Lens Completed 07/23/2017 07498 Ophthalmic Biometry By Partial Coherence Interferometry Completed W/Intra 07/23/2017 56753 Eye Exam Est Intermediate Completed 07/15/2017 44261 Oct Retina Completed 07/15/2017 23647 Eye Exam New Comprehensive Completed Plan of Treatment 07/12/2018 - Flaco Torres, ODH35.373 Puckering of macula, [id number] Other secondary cataract, [id number] PresbyopiaFollow up:yearly full, sooner PRN
[2018-07-28 12:07] VITALS: BP 141/82
== END 2018-07-28 12:06 | disposition home or self-care (01) ==
LOC: ED 09:52
DX: R51 Headache (principal); I95.9 Hypotension, unspecified; F31.9 Bipolar disorder, unspecified; F20.9 Schizophrenia, unspecified; Z88.8 Allergy status to other drugs, medicaments and biological substances; Z91.5 Personal history of self-harm; Z87.891 Personal history of nicotine dependence
CPT/HCPCS: 96361; 96374; 96375; 99283; A9270-GY; J1100; J2405

== ENCOUNTER 2018-08-13 11:23 | Emergency (ER) | payer MEDICARE ==
--- OUTSIDE RECORDS SUMMARY | 2018-08-13 11:35 | XMS REPORT | Continuity of Care Document ---
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 Altered mental Visit 7:00a Clinic Melissa Krishnan status, unspecified R53.1 Weakness F31.9 Bipolar disorder, unspecified Office Visit 12/10/2017 [facility] Brad R41.82 Altered mental 7:00a Clinic MD Gerald status, unspecified R47.9 Unspecified speech disturbances R53.1 Weakness Office Visit 12/10/2017 7:52a [facility] Kandi, R47.81 Slurred Assoc,pc [employer] speech Hospitalists R53.1 Weakness F31.9 Bipolar disorder, unspecified Office Visit 12/09/2017 [facility] R41.82 Altered mental 8:56a Assoc,frederick Chau NP status, Hospitalists unspecified R47.81 Slurred speech N18.9 Chronic kidney disease, unspecified Office Visit 12/08/2017 [facility] Brad R41.82 Altered mental 7:00a Radha Duarte MD status, unspecified R47.81 Slurred speech Office Visit 12/07/2017 [facility] R41.82 Altered mental 8:55a Assoc,BRANTD Hill status, Hospitalists unspecified R47.81 Slurred speech F31.9 Bipolar disorder, unspecified Office Visit 09/14/2017 11:20a [facility] George Comer R55 Syncope and Melissa Toro collapse I47.1 Supraventricular tachycardia I34.0 Nonrheumatic mitral (valve) insufficiency R47.81 Slurred speech Office Visit 06/28/2017 11:30a [facility] Ame Andersen M20.011 [facility] finger [facility] [place] of right C.M.A. finger(s) Office Visit 05/31/2017 11:30a Orthopedic Laina Suggs0.011 [facility] finger [facility] Of Melissa Gutierrez of right C.M.A. finger(s) Office Visit 05/26/2017 11:30a [facility] Valencia Aguiar, R55 Syncope and N.P. collapse I47.1 Supraventricular tachycardia R00.2 Palpitations Z86.73 Prsnl hx of TIA (TIA), and cereb infrc w/o resid deficits I34.0 Nonrheumatic mitral (valve) insufficiency Office Visit 05/12/2017 10:00a [facility] Tanya Serrato, R55 Syncope and Services Of Debbie Torres collapse R47.81 Slurred speech R51 Headache Office Visit 04/28/2017 Orthopedic Laina M20.011 Mallet finger of 10:45a Services Of Melissa Gutierrez right finger(s) C.M.A. Office Visit 03/31/2017 Orthopedic Gera Bennett.011 Mallet finger of 10:45a Services Of [facility] right finger(s) C.M.A. Office Visit 03/18/2017 Yang Comer R00.2 Palpitations 3:40p Cardiology Rufino Toro M.D. [facility] R47.81 Slurred speech Z86.73 Prsnl hx of TIA (TIA), and cereb infrc w/o resid deficits R55 Syncope and collapse I34.0 Nonrheumatic mitral (valve) insufficiency I95.2 Hypotension due to drugs R41.0 Disorientation, unspecified I45.10 Unspecified right bundle-branch block Office Visit 03/03/2017 11:45a [facility] Tanya Serrato M.D. R51 Headache Services Of [facility] R41.89 Oth symptoms and signs w cognitive functions and awareness Office Visit 02/27/2017 2:07p [facility] Salina Mcfadden R47.81 Slurred Assoc,frederick Randall, [employer] speech Hospitalists F41.8 Other specified anxiety disorders Office Visit 02/26/2017 [facility] Brad Duarte, R47.81 Slurred 1:38p Clinic speech R41.0 Disorientation, unspecified Office Visit 02/26/2017 2:06p [facility] Salina Mcfadden R47.81 Slurred Assoc,frederick Randall, [employer] speech Hospitalists F41.8 Other specified anxiety disorders Office Visit 02/18/2017 11:45a [facility] Nghia Talbert K56.51 [facility] FACS adhesions [bands], with partial obstruction Office Visit 02/08/2017 11:15a Surgical Nghia Talbert K56.51 [facility] adhesions [bands], with partial obstruction Office Visit 12/15/2016 1:40p [facility] George Comer R55 Syncope and Melissa Toro collapse I34.0 Nonrheumatic mitral (valve) insufficiency E87.6 Hypokalemia E87.1 Hypo-osmolality and hyponatremia R42 Dizziness and giddiness Office Visit 09/22/2016 10:00a [facility] BRANDT Sommer R55 Syncope and collapse I34.0 Nonrheumatic mitral (valve) insufficiency Office Visit 08/17/2016 3:00p [facility] George Comer R55 Syncope and Melissa Toro collapse K56.60 Unspecified intestinal obstruction E87.6 Hypokalemia E83.51 Hypocalcemia R01.1 Cardiac murmur, unspecified I45.10 Unspecified right bundle-branch block R94.31 Abnormal electrocardiogram [ECG] [EKG] Office Visit 07/01/2016 Surgical Nghia Talbert, K56.60 Unspecified 3:00p [facility] intestinal obstruction Office Visit 07/01/2016 [facility] Tanya Serrato, G43.709 Chronic migraine 9:30a Services Of Debbie Torres w/o aura, not intractable, w/o stat migr Office Visit 05/11/2016 [facility] Moris R11.2 Nausea with 2:05p Assoc,frederick Fischer M.D. vomiting, Hospitalists unspecified E87.6 Hypokalemia E83.51 Hypocalcemia R74.8 Abnormal levels of other serum enzymes Office Visit 05/10/2016 2:04p [facility] Glynn Freitas, R11.2 Nausea with Assfrederick flower M.D. vomiting, Hospitalists unspecified E87.6 Hypokalemia E83.51 Hypocalcemia R74.8 Abnormal levels of other serum enzymes Office Visit 05/09/2016 [facility] Feliz Wilcox R11.2 Nausea with 2:04p Assocfrederick II, M.D. vomiting, Hospitalists unspecified E87.6 Hypokalemia E83.51 Hypocalcemia R74.8 Abnormal levels of other serum enzymes Office Visit 04/28/2016 Surgical Korey Ball K56.60 Unspecified 7:00a [facility] BR[facility]T [place] intestinal obstruction Office Visit 04/28/2016 [facility] Lisa Cochran, E87.1 Hypo- osmolality 3:24p Assfrederick flower M.D. and hyponatremia Hospitalists N17.9 Acute kidney failure, unspecified E86.0 Dehydration K56.69 Other intestinal obstruction Office Visit 04/27/2016 Surgical Aly Lewis, K56.60 Unspecified 7:00a [facility] intestinal obstruction Office Visit 04/27/2016 [facility] Lisa Cochran, E87.1 Hypo- osmolality 3:24p Assocfrederick M.D. and hyponatremia Hospitalists N17.9 Acute kidney failure, unspecified E86.0 Dehydration K56.69 Other intestinal obstruction Office Visit 04/26/2016 [facility] Moris E87.1 Hypo-osmolality and 3:23p Assoc,frederick Fischer M.D. hyponatremia Hospitalists N17.9 Acute kidney failure, unspecified E86.0 Dehydration K56.69 Other intestinal obstruction Office Visit 04/25/2016 Surgical Aly Pederson. K56.60 Unspecified 7:00a [facility] Of [facility] MD Joshua, intestinal FACS obstruction Office Visit 04/25/2016 [facility] Moris E87.1 Hypo-osmolality 3:23p Assoc,pc Melissa Fischer and hyponatremia Hospitalists N17.9 Acute kidney failure, unspecified E86.0 Dehydration K56.69 Other intestinal obstruction Office Visit 04/24/2016 [facility] Moris E87.1 Hypo-osmolality and 3:22p Assoc,frederick Fischer M.D. hyponatremia Hospitalists R42 Dizziness and giddiness N17.9 Acute kidney failure, unspecified E86.0 Dehydration Office Visit 03/18/2016 2:18p [facility] Glynn Freitas, R55 Syncope and Assoc,frederick Torres collapse Hospitalists E87.1 Hypo-osmolality and hyponatremia F31.9 Bipolar disorder, unspecified Office Visit 03/04/2016 [facility] Serrato, G43.709 Chronic migraine 2:15p Neurologic M.D. w/o aura, not Services Of [facility] intractable, w/o stat migr Office Visit 09/04/2015 [facility] Tanya Serrato G43.709 Chronic migraine 1:30p Neurologic M.D. w/o aura, not Services Of [facility] intractable, w/o stat migr Office Visit 03/11/2015 [facility] Tanya Serrato, G43.709 Chronic migraine 2:00p Neurologic M.D. w/o aura, not Services Of [facility] intractable, w/o stat migr I10 Essential (primary) hypertension Office Visit 08/22/2014 [facility] Tanya Serrato, 346.70 Chronic Migraine 2:00p Services Of [facility] Melissa W/Out Aura W/Out Mention Intractable Office Visit 07/27/2014 [facility] 560.9 Intestinal 7:48a Assoc,BRANDT Bailey Obstruction Hospitalists Unspec Office Visit 04/02/2014 [facility] Tanya Serrato, 346.70 Chronic Migraine 1:00p Services Of Rn Case Management M.D. W/Out Aura W/Out Mention Intractable 300.00 Anxiety State Unspec Office Visit 10/09/2013 1:00p [facility] Tanya Serrato, 346.70 Chronic Migraine Services Of [facility] M.D. W/Out Aura W/Out Mention Intractable 300.00 Anxiety State Unspec Office Visit 04/17/2013 1:00p [facility] Tanya Serrato, 346.70 Chronic Migraine Services Of [facility] M.D. W/Out Aura W/Out Mention Intractable Office Visit 10/17/2012 1:30p [facility] Tanya Serrato, 346.90 Migraine Unspec Services Of [facility] M.D. W/O Intractable W/O Status Migrainosus 300.00 Anxiety State Unspec Office Visit 04/06/2012 11:15a [facility] Tanya Serrato, 346.90 Migraine Unspec Services Of [facility] M.D. W/O Intractable W/O Status Migrainosus 300.00 Anxiety State Unspec Office Visit 11/05/2011 11:30a [facility] Tanya Serrato, 346.90 Migraine Unspec Services Of [facility] M.D. W/O Intractable W/O Status Migrainosus 300.00 Anxiety State Unspec Plan of Treatment Future Appointment(s):09/28/2018 9:00 am - Tanya Serrato M.D. at [facility] [id number]/04/2018 - Love Travis, DOF31.9 Bipolar disorder, unspecifiedRecommendations:come back in six kldvnjA67.9 Hypothyroidism, mvrgcjhzbyaS10.73 Personal history of transient ischemic attack (TIA), and cerN18.9 Chronic kidney disease, unspecified
--- OUTSIDE RECORDS SUMMARY | 2018-08-13 11:35 | XMS REPORT | Continuity of Care Document ---
:1950 External Reference #:[id number] Author Name Jo-Ann Abdi Care Team Providers Name Role Phone Love Travsi DO Primary Care Physician Unavailable Payers Date Identification Numbers Payment Provider Subscriber Effective: 2015 Policy Number: [id number] Medicare Blue Ppo Naheed Moran Group Number: [id number] [address] [address] PayID: [id number] [place] [address] Problems Active Problems Provider Date Migraine without [...] December 2016 Unknown smoker Smoking Status Reviewed: 08/02/18 Patient is a former quit December 2016 smoker Exercise Type/Frequency Walks daily Allergies, Adverse Reactions, Alerts Active Allergies Reaction Severity Comments Date Tramadol 12/17/2017 Inactive Allergies NKDA 10/17/2012 Medications Active Medications SIG Qnty Indications Ordering Provider Date Metamucil Wafers 3 wafers by Unknown 02/07/2018 mouth daily Zyprexa 1 po every night Unknown 10mg Tablets Topiramate 1 tab by mouth 60tabs Tanya Sahuy, 50mg Tablets twice a day M.D. Lamictal take 1 by mouth 30tabs Tanya Sahuy, 200mg Tablets twice a day M.D. Calcium 600 + D 1 po bid 60tabs Unknown [id number] Tablets Multivitamin Adults 1 by mouth every Unknown day Tablets Plavix 1 by mouth every 30tabs Love Senner, 75mg Tablets day DO Atorvastatin Calcium take 1 by mouth 30tabs Love Senner, 40mg every night DO Tablets Aripiprazole Patient takes 1 Unknown 2mg Tablets mg tab by mouth once a day History Medications Lyrica take 2 tabs in Am 90caps F31.9 Ruel Garrett MD 12/21/2017 - 50mg Capsules and 1 tab in 04/01/2018 afternoon Aspirin 81 Low Dose 1 by mouth every Tanya Rojelio, 05/12/2017 - day M.D. 12/14/2017 81mg Chewtabs Tramadol HCL 1 tab by mouth 20tabs Laina Brenda, 03/31/2017 - 50mg every6- 8 hours as M.D. 04/19/2017 Tablets needed pain Azithromycin two tabs day one, 6tabs George Comer 12/15/2016 - 250mg one daily till gone Melissa Toro Unknown Tablets Tramadol HCL take 1 by mouth 15tabs Tanya Serrato, 11/13/2011 - 50mg every 6 hours as M.D. 12/16/2017 Tablets need for severe headache Topamax 1 po bid 60tabs Tanya Serrato, 11/05/2011 - 50mg Tablets M.D. 10/17/2012 Zyprexa [...] 12/14/2017 Tablets Lorazepam As directed ( Alaina SolomonJessieMagalys - 0.5mg taking) MD Omer 05/12/2017 Tablets Medications Administered in Office Medication SIG Qnty Indications Ordering Provider Date Inj, Regadenoson, 0.1 MG João Valente M.D. 09/10/2016 Injection Technetium TC 99M Tetrofosmin, João Valente M.D. 09/10/2016 Per Unit Dose Up To 40 Millicuries Injection Vital Signs Date Vital Result Comment 08/02/2018 8:46am Height 64.5 inches 5'4.50" Weight 120.00 lb Clothes Heart Rate 74 /min Radial BP Systolic Sitting 132 mmHg Lue reg cuff BP Diastolic Sitting 70 mmHg Lue reg cuff BP Systolic Standing 118 mmHg Lue reg cuff BP Diastolic Standing 70 mmHg Lue reg cuff BMI (Body Mass Index) 20.3 kg/m2 Ejection Fraction > 65% Echo 12/08/2017 04/04/2018 10:32am Weight 130.00 lb Heart Rate [...] Result H/L Range Note Lipid Profile 03/09/2018 [facility] Triglycerides 79 mg/dL 1 (Trig/Chol/HDL) [address] [place] [address] [phone] Cholesterol 159 mg/dL 2 HDL Cholesterol 74.4 mg/dL 3 LDL Cholesterol 69 mg/dL 4 Laboratory test 03/09/2018 [facility] Creatine 90 U/L N 10- [address] Kinase(CK) [place] [address] [phone] TSH (Thyroid Stim Horm) 4.79 mcIU/mL N 0.34-5.60 CBC Auto Diff 03/09/2018 [facility] White Blood 4.0 10^3/uL N 3.5-10.[address] [place] [address] [phone] Red Blood Count 4.42 10^6/uL N 4.00-5.40 [...] Cells % 0 Basic Metabolic Panel 03/09/2018 [facility] Sodium 141 mmol/L N 135-[address] [place] [address] [phone] Potassium 4.5 mmol/L N 3.5-5.0 Co2 Carbon Dioxide 21 mmol/L Low 22-32 Glucose 86 mg/dL N 70-100 Blood Urea Nitrogen 35 mg/dL High 6-24 Creatinine 1.74 mg/dL High 0.51-0.95 BUN/Creatinine Ratio 20.1 High 8-20 Calcium 9.3 mg/dL N 8.6-10.3 Egfr Non- 29.1 >60 Egfr 35.2 >60 5 Chloride 112 mmol/L High 101-111 Anion Gap 8 mmol/L N 2-11 Laboratory test 01/10/2018 [facility] Total Protein < 4 mg/dL finding [address] [place] [address] [phone] Creatinine Random Urine 24.02 mg/dL CBC Auto Diff 01/10/2018 [facility] White Blood 3.8 10^3/uL N 3.5-10.[address] [place] [address] [phone] Red Blood Count 4.20 10^6/uL N 4.00-5.40 [...] Cells % 0.1 Comp Metabolic Panel 01/10/2018 [facility] Sodium 136 mmol/L N 135-[address] [place] [address] [phone] Potassium 4.3 mmol/L N 3.5-5.0 Chloride 109 [...] 35.8 >60 6 Laboratory test finding 01/10/2018 [facility] Cortisol 8.94 g/ dL [address] [place] [address] [phone] TSH (Thyroid Stim Horm) 5.01 mcIU/mL N 0.34-5.60 8 Magnesium 2.3 mg/dL N 1.9-2.7 9 Laboratory test 01/10/2018 [facility] Free T4 (Free 0.71 ng/dL N 0.61-1.12 finding [address] [facility] Thyroxine) [place] [address] [phone] T3 Total 147 ng/dL N 87-178 Hepatitis C Antibody 01/10/2018 [facility] HCV Index < 0.0 Index [address] [place] [address] [phone] Hepatitis C Antibody Nonreactive Nonreactive CBC No Diff 08/19/2016 [facility] White Blood 5.1 10^3/uL N 3.5-10.8 [address] [place] [address] [phone] Red Blood Count 4.69 10^6/uL N 4.0-5.4 Hemoglobin 14.8 g/dL N 12.0-16.0 Hematocrit 45 % N 35-47 Mean Corpuscular Volume 96 fL N 80-97 Mean Corpuscular Hemoglobin 32 pg High 27-31 Mean Corpuscular HGB Conc 33 g/dL N 31-36 Red Cell Distribution Width 14 % N 10.5-15 Platelet Count 254 10^3/uL N 150-450 Mean Platelet Volume 8 um3 N 7.4-10.4 Basic Metabolic 08/19/2016 [facility] Sodium 131 mmol/L Low 133-145 Panel [address] [place] [address] [phone] Potassium 4.6 mmol/L N 3.5-5.0 Chloride 100 mmol/L Low 101-111 Co2 Carbon Dioxide 24 mmol/L N 22-32 Anion Gap 7 mmol/L N 2-11 Glucose 72 mg/dL N 70-100 Blood Urea Nitrogen 25 mg/dL High 6-24 Creatinine 1.43 mg/dL High 0.51-0.95 BUN/Creatinine Ratio 17.5 N 8-20 Calcium 8.9 mg/dL N 8.6-10.3 Egfr Non- 36.7 N >60 Egfr 47.2 N >60 10 Laboratory test 08/19/2016 [facility] TSH (Thyroid 2.92 mcIU/mL N 0.34-5.[address] Stim Horm) [place] [address] [phone] Free T4 (Free Thyroxine) 0.79 ng/dL N 0.61-1.12 CBC No Diff 12/15/2013 [facility] White Blood 6.1 10^3/uL N 4.8-10.[address] [place] [address] [phone] Red Blood Count 4.62 10^6/uL N 4.0-5.4 Hemoglobin 15.5 g/dL N 12.0-16.0 Hematocrit 45 % N 35-47 Mean Corpuscular Volume 97 fL N 80-97 Mean Corpuscular Hemoglobin 34 pg High 27-31 Mean Corpuscular HGB Conc 35 g/dL N 31-36 Red Cell Distribution Width 13 % N 10.5-15 Platelet Count 377 10^3/uL N 150-450 Mean Platelet Volume 7 um3 Low 7.4-10.4 Comp Metabolic Panel 12/15/2013 [facility] Sodium 126 mmol/L Low 133-[address] [place] [address] [phone] Potassium 5.3 mmol/L N 3.7-5.6 Chloride 95 [...] >60 Egfr 47.7 N >60 11 CBC Auto Diff 11/23/2013 [facility] White Blood 5.5 10^3/uL N 4.8-10.[address] [place] [address] [phone] Red Blood Count 4.47 10^6/uL N 4.0-5.4 [...] Nucleated Red Blood Cells % 0 N Comp Metabolic Panel 11/23/2013 [facility] Sodium 122 mmol/L Low 133-[address] [place] [address] [phone] Potassium 4.3 mmol/L N 3.7-5.6 Chloride 88 [...] 39.3 N >60 Egfr 50.5 N >60 12 Drug Abuse 20 11/23/2013 [facility] Urine Amphetamine Negative ng/mL N [address] [place] [address] [phone] Urine Barbiturates Negative ng/mL N 14 Urine Benzodiazepines Negative ng/mL N 15 Urine Cocaine Negative ng/mL N 16 Urine Methadone Negative ng/mL N 17 Urine Opiates Negative ng/mL N 18 Urine Phencyclidine Negative ng/mL N Cutoff: 25 Urine Tetrahydrocannabinol Negative ng/mL N Cutoff: 20 19 Urine Oxycodone Negative ng/mL N 20 Laboratory test 11/23/2013 [facility] TSH (Thyroid 3.31 IU/mL N 0.34-5.[address] [place] [address] [facility]) [phone] 1 Desirable: <150 Borderline High: 150-199 High: [...] <10 8 Copy Result to: INO SANTANA ([id number]) FASTING 9 Copy Result to: INO SANTANA ([id number]) FASTING 10 Because ethnic data is not [...] 5 Kidney failure <15 (or dialysis) 12 Because ethnic data is not always readily [...] 15-29 5 Kidney failure <15 (or dialysis) 13 -- REFERENCE VALUE -- Cutoff: 500 14 -- REFERENCE VALUE -- Cutoff: 200 15 -- REFERENCE VALUE -- Cutoff: 200 16 -- REFERENCE VALUE -- Cutoff: 150 17 -- REFERENCE VALUE -- Cutoff: 150 18 -- REFERENCE VALUE -- Cutoff: 300 19 This report is intended for use in clinical monitoring or management of patients. It is not intended for use in employment-related testing. 20 -- REFERENCE VALUE -- Cutoff: 100 This report is intended for use in clinical monitoring or management of patients. It is not intended for use in employment-related testing. Test Performed by: [facility] [id number] Insurance Broker: Yusuf Tobar III, M.D. Procedures Date Code Description Status 08/02/2018 77387 EKG Tracing & Interpretation Completed 02/09/2018 80312 Event Monitor/Phys Review/Interp. Completed 02/08/2018 70617 EKG Tracing & Interpretation Completed 12/10/2017 43699 EKG, Interpretation Only Completed 12/08/2017 82169 ECHO Transthorasic Realtime 2D W Doppler & Color Flow Completed Hosp 09/14/2017 71413 EKG Tracing & Interpretation Completed 07/28/2017 [id number] Diabetic Retinal Eye Exam Completed 05/05/2017 75600 Holter Monitor Review (24 hr)dr review & interp only Completed 05/03/2017 41846 ECG Monitor/Recording W/Visual Superimposition Completed Scanning 04/01/2017 52070 Amb.BP Monitor/Phys Interp&Report Completed 03/24/2017 55353 EEG Recording Awake & Drowsy Completed 03/19/2017 63609 ECHO Transthorasic Realtime 2D W Doppler & Color Flow Completed Hosp 03/19/2017 89388 ECHO Transthoracic, Real-Time 2D With Doppler And Completed Color Flow 03/18/2017 31032 EKG Tracing & Interpretation Completed 12/15/2016 96976 EKG Tracing & Interpretation Completed 09/14/2016 [id number] Mammogram Completed 09/10/2016 99802 Stress Test Completed 09/10/2016 24604 Myocardial Perfusion Imaging Tomographic (Spect) Completed Multiple Studies 09/07/2016 65637 ECHO Transthoracic, Real-Time 2D With Doppler And Completed Color Flow 09/06/2016 66681 Holter Monitor Review (24 hr)dr review & interp only Completed 09/03/2016 63400 ECG Monitor/Recording W/Visual Superimposition Completed Scanning 08/17/2016 72472 EKG Tracing & Interpretation Completed Encounters Type Date Location Provider Dx Diagnosis Office Visit 08/02/2018 [facility] George Comer F31.9 Bipolar disorder, 9:00a Melissa Toro unspecified E03.9 Hypothyroidism, unspecified N18.9 Chronic kidney disease, unspecified I34.0 Nonrheumatic mitral (valve) insufficiency E78.00 Pure hypercholesterolemia, unspecified Office Visit 04/04/2018 10:20a DO Not Use Care Love F31.9 Bipolar disorder, Connections Senner, DO unspecified [facility] E03.9 Hypothyroidism, unspecified Z86.73 Prsnl hx of TIA (TIA), and cereb infrc w/o resid deficits N18.9 Chronic kidney disease, unspecified Office Visit 03/18/2018 [facility] R41.82 Altered mental 9:14a Assoc,BRANDT Kramer status, Hospitalists unspecified N18.9 Chronic kidney disease, unspecified F31.9 Bipolar disorder, unspecified Office Visit 03/17/2018 [facility] R41.82 Altered mental 9:14a Assocfrederick PA status, Hospitalists unspecified F31.9 Bipolar disorder, unspecified Office Visit 02/08/2018 3:00p [facility] George Comer F31.9 Bipolar disorder, Melissa Toro unspecified N18.9 Chronic kidney disease, unspecified G45.9 Transient cerebral ischemic attack, unspecified R42 Dizziness and giddiness R00.2 Palpitations Office Visit 01/04/2018 11:00a DO Not Use Care Love F31.9 Bipolar disorder, Connections Senner, DO unspecified [facility] N18.9 Chronic kidney disease, unspecified G45.9 Transient cerebral ischemic attack, unspecified E03.9 Hypothyroidism, unspecified Office Visit 12/21/2017 1:30p DO Not Use Care Ruel Garrett R41.82 Altered mental Connections MD status, [facility] unspecified F31.9 Bipolar disorder, unspecified Office Visit 12/17/2017 8:30a DO Not Use Care Ruel Garrett, R41.82 Altered mental Connections MD status, [facility] unspecified R47.81 Slurred speech Z86.73 Prsnl hx of TIA (TIA), and cereb infrc w/o resid deficits Z87.891 Personal history of nicotine dependence E03.9 Hypothyroidism, unspecified R51 Headache Office Visit 12/15/2017 [facility] T[facility] Serrato, Z86.73 Prsnl hx of 8:00a Clinic Melissa TIA (TIA), and cereb infrc w/o resid deficits R51 Headache F41.8 Other specified anxiety disorders Office Visit 12/12/2017 8:09a [facility] Sury Tomer, R41.82 Altered mental Assoc,pc CUFF KNITTER status, Hospitalists unspecified I95.0 Idiopathic hypotension F41.9 Anxiety disorder, unspecified F31.9 Bipolar disorder, unspecified N18.9 Chronic kidney disease, unspecified Office 12/11/2017 [facility] Korey R41.82 Altered mental Visit 7:00a Clinic Melissa Krihsnan status, unspecified R53.1 Weakness F31.9 Bipolar disorder, unspecified Office Visit 12/10/2017 [facility] Brad R41.82 Altered mental 7:00a Clinic MD Gerald status, unspecified R47.9 Unspecified speech disturbances R53.1 Weakness Office Visit 12/10/2017 7:52a [facility] Kandi, R47.81 Slurred Assoc,pc CUFF KNITTER speech Hospitalists R53.1 Weakness F31.9 Bipolar disorder, unspecified Office Visit 12/09/2017 [facility] R41.82 Altered mental 8:56a Assoc,pc Kandi, CUFF KNITTER status, Hospitalists unspecified R47.81 Slurred speech N18.9 Chronic kidney disease, unspecified Office Visit 12/08/2017 [facility] Brad R41.82 Altered mental 7:00a Clinic MD Gerald status, unspecified R47.81 Slurred speech Office Visit 12/07/2017 [facility] R41.82 Altered mental 8:55a Assoc,BRANDT Hill status, Hospitalists unspecified R47.81 Slurred speech F31.9 Bipolar disorder, unspecified Office Visit 09/14/2017 11:20a [facility] George Comer R55 Syncope and Melissa Toro collapse I47.1 Supraventricular tachycardia I34.0 Nonrheumatic mitral (valve) insufficiency R47.81 Slurred speech Office Visit 06/28/2017 11:30a Orthopedic Ame Andersen, M20.011 Mal[place] finger [facility] DIANE of right C.M.A. finger(s) Office Visit 05/31/2017 11:30a Orthopedic Laina M20.011 Mallet finger Services Of Melissa Gutierrez of right C.M.A. finger(s) Office Visit 05/26/2017 11:30a [facility] Valencia Aguiar, R55 Syncope and N.P. collapse I47.1 Supraventricular tachycardia R00.2 Palpitations Z86.73 Prsnl hx of TIA (TIA), and cereb infrc w/o resid deficits I34.0 Nonrheumatic mitral (valve) insufficiency Office Visit 05/12/2017 10:00a [facility] Tanya Serrato, R55 Syncope and Services Of Debbie Torres collapse R47.81 Slurred speech R51 Headache Office Visit 04/28/2017 Orthopedic Laina M20.011 Mallet finger of 10:45a Services Of Melissa Gutierrez right finger(s) C.M.A. Office Visit 03/31/2017 Orthopedic Ame Andersen, M20.011 Mallet finger of 10:45a Services Of RPA-C right finger(s) C.M.A. Office Visit 03/18/2017 Yang Comer R00.2 Palpitations 3:40p Cardiology Rufino Toro M.D. Cma R47.81 Slurred speech Z86.73 Prsnl hx of TIA (TIA), and cereb infrc w/o resid deficits R55 Syncope and collapse I34.0 Nonrheumatic mitral (valve) insufficiency I95.2 Hypotension due to drugs R41.0 Disorientation, unspecified I45.10 Unspecified right bundle-branch block Office Visit 03/03/2017 11:45a [facility] Tanya Serrato M.D. R51 Headache [facility] R41.89 Oth symptoms and signs w cognitive functions and awareness Office Visit 02/27/2017 2:07p [facility] Salina Mcfadden R47.81 Slurred Assoc,frederick Randall, CUFF KNITTER speech Hospitalists F41.8 Other specified anxiety disorders Office Visit 02/26/2017 [facility] Brad Duarte, R47.81 Slurred 1:38p Clinic speech R41.0 Disorientation, unspecified Office Visit 02/26/2017 2:06p [facility] Salina Mcfadden R47.81 Slurred Assoc,frederick Randall, CUFF KNITTER speech Hospitalists F41.8 Other specified anxiety disorders Office Visit 02/18/2017 11:45a Surgical Nghia Talbert, K56.51 [facility] adhesions [bands], with partial obstruction Office Visit 02/08/2017 11:15a Surgical Nghia Talbert K56.51 [facility] adhesions [bands], with partial obstruction Office Visit 12/15/2016 1:40p [facility] George Comer R55 Syncope and Siddharthauser M.D. collapse I34.0 Nonrheumatic mitral (valve) insufficiency E87.6 Hypokalemia E87.1 Hypo-osmolality and hyponatremia R42 Dizziness and giddiness Office Visit 09/22/2016 10:00a [facility] BRANDT Sommer R55 Syncope and collapse I34.0 Nonrheumatic mitral (valve) insufficiency Office Visit 08/17/2016 3:00p [facility] George Comer R55 Syncope and Muna MLisaDLisa collapse K56.60 Unspecified intestinal obstruction E87.6 Hypokalemia E83.51 Hypocalcemia R01.1 Cardiac murmur, unspecified I45.10 Unspecified right bundle-branch block R94.31 Abnormal electrocardiogram [ECG] [EKG] Office Visit 07/01/2016 Surgical Nghia Talbert, K56.60 Unspecified 3:00p [facility] intestinal obstruction Office Visit 07/01/2016 [facility] Tanya Rojelio, G43.709 Chronic migraine 9:30a Services Of Debbie Torres w/o aura, not intractable, w/o stat migr Office Visit 05/11/2016 [facility] Moris R11.2 Nausea with 2:05p frederick Garcia M.D. vomiting, Hospitalists unspecified E87.6 Hypokalemia E83.51 Hypocalcemia R74.8 Abnormal levels of other serum enzymes Office Visit 05/10/2016 2:04p [facility] Glynn Freitas R11.2 Nausea with frederick Garcia M.D. vomiting, Hospitalists unspecified E87.6 Hypokalemia E83.51 Hypocalcemia R74.8 Abnormal levels of other serum enzymes Office Visit 05/09/2016 [facility] Feliz Wilcox R11.2 Nausea with 2:04p Assoc,pc II, M.D. vomiting, Hospitalists unspecified E87.6 Hypokalemia E83.51 Hypocalcemia R74.8 Abnormal levels of other serum enzymes Office Visit 04/28/2016 Surgical Korey Ball K56.60 Unspecified 7:00a [facility] BRANDT Merrill intestinal obstruction Office Visit 04/28/2016 [facility] Lisa Cochran, E87.1 Hypo- osmolality 3:24p Assfrederick flower M.D. and hyponatremia Hospitalists N17.9 Acute kidney failure, unspecified E86.0 Dehydration K56.69 Other intestinal obstruction Office Visit 04/27/2016 Surgical Aly Lewis, K56.60 Unspecified 7:00a [facility] , FACS intestinal obstruction Office Visit 04/27/2016 [facility] Lisa Castanedahn, E87.1 Hypo- osmolality 3:24p frederick Garcia M.D. and hyponatremia Hospitalists N17.9 Acute kidney failure, unspecified E86.0 Dehydration K56.69 Other intestinal obstruction Office Visit 04/26/2016 [facility] Moris E87.1 Hypo-osmolality and 3:23p frederick Garcia M.D. hyponatremia Hospitalists N17.9 Acute kidney failure, unspecified E86.0 Dehydration K56.69 Other intestinal obstruction Office Visit 04/25/2016 Surgical Aly Naranjo K56.60 Unspecified 7:00a [facility]bbie Lewis MD, intestinal FACS obstruction Office Visit 04/25/2016 [facility] Moris E87.1 Hypo-osmolality 3:23p frederick Garcia M.D. and hyponatremia Hospitalists N17.9 Acute kidney failure, unspecified E86.0 Dehydration K56.69 Other intestinal obstruction Office Visit 04/24/2016 [facility] Moris E87.1 Hypo-osmolality and 3:22p frederick Garcia M.D. hyponatremia Hospitalists R42 Dizziness and giddiness N17.9 Acute kidney failure, unspecified E86.0 Dehydration Office Visit 03/18/2016 2:18p [facility] Glynn Freitas, R55 Syncope and Assocfrederick M.D. collapse Hospitalists E87.1 Hypo-osmolality and hyponatremia F31.9 Bipolar disorder, unspecified Office Visit 03/04/2016 [facility] Tanya Serrato, G43.709 Chronic migraine 2:15p Neurologic M.D. w/o aura, not [facility] intractable, w/o stat migr Office Visit 09/04/2015 Wendy Sahumilena, G43.709 Chronic migraine 1:30p Neurologic M.D. w/o aura, not [facility] intractable, w/o stat migr Office Visit 03/11/2015 Wendy Sahumilena, G43.709 Chronic migraine 2:00p Neurologic M.D. w/o aura, not [facility] intractable, w/o stat migr I10 Essential (primary) hypertension Office Visit 08/22/2014 [facility] Tanya Serrato, 346.70 Chronic Migraine 2:00p Services Of [employer] M.D. W/Out Aura W/Out Mention Intractable Office Visit 07/27/2014 [facility] Lisa Olmos 560.9 Intestinal 7:48a Assoc,BRANDT Bailey Obstruction Hospitalists Unspec Office Visit 04/02/2014 [facility] Tanya Serrato, 346.70 Chronic Migraine 1:00p [facility] [employer] M.D. W/Out Aura W/Out Mention Intractable 300.00 Anxiety State Unspec Office Visit 10/09/2013 1:00p [facility] Tanya Serrato, 346.70 Chronic Migraine Services Of [employer] M.D. W/Out Aura W/Out Mention Intractable 300.00 Anxiety State Unspec Office Visit 04/17/2013 1:00p [facility] Tanya Serrato, 346.70 Chronic Migraine Services Of [employer] M.D. W/Out Aura W/Out Mention Intractable Office Visit 10/17/2012 1:30p [facility] Tanya Serrato, 346.90 Migraine Unspec Services Of [employer] M.D. W/O Intractable W/O Status Migrainosus 300.00 Anxiety State Unspec Office Visit 04/06/2012 11:15a [facility] Tanya Serrato 346.90 Migraine Unspec Services Of [employer] M.D. W/O Intractable W/O Status Migrainosus 300.00 Anxiety State Unspec Office Visit 11/05/2011 11:30a [facility] Wendi Serrato 346.90 Migraine Unspec Services Of [employer] M.D. W/O Intractable W/O Status Migrainosus 300.00 Anxiety State Unspec Plan of Treatment Future Appointment(s):09/28/2018 9:00 am - Tanya Serrato M.D. at [facility] [id number]/[id number]/2018 - George Toro M.D.F31.9 Bipolar disorder, wuwknwwnxahJ44.9 Hypothyroidism, rmcgybheiaoB33.9 Chronic kidney disease, egalhrkecvlG88.0 Mitral valve disorderFollow up:ov 10 mE78.00 Hypercholesterolemia
[2018-08-13] MEDS ORDERED: Dexamethasone IV* 4 MG/ML 1 ML (4 MG) IV SLOW PU ONE (14:39)
[2018-08-13] MEDS ORDERED: diPHENhydraMINE IV* 50 MG/ML 1 ml VIAL (BENADRYL) IV ONE (14:39)
[2018-08-13] MEDS ORDERED: Ondansetron INJ* 2 MG/ML VIAL IV ONE (14:39)
[2018-08-13] MEDS ORDERED: NS 0.9% 1000 ML** 2,000 ML IV ONE (14:39)
--- NOTE | 2018-08-13 14:45 | ED ---
Headache - HPI Summary HPI Summary: 68 year old F presenting to [facility] with a chief complaint of headache since 3 days ago. The patient rates the pain 10/10 in severity. Symptoms aggravated by nothing. Symptoms alleviated by nothing. Patient denies photophobia, unsteady gait, nausea, and vomiting. Patient has hx migraines. She was seen in ED 2.5 weeks ago for the same symptoms. She was discharged home after feeling better from IV fluids, Zofran, Decadron, and Benadryl. At her neurology followup appointment, patient and neurologist discussed changing her current prescription for Topamax but decided against it. Patient spoke with her neurologist 3 days ago who recommended extra strength Tylenol. Patient has treated the pain with extra strength Tylenol without relief. Patient called her neurologist today who is away until 08/16/18 so patient spoke with the neurologist animation artist who referred patient to ED. - History Of Current Complaint Chief Complaint: EDHeadache Stated Complaint: MIGRAINE PER PT Time Seen by Provider: 08/13/18 14:33 Hx Obtained From: Patient Onset/Duration: Started days ago - 3, Still Present Currently Pain Is: Current Pain Scale(0-10)= - 10, Severe Timing: Constant Aggravating Factor: Nothing Allevating Factors: Nothing Associated Signs And Symptoms: Negative - photophobia, unsteady gait, nausea, and vomiting - Allergies/Home Medications Allergies/Adverse Reactions: Allergies Allergy/AdvReac Type Severity Reaction Status Date / Time tramadol AdvReac See Comment Verified 08/13/18 11:30 PMH/Surg Hx/FS Hx/Imm Hx Previously Healthy: No Endocrine/Hematology History: Denies: Hx Diabetes Cardiovascular History: Reports: Hx Hypotension, Other Cardiovascular Problems/ Disorders - severe hypotension with tramadol Denies: Hx Hypertension, Hx Pacemaker/ICD Respiratory History: Reports: Other Respiratory Problems/Disorders - Respiratory Failure GI History: Reports: Hx Obstructive Bowel, Other GI Disorders - hx of MULTIPLE SBO History: Reports: Hx Acute Renal Failure, Other Problems/Disorders - URINARY RETENTION 04/25/16 [facility] ADMISSION Denies: Hx Renal Disease Sensory History: Reports: Hx Cataracts - both eyes, Hx Contacts or Glasses Denies: Hx Hearing Aid, Other Sensory Impairments Opthamlomology History: Reports: Hx Cataracts - both eyes, Hx Contacts or Glasses Denies: Other Sensory Impairments Neurological History: Reports: Hx Headaches, Hx Migraine - prn meds Psychiatric History: Reports: Hx Anxiety - HX OF BIPOLAR, SCHIZOPHRENIA, Hx Depression, Hx Schizophrenia, Hx Bipolar Disorder, Hx Suicide Attempt Denies: Hx Panic Disorder - Cancer History Hx Chemotherapy: No Hx Radiation Therapy: No - Surgical History Surgery Procedure, Year, and Place: total hysterectomy w/appendectomy, 2 c- sections, RT SHOULDER Hx Anesthesia Reactions: No - Immunization History Date of Tetanus Vaccine: utd Date of Influenza Vaccine: utd Infectious Disease History: No Infectious Disease History: Denies: Traveled Outside the [place] in Last 30 Days - Family History Known Family History: Positive: Other - No FMHx of breast cancer, FHx of depression Family History: No FHx of Breast CA. FHx of depression - Social History Alcohol Use: Rare Hx Substance Use: Yes Substance Use Type: Reports: Prescribed - RX benzos Hx Tobacco Use: Yes Smoking Status (MU): Former Smoker Amount Used/How Often: smoked for approx 30 yrs 1/2-1ppd Review of Systems Negative: Photophobia Negative: Vomiting, Nausea Neurological: Negative - unsteady gait Positive: Headache All Other Systems Reviewed And Are Negative: Yes Physical Exam - Summary Physical Exam Summary: Appearance: Well-appearing, Well-nourished, lying in bed comfortable Skin: Warm, dry, no obvious rash Eyes: sclera anicteric, no conjunctival pallor ENT: mucous membranes moist Neck: deferred Respiratory: No signs of respiratory distress Cardiovascular: Appears well perfused, pulses are nml Abdomen: deferred Musculoskeletal: Moving all 4 extremities without obvious discomfort Neurological: Awake and alert, mentation is normal, speech is fluent and appropriate Psychiatric: affect is normal, does not appear anxious or depressed Triage Information Reviewed: Yes Vital Signs On Initial Exam: Initial Vitals Temp Pulse Resp BP Pulse Ox 97.6 F 87 16 169/109 98 08/13/18 11:25 08/13/18 11:25 08/13/18 11:25 08/13/18 11:25 08/13/18 11:25 Vital Signs Reviewed: Yes Diagnostics - Vital Signs Vital Signs Temp Pulse Resp BP Pulse Ox 08/13/18 11:25 97.6 F 87 16 169/109 98 - Laboratory Lab Statement: Any lab studies that have been ordered have been reviewed, and results considered in the medical decision making process. Re-Evaluation - Re-Evaluation First Eval Re-Evaluation Time: 16:38 Change: Improved Comment: Patient's headache has improved and she would like to go home Headache Course/Dx - Course Course Of Treatment: 68 year old F presenting to [facility] with a chief complaint of headache since 3 days ago. Patient has hx migraines. She was seen in ED 2.5 weeks ago for the same symptoms. She was discharged home after receiving IV fluids, Zofran, Decadron, and Benadryl which made her feel better. Patient has treated headache with extra strength Tylenol [employer] without relief. Patient was referred to ED by neurologist animation artist. Physical exam findings: unremarkable. In the ED course, the patient was given IV fluids, Zofran, Decadron, and Benadryl. Patient feels better after medication and would like to go home. Patient will be discharged with follow up from Dr. Travis, primary care provider. The patient is agreeable with this plan. - Diagnoses Provider Diagnoses: Migraine Discharge - Sign-Out/Discharge Documenting (check all that apply): Patient Departure - Discharge Patient Received Moderate/Deep Sedation with Procedure: No - Discharge Plan Condition: Good Disposition: HOME Patient Education Materials: Migraine Headache (ED) Referrals: Love Travis DO [Primary Care Provider] - - Billing Disposition and Condition Condition: GOOD Disposition: Home - Attestation Statements Document Initiated by Shereen: Yes Documenting Scribe: Rima Jerry Provider For Whom Shereen is Documenting (Include Credential): MD Shaina Jacksonibjony Attestation: Rima Tompkins, scribed for Sang Colon MD on 08/13/18 at 2203. Scribe Documentation Reviewed: Yes Provider Attestation: The documentation as recorded by the Rima rajan accurately reflects the service I personally performed and the decisions made by me, Sang Colon MD Status of Scribe Document: Viewed
[2018-08-13 16:56] VITALS: BP 133/81
== END 2018-08-13 16:57 | disposition home or self-care (01) ==
LOC: ED 11:23
DX: G43.909 Migraine, unspecified, not intractable, without status migrainosus (principal); N17.9 Acute kidney failure, unspecified; Z88.5 Allergy status to narcotic agent; Z87.891 Personal history of nicotine dependence
CPT/HCPCS: 96361; 96374; 96375; 99282; J1100; J1200; J2405

== ENCOUNTER 2018-11-23 16:04 | Observation (INO) | payer MEDICARE ==
[2018-11-23] MEDS ORDERED: NS 0.9% 1000 ML** 1,000 ML IV ONE (16:06)
--- NOTE | 2018-11-23 16:23 | ED ---
Neurological HPI - HPI Summary HPI Summary: This patient is a 68 year old F BIBA via EMS to ED with a chief complaint of confusion since 1230 today. Patient was last seen normal by her at 0900 this morning. However at 1230 today, the patient called her . Her responded and found her wandering outside down the road. She was found rambling on about where her kids are. Randall euceda called at 1600 by EMS with an ETA of three minutes. Patient arrives at 1604. Dr. Ventura at bedside at 1604. Dr. Garzon, neurologist, at bedside at 1604. The patient rates the pain 0/10 in severity. Symptoms aggravated by nothing. Symptoms alleviated by nothing. Patient denies fever. Per Dr. Garzon, patient was seen here in March for similar symptoms. She normalized the following day, and it was determined that she missed her medications then. Patient denies shortness of breath. - History of Current Complaint Stated Complaint: POSS STROKE PER EMS Time Seen by Provider: 11/23/18 16:06 Hx Obtained From: Patient, EMS Onset/Duration: Started hours ago - Since 1230, Still Present Onset Severity: Mild Current Severity: Mild Character: Confusion Aggravating: Nothing Alleviating: Nothing Associated Signs and Symptoms: Negative: Shortness of Breath - Additional Pertinent History Primary Care Physician: [id number] - Allergy/Home Medications Allergies/Adverse Reactions: Allergies Allergy/AdvReac Type Severity Reaction Status Date / Time tramadol AdvReac See Comment Verified 08/13/18 11:30 Home Medications: Home Medications Atorvastatin* [Lipitor 40 MG*] 40 mg PO QPM 11/23/18 [History Confirmed 11/23/18 ] Calcium Carbonate/Vitamin D3 [Calcium 600 + Vit D Tablet] 1 tab PO BID 11/23/18 [History Confirmed 11/23/18] Clopidogrel TAB* [Plavix TAB*] 75 mg PO DAILY 11/23/18 [History Confirmed ] Multivitamins/Minerals TAB* [Theragran/minerals TAB*] 1 tab PO DAILY 11/23/18 [ History Confirmed 11/23/18] Psyllium Husk (with Sugar) [Metamucil Fiber Thin] 6 gm PO DAILY 11/23/18 [ History Confirmed 11/23/18] Topiramate TAB(*) [Topamax 25 MG tab] 50 mg PO BID 11/23/18 [History Confirmed 11/23/18] PMH/Surg Hx/FS Hx/Imm Hx Endocrine/Hematology History: Denies: Hx Diabetes Cardiovascular History: Reports: Hx Hypotension, Other Cardiovascular Problems/ Disorders - severe hypotension with tramadol Denies: Hx Hypertension, Hx Pacemaker/ICD Respiratory History: Reports: Other Respiratory Problems/Disorders - Respiratory Failure GI History: Reports: Hx Obstructive Bowel, Other GI Disorders - hx of MULTIPLE SBO History: Reports: Hx Acute Renal Failure, Other Problems/Disorders - URINARY RETENTION 04/25/16 [facility] ADMISSION Denies: Hx Renal Disease Sensory History: Reports: Hx Cataracts - both eyes, Hx Contacts or Glasses Denies: Hx Hearing Aid, Other Sensory Impairments Opthamlomology History: Reports: Hx Cataracts - both eyes, Hx Contacts or Glasses Denies: Other Sensory Impairments Neurological History: Reports: Hx Headaches, Hx Migraine - prn meds Psychiatric History: Reports: Hx Anxiety - HX OF BIPOLAR, SCHIZOPHRENIA, Hx Depression, Hx Schizophrenia, Hx Bipolar Disorder, Hx Suicide Attempt Denies: Hx Panic Disorder - Cancer History Hx Chemotherapy: No Hx Radiation Therapy: No - Surgical History Surgery Procedure, Year, and Place: total hysterectomy w/appendectomy, 2 c- sections, RT SHOULDER Hx Anesthesia Reactions: No - Immunization History Date of Tetanus Vaccine: utd Date of Influenza Vaccine: utd - Family History Known Family History: Positive: Other - No FMHx of breast cancer, FHx of depression Family History: No FHx of Breast CA. FHx of depression - Social History Alcohol Use: Rare Alcohol Amount: unable to confirm Hx Substance Use: Yes Substance Use Type: Reports: Prescribed Substance Use Comment - Amount & Last Used: RX benzos Hx Tobacco Use: Yes Smoking Status (MU): Former Smoker Amount Used/How Often: smoked for approx 30 yrs 1/2-1ppd Review of Systems Negative: Shortness Of Breath Neurological: Other - Confusion All Other Systems Reviewed And Are Negative: Yes Physical Exam - Summary Physical Exam Summary: VITAL SIGNS: Reviewed. GENERAL: Patient is a nontoxic looking F who is lying comfortable in the stretcher.Patient is not in any acute respiratory distress. HEAD AND FACE: No signs of trauma. No ecchymosis, hematomas or skull depressions. No sinus tenderness. EYES: PERRLA, EOMI x 2, No injected conjunctiva, no nystagmus. No photophobia. EARS: Hearing grossly intact. Ear canals and tympanic membranes are within normal limits. MOUTH: Oropharynx within normal limits. NECK: Supple, trachea is midline, no adenopathy, no JVD, no carotid bruit, no c- spine tenderness, neck with full ROM. No meningeal signs, no Kernig's or brudzinskis signs. CHEST: Symmetric, no tenderness at palpation. LUNGS: Clear to auscultation bilaterally. No wheezing or crackles. CVS: Regular rate and rhythm, S1 and S2 present, no murmurs or gallops appreciated. ABDOMEN: Soft, non-tender. No signs of distention. No rebound, no guarding, and no masses palpated. Bowel sounds are normal. EXTREMITIES: FROM in all major joints, no edema, no cyanosis or clubbing. NEURO: Confused, alert but not oriented. SKIN: Dry and warm. GCS: 15 NIH: 0 Diagnostics - Laboratory Result Diagrams: 11/24/18 06:20 11/24/18 06:20 Lab Statement: Any lab studies that have been ordered have been reviewed, and results considered in the medical decision making process. - Radiology CXR Radiology Interpretation Completed By: Radiologist Summary of Radiographic Findings: NO ACTIVE CARDIOPULMONARY DISEASE. Dr. Ventura has reviewed this radiology report. - CT Brain CT Interpretation Completed By: Radiologist Summary of CT Findings: CT NO ACUTE INTRACRANIAL PATHOLOGY. Dr. Ventura has reviewed this radiology report. - EKG 1622 Cardiac Rate: NL - 81 BPM EKG Rhythm: Sinus Rhythm Summary of EKG Findings: NSR at 81 BPM, RBBB, similar to previous. Dr. Ventura has reviewed and interpreted this EKG. NIH Scale - NIH Scale Level of Consciousness: Alert/Keenly Responsive Ask Patient the Month and His/Her Age: Both Correct Ask Pt to Open/Close Eyes and Loan Funder/Release Non-Paretic Hand: Both Correctly Best Gaze (Only Horizontal Eye Movement): Normal Visual Field Testing: No Visual Loss Facial Paresis-Pt to Smile & Close Eyes or Grimace Symmetry: Normal/Symmetrical Motor Function - Right Arm: No Drift-Holds 10 Seconds Motor Function - Left Arm: No Drift-Holds 10 Seconds Motor Function - Right Leg: No Drift-Holds 10 Seconds Motor Function - Left Leg: No Drift-Holds 10 Seconds Limb Ataxia-Must be out of Proportion to Weakness Present: Absent Sensory (Use Pinprick to Test Arms/Legs/Trunk/Face): Normal Best Language (Describe Picture, Name Items): No Aphasia Dysarthria (Read Several Words): Normal Extinction and Inattention: No Abnormality Total Score: 0 Re-Evaluation - Re-Evaluation First Eval Re-Evaluation Time: 16:50 Comment: The patient's presents to the emergency department and he also reports that the patient took an overdose of Zofran. We called poison control and they recommend to check the acetaminophen level, alcohol level and salicylate level. Course/Dx - Course Assessment/Plan: Patient is a 60-year-old female who presents to the emergency department with a chief complaint of having speech aphasia, confusion, and slow speech as per EMS. Randall melgar was called as requested by EMS. At arrival to the emergency department the patient patient does have any neurological focal deficits, and the patient doesnt seem to be aphasic. Dr. Garzon at bedside. Head CT impression: Negative for acute intracranial pathology. Dr. Garzon does not recommend TPA or CTA of the head and neck since the patient doesnt have any acute focal deficits. Also since the patient has a negative brain CT. The patient's presents to the emergency department and he also reports that the patient took an overdose of Zofran. We called poison control and they recommend to check the acetaminophen level, alcohol level and salicylate level. Blood test results without any significant abnormalities except for chloride 113, carbon dioxide 17, BUN 30, creatinine 1.71, glucose 106. Chest x-ray impression: No active cardiopulmonary disease. Urinalysis with positive contamination unclear if she has a UTI. We will send urine for culture. Urine toxicology is negative. The patient continues to be hemodynamically stable but she is confused. I discussed my physical exam and findings with from the hospital services and the patient was accepted for admission. - Differential Dx Differential Diagnoses Neuro: Positive: Anxiety, Medication Reaction, Overdose - Diagnoses Provider Diagnoses: Altered mental status During the Visit The Following Alert/Code Occurred: Randall Euceda - Physician Notifications Discussed Care Of Patient With: Reece Garzon Time Discussed With Above Provider: 16:04 Instructed by Provider To: Other - Per Dr. Garzon, patient was seen here in March for similar symptoms. She normalized the following day, and it was determined that she missed her medications then. At 1617, Dr. Jesus reports negative brain CT. At 1628, discussed patient case with Dr. Garzon, who states that patient does not have any focal deficits, not a candidate for TPA. He thinks it is a metabolic problem. At 1818 discussed patient case with Dr. Dickerson , hospitalist, who accepted the patient for admission to [facility]. Discharge ED - Sign-Out/Discharge Documenting (check all that apply): Patient Departure - Admit Patient Received Moderate/Deep Sedation with Procedure: No - Discharge Plan Condition: Fair Disposition: ADMITTED TO [facility] - Billing Disposition and Condition Condition: FAIR Disposition: Admitted to [facility] - Attestation Statements Document Initiated by Shainaibe: Yes Documenting Scribe: David Arrington Provider For Whom Shereen is Documenting (Include Credential): Lucas Ventura MD Scribe Attestation: IDavid, scribed for Lucas Ventura MD on 11/24/18 at 1851. Scribe Documentation Reviewed: Yes Provider Attestation: The documentation as recorded by the David rajan accurately reflects the service I personally performed and the decisions made by me, Lucas Ventura MD Status of Scribe Document: Viewed
[2018-11-23 16:42] LABS: ABS Lymphocytes 0.9 10^3/ul (1.0-4.8); ABS Monocytes 0.6 10^3/ul (0-0.8); ABS Neutrophils 4.1 10^3/ul (1.5-7.7); Eosinophil % 0.8 %; Hematocrit 37 % (35-47); Hemoglobin 12.6 g/dL (12.0-16.0); Lymphocyte % 16.1 %; Mean Corpuscular HGB Conc 34 g/dL (31-36); Mean Corpuscular Hemoglobin 34 pg (27-31); Mean Corpuscular Volume 100 fL (80-97); Mean Platelet Volume 6.7 fL (7.4-10.4); Platelet Count 287 10^3/uL (150-450); Red Blood Count 3.73 10^6 /uL (3.70-4.87); Red Cell Distribution Width 13 % (10-15); White Blood Count 5.7 10^3/uL (3.5-10.8)
[2018-11-23 16:55] LABS: Activated Partial Thrombo Time 34.8 seconds (26.0-38.0); INR 0.89 (0.82-1.09)
[2018-11-23 17:03] LABS: Troponin I 0.01 ng/mL (<0.04)
[2018-11-23 17:04] LABS: ALT 14 U/L (7-52); AST 18 U/L (13-39); Albumin 4.7 g/dL (3.2-5.2); Albumin/Globulin Ratio 2.1 (1-3); Alkaline Phosphatase 70 U/L (34-104); BUN/Creatinine Ratio 17.5 (8-20); Blood Urea Nitrogen 30 mg/dL (6-24); CO2 Carbon Dioxide 18 mmol/L (22-32); Calcium 9.4 mg/dL (8.6-10.3); Cholesterol 161 mg/dL; EGFR African American 35.9 (>60); EGFR Non-African American 29.7 (>60); Globulin 2.2 g/dL (2-4); Glucose 106 mg/dL (70-100); HDL Cholesterol 64.2 mg/dL; LDL Cholesterol 73 mg/dL; Potassium 4.1 mmol/L (3.5-5.0); Sodium 140 mmol/L (135-145); Total Protein 6.9 g/dL (6.4-8.9); Triglycerides 118 mg/dL
[2018-11-23 17:07] LABS: Anion Gap 9 mmol/L (2-11); Chloride 113 mmol/L (101-111)
[2018-11-23 17:37] LABS: Creatine Kinase 83 U/L (10-223)
[2018-11-23 17:41] LABS: Acetaminophen < 15 mcg/mL; Alcohol < 10 mg/dL (<10); Salicylate < 2.50 mg/dL (<30)
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
--- OUTSIDE RECORDS SUMMARY | 2018-11-23 18:33 | XMS REPORT | Continuity of Care Document ---
:1950 External Reference #:[id number] Author Name Tanya Serrato M.D. (transmitted by agent of provider Chastity Diez) Address [address], [place] [address] Care Team Providers Name Role Phone Love Travis DO - Hospitalist Care Team Information Appliance Repairer Problems Active Problems Provider Date Migraine without [...] Altered mental status BRANDT Rangel Onset: 12/07/2017 Social History Type Date Description Comments Sex Unknown Tobacco Use Start: Unknown Quit smoking 11/2016 ETOH Use consumes 1 beer per week Recreational Drug Use Denies Drug Use Tobacco Use Start: Unknown End: Patient is a former Unknown smoker Tobacco Use Start: Unknown End: Patient is a former quit December 2016 Unknown smoker Smoking Status Reviewed: 10/12/18 Patient is a former quit December 2016 [...] by mouth Unknown 02/07/2018 daily Zyprexa 1 po every night Unknown 10mg Tablets Topiramate 1 tab by mouth 60tabs Tanya Serrato, 50mg Tablets twice a day M.D. Lamictal take 1 by mouth 30tabs Tanya Serrato, 200mg Tablets twice a day M.D. Calcium 600 + D 1 po bid 60tabs Unknown [id number] Tablets Multivitamin Adults 1 by mouth every [...] Available Vital Signs Date Vital Result Comment 10/12/2018 8:32am Height 64.5 inches 5'4.50" Weight 126.00 lb Heart Rate 89 /min BP Systolic Sitting 124 mmHg BP Diastolic Sitting 92 mmHg Respiratory Rate 20 /min BMI (Body Mass Index) 21.3 kg/m2 08/02/2018 8:46am Height 64.5 inches 5'4.50" Weight 120.00 lb Clothes Heart Rate 74 /min Radial BP Systolic Sitting 132 mmHg Lue reg cuff BP Diastolic Sitting 70 mmHg Lue reg cuff BP Systolic Standing 118 mmHg Lue reg cuff BP Diastolic Standing 70 mmHg Lue reg cuff BMI (Body Mass Index) 20.3 kg/m2 Ejection Fraction > 65% Echo 12/08/2017 Results Description No Information Available Procedures Date Code Description Status 09/08/2018 [id number] Mammogram Completed 08/02/2018 [id number] EKG Tracing & Interpretation Completed 07/28/2017 [id number] Diabetic Retinal Eye Exam Completed 09/14/2016 [id number] Mammogram Completed Medical Devices Description No Information Available Encounters Type Date Location Provider Dx Diagnosis Office Visit 08/02/2018 [facility] George Comer F31.9 Bipolar disorder, 9:00a Melissa Toro unspecified E03.9 Hypothyroidism, unspecified N18.9 Chronic kidney disease, unspecified I34.0 Nonrheumatic mitral (valve) insufficiency E78.00 Pure hypercholesterolemia, unspecified Assessments Date Code Description Provider 10/12/2018 Z86.73 Personal history of transient ischemic Tanya Serrato M.D. attack (TIA), and cer 10/12/2018 F41.9 Anxiety disorder, unspecified Tanya Serrato M.D. 10/12/2018 G43.709 Chronic migraine without aura, not Tanya Serrato M.D. intractable, without status migrainosus 08/02/2018 F31.9 Bipolar disorder, unspecified George Troo M.D. 08/02/2018 E03.9 Hypothyroidism, unspecified George Toro M.D. 08/02/2018 N18.9 Chronic kidney disease, unspecified George Toro M.D. 08/02/2018 I34.0 Mitral valve disorder George Toro M.D. 08/02/2018 E78.00 Hypercholesterolemia George Toro M.D. Plan of Treatment Future Appointment(s):04/19/2019 9:00 am - Tanya Serrato M.D. at [facility]/08/2018 10:00 am - Love Travis DO at [facility] - [address]/ - Tanya Serrato M.D.Z86.73 Personal history of transient ischemic attack (TIA), and cerF41.9 Anxiety disorder, [id number] Chronic migraine without aura, not intractable, without status migrainosusFollow up:6 MONTHS Functional Status Description No Information Available Mental Status Description No Information Available Referrals Description No Information Available
[2018-11-23 18:41] LABS: Urine Appearance Clear; Urine Bacteria Absent (Absent); Urine Bilirubin Negative (Negative); Urine Blood Negative (Negative); Urine Color Yellow; Urine Glucose Negative (Negative); Urine Ketones Negative (Negative); Urine Nitrite Negative (Negative); Urine Protein Negative (Negative); Urine Red Blood Cell Absent (Absent); Urine Specific Gravity 1.008 (1.010-1.030); Urine Squamous Epithelial Cell Present (Absent); Urine Urobilinogen Negative (Negative); Urine White Blood Cell 1+(6-10/hpf) (Absent)
[2018-11-23 18:45] LABS: Urine Benzodiazepine Screen None Detected (None Detect); Urine Opiates Screen None Detected (None Detect)
--- NOTE | 2018-11-23 20:05 | CONS ---
NEUROLOGY CONSULTATION: DATE OF CONSULT: 11/23/18 REFERRING PROVIDER: Dr. Ventura. PRIMARY CARE PROVIDER: Dr. Travis. CHIEF COMPLAINT: Confusion, disorientation. HISTORY OF PRESENT ILLNESS: Naheed Moran is a 68-year-old woman, who was brought in by ambulance as a code melgar. The ambulance attendants state that her called her and she was making no sense whatsoever. They went to get her at her house and she was wandering down the street disoriented. According to the ambulance attendants, the last time her had seen her that she seemed well was 9 a.m. The patient is not able to give a reasonable history. 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 She is on a number of medications and she says she takes them regularly, but cannot give a clear account of what she takes. She is on topiramate and lamotrigine and I asked her if she has seizures and she said no. I was able subsequently able to access some additional medical records and she presented to the hospital almost identically last March and she was clear by the next morning. I spoke with Dr. Travis, who is her primary care provider and said that she has misused her medications numerous times and previously last March when this happened she had taken extra doses of her Lyrica. There is no prior history of transient ischemic attack or stroke. The patient denies headache, nausea, or any falls. She denies any abdominal pain. She is somewhat giggly and has very poor attention and concentration. PAST MEDICAL HISTORY: Notable for bipolar disorder, suicidal gestures going back to her youth, chronic kidney disease, hysterectomy, appendectomy, migraines , history of small bowel obstruction, and admissions for possible weakness on one side and confusion, which cleared spontaneously, thought to possibly be transient ischemic attacks. MEDICATIONS: Currently, medications from home are not known. The best we can tell from records brought by the audit mgr is that she is on: 1. Atorvastatin. 2. Plavix 75 mg. 3. Lamotrigine 200 mg p.o. b.i.d. 4. Topiramate 50 mg p.o. b.i.d. 5. Olanzapine 10 mg p.o. q.h.s. 6. Zofran 4 to 8 mg p.o. q.8 hours as needed, presumably for nausea or migraine. ALLERGIES: She is listed as having an allergy to TRAMADOL. REVIEW OF SYSTEMS: From the patient is to be considered unreliable. Again, she denies headache, problems with vision, abdominal pain, nausea, or recent falls. PHYSICAL EXAM: She is a very thin woman, who is fairly meticulously dressed. Her initial temp by forehead scan was 100 degrees, subsequently rectal temperature was 99.2. Blood pressure 118/76 and heart rate 86 and in sinus on the monitor. Respiratory rate is 16 and oxygen saturation is 96% on room air. Heart tones are normal. Neck is supple. Oral mucosa is moist and atraumatic. Head is atraumatic. Neurological Exam: Pupils react equally from 4 down to 2 mm. Visual mcgowan are full to confrontation. Funduscopic exam is normal. Eye movements are normal and there is no nystagmus. Facial musculature is symmetric. Facial sensation to light touch is intact and symmetric. Palate and tongue are normal and speech is mildly dysarthric. Motor exam reveals normal strength in all limbs. There is no drift of any limb. There is no sustention tremor. Finger taps are normal in the hands. There is no myoclonus or asterixis noted. Sensory exam to light touch is intact and symmetric in all limbs. Reflexes are brisk at the knees, plantar responses are flexor bilaterally. Fwrprb-ou-obyt maneuver is normally bilaterally. She is somewhat alert, but looks a little bit drowsy. She responds immediately to voice and follows commands. She is somewhat disoriented to place and time. She thinks she is in [place]. She knows the month, but not the day of the week. She has very poor attention and concentration. She loses her train of thought frequently and changes subjects. She has occasional word-finding problems as well. I did not attempt to ambulate her. DIAGNOSTIC STUDIES/LAB DATA: Laboratory data so far includes a CT scan of the brain interpreted as normal. I reviewed the images personally and I agree. Chest x-ray is interpreted as normal. EKG reveals a right bundle-branch block. She actually had blood work done this morning. She had a normal white blood cell count at 5.6 and this afternoon in the emergency room it is 5.7. She has normal hemoglobin and hematocrit and platelet count. Her MCV is a little bit elevated at 100. Chemistries in the emergency room today notable for a creatinine of 1.64, which is fairly stable compared to historical norms. BUN is 32 and glucose is 117. Liver enzymes are normal. Her TSH is normal at 5.10. IMPRESSION AND PLAN: Impression is that of a probable toxic metabolic encephalopathy, I suspect it is toxic from misuse of her medications. This has been done before and fortunately Dr. Travis is in the emergency room and able to corroborate that that is the case. She says that her actually doles out her medications and keeps them locked. I certainly do not see evidence for a cerebrovascular event and do not recommend tPA nor do I recommend a CT angiogram given her chronic kidney disease. Her NIH Score would be 4 because of her somnolence, confusion, and dysarthria. I have added blood work to include a creatine kinase level given her use of dopamine blockers. I will also put in for lamotrigine and topiramate level. When her arrives, we will be able to get hopefully further information. I will continue to follow her along with you. [id number]/[facility] #: [id number] JEET
[2018-11-23] MEDS ORDERED: NS 0.9% 1000 ML** 1,000 ML IV SCH (20:15)
[2018-11-23 20:55] LABS: LDH 130 U/L (140-271)
[2018-11-23] MEDS ORDERED: OLANzapine TAB* 10 MG PO SCH (21:00)
[2018-11-23] MEDS: lamoTRIgine TAB(*) 100 MG PO SCH (22:05)
[2018-11-23] MEDS: Topiramate TAB(*) 25 MG PO SCH (22:05)
--- NOTE | 2018-11-24 01:26 | HP ---
CC: Dr. Love Travis * HISTORY AND PHYSICAL: DATE OF ADMISSION: 11/23/18 PROVIDER: Sury Jeff NP PRIMARY CARE PROVIDER: Dr. Love Travis. ATTENDING PHYSICIAN: Dr. Laureen Melchor * (dictated by Sury Jeff NP). CHIEF COMPLAINT: Altered mental status. HISTORY OF PRESENT ILLNESS: Ms. Moran is a 68-year-old female with past medical history of chronic kidney disease, migraines, TIA, anxiety, depression, and bipolar disorder, who presents to the emergency room today with altered mental status. I note that the patient was hospitalized at this facility from to 03/18/18 for altered mental status which was ultimately felt to be secondary to high doses of Lyrica and she was hospitalized at this facility from 12/10/17 to 12/12/17 for altered mental status presumed to be secondary to high amounts of lorazepam and tramadol. The history today is obtained from the patient's as the patient is incoherent at this point. Her reports that he last saw her normal around 7 a.m. this morning when he left for work. She had been in her normal state of health. He reports that she did drive to the hospital this morning to have blood work drawn and as far as he knows, there were no issues. He received a call from her at 12:30 today at which time she sounded quite confused. He was at work and unable to leave at that point, although ultimately left work at 3:30. He found her walking down the road approximately half a mile from their house and making odd statements that were nonsensical. When they got home, she actually got out of the car while it was still moving at a low speed because she was upset when he said that he felt as though she needed to go to the hospital. Her mental status remained altered and so ultimately the patient's called EMS as he was not able to get her to the emergency room himself. In the emergency room, the patient was noted to be very confused making nonsensical statements about helping out some boys and girls with shirts and pants. She is not sure where she is right now and knows it is 11/23, but believes it is 1968. When I was speaking with her about her medications , she was very adamant that she had left some Zofran in multiple places around the house and that she wanted to go home with him so that she could show him where she left those pills. The patient's does have with him a bottle of Zofran; this prescription was filled on 11/17/18, and there were 40 tablets; as of today, there are 32 tablets missing. Since the patient's last hospitalization, he had kept her meds locked so that she does not have access to them and he gives her her medications daily so that she does not have access to more than 1 day worth of medications, though notes that she does have access to other medications such as Tylenol and Benadryl and he did not take away the Zofran from her when the prescription was filled as he did not think that this was a worrisome medication for her to have in her possession. She is unable to state how many Zofran she took today, though as indicated earlier she is very adamant that she had stashed pills around the house, though cannot tell of where or why. In the emergency room, the patient had lab work which was mostly unremarkable, consistent with her baseline. She had a toxicology screen which was negative. Salicylate, acetaminophen, and serum alcohol were also negative. Vitals were noted to be stable. Because of the concern for Zofran overdose, Poison Control was contacted by the ED nurse and at that point they recommended 6 hours of monitoring as well as alcohol, salicylate, and acetaminophen levels. Because of the need for monitoring overnight, the hospitalist service was asked to evaluate for admission. PAST MEDICAL HISTORY: 1. Chronic kidney disease, stage III. 2. Migraines. 3. TIA. 4. Anxiety. 5. Depression. 6. Bipolar disorder. PAST SURGICAL HISTORY: 1. Hysterectomy. 2. Appendectomy. 3. section x2. 4. Right shoulder surgery. HOME MEDICATIONS: 1. Atorvastatin 40 mg p.o. at bedtime. 2. Calcium 600 plus vitamin D 1 tab p.o. b.i.d. 3. Plavix 75 mg p.o. daily. 4. Lamictal 200 mg p.o. b.i.d. 5. Multivitamin 1 tab p.o. daily. 6. Zyprexa 10 mg p.o. at bedtime. 7. Zofran 4 to 8 mg p.o. q. 8 hours p.r.n. nausea, vomiting. 8. Metamucil 6 g p.o. daily 9. Topamax 50 mg p.o. b.i.d. ALLERGIES: TRAMADOL. FAMILY HISTORY: Significant for depression. SOCIAL HISTORY: The patient has an approximate [id number] smoking history. She denies any alcohol or recreational drug use. She lives at home with her , Rich, who will be her surrogate decision maker in the event she is unable to make her own decisions. REVIEW OF SYSTEMS: An 11-point review of systems was performed and all the pertinent positive and negative findings are in the HPI. All other systems are negative. PHYSICAL EXAMINATION GENERAL: Ms. Moran is a well-developed, well-nourished, middle aged white female sitting in bed, in no acute distress. She appears her stated age. VITAL SIGNS: Temp 99.0, heart rate 71, respiratory rate 15, oxygen saturation 100% on room air, and blood pressure 140/87. HEENT: Head is atraumatic, normocephalic. Visual mcgowan are grossly intact. Pupils are equal, round, and reactive to light and accommodation. Extraocular movements intact. Oral mucous membranes are moist. NECK: Thyroid not palpable. Trachea midline. No lymphadenopathy. RESPIRATORY: Symmetrical chest expansion. No chest wall deformities. Lungs are clear to auscultation throughout. No rhonchi, wheezes, or rubs. CARDIOVASCULAR: Regular rate and rhythm. S1, S2 present. No murmurs, rubs, or gallops. EXTREMITIES: Skin warm and smooth bilaterally. No edema. No clubbing or cyanosis. Pedal pulses are 2+ bilaterally. ABDOMEN: Soft, nontender to palpation. Bowel sounds are normoactive throughout. NEURO: Awake, alert, and only oriented to self. The patient makes nonsensical statements and has tangential speech. Motor strength is 5/5 in the upper and lower extremities bilaterally. DIAGNOSTIC STUDIES/LAB DATA: WBC 5.7, RBC 3.73, hemoglobin 12.6, hematocrit 37 , platelets 287. INR 0.89. Sodium 140, potassium 4.1, chloride 113, carbon dioxide 18. BUN 30, creatinine 1.71. Glucose 106. Lactic acid 0.7. AST 18, ALT 14, alk phos 70. LDH 130. Troponin 0.01. Urinalysis remarkable for 1+ leukocyte esterase and 1+ white blood cells. Urine toxicology negative salicylate and acetaminophen, and serum alcohol negative. Brain CT reads as no acute intracranial pathology. Chest x-ray reads as no active cardiopulmonary disease. EKG shows normal sinus rhythm with a rate of 81, QTc 428, right bundle-branch block. This is consistent with previous EKG on file from March 2018. ASSESSMENT AND PLAN: Ms. Moran is a 68-year-old female with past medical history of multiple medication overdoses, chronic kidney disease, migraines, transient ischemic attack, anxiety, depression, and bipolar disorder, who presents to the emergency room today with altered mental status. The patient will be admitted observation for: 1. Toxic metabolic encephalopathy. This altered mental status is certainly presumed to be secondary to Zofran overdose as the prescription that was filled 6 days ago has 32 tablets missing. At this point, there is no other obvious explanation for her altered mental status, although the patient is not able to corroborate the story. Poison Control has been contacted of and they recommended 6 hours of monitoring. Literature on Zofran overdose is limited. It is unclear if her symptoms are typical of this. She was seen in the emergency room by Dr. Garzon who felt that this was a toxic metabolic encephalopathy due to the patient's history. He did order Lamictal and Topamax levels which are pending at this time. We will monitor the patient on telemetry and with neuro checks every 4 hours. For a patient with normal liver function, Zofran does have a half life of 3 to 6 hours, so I would hope that the patient's mental status is improved by tomorrow morning. 2. Chronic kidney disease. Creatinine is at baseline. 3. History of transient ischemic attack. Continue Plavix and atorvastatin. 4. Migraine. Continue Topamax. 5. Bipolar disorder, anxiety, and depression. Continue Lamictal and Zyprexa. 6. FEN. The patient does not require any fluid resuscitation or electrolyte repletion. I have ordered a regular diet. 7. Code status. The patient will be a full code. 8. DVT prophylaxis. According to the DVT Risk Assessment, the patient scores a 2, putting her at moderate risk. I have ordered SCDs. TIME SPENT: Approximately 60 minutes was spent on this admission; greater than half of that time spent face to face with the patient and her obtaining my history, performing my physical exam, and reviewing the plan of care. This case has been reviewed with my attending, Dr. Melchor, who is in agreement with the plan of care. SURY JEFF, SUKHI [id number]/[facility] #: [id number] JEET
[2018-11-24 06:55] LABS: ABS Eosinophils 0.1 10^3/ul (0-0.6); ABS Lymphocytes 0.8 10^3/ul (1.0-4.8); ABS Monocytes 0.6 10^3/ul (0-0.8); ABS Neutrophils 4.2 10^3/ul (1.5-7.7); Eosinophil % 1.5 %; Hematocrit 37 % (35-47); Hemoglobin 12.4 g/dL (12.0-16.0); Lymphocyte % 14.6 %; Mean Corpuscular HGB Conc 34 g/dL (31-36); Mean Corpuscular Hemoglobin 34 pg (27-31); Mean Corpuscular Volume 102 fL (80-97); Mean Platelet Volume 6.5 fL (7.4-10.4); Nucleated Red Blood Cells % 0.1; Platelet Count 261 10^3/uL (150-450); Red Blood Count 3.65 10^6 /uL (3.70-4.87); Red Cell Distribution Width 13 % (10-15); White Blood Count 5.7 10^3/uL (3.5-10.8)
[2018-11-24 07:11] LABS: Albumin 4.4 g/dL (3.2-5.2); Albumin/Globulin Ratio 2.2 (1-3); BUN/Creatinine Ratio 15.8 (8-20); Calcium 8.7 mg/dL (8.6-10.3); EGFR African American 45.6 (>60); EGFR Non-African American 37.7 (>60); Potassium 3.5 mmol/L (3.5-5.0); Total Bilirubin 0.5 mg/dL (0.2-1.0); Total Protein 6.4 g/dL (6.4-8.9)
[2018-11-24] MEDS: lamoTRIgine TAB(*) 100 MG PO SCH (07:48)
[2018-11-24] MEDS: Topiramate TAB(*) 25 MG PO SCH (07:49)
[2018-11-24] MEDS ORDERED: Multivitamins/Minerals TAB PO SCH (09:00)
[2018-11-24] MEDS ORDERED: Clopidogrel TAB* 75 MG PO SCH (09:00)
--- NOTE | 2018-11-24 09:46 | CONSULT ---
Consult Consult: Consult Reason: Recent altered mental status changes. ID: 68 year old female with a history of Bipolar disorder who is with 2 children and lives with her presented with mental status changes. CC " I was not myself" The patient was brought to [facility] emergency room after her called EMS upon noticing behavioral changes that included making illogical statements and was confused. According to the EMR the patient presented with disorganized behavior and thought process. Since that time the patient has shown signs of improvement. Upon evaluation that patient reported that she did not take a overdose of medications but walks 5 miles and did not eat or drink fluids that day. She remembers seeing herself help boarding house manager but says I know that it never happened. According to her he manages her medications at home. He is uncertain if she took more zofran pills than directed. He feels that she is back to her baseline and believes that she is currently not a treat to herself and or others. The patient wants to live for her children and herself. She denied access to firearms and or stockpiles of medications. Her confirmed that firearms are locked up and out of her access. She reported adequate sleep and diminished appetite. Patient feels connected socially and with her family. The patient denied suicidal and or homicidal ideation intent or plan. The patient denied auditory and/ or visual hallucinations. The patient denied rash , muscle spasms, sweating, tremor. MDD Denied feeling depressed. Denied having diminished interests which were found to be enjoyable in the past. Denied having crying spells , feeling empty inside , feelings of hopelessness , and worthlessness. Denied unintentional weight loss and appetite. Denied interruption of sleep , or feeling tired throughout the day. Denied loss of energy or lack of motivation to complete tasks. Denied overwhelming feelings of guilt or decreased concentration. Denied recurrent thoughts of . Denied thoughts that they would be better off . Anxiety At times she feels restless, high strung, and worries often. Denied having symptoms of anxiety such as having times where heart feels that it is beating out of chest , sweaty palms, or shallow breathing. Denied having uncomfortable or intrusive thoughts. Bipolar Denied recent symptoms of sonia such as having many ideas at once. Denied increased talkativeness where no one can interrupt. Denied feeling irritable most of the time while having an persistent abundance of energy most of the day without the use of energy drinks, stimulants, or recreational drug use. Denied an increase in intensity in goal directed activities. Denied having the decreased need to sleep for days , having prolonged elevated mood , or feeling on top of the world. Denied impulsive risky sexual encounters. Denied spending money recklessly , going on spending sprees wiping out savings. Denied impulsively traveling out of town or country, having super reeder, and unrealistic wealth or fame. Psychosis Does not endorse hearing things that other people do not hear or seeing things other people do not see. Denied feeling that TV is making references. Denied feeling that people are spying , following , or reading their thoughts. Phobias: Patient denied having excessive fear of a particular thing or situation. Eating disorders: Patient denied having excessive eating habits or feelings of guilt after eating. Denied repeated episodes of self induced vomiting after eating. PTSD Denied flashbacks, nightmares and avoidance of a prior traumatic event. PAST PSYCHIATRIC HISTORY: Prior Diagnosis : Bipolar I disorder History of past Psychiatric Hospitalizations: 1 prior psychiatric [place] 30 [place] [facility] [place] of past suicide/homicide attempts : Denied past suicide attempts. No history of violence. Outpatient follow-up: Currently her PCP is Dr. Traivs and she follows up at [facility]. Her previous psychiatrist Dr. Solomon Medications: Past trials of medications include zyprexa 10mg qhs and lamictal 200mg BID FAMILY HISTORY: - Suicide: Denied family history of suicide. - Mental illness: Son has bipolar I disorder - Substance abuse: Denied substance abuse among family members. SUBSTANCE ABUSE HISTORY: Denied recent use of alcohol, tobacco, heroin cocaine or other illicit substances. Denied abusing pills for recreational use. Denied past Substance abuse treatment. Has a 45 pack year of smoking and quit 2 years ago SOCIAL HISTORY: - She denied a history of childhood physical and or sexual abuse Born in [place] and raised by both of her parents. She is currently retired from being a medical fee clerk - Education: 1 year of College, no history of special education. - Living situation: Lives at home with her in [facility] - Relationship: with 2 children - Legal history: Denied - service history: Denied - Rich is her surrogate decision maker PAST MEDICAL HISTORY: CKD, Migraines, TIA, - Allergies: Tramadol Physical Exam: Please see ED note Mental Status Exam APPEARANCE : 68year old female who appears stated age resting comfortably in bed. Patient is not malodourous, and appears to have fair hygiene and grooming. BEHAVIOR: Cooperative , calm EYE CONTACT: Fair PSYCHOMOTOR ACTIVITY: No psychomotor agitation or retardation. MOVEMENTS: No abnormal movements observed. SPEECH : Normal rate, rhythm, volume and tone. MOOD : "Fine " AFFECT : Range is full Mood Congruent THOUGHT PROCESS: Formulated and organized in a logical, linear goal directed manner. No flight of ideas, neologism (made up words) , perseveration , tangential , loose associations , or circumstantiality. THOUGHT CONTENT: no delusions, obsessions, phobias or preoccupations. PERCEPTION: No current auditory or visual hallucinations. Doesnt appear to be responding to internal cues. No evidence of depersonalization , de-realization, or illusions SUICIDALITY Denied suicidal ideation, intent or plan. HOMICIDALITY Denied homicidal ideation, intent or plan. Insight/judgment: Good insight and judgment ORIENTATION: Oriented to self, location, and time. Knows the name of the current president and abstraction and judgment intact. Missed one letter spelling world backwards. Diagnosis: Bipolar I disorder. Resolved Toxic Metabolic Encephalopathy Assessment: 68 year female with a past history of bipolar disorder presented with altered mental status changes. Patient shows improvement of mental status and is currently lucid and organized. Plan # Patient does not require inpatient psychiatric admission at this time. # Recommend outpatient psychiatric follow up. She plans to go to a psychiatric community provider and continue at family and children's. # Medical management per primary team. # Most recent EKG QTc indicated 428 # No signs of serotonin syndrome. #Evidence gathered from her suggested the uncertainly of this being a intentional overdose. Her confirmed that firearms are locked up and out of her access and that he will manage her medications. #Patient can restart home medications. # Lamictal level pending # Psychiatry will sign off, please call if you have any questions # Risk factors: , Age, history of bipolar disorder. # Protective factors: Currently no suicidal ideation, intent or plan. No prior suicide attempts. No prior trauma history. Has strong social/ family support system. No history of service. Currently no feelings of hopelessness, not in an occupation of social isolation, doesnt have multiple medical conditions, no family history of suicide, doesnt have access to firearms. Doesn t have command hallucinations and or psychotic features at this time. No current substance abuse. No current alcohol abuse. Currently future orientated. Patient engaged in treatment and compliant with medication. Has children and is . Philip Sharpe M.D. Attending Psychiatrist #[id number] Atorvastatin Calcium (Lipitor*) 40 mg PO QPM [facility] Clopidogrel Bisulfate (Plavix Tab*) 75 mg PO DAILY [facility] Last Admin: 11/24/18 07:49 Dose: 75 mg Sodium Chloride (Ns 0.9% 1000 Ml) 1,000 mls @ 75 mls/hr IV PER RATE [facility] Last Admin: 11/24/18 07:51 Dose: 75 mls/hr Lamotrigine (Lamictal Tab(*)) 200 mg PO BID [facility] Last Admin: 11/24/18 07:48 Dose: 200 mg Multivitamins/Minerals (Theragran/Minerals Tab*) 1 tab PO DAILY [facility] Last Admin: 11/24/18 07:49 Dose: 1 tab Olanzapine (Zyprexa Tab*) 10 mg PO BEDTIME [facility] Last Admin: 11/23/18 22:07 Dose: 10 mg Topiramate (Topamax(*)) 50 mg PO BID [facility] Last Admin: 11/24/18 07:49 Dose: 50 mg
[2018-11-24 13:43] VITALS: BP 114/65
--- NOTE | 2018-11-24 15:19 | DS ---
CC: Dr. Ruel Garrett, [facility] * DISCHARGE SUMMARY: DATE OF ADMISSION: 11/23/18 DATE OF DISCHARGE: 11/24/18 PRINCIPAL DISCHARGE DIAGNOSIS: Hyperactive delirium. SECONDARY DISCHARGE DIAGNOSES: 1. Bipolar disorder. 2. History of a transient ischemic attack. 3. History of osteoporosis. MEDICATIONS AT DISCHARGE: 1. Lamotrigine 200 mg b.i.d. 2. Olanzapine 10 mg at bedtime. 3. Multivitamin daily. 4. Clopidogrel 75 mg daily. 5. Calcium carbonate/vitamin D 1 tab b.i.d. 6. Topamax 50 mg b.i.d. 7. Psyllium husk 6 g daily. 8. Atorvastatin 40 mg at bedtime. PHYSICAL EXAMINATION AT DISCHARGE: Vital Signs: Temperature 98.0, heart rate 65, respiratory rate 16, pulse ox 97% on room air, blood pressure 119/65. General: Alert well-appearing female, in no distress. She is resting comfortably in bed, reading a newspaper. She was also observed walking the hallway with an aide this morning. HEENT: Pupils are 3 mm bilaterally and reactive to light. No nystagmus is present. Oral mucosa is moist. Neck: No JVP. No adenopathy. Chest: She is in a regular rate and rhythm with no murmurs. Her lungs are clear bilaterally. Abdomen: Soft, nontender, nondistended. Extremities: No edema, rashes, ulcers, or tremor. Neurologic: Her strength is 5/5 in all extremities. Her gait is normal. Psych: She is oriented and has appropriate thought process. She shows forward thinking. Her thoughts are coherent and she expresses good insight into her disease processes and has plans for discharge. HOSPITAL COURSE BY PROBLEM: 1. Hyperactive delirium. The etiology of her delirium remains unclear, but it was completely resolved within approximately 8 hours after discharge with no intervention beside IV hydration. Naheed is well known to me and has a history of medication misuse, particularly when she was on Lyrica and benzodiazepines; however, all of these medications have been discontinued and her is a reliable advocate for her and keeps her medications in a safe and gives them to her as scheduled. They were locked and he did a pill count when she became delirious yesterday and all pills were accounted for except for Zofran which was missing more pills than it should have been. It would be unusual for Zofran overdose to cause delirium, but certainly possible. Her EKG was within normal limits, which is reassuring in the setting of a possible Zofran overuse; however, the remainder of her workup was negative, a urine tox was negative. Electrolytes, renal function, liver function, coags and blood counts were all within normal limits and she had no localizing symptoms. Again , with her symptoms resolving so quickly, this is unlikely to have been a primary psychosis and I consulted with Psychiatry to confirm this theory and they agreed that this was unlikely to be a primary psychosis given her quick resolution the following morning. They agree with her current psychiatric medication regimen and we will continue this and they do not believe that any of these medications would give her the side effect unless taken in large quantities. A Topamax and lamotrigine level are pending at the time of discharge, but again she is back to her baseline at discharge. 2. Bipolar disorder. Psychiatry does not believe this was a presentation of sonia and I agree. They do not believe that she needed inpatient psychiatric hospitalization. Unfortunately, her outpatient psychiatrist recently closed her practice which has been a source of stress for Naheed. She has; however, established with another psychiatrist [employer]IST[employer] SHIFT SUPERVISOR and she plans to continue to follow with them as an outpatient. 3. History of transient ischemic attack. She follows with Dr. Serrato and takes atorvastatin, clopidogrel and aspirin. 4. Osteoporosis. She is not on a bisphosphonate due to chronic kidney disease , but has plans to follow with Dr. Plasencia to discuss further osteoporosis treatment. CONDITION AT THE TIME OF DISCHARGE: Stable. DISPOSITION: Ms. Moran is being discharged to home with her and close PCP and Psychiatry followup. [id number]/[facility] #: [id number] [facility]
[2018-11-24] MEDS ORDERED: Atorvastatin* 40 MG TAB PO SCH (18:00)
== END 2018-11-24 14:20 | disposition home or self-care (01) ==
LOC: ED 16:04 → MED 20:03
PROVIDERS: ADMIT Hospitalist; ATTEND Internal Medicine
DX: N18.3 Chronic kidney disease, stage 3 (moderate) (principal); F31.9 Bipolar disorder, unspecified; F41.9 Anxiety disorder, unspecified; Z86.73 Personal history of transient ischemic attack (TIA), and cerebral infarction without residual deficits; M81.0 Age-related osteoporosis without current pathological fracture; Z79.899 Other long term (current) drug therapy; Z87.891 Personal history of nicotine dependence; R41.0 Disorientation, unspecified
CPT/HCPCS: 36415; 70450; 71045; 80053; 80061; 80175; 80201; 80307; 80320; 80329; 81003; 81015; 82550; 83605; 83615; 84484; 85025; 85610; 85730; 87040; 87086; 93005; 99285; A9270-GY; G0378; G0480

== ENCOUNTER 2018-11-26 09:01 | Emergency (ER) | payer MEDICARE ==
--- NOTE | 2018-11-26 09:57 | ED ---
Headache - HPI Summary HPI Summary: This pt is a 68 y/o female presenting to [facility] c/o headache x3 days. Pt reports she has hx migraine headaches for the past 20 years and gets one every 4-6 weeks. She states she sees Dr. Serrato, neurologist, and is on medications for her headache. Pt called Dr. Serrato today and states she is away this weekend. Pt describes her headache on the frontal head. Pt notes associated symptoms of mild nausea. Denies fever, nausea, photophobia. Pt has taken Tylenol this morning without relief. Per EMR, pt was discharged from the hospital 3 days ago. - History Of Current Complaint Chief Complaint: EDHeadache Stated Complaint: MIGRAINE PER PT Time Seen by Provider: 11/26/18 09:43 Hx Obtained From: Patient Onset/Duration: Started days ago - 3, Still Present Currently Pain Is: Moderate Timing: Days Character: Typical Headache Location of Headache: Frontal Aggravating Factor: Nothing Allevating Factors: Nothing Associated Signs And Symptoms: Nausea, Other (Noted In Comments) - NEGATIVE: fever, vomiting, photophobia - Allergies/Home Medications Allergies/Adverse Reactions: Allergies Allergy/AdvReac Type Severity Reaction Status Date / Time tramadol AdvReac See Comment Verified 11/26/18 09:13 Home Medications: Home Medications Acetaminophen [Tylenol Extra Strength] 1 - 2 tab PO Q8H PRN 11/26/18 [History Confirmed 11/26/18] Ondansetron TAB* [Zofran 4 MG Tab*] 4 - 8 mg PO Q8H PRN 11/26/18 [History Confirmed 11/26/18] PMH/Surg Hx/FS Hx/Imm Hx Endocrine/Hematology History: Denies: Hx Diabetes Cardiovascular History: Reports: Hx Hypotension, Other Cardiovascular Problems/ Disorders - severe hypotension with tramadol Denies: Hx Hypertension, Hx Pacemaker/ICD Respiratory History: Reports: Other Respiratory Problems/Disorders - Respiratory Failure GI History: Reports: Hx Obstructive Bowel, Other GI Disorders - hx of MULTIPLE SBO History: Reports: Hx Acute Renal Failure, Other Problems/Disorders - URINARY RETENTION 04/25/16 [facility]MISS[facility] Denies: Hx Renal Disease Sensory History: Reports: Hx Cataracts - both eyes, Hx Contacts or Glasses Denies: Hx Hearing Aid, Other Sensory Impairments Opthamlomology History: Reports: Hx Cataracts - both eyes, Hx Contacts or Glasses Denies: Other Sensory Impairments Neurological History: Reports: Hx Headaches, Hx Migraine - prn meds Psychiatric History: Reports: Hx Anxiety - HX OF BIPOLAR, SCHIZOPHRENIA, Hx Depression, Hx Schizophrenia, Hx Bipolar Disorder, Hx Suicide Attempt Denies: Hx Panic Disorder - Cancer History Hx Chemotherapy: No Hx Radiation Therapy: No - Surgical History Surgery Procedure, Year, and Place: total hysterectomy w/appendectomy, 2 c- sections, RT SHOULDER Hx Anesthesia Reactions: No - Immunization History Date of Tetanus Vaccine: utd Date of Influenza Vaccine: utd Infectious Disease History: No Infectious Disease History: Denies: Traveled Outside the [place] in Last 30 Days - Family History Known Family History: Positive: Other - No FMHx of breast cancer, FHx of depression Family History: No FHx of Breast CA. FHx of depression - Social History Alcohol Use: None Alcohol Amount: unable to confirm Hx Substance Use: Yes Substance Use Type: Reports: None Substance Use Comment - Amount & Last Used: RX benzos Hx Tobacco Use: Yes Smoking Status (MU): Former Smoker Amount Used/How Often: smoked for approx 30 yrs 1/2-1ppd Length of Time of Smoking/Using Tobacco: 30 years Review of Systems Negative: Fever, Chills Negative: Photophobia Positive: Nausea. Negative: Vomiting Positive: Headache All Other Systems Reviewed And Are Negative: Yes Physical Exam - Summary Physical Exam Summary: Appearance: The patient is well-nourished in no acute distress and in no acute pain. Skin: The skin is warm and dry, and skin color reflects adequate perfusion. HEENT: The head is normocephalic and atraumatic. The pupils are equal and reactive. The conjunctivae are clear and without drainage. Nares are patent and without drainage. Mouth reveals moist mucous membranes, and the throat is without erythema and exudate. The external ears are intact. The ear canals are patent and without drainage. The tympanic membranes are intact. Neck: The neck is supple with full range of motion and non-tender. There are no carotid bruits. There is no neck vein distension. Respiratory: Chest is non-tender. Lungs are clear to auscultation and breath sounds are symmetrical and equal. Cardiovascular: Heart is regular rate and rhythm. There is no murmur or rub auscultated. There is no peripheral edema and pulses are symmetrical and equal. Abdomen: The abdomen is soft and non-tender. There are normal bowel sounds heard in all four quadrants and there is no organomegaly palpated. Musculoskeletal: There is no back tenderness noted. Extremities are non-tender with full range of motion. There is good capillary refill. There is no peripheral edema or calf tenderness elicited. Neurological: Patient is alert and oriented to person, place and time. The patient has symmetrical motor strength in all four extremities. Cranial nerves are grossly intact. Deep tendon reflexes are symmetrical and equal in all four extremities. Psychiatric: The patient has an appropriate affect and does not exhibit any anxiety or depression. Triage Information Reviewed: Yes Vital Signs On Initial Exam: Initial Vitals Temp Pulse Resp BP Pulse Ox 98.3 F 81 14 153/92 98 11/26/18 09:09 11/26/18 09:09 11/26/18 09:09 11/26/18 09:09 11/26/18 09:09 Vital Signs Reviewed: Yes Diagnostics - Vital Signs Vital Signs Temp Pulse Resp BP Pulse Ox 11/26/18 09:09 98.3 F 81 14 153/92 98 - Laboratory Lab Statement: Any lab studies that have been ordered have been reviewed, and results considered in the medical decision making process. Headache Course/Dx - Course Course Of Treatment: Ms. Moran presented complaining of a migraine headache which is lasted several days. She has used her rescue medication that Dr. Martinez prescribes but cannot tell me what it is. She was nontoxic in appearance with stable vitals. She was intact neurologically on exam. She was given a migraine cocktail of IV fluids, ketorolac, diphenhydramine and metoclopramide. She responded well and was discharged in good condition. - Diagnoses Provider Diagnoses: Headache Discharge ED - Sign-Out/Discharge Documenting (check all that apply): Patient Departure - Discharge home Patient Received Moderate/Deep Sedation with Procedure: No - Discharge Plan Condition: Stable Disposition: HOME Patient Education Materials: General Headache (ED) Referrals: Love Travis DO [Primary Care Provider] - Additional Instructions: Follow up with your primary care provider in 2-3 days. RETURN TO THE ED FOR ANY WORSENING OR NEW SYMPTOMS. - Billing Disposition and Condition Condition: STABLE Disposition: Home - Attestation Statements Document Initiated by Scribe: Yes Documenting Scribe: Leni Kraft Provider For Whom Scribe is Documenting (Include Credential): Sang Pineda MD Scribe Attestation: ILeni, scribed for Sang Pineda MD on 11/26/18 at 1423. Scribe Documentation Reviewed: Yes Provider Attestation: The documentation as recorded by the marvibe, Leni Kraft accurately reflects the service I personally performed and the decisions made by me, Sang Pineda MD Status of Scribe Document: Viewed
[2018-11-26] MEDS ORDERED: Ketorolac INJ* 30 MG/ML 1 ML VIAL IV PUSH ONE (10:06)
[2018-11-26] MEDS ORDERED: Metoclopramide IV* 5 MG/ML 2 ML VIAL IV ONE (10:06)
[2018-11-26] MEDS ORDERED: diPHENhydraMINE PO* 50 MG PO ONE (10:06)
[2018-11-26] MEDS ORDERED: NS 0.9% 1000 ML** 1,000 ML IV ONE (10:06)
[2018-11-26] MEDS ORDERED: Acetaminophen TAB* 325 MG PO ONE (11:29)
[2018-11-26 11:45] VITALS: BP 127/71
== END 2018-11-26 11:35 | disposition home or self-care (01) ==
LOC: ED 09:01
DX: R51 Headache (principal); I95.9 Hypotension, unspecified; F31.9 Bipolar disorder, unspecified; F20.9 Schizophrenia, unspecified; Z90.710 Acquired absence of both cervix and uterus; Z87.891 Personal history of nicotine dependence; Z79.01 Long term (current) use of anticoagulants; Z79.899 Other long term (current) drug therapy; Z88.5 Allergy status to narcotic agent
CPT/HCPCS: 96361; 96374; 96375; 99282; A9270-GY; J1885; J2765

== ENCOUNTER 2019-04-05 15:06 | Emergency (ER) | payer MEDICARE ==
--- OUTSIDE RECORDS SUMMARY | 2019-04-05 15:37 | XMS REPORT | Continuity of Care Document ---
:1950 External Reference #:[id number] Author Name Ruel Garrett MD (transmitted by agent of provider Sully Brennan) Address [address] [place] [address] Care Team Providers Name Role Phone Nicky Briones DO - Hospitalist Care Team Information Spr[employer] [phone] Problems Active Problems Provider Date Migraine without [...] hypotension Margie Chau NP Onset: 12/11/2017 Osteoporosis Nicky Briones DO Onset: 11/18/2018 Social History Type Date Description Comments Sex Unknown Tobacco Use Start: Unknown Quit smoking 11/2016 ETOH Use consumes 1 beer per week Recreational Drug Use Denies Drug Use Tobacco Use Start: Unknown End: Patient is a former Unknown smoker Tobacco Use Start: Unknown End: Patient is a former quit December 2016 Unknown smoker Smoking Status Reviewed: 02/08/19 Patient is a former quit December 2016 smoker Exercise Type/Frequency Walks daily 2 hours daily Allergies, Adverse Reactions, Alerts Active Allergies Reaction Severity Comments Date Tramadol 12/17/2017 Inactive Allergies NKDA 10/17/2012 Medications Active Medications SIG Qnty Indications Ordering Provider Date Azithromycin If you develop a 6tabs J06.9 Ruel Garrett MD 02/08/2019 250mg fever while you Tablets travel take 2 tabs on first day then 1 tab for next 4 days. Ondansetron HCL one to two by 40tabs Tanya Serrato, 09/06/2018 4mg mouth every 8 M.D. Tablets hours as needed for migraine with Tylenol and benadryl Metamucil Wafers 3 wafers by mouth Unknown 02/07/2018 daily Zyprexa 1 by mouth every 30tabs Nicky Briones, 10mg Tablets night DO Topiramate 1 tab by mouth 60tabs Tanya Serrato, 50mg Tablets twice a day M.D. Lamictal take 1 by mouth 30tabs Nicky Briones, 200mg Tablets twice a day DO Multivitamin Adults 1 by mouth every Unknown day Tablets Plavix 1 by mouth every 30tabs Nicky Briones, 75mg Tablets day DO Atorvastatin Calcium take 1 by mouth 30tabs Nicky Briones, every night DO 40mg Tablets Caltrate 600 one capsule by Unknown mouth 2-3 times 1500(600Ca) mg daily Tablets Multivitamin D3 one tablet by Unknown mouth daily History Medications Augmentin take 1 tab twice 10tabs J06.9 Mc Bentley NP 01/23/2019 - 500-125mg a day for 5 02/08/2019 Tablets days. Medications Administered in Office Medication SIG Qnty Indications Ordering Provider Date Sh[facility] pharmacy administered Nicky Briones DO 11/08/2018 Injection Inj, Regadenoson, 0.1 MG João D. Brand, M.D. 09/10/2016 Injection Technetium TC 99M Tetrofosmin, João Valente M.D. 09/10/2016 Per Unit Dose Up To 40 Millicuries Injection Immunizations Description No Information Available Vital Signs Date Vital Result Comment 02/08/2019 10:06am Height 64.25 inches 5'4.25" Weight 120.00 lb Heart Rate 88 /min BP Systolic 156 mmHg BP Diastolic 86 mmHg Body Temperature 98.1 F O2 % BldC Oximetry 97 % BMI (Body Mass Index) 20.4 kg/m2 01/23/2019 8:53am Height 64.25 inches 5'4.25" Weight 121.50 lb Heart Rate 78 /min BP Systolic 133 mmHg BP Diastolic 81 mmHg Body Temperature 97.4 F O2 % BldC Oximetry 98 % BMI (Body Mass Index) 20.7 kg/m2 Results Test Acquired Date Facility Test Result H/L Range Note Laboratory test 12/07/2018 [facility] Vitamin D 39.0 ng/mL Normal 20-50 1 finding Total 25(Oh) [place] [address] [phone] Phosphorus 5.1 mg/dL High 2.5-5.0 Pthi 12/07/2018 [facility] Calcium (PTH 9.4 mg/dL Normal 8.6- 10.3 Intact) [place] [address] [phone] PTH Intact 56.6 pg/mL Normal 12-88 Laboratory 11/23/2018 [facility] Hemoglobin A1c 5.7 % High 4.0 -5.6 2 test finding (Glyco HGB) [place] [address] [phone] Laboratory 11/23/2018 [facility] TSH (Thyroid Stim 5.10 Normal 0.34-5.[address] Horm) mcIU/[place] [address] L [phone] Lipid Profile 11/23/2018 [facility] Triglycerides 131 4 (Trig/Chol/HDL [address] DR[address] mg/dL ) [place] [address] [phone] Cholesterol 164 mg/dL 5 HDL Cholesterol 61.5 mg/dL 6 LDL Cholesterol 76 mg/dL 7 Comp Metabolic 11/23/2018 [facility] Sodium 138 mmol/L Normal 135-[address] [place] [address] [phone] Potassium 4.6 mmol/L Normal 3.5-5.0 Chloride 110 mmol/L Normal 101-111 Co2 Carbon Dioxide 20 mmol/L Low 22-32 Anion Gap 8 mmol/L Normal 2-11 Glucose 117 mg/dL High 70-100 Blood Urea Nitrogen 32 mg/dL High 6-24 Creatinine 1.64 mg/dL High 0.51-0.95 BUN/Creatinine Ratio 19.5 Normal 8-20 Calcium 9.3 mg/dL Normal 8.6-10.3 Total Protein 6.7 g/dL Normal 6.4-8.9 Albumin 4.7 g/dL Normal 3.2-5.2 Globulin 2.0 g/dL Normal 2-4 Albumin/Globulin Ratio 2.4 Normal 1-3 Total Bilirubin 0.40 mg/dL Normal 0.2-1.0 Alkaline Phosphatase 77 U/L Normal 34-104 Alt 14 U/L Normal 7-52 Ast 17 U/L Normal 13-39 Egfr Non- 31.2 >60 Egfr 37.7 >60 8 Lipid Panel 11/23/2018 [facility] Creatine 62 U/L Normal 10- 223 9 - JFM [address] Kinase(CK) [place] [address] [phone] CBC Auto 11/23/2018 [facility] White Blood 5.3 Normal 3.5- 10.[address] Count 10^3/[place] [address] [phone] Red Blood Count 3.79 10^6/uL Normal 3.70-4.87 Hemoglobin 12.9 g/dL Normal 12.0-16.0 Hematocrit 38 % Normal 35-47 Mean Corpuscular Volume 101 fL High 80-97 Mean Corpuscular Hemoglobin 34 pg High 27-31 Mean Corpuscular HGB Conc 34 g/dL Normal 31-36 Red Cell Distribution Width 13 % Normal 10-15 Platelet Count 309 10^3/uL Normal 150-450 Mean Platelet Volume 6.8 fL Low 7.4-10.4 Abs Neutrophils 3.6 10^3/uL Normal 1.5-7.7 Abs Lymphocytes 1.0 10^3/uL Normal 1.0-4.8 Abs Monocytes 0.6 10^3/uL Normal 0-0.8 Abs Eosinophils 0.0 10^3/uL Normal 0-0.6 Abs Basophils 0.0 10^3/uL Normal 0-0.2 Abs Nucleated RBC 0.0 10^3/uL Granulocyte % 67.7 % Lymphocyte % 19.3 % Monocyte % 11.5 % Eosinophil % 0.9 % Basophil % 0.6 % Nucleated Red Blood Cells % 0.1 Laboratory test 11/23/2018 [facility] Point of 102 mg/dL High 70-[address] [place] [address] [phone] Urine Culture And 11/23/2018 [facility] Urine SEE RESULT [address] [place] [address] [phone] Urinalysis Profile 11/23/2018 [facility] Urine Color Yellow [address] [place] [address] [phone] Urine Appearance Clear Urine Specific [place] 1.008 Low 1.010-1.030 Urine pH 6.0 Normal 5-9 Urine Urobilinogen Negative Negative Urine Ketones Negative Negative Urine Protein Negative Negative Urine Leukocytes 1+ Abnormal Negative Urine Blood Negative Negative Urine Nitrite Negative Negative Urine Bilirubin Negative Negative Urine Glucose Negative Negative Urine White Blood Cell 1+(6-10/hpf) Abnormal Absent Urine Red Blood Cell Absent Absent Urine Bacteria Absent Absent Urine Squamous Epithelial Cell Present Abnormal Absent Laboratory test 11/23/2018 [facility] Creatine 83 U/L Normal 10-223 finding 101 [facility] Kinase(CK) [place] [address] [phone] Acetaminophen < 15 g/mL 12 Alcohol < 10 mg/dL Normal <10 Salicylate < 2.50 mg/dL <30 LDH 130 U/L Low 140-271 Lipid Profile 11/23/2018 [facility] Triglycerides 118 mg/dL 13 (Trig/Chol/HDL) [address] [place] [address] [phone] Cholesterol 161 mg/dL 14 HDL Cholesterol 64.2 mg/dL 15 LDL Cholesterol 73 mg/dL 16 Comp Metabolic 11/23/2018 [facility] Sodium 140 mmol/L Normal 135-145 Panel [address] [place] [address] [phone] Potassium 4.1 mmol/L Normal 3.5-5.0 Co2 Carbon Dioxide 18 mmol/L Low 22-32 Glucose 106 mg/dL High 70-100 Blood Urea Nitrogen 30 mg/dL High 6-24 Creatinine 1.71 mg/dL High 0.51-0.95 BUN/Creatinine Ratio 17.5 Normal 8-20 Calcium 9.4 mg/dL Normal 8.6-10.3 Total Protein 6.9 g/dL Normal 6.4-8.9 Albumin 4.7 g/dL Normal 3.2-5.2 Globulin 2.2 g/dL Normal 2-4 Albumin/Globulin Ratio 2.1 Normal 1-3 Total Bilirubin 0.40 mg/dL Normal 0.2-1.0 Alkaline Phosphatase 70 U/L Normal 34-104 Alt 14 U/L Normal 7-52 Ast 18 U/L Normal 13-39 Egfr Non- 29.7 >60 Egfr 35.9 >60 17 Chloride 113 mmol/L High 101-111 Anion Gap 9 mmol/L Normal 2-11 Laboratory 11/23/2018 [facility] Troponin-I 0.01 <0.04 18 test finding [address] (TnI) ng/[place] [address] [phone] CBC Auto Diff 11/23/2018 [facility] White Blood 5.7 Normal 3.5 -10.[address] Count 10^3/[place] [address] [phone] Red Blood Count 3.73 10^6/uL Normal 3.70-4.87 Hemoglobin 12.6 g/dL Normal 12.0-16.0 Hematocrit 37 % Normal 35-47 Mean Corpuscular Volume 100 fL High 80-97 Mean Corpuscular Hemoglobin 34 pg High 27-31 Mean Corpuscular HGB Conc 34 g/dL Normal 31-36 Red Cell Distribution Width 13 % Normal 10-15 Platelet Count 287 10^3/uL Normal 150-450 Mean Platelet Volume 6.7 fL Low 7.4-10.4 Abs Neutrophils 4.1 10^3/uL Normal 1.5-7.7 Abs Lymphocytes 0.9 10^3/uL Low 1.0-4.8 Abs Monocytes 0.6 10^3/uL Normal 0-0.8 Abs Eosinophils 0.0 10^3/uL Normal 0-0.6 Abs Basophils 0.0 10^3/uL Normal 0-0.2 Abs Nucleated RBC 0.0 10^3/uL Granulocyte % 71.6 % Lymphocyte % 16.1 % Monocyte % 10.9 % Eosinophil % 0.8 % Basophil % 0.6 % Nucleated Red Blood Cells % 0.0 Laboratory 11/23/2018 [facility] Partial 34.8 Normal 26.0- 38.0 test finding [address] Th[place] [address] PTT [phone] Inr/Protime 11/23/2018 [facility] Inr 0.89 Normal 0.82-1.[address] [place], [place] [id number] [phone] Laboratory 11/23/2018 [facility] Lactic Acid 0.7 mmol/L Normal 0.5-2.0 20 test finding [address] [place], [place] [id number] [phone] Urine Drug 11/23/2018 [facility] Urine None None Detect SCR ED & Pain [address] Amphetamine [place] [address] Screen [phone] Urine Barbiturates Screen None Detected None Detect Urine Benzodiazepine Screen None Detected None Detect Urine Cannabinoids Screen None Detected None Detect Urine Cocaine Screen None Detected None Detect Urine Opiates Screen None Detected None Detect Urine Phencyclidine Screen None Detected None Detect 21 1 Total 25-Hydroxyvitamin D2 and D3 (25-OH-VitD) <10 ng/mL (severe deficiency) 10-19 ng/mL (mild to moderate deficiency) 20-50 ng/mL (optimum levels) 51-80 ng/mL (increased risk of hypercalciuria) >80 ng/mL (toxicity possible) 2 Therapeutic target for the treatment of diabetes mellitus patients is <7% HBA1C, and in selective patients <6.0%. Please refer to [place] Diabetes Association diabetic care guidelines for further information. 3 FASTING in 1-3 m Copy Result to: NICKY BRIONES ([id number]) 4 Desirable: <150 Borderline High: 150-199 High: 200-499 Very High: >500 5 Desirable: <200 Borderline High: 200-239 High: >239 6 Low: <40 Desirable: 40-60 High: >60 7 Desirable: <100 Near Optimal: 100-129 Borderline High: 130-159 High: 160-189 Very High: >189 8 Because ethnic data is not always readily [...] 15-29 5 Kidney failure <15 (or dialysis) 9 FASTING in 1-3 m Copy Result to: NICKY BRIONES ([id number]) 10 Air Brake Worker: [id number] SEE RESULT BELOW Name: NAHEED SOSA V : [address]: Nicky Briones DO Acct: [id number] Unit: [id number] AGE: 68 Location: [place] [address] Re11/23/18 Dis: 11/24/18 SEX: F Status: DIS Deann SPEC: [id number] JOHN: 11/23/18-[address] [facility] [address]: Lucas Ventura MD REQ: [id number] RECD: 11/23/18 STATUS: MAGGIE HIGHTOWER DR: Nicky Briones DO _ SOURCE: URINE SPDESC: ORDERED: Urine Culture Procedure Result Reported Site Urine Culture Final 11/24/18- 1612 ML No Growth (<1,000 CFU/mL) * ML - Main Lab . END OF REPORT DEPARTMENT OF PATHOLOGY, [address] [place] [address] Adriano Barrso M.D. Director [facility] # [id number] 12 Therapeutic concentration: <50 ug/mL Toxic concentration: >120 ug/mL 13 Desirable: <150 Borderline High: 150-199 High: 200-499 Very High: >500 14 Desirable: <200 Borderline High: 200-239 High: >239 15 Low: <40 Desirable: 40-60 High: >60 16 Desirable: <100 Near Optimal: 100-129 Borderline High: 130-159 High: 160-189 Very High: >189 17 Because ethnic data is not always readily [...] 15-29 5 Kidney failure <15 (or dialysis) 18 Troponin-I testing on Plasma Separator Tubes (PST) has a known false positive rate of 0.20-0.40%. All positive troponins reflex immediately to secondary confirmatory testing. Using the [employer] DxI 800 Access Immunoassay systems, the 99th percentile upper reference limit was demonstrated to be < 0.03 ng/mL. 19 Standard intensity warfarin therapeutic range: 2.0-3.0 High intensity warfarin therapeutic range: 2.5-3.5 20 [facility] Severe Sepsis and Septic Shock Management Bundle Measure requires all lactic acids initially measuring >2.0 mmol/L be repeated. 21 The urine specimen was tested at the listed cutoffs: Drug class test level (ng/mL) Amphetamines 500 Barbiturates 200 Benzodiazepine metabolites 200 Cocaine metabolites 150 Cannabinoids 50 Opiates 300 Pcp 25 Specimen was received without chain of custody. Results should be used for medical purposes only. Procedures Date Code Description Status 11/17/2018 [id number] Bone Mineral Density Test Completed 09/08/2018 [id number] Mammogram Completed 07/28/2017 [id number] Diabetic Retinal Eye Exam Completed 09/14/2016 [id number] Mammogram Completed Medical Devices Description No Information Available Encounters Type Date Location Provider Dx Diagnosis Office Visit 01/23/2019 [facility] Nicky Briones, J06.9 Acute upper 9:00a Medicine - Suite R DO respiratory infection, unspecified Office Visit 12/07/2018 [facility] Lynn Plasencia, M81.0 Age- related 2:30p of [facility] [place] osteoporosis w/o current pathological fracture Office Visit 11/24/2018 [facility] Nicky Briones, R41.0 Disorientation, 9:48a Assoc,pc DO unspecified Hospitalists F31.9 Bipolar disorder, unspecified Office Visit 11/23/2018 9:47a [facility] Sury Tomer, R41.82 Altered mental Assoc,pc MANAGER OF SALES status, Hospitalists unspecified G92 Toxic encephalopathy N18.9 Chronic kidney disease, unspecified G43.909 Migraine, unsp, not intractable, without status migrainosus F31.9 Bipolar disorder, unspecified Office Visit 11/08/2018 10:00a [facility] Internal Nicky Briones, Z86.73 Prsnl hx of TIA Medicine - Suite DO (TIA), and cereb R infrc w/o resid deficits F41.9 Anxiety disorder, unspecified F31.9 Bipolar disorder, unspecified E03.9 Hypothyroidism, unspecified Z13.820 Encounter for screening for osteoporosis N18.9 Chronic kidney disease, unspecified Office Visit 10/12/2018 [facility] Tanya Serrato, Z86.73 Prsnl hx of 9:00a Clinic M.D. TIA (TIA), and cereb infrc w/o resid deficits F41.9 Anxiety disorder, unspecified G43.709 Chronic migraine w/o aura, not intractable, w/o stat migr Assessments Date Code Description Provider 02/08/2019 J06.9 Acute upper respiratory infection, unspecified Ruel Garrett MD 01/23/2019 J06.9 Acute upper respiratory infection, unspecified Nicky Senner, DO 12/07/2018 M81.0 Age-related osteoporosis without current Lynn Plasencia MD pathological fracture 12/06/2018 Z86.73 Personal history of transient ischemic attack Nicky Briones DO (TIA), and cer 12/06/2018 F31.9 Bipolar disorder, unspecified Nicky Senner, DO 12/06/2018 N18.9 Chronic kidney disease, unspecified Nicky Senner, DO 12/06/2018 M81.0 Age-related osteoporosis without current Nicky Senner, DO pathological fracture 11/24/2018 R41.0 Disorientation, unspecified Nicky Senner, DO 11/24/2018 F31.9 Bipolar disorder, unspecified Nicky Senner, DO 11/23/2018 R41.82 Altered mental status, unspecified Sury Tomer, MANAGER OF SALES 11/23/2018 G92 Toxic encephalopathy Sury Tomer, MANAGER OF SALES 11/23/2018 N18.9 Chronic kidney disease, unspecified Sury Tomer, MANAGER OF SALES 11/23/2018 G43.909 Migraine, unspecified, not intractable, Sury Tomer, MANAGER OF SALES without status migrainosus 11/23/2018 F31.9 Bipolar disorder, unspecified Sury Tomer, MANAGER OF SALES 11/08/2018 Z86.73 Personal history of transient ischemic attack Nicky Angy, (TIA), and cer 11/08/2018 F41.9 Anxiety disorder, unspecified Nicky Senner, DO 11/08/2018 F31.9 Bipolar disorder, unspecified Nicky Senner, DO 11/08/2018 E03.9 Hypothyroidism, unspecified Nicky Senner, DO 11/08/2018 Z13.820 Encounter for screening for osteoporosis Nickyjoaquín Briones, DO 11/08/2018 N18.9 Chronic kidney disease, unspecified Nicky Senner, DO 10/12/2018 Z86.73 Personal history of transient ischemic attack Tanya Serrato M.D. (TIA), and cer 10/12/2018 F41.9 Anxiety disorder, unspecified Tanya Serrato M.D. 10/12/2018 G43.709 Chronic migraine without aura, not Tanya Serrato M.D. intractable, without status migrainosus Plan of Treatment Future Appointment(s):04/19/2019 9:00 am - Tanya Serrato M.D. at [facility]302/08/2019 - Ruel Garrett MDJ06.9 Acute upper respiratory infection, unspecifiedNew Medication:Azithromycin 250 mg - If you develop a fever while you travel take 2 tabs on first day then 1 tab for next 4 days.Comments:Bronchitis is most likely of viral origin and can take up to 8 weeks to get completely over. I do NOT recommend any more antibiotics at this time as I don't think they will be of any benefit. You just complete a 10 day course of Augmentin. I will given you a Azithromycin opal to be used in case you develop fever or worse symptoms while you are out of town. Functional Status Description No Information Available Mental Status Description No Information Available Referrals Refer to Reason for Referral Status Appt Date Lynn Plasencia MD Scheduled 12/07/2018 [facility] [place] [address] [phone]
--- NOTE | 2019-04-05 19:07 | ED ---
Headache - HPI Summary HPI Summary: 69 year [facility] [place] [facility] [place] of constant frontal migraine headache rated 10/10 in severity x4 days. Hx migraine headaches, last one being in November 2018 when she was seen in the ED and received migraine cocktail which helped. Usually takes Benadryl and extra strength Tylenol at home which helps. Tried taking home medications this time with no relief. No visual changes , photophobia, nausea/vomiting, abdominal pain, decreased appetite. Current migraine headache is similar to ones she's had before. Sees Dr. Cardenas neurology. Had an appointment scheduled for April 2019 which was cancelled today. Has been on Topamax for years. Still on it. Symptoms aggravated by nothing. Symptoms alleviated by nothing. Medications reviewed. Allergies noted. - History Of Current Complaint Chief Complaint: EDHeadache Stated Complaint: MIGRAINE PER PT Time Seen by Provider: 04/05/19 19:01 Hx Obtained From: Patient Onset/Duration: Started days ago - 4, Still Present Currently Pain Is: Current Pain Scale(0-10)= - 10, Severe Timing: Constant Location of Headache: Frontal Aggravating Factor: Nothing Allevating Factors: Nothing Associated Signs And Symptoms: Negative - visual changes, photophobia, nausea/ vomiting, abdominal pain, decreased appetite - Allergies/Home Medications Allergies/Adverse Reactions: Allergies Allergy/AdvReac Type Severity Reaction Status Date / Time tramadol AdvReac See Comment Verified 04/05/19 15:25 PMH/Surg Hx/FS Hx/Imm Hx Endocrine/Hematology History: Denies: Hx Diabetes Cardiovascular History: Reports: Hx Hypotension, Other Cardiovascular Problems/ Disorders - severe hypotension with tramadol Denies: Hx Hypertension, Hx Pacemaker/ICD Respiratory History: Reports: Other Respiratory Problems/Disorders - Respiratory Failure GI History: Reports: Hx Obstructive Bowel, Other GI Disorders - hx of MULTIPLE SBO History: Reports: Hx Acute Renal Failure, Other Problems/Disorders - URINARY RETENTION 04/25/16 [facility] [place] [facility] Denies: Hx Renal Disease Sensory History: Reports: Hx Cataracts - both eyes, Hx Contacts or Glasses Denies: Hx Hearing Aid, Other Sensory Impairments Opthamlomology History: Reports: Hx Cataracts - both eyes, Hx Contacts or Glasses Denies: Other Sensory Impairments Neurological History: Reports: Hx Headaches, Hx Migraine - prn meds Psychiatric History: Reports: Hx Anxiety - HX OF BIPOLAR, SCHIZOPHRENIA, Hx Depression, Hx Schizophrenia, Hx Bipolar Disorder, Hx Suicide Attempt Denies: Hx Panic Disorder - Cancer History Hx Chemotherapy: No Hx Radiation Therapy: No - Surgical History Surgery Procedure, Year, and Place: total hysterectomy w/appendectomy, 2 c- sections, RT SHOULDER Hx Anesthesia Reactions: No - Immunization History Date of Tetanus Vaccine: utd Date of Influenza Vaccine: utd Infectious Disease History: No Infectious Disease History: Denies: Traveled Outside the [place] in Last 30 Days - Family History Known Family History: Positive: Other - No FMHx of breast cancer, FHx of depression Family History: No FHx of Breast CA. FHx of depression - Social History Alcohol Use: Weekly Alcohol Amount: once a week Hx Substance Use: Yes Substance Use Type: Reports: Prescribed Substance Use Comment - Amount & Last Used: RX benzos Hx Tobacco Use: Yes Smoking Status (MU): Former Smoker Amount Used/How Often: smoked for approx 30 yrs 1/2-1ppd Length of Time of Smoking/Using Tobacco: 30 years Review of Systems Eyes: Negative - visual changes Negative: Photophobia Gastrointestinal: Negative - decreased appetite Negative: Abdominal Pain, Vomiting, Nausea Positive: Headache All Other Systems Reviewed And Are Negative: Yes Physical Exam - Summary Physical Exam Summary: Appearance: Well-appearing, Well-nourished, lying in bed comfortably Skin: Warm, dry, no obvious rash Eyes: sclera anicteric, no conjunctival pallor ENT: mucous membranes moist, pharynx appears normal Neck: Supple, nontender Respiratory: Clear to auscultation, no signs of respiratory distress Cardiovascular: Normal S1, S2. No murmurs. Normal distal pulses in tibial and radial bilaterally. Abdomen: Soft, nontender, normal active bowel sounds present Musculoskeletal: Normal, Strength/ROM Intact Neurological: A&Ox3, awake and alert, mentation is normal, speech is fluent and appropriate Psychiatric: affect is normal, does not appear anxious or depressed Triage Information Reviewed: Yes Vital Signs On Initial Exam: Initial Vitals Temp Pulse Resp BP Pulse Ox 98.3 F 85 19 195/128 98 04/05/19 15:21 04/05/19 15:21 04/05/19 15:21 04/05/19 15:21 04/05/19 15:21 Vital Signs Reviewed: Yes Procedures - Sedation Patient Received Moderate/Deep Sedation with Procedure: No Diagnostics - Vital Signs Vital Signs Temp Pulse Resp BP Pulse Ox 04/05/19 15:21 98.3 F 85 19 195/128 98 - Laboratory Lab Statement: Any lab studies that have been ordered have been reviewed, and results considered in the medical decision making process. Re-Evaluation - Re-Evaluation First Eval Re-Evaluation Time: 21:20 Change: Improved - patient feels better after medications she is agreeable to d/ c Headache Course/Dx - Course Course Of Treatment: 69 y/o F with hx migraine headaches presents with constant frontal migraine headache x4 days. Last seen in the ED November 2018 for migraine headache and was given migraine cocktail which helped. Tried taking home medications this time with no relief. No visual changes, photophobia, nausea/vomiting, abdominal pain, decreased appetite. Current migraine headache is similar to ones she's had before. Sees Dr. Cardenas neurology. Has been on Topamax for years. Physical exam unremarkable. In the ED course, the patient was given Benadryl, Toradol, normal saline fluids, and Compazine. Patient feels better after receiving her medications. Her migraine headache has resolved. Patient will be discharged home with follow up from her primary care provider. Patient was instructed to return to Emergency Department for new or worsening symptoms. Patient understands and is agreeable to this plan. - Diagnoses Provider Diagnoses: Migraine headache Discharge ED - Sign-Out/Discharge Documenting (check all that apply): Patient Departure - Discharge Plan Condition: Improved Disposition: HOME Patient Education Materials: Migraine Headache (ED) Referrals: Love Travis DO [Primary Care Provider] - If Needed - Billing Disposition and Condition Condition: IMPROVED Disposition: Home - Attestation Statements Document Initiated by Shereen: Yes Documenting Scribe: Rima Jerry Provider For Whom Shereen is Documenting (Include Credential): Sang Colon MD Scribjony Attestation: Rima Tompkins, scribed for Sang Colon MD on 04/06/19 at 0510. Scribe Documentation Reviewed: Yes Provider Attestation: The documentation as recorded by the Rima rajan accurately reflects the service I personally performed and the decisions made by me, Sang Colon MD Status of Scribe Document: Viewed
[2019-04-05] MEDS ORDERED: diPHENhydraMINE IV* 50 MG/ML 1 ml VIAL (BENADRYL) IV ONE (19:09)
[2019-04-05] MEDS ORDERED: PROCHLORPERAZINE INJ 5 MG/ML 2 ML VIAL IV ONE (19:09)
[2019-04-05] MEDS ORDERED: Ketorolac INJ* 30 MG/ML 1 ML VIAL IV PUSH ONE (19:09)
[2019-04-05] MEDS ORDERED: NS 0.9% 1000 ML** 2,000 ML IV ONE (19:09)
[2019-04-05] MEDS ORDERED: Dexamethasone IV* 4 MG/ML 1 ML (4 MG) IV SLOW PU ONE (21:27)
[2019-04-05 21:42] VITALS: BP 172/96
== END 2019-04-05 21:39 | disposition home or self-care (01) ==
LOC: ED 15:06
DX: G43.909 Migraine, unspecified, not intractable, without status migrainosus (principal); F41.9 Anxiety disorder, unspecified; F31.9 Bipolar disorder, unspecified; F20.9 Schizophrenia, unspecified; Z87.891 Personal history of nicotine dependence; Z90.710 Acquired absence of both cervix and uterus; Z90.89 Acquired absence of other organs; Z79.899 Other long term (current) drug therapy; Z88.5 Allergy status to narcotic agent
CPT/HCPCS: 96361; 96374; 96375; 99282; J0780; J1100; J1200; J1885